=== PATIENT | female | born 1955 | race Caucasian/White ===

== ENCOUNTER 2024-03-01 06:13 | Inpatient (IN) | payer MEDICARE, OTHER ==
--- NOTE | 2024-03-01 06:18 | ED ---
SOB HPI - General Stated Complaint: WILFREDO, possible Stemi Time Seen by Provider: 03/01/24 06:17 Source: RN notes reviewed, old records reviewed Mode of arrival: EMS Limitations: no limitations, altered mental status, physical limitation - History of Present Illness Initial Comments: This is a 68-year-old aged female with significant respiratory distress unresponsive placed on BiPAP on arrival patient unable to provide history secondary to her severe distress MD Complaint: shortness of breath, cough, "asthma attack", anxiety -: unknown Severity: severe Severity scale (1-10): 10 Consistency: constant Improves With: nothing Worsens With: nothing Known History Of: COPD, asthma, congestive heart failure, diabetes Context: recent URI, anxiety, recent illness Associated Symptoms: cough Treatments Prior to Arrival: none - Related Data Home Medications Medication Instructions Recorded Confirmed Apixaban [Eliquis] 5 mg PO BID 12/16/23 03/01/24 Docusate [Colace] 100 mg PO DAILY 12/16/23 03/01/24 Dulaglutide [Trulicity] 0.75 mg SQ WE 12/16/23 03/01/24 Gabapentin [Neurontin] 100 mg PO DAILY 12/16/23 03/01/24 Cyanocobalamin (Vitamin B-12) 1,000 mcg PO DAILY 03/01/24 03/01/24 [Vitamin B-12] Fluticasone/Umeclidin/Vilanter 1 puff INHALATION RT-DAILY 03/01/24 03/01/24 [Trelegy Ellipta 100-62.5-25] Previous Rx's Medication Instructions Recorded Albuterol Inhaler [Ventolin Hfa 1 puff INHALATION RT-Q4H PRN 30 12/19/23 Inhaler] Days #1 each Aspirin 81 mg PO DAILY #30 tab 03/06/24 Atorvastatin [Lipitor] 80 mg PO HS #30 tab 03/06/24 Clopidogrel [Plavix] 75 mg PO DAILY #30 tab 03/06/24 Dapagliflozin Propanediol [Farxiga] 10 mg PO DAILY #30 tab 03/06/24 Furosemide [Lasix] 20 mg PO DAILY #30 tab 03/06/24 Metoprolol Succinate (ER) [Toprol 100 mg PO DAILY #30 tab 03/06/24 XL] Nicotine 21Mg/24Hr Patch [Habitrol] 1 patch TRANSDERM DAILY patch 03/06/24 Sacubitril/Valsartan [Entresto 24 1 each PO BID #60 tab 03/06/24 mg-26 mg Tablet] predniSONE [Deltasone] 40 mg PO DAILY #10.5 tab 03/06/24 Allergies Allergy/AdvReac Type Severity Reaction Status Date / Time clindamycin Allergy Unknown Verified 03/01/24 09:33 Penicillins Allergy Unknown Verified 03/01/24 09:33 sulfamethoxazole Allergy Unknown Verified 03/01/24 09:33 [From Bactrim] trimethoprim [From Bactrim] Allergy Unknown Verified 03/01/24 09:33 Review of Systems ROS Statement: Those systems with pertinent positive or pertinent negative responses have been documented in the HPI. ROS Other: All systems not noted in ROS Statement are negative. Past Medical History - Past Family History Mother Family Medical History: Congestive Heart Failure (CHF), Diabetes Mellitus, Deep Vein Thrombosis (DVT) General Exam Limitations: altered mental status, physical limitation General appearance: anxious, in distress Head exam: Present: atraumatic, normocephalic, normal inspection Eye exam: Present: normal appearance, PERRL, EOMI. Absent: scleral icterus, conjunctival injection, periorbital swelling ENT exam: Present: normal exam, mucous membranes moist Neck exam: Present: normal inspection. Absent: tenderness, meningismus, lymphadenopathy Respiratory exam: Present: wheezes, accessory muscle use, decreased breath sounds, prolonged expiratory. Absent: rales, rhonchi, stridor Cardiovascular Exam: Present: regular rate, normal rhythm, normal heart sounds. Absent: systolic murmur, diastolic murmur, rubs, gallop, clicks GI/Abdominal exam: Present: soft, normal bowel sounds. Absent: distended, tenderness, guarding, rebound, rigid Extremities exam: Present: normal inspection, full ROM, normal capillary refill. Absent: tenderness, pedal edema, joint swelling, calf tenderness Back exam: Present: normal inspection Neurological exam: Present: alert, oriented X3, CN II-XII intact Psychiatric exam: Present: normal affect, normal mood Skin exam: Present: warm, dry, intact, normal color. Absent: rash Course Vital Signs 03/01/24 03/01/24 03/01/24 06:14 06:23 06:30 Temperature 96.8 F L Pulse Rate 146 H 147 H Pulse Rate [ Pulse Oximetery ] Respiratory 24 Rate Blood Pressure 154/96 Blood Pressure [Right Arm Sitting] O2 Sat by Pulse 96 Oximetry Fraction of 40 Inspired Oxygen (FIO2) 03/01/24 03/01/24 03/01/24 06:46 07:37 07:51 Temperature 98.4 F Pulse Rate 141 H 131 H Pulse Rate [ Pulse Oximetery ] Respiratory 28 H 28 H Rate Blood Pressure 132/85 108/56 Blood Pressure [Right Arm Sitting] O2 Sat by Pulse 98 97 Oximetry Fraction of 40 Inspired Oxygen (FIO2) 03/01/24 03/01/24 03/01/24 09:22 09:23 10:34 Temperature Pulse Rate 122 H 120 H Pulse Rate [ Pulse Oximetery ] Respiratory 18 20 Rate Blood Pressure 107/79 117/76 Blood Pressure [Right Arm Sitting] O2 Sat by Pulse 99 100 Oximetry Fraction of Inspired Oxygen (FIO2) 03/01/24 03/01/24 03/01/24 11:09 12:10 14:02 Temperature Pulse Rate 114 H 112 H 103 H Pulse Rate [ Pulse Oximetery ] Respiratory 16 16 14 Rate Blood Pressure 90/56 111/73 Blood Pressure [Right Arm Sitting] O2 Sat by Pulse 100 96 Oximetry Fraction of 40 Inspired Oxygen (FIO2) 03/01/24 03/01/24 03/01/24 15:18 15:26 17:50 Temperature Pulse Rate 112 H 112 H 112 H Pulse Rate [ Pulse Oximetery ] Respiratory 20 20 18 Rate Blood Pressure 118/72 Blood Pressure [Right Arm Sitting] O2 Sat by Pulse 98 Oximetry Fraction of Inspired Oxygen (FIO2) 03/01/24 03/01/24 03/01/24 19:57 21:02 21:15 Temperature Pulse Rate 109 H 112 H Pulse Rate [ 114 H Pulse Oximetery ] Respiratory 24 Rate Blood Pressure Blood Pressure 99/60 [Right Arm Sitting] O2 Sat by Pulse 93 L Oximetry Fraction of Inspired Oxygen (FIO2) 03/01/24 22:00 Temperature Pulse Rate 109 H Pulse Rate [ Pulse Oximetery ] Respiratory 18 Rate Blood Pressure 94/52 Blood Pressure [Right Arm Sitting] O2 Sat by Pulse 97 Oximetry Fraction of Inspired Oxygen (FIO2) - Reevaluation(s) Reevaluation #1: 03/01/24 06:41 Medical records reviewed Patient placed on BiPAP on arrival secondary to severe distress Reevaluation #2: 03/01/24 06:41 Patient placed on BiPAP on arrival secondary to extreme respiratory distress Reevaluation #3: Patient symptoms are mildly improving Reevaluation #4: Was pt. sent in by a medical professional or institution (ANGELINE Yu, CARD FIXER, urgent care, hospital, or senior living...) When possible be specific @ -no Did you speak to anyone other than the patient for history (EMS, parent, family, police, friend...)? What history was obtained from this source @ -no Did you review nursing and triage notes (agree or disagree)? Why? @ -agree Are old charts reviewed (outside hosp., previous admission, EMS record, old EKG, old radiological studies, urgent care reports/EKG's, senior living records)? Report findings @ -yes Differential Diagnosis (chest pain, altered mental status, abdominal pain women, abdominal pain men, vaginal bleeding, weakness, fever, dyspnea, syncope, headache, dizziness, GI bleed, back pain, seizure, CVA, palpatations, mental health, musculoskeletal)? @ -prior EKG interpreted by me (3pts min.). @ -yes X-rays interpreted by me (1pt min.). @ -yes negative for acute disease CT interpreted by me (1pt min.). @ -no U/S interpreted by me (1pt. min.). @ -no What testing was considered but not performed or refused? (CT, X-rays, U/S, labs)? Why? @ -none What meds were considered but not given or refused? Why? @ -none Did you discuss the management of the patient with other professionals (professionals i.e. ANGELINE Yu, CARD FIXER, lab, RT, psych nurse, licensed clinical social worker, pharmacy services representative, teacher, examining officer, telephonic nurse case manager)? Give summary @ -no Was smoking cessation discussed for >3mins.? @ -no Was critical care preformed (if so, how long)? @ -yes31 Were there social determinants of health that impacted care today? How? (Homelessness, low income, unemployed, alcoholism, drug addiction, transportati on, low edu. Level, literacy, decrease access to med. care, correction, rehab)? @ -none Was there de-escalation of care discussed even if they declined (Discuss DNR or withdrawal of care, Hospice)? DNR status @ -no What co-morbidities impacted this encounter? (DM, HTN, Smoking, COPD, CAD, Cancer, CVA, ARF, Chemo, Hep., AIDS, mental health diagnosis, sleep apnea, morbid obesity)? @ -none Was patient admitted / discharged? Hospital course, mention meds given and route, prescriptions, significant lab abnormalities, going to OR and other pertinent info. @ - 68 female coming in for severe shortness of breath since this is likely COPD exacerbation complicated by CHF and pneumonitis with significant wheezing paradoxical breathing patient placed on BiPAP and will admit for further supportive care Admitted Undiagnosed new problem with uncertain prognosis? @ -no Drug Therapy requiring intensive monitoring for toxicity (Heparin, Nitro, Insulin, Cardizem)? @ -no Were any procedures done? @ -no Diagnosis/symptom? @ -Hypoxic respiratory failure Acute, or Chronic, or Acute on Chronic? @ -Acute Uncomplicated (without systemic symptoms) or Complicated (systemic symptoms)? @ -Complicated Side effects of treatment? @ -no Exacerbation, Progression, or Severe Exacerbation? @ -exacerbation Poses a threat to life or bodily function? How? (Chest pain, USA, NM, pneumonia, PE, COPD, DKA, ARF, appy, cholecystitis, CVA, Diverticulitis, Homicidal, Suicidal, threat to staff... and all critical care pts) @ -yes respiratory failure Reevaluation #5: Differential Dyspnea: Coronary syndrome, arrhythmia, tamponade, asthma, COPD, pulmonary embolism, pneumonia, pneumothorax, pulmonary effusion, anaphylaxis, diabetic ketoacidosis, flailed chest, pulmonary contusion, diaphragmatic rupture, anemia, neuromuscular, this is not meant to be an all-inclusive list. - Consultations Consultation #1: Spoke with admitting physicians who agreed to admit this patient Medical Decision Making - Medical Decision Making 68 female coming in for severe shortness of breath since this is likely COPD exacerbation complicated by CHF and pneumonitis with significant wheezing paradoxical breathing patient placed on BiPAP and will admit for further supportive care - Lab Data Result diagrams: 03/06/24 09:16 03/06/24 09:16 Lab Results 03/01/24 03/01/24 03/01/24 Range/Units 06:24 06:24 06:24 WBC 13.9 H (3.8-10.6) k/uL RBC 4.59 (3.80-5.40) m/uL Hgb 13.7 (11.4-16.0) gm/dL Hct 44.1 (34.0-46.0) % MCV 96.0 (80.0-100.0) fL MCH 29.8 (25.0-35.0) pg MCHC 31.1 (31.0-37.0) g/dL RDW 15.4 (11.5-15.5) % Plt Count 448 (150-450) k/uL MPV 8.7 Neutrophils % 56 % Lymphocytes % 29 % Monocytes % 5 % Eosinophils % 9 % Basophils % 0 % Neutrophils # 7.8 H (1.3-7.7) k/uL Lymphocytes # 4.0 (1.0-4.8) k/uL Monocytes # 0.6 (0-1.0) k/uL Eosinophils # 1.2 H (0-0.7) k/uL Basophils # 0.1 (0-0.2) k/uL Hypochromasia Marked PT 10.1 (10.0-12.5) sec INR 0.9 (<1.2) APTT 22.1 (22.0-30.0) sec D-Dimer (<0.60) mg/L FEU Sodium 137 (137-145) mmol/L Potassium 5.2 H (3.5-5.1) mmol/L Chloride 103 (98-107) mmol/L Carbon Dioxide 19 L (22-30) mmol/L Anion Gap 15 mmol/L BUN 22 H (7-17) mg/dL Creatinine 1.10 H (0.52-1.04) mg/dL Est GFR (CKD-EPI)AfAm 60 (>60 ml/min/1.73 sqM) Est GFR (CKD-EPI)NonAf 52 (>60 ml/min/1.73 sqM) Glucose 334 H (74-99) mg/dL Plasma Lactic Acid Mark (0.7-2.0) mmol/L Calcium 9.4 (8.4-10.2) mg/dL Magnesium 2.3 (1.6-2.3) mg/dL Total Bilirubin 0.5 (0.2-1.3) mg/dL AST 42 H (14-36) U/L ALT 27 (4-34) U/L Alkaline Phosphatase 121 (38-126) U/L Troponin I (0.000-0.034) ng/mL NT-Pro-B Natriuret Pep 96 pg/mL Total Protein 6.8 (6.3-8.2) g/dL Albumin 4.3 (3.5-5.0) g/dL 03/01/24 03/01/24 03/01/24 Range/Units 06:24 06:24 06:24 WBC (3.8-10.6) k/uL RBC (3.80-5.40) m/uL Hgb (11.4-16.0) gm/dL Hct (34.0-46.0) % MCV (80.0-100.0) fL MCH (25.0-35.0) pg MCHC (31.0-37.0) g/dL RDW (11.5-15.5) % Plt Count (150-450) k/uL MPV Neutrophils % % Lymphocytes % % Monocytes % % Eosinophils % % Basophils % % Neutrophils # (1.3-7.7) k/uL Lymphocytes # (1.0-4.8) k/uL Monocytes # (0-1.0) k/uL Eosinophils # (0-0.7) k/uL Basophils # (0-0.2) k/uL Hypochromasia PT (10.0-12.5) sec INR (<1.2) APTT (22.0-30.0) sec D-Dimer 0.80 H (<0.60) mg/L FEU Sodium (137-145) mmol/L Potassium (3.5-5.1) mmol/L Chloride (98-107) mmol/L Carbon Dioxide (22-30) mmol/L Anion Gap mmol/L BUN (7-17) mg/dL Creatinine (0.52-1.04) mg/dL Est GFR (CKD-EPI)AfAm (>60 ml/min/1.73 sqM) Est GFR (CKD-EPI)NonAf (>60 ml/min/1.73 sqM) Glucose (74-99) mg/dL Plasma Lactic Acid Mark 5.5 H* (0.7-2.0) mmol/L Calcium (8.4-10.2) mg/dL Magnesium (1.6-2.3) mg/dL Total Bilirubin (0.2-1.3) mg/dL AST (14-36) U/L ALT (4-34) U/L Alkaline Phosphatase (38-126) U/L Troponin I <0.012 (0.000-0.034) ng/mL NT-Pro-B Natriuret Pep pg/mL Total Protein (6.3-8.2) g/dL Albumin (3.5-5.0) g/dL - EKG Data -: EKG Interpreted by Me (EKG is sinus tachycardia 146 VA 158 QRS 68 QTc 359) - Radiology Data Radiology results: report reviewed (Chest x-ray is positive for CHF with pneumonitis), image reviewed Critical Care Time Critical Care Time: Yes Total Critical Care Time: 31 Disposition Clinical Impression: Acute exacerbation of chronic obstructive pulmonary disease, Asthma with acute exacerbation, Asthma with status asthmaticus, Acute respiratory failure, Hypoxia, CHF (congestive heart failure) Disposition: ADMITTED IP TO THIS HOSP Condition: Serious Is patient prescribed a controlled substance at d/c from ED?: No Time of Disposition: 08:50
[2024-03-01] MEDS: SODIUM CHLORIDE 0.9% 1,000 ML IV STA (06:23)
[2024-03-01] MEDS: methylPREDNISolone SOD SUCCI 125 MG/2 ML VIAL IV STA (06:26)
[2024-03-01] MEDS: MORPHINE SULFATE 2 MG/ML SYRINGE IVP STA (06:28)
[2024-03-01] MEDS: MAGNESIUM SULFATE-D5W PMX 1 GM in DEXTROSE/WATER 1 100ML.BAG IVPB SCH (06:41)
[2024-03-01] MEDS: ALBUTEROL NEBULIZED 2.5 MG/3 ML INHALATION STA (06:44)
[2024-03-01] MEDS: IPRATROPIUM 0.5 MG/2.5 ML NEBU INHALATION STA (06:45)
[2024-03-01] MEDS ORDERED: NALOXONE 0.4 MG/ML 1 ML VIAL IV PRN (06:51)
[2024-03-01] MEDS ORDERED: NALOXONE 0.4 MG/ML 1 ML VIAL IVP PRN (06:51)
[2024-03-01] MEDS ORDERED: ONDANSETRON 4 MG/2 ML VIAL IVP PRN (06:51)
[2024-03-01] MEDS: DILTIAZEM DRIP BOLUS FROM BAG 1 MG SOLN IV ONE (07:05)
[2024-03-01] MEDS: DILTIAZEM 125 MG in SODIUM CHLORIDE 0.9% 100 ML IV SCH (07:06)
[2024-03-01 07:07] LABS: Basophils # (A) 0.1 k/uL (0-0.2); Basophils % (A) 0 %; Eosinophils # (A) 1.2 k/uL (0-0.7); Eosinophils % (A) 9 %; HCT 44.1 % (34.0-46.0); HGB 13.7 gm/dL (11.4-16.0); Hypochromasia Marked; Lymphocytes % (A) 29 %; MCH 29.8 pg (25.0-35.0); MCHC 31.1 g/dL (31.0-37.0); Mean Platelet Volume 8.7; Monocytes # (A) 0.6 k/uL (0-1.0); Monocytes % (A) 5 %; Neutrophils # (A) 7.8 k/uL (1.3-7.7); Neutrophils % (A) 56 %; Platelet Count 448 k/uL (150-450); RBC 4.59 m/uL (3.80-5.40); RDW 15.4 % (11.5-15.5); WBC 13.9 k/uL (3.8-10.6)
[2024-03-01 07:17] LABS: INR 0.9 (<1.2); Partial Thromboplastin Time 22.1 sec (22.0-30.0); Prothrombin Time 10.1 sec (10.0-12.5)
[2024-03-01 07:20] LABS: ALT 27 U/L (4-34); AST 42 U/L (14-36); African American GFR (CKD) 60 (>60 ml/min/1.73 sqM); Albumin 4.3 g/dL (3.5-5.0); Alkaline Phosphatase 121 U/L (38-126); Anion Gap 15 mmol/L; Blood Urea Nitrogen 22 mg/dL (7-17); Calcium 9.4 mg/dL (8.4-10.2); Carbon Dioxide 19 mmol/L (22-30); Chloride 103 mmol/L (98-107); Glucose 334 mg/dL (74-99); Magnesium 2.3 mg/dL (1.6-2.3); Non-African American GFR(CKD) 52 (>60 ml/min/1.73 sqM); Potassium 5.2 mmol/L (3.5-5.1); Sodium 137 mmol/L (137-145); Total Bilirubin 0.5 mg/dL (0.2-1.3); Total Protein 6.8 g/dL (6.3-8.2)
[2024-03-01 07:27] LABS: NT-Pro-B-Type Natriuretic Pept 96 pg/mL
[2024-03-01] MEDS: IPRATROPIUM-ALBUTEROL 3 ML NEB INHALATION STA (07:44)
--- NOTE | 2024-03-01 07:55 | XR ---
EXAMINATION TYPE: XR chest 1V portable DATE OF EXAM: 03/01/2024 Comparison: 12/16/2023 Clinical History: 68-year-old female sob Findings: Heart normal size. Increased interstitial opacities bilaterally especially in the upper and midlungs. No pleural effusion. Impression: Diffuse increased interstitial opacity especially in the upper and mid lungs. Some differential consi derations include early noncardiogenic pulmonary edema, atypical pneumonias, and interstitial pneumon itis. Clinically correlate.
[2024-03-01] MEDS: NICOTINE 21MG/24HR PATCH TRANSDERM SCH (09:58)
[2024-03-01] MEDS ORDERED: lisinopriL 10 MG TAB PO PRN (10:46)
--- NOTE | 2024-03-01 10:49 | P.CRDCN ---
History of Present Illness History of present illness: HISTORY OF PRESENT ILLNESS: This is a 68-year-old female with a past medical history significant for COPD, diabetes, hypertension, hyperlipidemia, and atrial fibrillation. Patient follows with a ward service supervisor in [facility] Dr Koo. We have been asked to see the patient in consultation for chest pain. Patient examined at the bedside in the emergency room. According to the patient's nurse, the patient came to the hospital to chief complaint of shortness of breath. Patient was found to be obtunded upon arrival. Patient is currently on BiPAP and her mental status has improved. Patient currently denies any chest pain or pressure. She does report shortness of breath. EKG and bedside telemetry reveals sinus tachycardia. She was initially started on IV Cardizem which has since been discontinued. DIAGNOSTICS: - EKG reveals sinus tachycardia - Chest xray diffuse increased interstitial opacities especially in the upper and mid lungs. - Laboratory data: WBC 13.9. Hemoglobin 13.7. Platelet count 448. Sodium 137. Potassium 5.2. BUN 22. Creatinine 1.10. Troponin negative x 1. - Current home cardiac medications include lisinopril 10 mg daily as needed, Eliquis 5 mg twice a day, Cardizem CD 120 mg daily, Lipitor 40 mg at night REVIEW OF SYSTEMS: At the time of my exam: CONSTITUTIONAL: Denies fever or chills. HEENT: Denies blurred vision, vision changes, or eye pain. Denies hemoptysis CARDIOVASCULAR: Denies chest pain. Denies orthopnea. Denies PND. Denies palpitations RESPIRATORY: + shortness of breath. GASTROINTESTINAL: Denies abdominal pain. Denies nausea or vomiting. HEMATOLOGIC: Denies bleeding disorders. GENITOURINARY: Denies any blood in urine. SKIN: Denies pruitis. Denies rash. PHYSICAL EXAM: VITAL SIGNS: Reviewed. GENERAL: Well-developed in no acute distress. HEENT: Head is normocephalic. Pupils are equal, round. Sclerae anicteric. Mucous membranes of the mouth are moist. Neck supple. No JVD or thyromegaly LUNGS: Respirations even and unlabored. Lungs with decreased air exhange. On Bipap. HEART: Tachycardic. Regular rate and rhythm. S1 and S2 heard. ABDOMEN: Soft. Nondistended. Nontender. EXTREMITIES: Normal range of motion. No clubbing or cyanosis. Peripheral pulses intact. No lower extremity edema NEUROLOGIC: Awake and alert. Oriented x 3. ASSESSMENT: Altered mental status, improving Acute hypoxic respiratory failure, on BiPAP Sinus tachycardia Paroxysmal atrial fibrillation COPD exacerbation Hypertension and hyperlipidemia PLAN: Obtain 2D echo to assess cardiac structure and function Discontinue IV Cardizem Resume home cardiac medications Continue telemetry monitoring Further recommendations pending patient course Nurse practitioner note has been reviewed by physician. Signing provider agrees with the documented findings, assessment, and plan of care documented by LATHER APPRENTICE as a scribe. 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, two blader cancer tumors removed Past Anesthesia/Blood Transfusion Reactions: No Reported Reaction Past Psychological History: Unable to Obtain Smoking Status: Unknown if ever smoked Past Alcohol Use History: Unable to Obtain Past Drug Use History: Unable to Obtain Medications and Allergies Home Medications Medication Instructions Recorded Confirmed Type Apixaban [Eliquis] 5 mg PO BID 12/16/23 03/01/24 History Atorvastatin [Lipitor] 40 mg PO HS 12/16/23 03/01/24 History Docusate [Colace] 100 mg PO DAILY 12/16/23 03/01/24 History Dulaglutide [Trulicity] 0.75 mg SQ WE 12/16/23 03/01/24 History Gabapentin [Neurontin] 100 mg PO DAILY 12/16/23 03/01/24 History dilTIAZem HCL [Cardizem CD] 120 mg PO DAILY 12/16/23 03/01/24 History lisinopriL [Zestril] 10 mg PO DAILY PRN 12/16/23 03/01/24 History Albuterol Inhaler [Ventolin Hfa 1 puff INHALATION RT-Q4H PRN 30 12/19/23 03/01/24 Rx Inhaler] Days #1 each Cyanocobalamin (Vitamin B-12) 1,000 mcg PO DAILY 03/01/24 03/01/24 History [Vitamin B-12] Fluticasone/Umeclidin/Vilanter 1 puff INHALATION RT-DAILY 03/01/24 03/01/24 History [Trelegy Ellipta 100-62.5-25] Allergies Allergy/AdvReac Type Severity Reaction Status Date / Time clindamycin Allergy Unknown Verified 03/01/24 09:33 Penicillins Allergy Unknown Verified 03/01/24 09:33 sulfamethoxazole Allergy Unknown Verified 03/01/24 09:33 [From Bactrim] trimethoprim [From Bactrim] Allergy Unknown Verified 03/01/24 09:33 Physical Exam Vitals: Vital Signs Temp Pulse Resp BP Pulse Ox FiO2 03/01/24 10:34 120 H 20 117/76 100 03/01/24 09:23 107/79 03/01/24 09:22 122 H 18 99 03/01/24 07:51 40 03/01/24 07:37 98.4 F 131 H 28 H 108/56 97 03/01/24 06:46 141 H 28 H 132/85 98 03/01/24 06:30 147 H 03/01/24 06:23 40 03/01/24 06:14 96.8 F L 146 H 24 154/96 96 Intake and Output 02/29/24 03/01/24 03/01/24 22:59 06:59 14:59 Other: Weight 71.622 kg Results 03/01/24 06:24 03/01/24 06:24 Cardiac Enzymes 03/01/24 03/01/24 Range/Units 06:24 06:24 AST 42 H (14-36) U/L Troponin I <0.012 (0.000-0.034) ng/mL Coagulation 03/01/24 Range/Units 06:24 PT 10.1 (10.0-12.5) sec APTT 22.1 (22.0-30.0) sec CBC 03/01/24 Range/Units 06:24 WBC 13.9 H (3.8-10.6) k/uL RBC 4.59 (3.80-5.40) m/uL Hgb 13.7 (11.4-16.0) gm/dL Hct 44.1 (34.0-46.0) % Plt Count 448 (150-450) k/uL Comprehensive Metabolic Panel 03/01/24 Range/Units 06:24 Sodium 137 (137-145) mmol/L Potassium 5.2 H (3.5-5.1) mmol/L Chloride 103 (98-107) mmol/L Carbon Dioxide 19 L (22-30) mmol/L BUN 22 H (7-17) mg/dL Creatinine 1.10 H (0.52-1.04) mg/dL Glucose 334 H (74-99) mg/dL Calcium 9.4 (8.4-10.2) mg/dL AST 42 H (14-36) U/L ALT 27 (4-34) U/L Alkaline Phosphatase 121 (38-126) U/L Total Protein 6.8 (6.3-8.2) g/dL Albumin 4.3 (3.5-5.0) g/dL Current Medications Generic Name Dose Route Start Last Admin Trade Name Freq PRN Reason Stop Dose Admin Albuterol/Ipratropium 3 ml 03/01/24 12:00 Ipratropium-Albuterol 3 Ml Neb INHALATION RT-QID IMER Methylprednisolone Sodium Succinate 60 mg 03/01/24 12:00 Methylprednisolone Sod Succi 125 Mg/2 Ml Vial IV Q6HR IMER Naloxone HCl 0.2 mg 03/01/24 06:51 Naloxone 0.4 Mg/Ml 1 Ml Vial IV Q2M PRN Opioid Reversal Nicotine 1 patch 03/01/24 09:00 03/01/24 09:58 Nicotine 21mg/24hr Patch TRANSDERM 1 patch DAILY IMER Administration Ondansetron HCl 4 mg 03/01/24 06:51 Ondansetron 4 Mg/2 Ml Vial IVP Q8HR PRN Nausea And Vomiting Intake and Output 02/29/24 03/01/24 03/01/24 22:59 06:59 14:59 Other: Weight 71.622 kg 03/01/24 06:24 03/01/24 06:24
[2024-03-01] MEDS: APIXABAN 5 MG TAB PO SCH (11:06)
[2024-03-01] MEDS: IPRATROPIUM-ALBUTEROL 3 ML NEB INHALATION SCH (11:09)
--- NOTE | 2024-03-01 11:14 | CA ---
Transthoracic Echo Report Name: Lacie Rubio Age: 68 Gender: F : 1955 Exam Date: 03/01/2024 10:06 Exam Location: [facility] Ht (in): 62 Wt (lb): 157 Ordering Physician: Tasha Thomson Attending/Referring Phys: [id number], Alix Ramp Service Man Kristen Wilkerson RDCS Procedure CPT: Indications: SOB, LV function Cardiac Hx: COPD Technical Quality: Fair Contrast 1: Definity Total Dose (mL): 2 Contrast 2: Total Dose (mL): MEASUREMENTS (Male / Female) Normal Values 2D ECHO LV Diastolic Diameter PLAX 4.6 cm 4.2 - 5.9 / 3.9 - 5.3 cm LV Systolic Diameter PLAX 4.5 cm IVS Diastolic Thickness 0.9 cm 0.6 - 1.0 / 0.6 - 0.9 cm LVPW Diastolic Thickness 1.1 cm 0.6 - 1.0 / 0.6 - 0.9 cm LV Relative Wall Thickness 0.4 RV Internal Dim ED PLAX 0.9 cm LA Systolic Diameter LX 3.0 cm 3.0 - 4.0 / 2.7 - 3.8 cm LV Diastolic Volume MOD BP 122.3 cm??? 67 - 155 / 56 - 104 cm??? LV Systolic Volume MOD BP 101.2 cm??? 22 - 58 / 19 - 49 cm??? LV Ejection Fraction MOD BP 17.2 % >= 55 % LV Cardiac Index MOD BP 1354.6 cm???/min???m??? LV Diastolic Volume MOD 4C 116.9 cm??? LV Systolic Volume MOD 4C 99.4 cm??? LV Ejection Fraction MOD 4C 15.0 % LV Cardiac Index MOD 4C 1125.6 cm???/min???m??? LV Diastolic Length 4C 8.3 cm LV Systolic Length 4C 8.0 cm LV Diastolic Volume MOD 2C 121.4 cm??? LV Systolic Volume MOD 2C 103.3 cm??? LV Ejection Fraction MOD 2C 14.9 % LV Cardiac Index MOD 2C 1163.1 cm???/min???m??? LV Diastolic Length 2C 7.8 cm LV Systolic Length 2C 8.0 cm M-MODE Aortic Root Diameter MM 2.8 cm LA Systolic Diameter MM 3.0 cm LA Ao Ratio MM 1.0 AV Cusp Separation MM 1.2 cm DOPPLER AV Peak Velocity 98.8 cm/s AV Peak Gradient 3.9 mmHg MV E' Velocity 9.3 cm/s TR Peak Velocity 226.6 cm/s TR Peak Gradient 20.5 mmHg Right Ventricular Systolic Press 40.5 mmHg FINDINGS Left Ventricle Left ventricular ejection fraction is estimated at 20%. Mildly increased posterior wall thickness. Moderately increased left ventricular diastolic volume. Severely increased left ventricular systolic volume. Severely decreased left ventricular ejection fraction. Right Ventricle Normal right ventricular size and function. Mild pulmonary hypertension. Right Atrium Normal right atrial size. Left Atrium Normal left atrial size. Mitral Valve Structurally normal mitral valve. Mild mitral regurgitation. No mitral stenosis. Aortic Valve Trileaflet aortic valve. No aortic stenosis. No aortic regurgitation. Tricuspid Valve Structurally normal tricuspid valve. Trace tricuspid regurgitation. No tricuspid stenosis. Pulmonic Valve Structurally normal pulmonic valve. Trace pulmonic regurgitation. No pulmonic stenosis. Pericardium No significant pericardial effusion, possible fat pad Aorta Normal size aortic root and proximal ascending aorta. CONCLUSIONS Left ventricle is enlarged there is severe hypokinesia of the mid to distal septum adjoining anteroapical wall and inferoapical wall. Base of the ventricle contracts well. Echocardiographic picture is that of possible Takotsubo syndrome. No significant abnormality on the Doppler exam no pericardial effusion. Possible fat pad Previewed by: Dr. Rody Badillo MD (Electronically Signed) Final Date: 01 March 2024 11:13
[2024-03-01] MEDS ORDERED: ALBUTEROL NEBULIZED 2.5 MG/3 ML INHALATION PRN (11:16)
--- NOTE | 2024-03-01 11:18 | P.HPIM ---
History of Present Illness 68-year-old female with known history of COPD continues to smoke came in with complaints of severe shortness of breath and was obtunded patient was started on BiPAP with significant improvement in her respiratory status and mental status patient is able to answer questions appropriately to me. Patient denies fever chills patient does have mild leukocytosis mildly elevated serum creatinine 1.1 and potassium of 5.2 patient denies any chest pain. Troponin is negative but second 1 was slightly higher at 0.41. Patient was having sinus tachycardia, cardiology was consulted and patient was started on IV Cardizem which was subsequently discontinued by cardiology. Chest x-ray showed diffuse interstitial opacities which is mostly consistent with interstitial pneumonitis or interstitial lung disease.. Patient had a history of bladder cancer in the past unknown whether she received radiation. Patient had elevated D-dimer which is only slight elevation. Patient's BNP is 96. Serum potassium is 5.2. REVIEW OF SYSTEMS: All other systems are negative except those mentioned in the HPI PHYSICAL EXAMINATION: GENERAL: Patient still in some respiratory distress is on BiPAP alert drowsy oriented x 3 HEENT: Pupils are round and equally reacting to light. EOMI. No scleral icterus. No conjunctival pallor. Normocephalic, atraumatic. No pharyngeal erythema. No thyromegaly. CARDIOVASCULAR: S1 and S2 present. No murmurs, rubs, or gallops. PULMONARY: Chest is clear to auscultation, no wheezing or crackles. ABDOMEN: Soft, nontender, nondistended, normoactive bowel sounds. No palpable organomegaly. MUSCULOSKELETAL: No joint swelling or deformity. EXTREMITIES: No cyanosis, clubbing, or pedal edema. NEUROLOGICAL: Gross neurological examination did not reveal any focal deficits. SKIN: No rashes. Assessment and plan -Acute hypercapnic respiratory failure secondary to COPD exacerbation continue systemic steroids inhalational treatments no evidence of pneumonia -Acute hypoxic respiratory failure secondary to possible interstitial lung disease no evidence of CHF clinically patient may actually need fluids well the patient received empiric Lasix to see if her respiratory status improves -Sinus tachycardia secondary to hypoxemia -Elevated troponin secondary to shortness of breath cardiology evaluated the patient further management as per cardiology and patient is being started on IV heparin -Paroxysmal atrial fibrillation -Hypertension -Hyperlipidemia Acute renal failure may require IV fluids -Type 2 diabetes mellitus blood sugars are uncontrolled secondary to systemic steroids will use high-dose sliding scale DVT prophylaxis: On heparin IV 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, two blader cancer tumors removed Past Anesthesia/Blood Transfusion Reactions: No Reported Reaction Past Psychological History: Unable to Obtain Smoking Status: Unknown if ever smoked Past Alcohol Use History: Unable to Obtain Past Drug Use History: Unable to Obtain Medications and Allergies Home Medications Medication Instructions Recorded Confirmed Type Apixaban [Eliquis] 5 mg PO BID 12/16/23 03/01/24 History Atorvastatin [Lipitor] 40 mg PO HS 12/16/23 03/01/24 History Docusate [Colace] 100 mg PO DAILY 12/16/23 03/01/24 History Dulaglutide [Trulicity] 0.75 mg SQ WE 12/16/23 03/01/24 History Gabapentin [Neurontin] 100 mg PO DAILY 12/16/23 03/01/24 History dilTIAZem HCL [Cardizem CD] 120 mg PO DAILY 12/16/23 03/01/24 History lisinopriL [Zestril] 10 mg PO DAILY PRN 12/16/23 03/01/24 History Albuterol Inhaler [Ventolin Hfa 1 puff INHALATION RT-Q4H PRN 30 12/19/23 03/01/24 Rx Inhaler] Days #1 each Cyanocobalamin (Vitamin B-12) 1,000 mcg PO DAILY 03/01/24 03/01/24 History [Vitamin B-12] Fluticasone/Umeclidin/Vilanter 1 puff INHALATION RT-DAILY 03/01/24 03/01/24 History [Trelegy Ellipta 100-62.5-25] Allergies Allergy/AdvReac Type Severity Reaction Status Date / Time clindamycin Allergy Unknown Verified 03/01/24 09:33 Penicillins Allergy Unknown Verified 03/01/24 09:33 sulfamethoxazole Allergy Unknown Verified 03/01/24 09:33 [From Bactrim] trimethoprim [From Bactrim] Allergy Unknown Verified 03/01/24 09:33 Physical Exam Vitals: Vital Signs Temp Pulse Resp BP Pulse Ox FiO2 03/01/24 11:09 114 H 16 40 03/01/24 10:34 120 H 20 117/76 100 03/01/24 09:23 107/79 03/01/24 09:22 122 H 18 99 03/01/24 07:51 40 03/01/24 07:37 98.4 F 131 H 28 H 108/56 97 03/01/24 06:46 141 H 28 H 132/85 98 03/01/24 06:30 147 H 03/01/24 06:23 40 03/01/24 06:14 96.8 F L 146 H 24 154/96 96 Intake and Output 02/29/24 03/01/24 03/01/24 22:59 06:59 14:59 Other: Weight 71.622 kg Results CBC & Chem 7: 03/01/24 06:24 03/01/24 06:24 Labs: Abnormal Lab Results - Last 24 Hours (Table) 03/01/24 03/01/24 03/01/24 Range/Units 06:24 06:24 06:24 WBC 13.9 H (3.8-10.6) k/uL Neutrophils # 7.8 H (1.3-7.7) k/uL Eosinophils # 1.2 H (0-0.7) k/uL D-Dimer (<0.60) mg/L FEU Potassium 5.2 H (3.5-5.1) mmol/L Carbon Dioxide 19 L (22-30) mmol/L BUN 22 H (7-17) mg/dL Creatinine 1.10 H (0.52-1.04) mg/dL Glucose 334 H (74-99) mg/dL Plasma Lactic Acid Mark 5.5 H* (0.7-2.0) mmol/L AST 42 H (14-36) U/L Troponin I (0.000-0.034) ng/mL 03/01/24 03/01/24 03/01/24 Range/Units 06:24 09:52 09:52 WBC (3.8-10.6) k/uL Neutrophils # (1.3-7.7) k/uL Eosinophils # (0-0.7) k/uL D-Dimer 0.80 H (<0.60) mg/L FEU Potassium (3.5-5.1) mmol/L Carbon Dioxide (22-30) mmol/L BUN (7-17) mg/dL Creatinine (0.52-1.04) mg/dL Glucose (74-99) mg/dL Plasma Lactic Acid Mark 2.5 H* (0.7-2.0) mmol/L AST (14-36) U/L Troponin I 0.412 H* (0.000-0.034) ng/mL
[2024-03-01] MEDS ORDERED: GABAPENTIN 100 MG CAP PO SCH (11:30)
[2024-03-01] MEDS ORDERED: methylPREDNISolone SOD SUCCI 125 MG/2 ML VIAL IV SCH (12:00)
[2024-03-01] MEDS: HEPARIN SOD,PORK IN 0.45% NACL 25,000 UNIT in 0.45% NACL 1 250ML.BAG IV SCH (12:12)
[2024-03-01] MEDS: HEPARIN SODIUM 1,000 UN/ML (10ML VL) IV ONE (12:16)
[2024-03-01] MEDS: DILTIAZEM CD 120 MG CAP.ER.24H PO SCH (12:18)
[2024-03-01] MEDS: FUROSEMIDE 10 MG/ML 2 ML VIAL IV ONE (12:22)
[2024-03-01 12:27] LABS: Glucose,Whole Blood 187 mg/dL (70-110)
[2024-03-01 12:33] LABS: INR 0.9 (<1.2); Partial Thromboplastin Time 23.7 sec (22.0-30.0); Prothrombin Time 9.8 sec (10.0-12.5)
[2024-03-01] MEDS: INSULIN ASPART (NovoLOG) 100 UNIT/ML VIAL SQ SCH (12:45)
[2024-03-01 13:08] LABS: Basophils % (A) 0 %; Eosinophils % (A) 0 %; HCT 46.4 % (34.0-46.0); HGB 14.6 gm/dL (11.4-16.0); Lymphocytes # (A) 0.4 k/uL (1.0-4.8); Lymphocytes % (A) 3 %; MCH 30.3 pg (25.0-35.0); MCHC 31.6 g/dL (31.0-37.0); MCV 96.1 fL (80.0-100.0); Mean Platelet Volume 9.5; Monocytes # (A) 0.2 k/uL (0-1.0); Monocytes % (A) 1 %; Neutrophils # (A) 15.1 k/uL (1.3-7.7); Neutrophils % (A) 96 %; Platelet Count 306 k/uL (150-450); RBC 4.83 m/uL (3.80-5.40); RDW 15.5 % (11.5-15.5); WBC 15.8 k/uL (3.8-10.6)
--- NOTE | 2024-03-01 14:57 | P.CNPUL ---
History of Present Illness Consult date: 03/01/24 Reason for consult: dyspnea History of present illness: 03/01/2024, the patient is being seen in consultation in the emergency room for acute shortness of breath. The patient was hospitalized few months back for an acute stroke exacerbation and following the treatment, the patient was seen in our office in the baseline FEV1 was in the order of 41% predicted and the patient had a diffusion capacity of 41% of predicted and the patient was started on Trelegy Ellipta 1 puff a day. The patient continues to smoke cigarettes. Today she is coming in with acute dyspnea chest tightness and wheezing and shortness of breath. In the emergency, the patient had diminished level of consciousness. The patient was placed on a BiPAP at a pressure of 12 over 5 cm of water and titration of FiO2 of 40%. Mother states that she improved and the patient is currently much more comfortable generating more than 400 cc of air and tidal volume on the BiPAP machine. Breathing is more comfortable. She is actively bronchospastic and wheezy. She is on bronchodilators. She is on steroids and the patient is currently on IV Solu-Medrol. 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 She has diabetes mellitus. She has hypertension hyperlipidemia as comorbid conditions. Her current EKG showing sinus tachycardia. The white cell count of 15.8 with hemoglobin 14.6 and a platelet count of 306. Her lactic acid level is at 2.3, troponins were elevated at 0.4 and 0.5 respectively x 2. Cardiology consultation has been obtained. Echocardiogram is ordered and we are still awaiting further recommendations from cardiology for troponin leak. Chest x-ray showed increased pulmonary vascular congestion/edema. . Based on that, I gave the patient a dose of Lasix 20 mg IV in the emergency department. Review of Systems Constitutional: Reports as per HPI Eyes: denies as per HPI, denies blurred vision, denies bulging eye, denies decreased vision, denies diplopia, denies discharge, denies dry eye, denies irritation, denies itching, denies pain, denies photophobia, denies loss of peripheral vision, denies loss of vision, denies tunnel vision/blind spots Ears: deny: decreased hearing, ear discharge, earache, tinnitus Ears, nose, mouth and throat: Reports as per HPI Breasts: absent: as per HPI, change in shape, gynecomastia, masses, nipple discharge, pain, skin changes, swelling Cardiovascular: Reports decreased exercise tolerance, Reports dyspnea on exertion Respiratory: Reports cough, Reports dyspnea, Reports home oxygen, Reports wheezing Gastrointestinal: Reports as per HPI Genitourinary: Reports as per HPI Menstruation: Reports as per HPI Musculoskeletal: Reports as per HPI Musculoskeletal: absent: ankle pain, ankle stiffness, ankle swelling, as per HPI, elbow pain, elbow stiffness, elbow swelling, foot pain, foot stiffness, foot swelling, hand pain, hand stiffness, hand swelling, hip pain, hip stiffnes s, hip swelling, knee pain, knee stiffness, knee swelling, shoulder pain, shoulder stiffness, shoulder swelling, wrist pain, wrist stiffness, wrist swelling Integumentary: Reports as per HPI Neurological: Reports as per HPI Psychiatric: Reports as per HPI Endocrine: Reports as per HPI Hematologic/Lymphatic: Reports as per HPI Allergic/Immunologic: Reports as per HPI Past Medical History Past Medical History: Atrial Fibrillation, COPD, Diabetes Mellitus, Hyperlipidemia, Hypertension Additional Past Medical History / Comment(s): Diabetes Type 2 History of Any Multi-Drug Resistant Organisms: Unobtainable Past Surgical History: Unable to Obtain Additional Past Surgical History / Comment(s): D&C, two blader cancer tumors removed Past Anesthesia/Blood Transfusion Reactions: No Reported Reaction Past Psychological History: Unable to Obtain Smoking Status: Unknown if ever smoked Past Alcohol Use History: Unable to Obtain Past Drug Use History: Unable to Obtain Medications and Allergies Home Medications Medication Instructions Recorded Confirmed Type Apixaban [Eliquis] 5 mg PO BID 12/16/23 03/01/24 History Atorvastatin [Lipitor] 40 mg PO HS 12/16/23 03/01/24 History Docusate [Colace] 100 mg PO DAILY 12/16/23 03/01/24 History Dulaglutide [Trulicity] 0.75 mg SQ WE 12/16/23 03/01/24 History Gabapentin [Neurontin] 100 mg PO DAILY 12/16/23 03/01/24 History dilTIAZem HCL [Cardizem CD] 120 mg PO DAILY 12/16/23 03/01/24 History lisinopriL [Zestril] 10 mg PO DAILY PRN 12/16/23 03/01/24 History Albuterol Inhaler [Ventolin Hfa 1 puff INHALATION RT-Q4H PRN 30 12/19/23 03/01/24 Rx Inhaler] Days #1 each Cyanocobalamin (Vitamin B-12) 1,000 mcg PO DAILY 03/01/24 03/01/24 History [Vitamin B-12] Fluticasone/Umeclidin/Vilanter 1 puff INHALATION RT-DAILY 03/01/24 03/01/24 History [Trelegy Ellipta 100-62.5-25] Allergies Allergy/AdvReac Type Severity Reaction Status Date / Time clindamycin Allergy Unknown Verified 03/01/24 09:33 Penicillins Allergy Unknown Verified 03/01/24 09:33 sulfamethoxazole Allergy Unknown Verified 03/01/24 09:33 [From Bactrim] trimethoprim [From Bactrim] Allergy Unknown Verified 03/01/24 09:33 Physical Exam Vitals: Vital Signs Temp Pulse Resp BP Pulse Ox FiO2 03/01/24 14:02 103 H 14 111/73 96 03/01/24 12:10 112 H 16 90/56 100 03/01/24 11:09 114 H 16 40 03/01/24 10:34 120 H 20 117/76 100 03/01/24 09:23 107/79 03/01/24 09:22 122 H 18 99 03/01/24 07:51 40 03/01/24 07:37 98.4 F 131 H 28 H 108/56 97 03/01/24 06:46 141 H 28 H 132/85 98 03/01/24 06:30 147 H 03/01/24 06:23 40 03/01/24 06:14 96.8 F L 146 H 24 154/96 96 Intake and Output 02/29/24 03/01/24 03/01/24 22:59 06:59 14:59 Other: Weight 71.622 kg Calm and comfortable, mild degree of respite distress and a BiPAP at a pressure of 12 over 5 cm of water and FiO2 of 40%. Head exam was generally normal. There was no scleral icterus or corneal arcus. Mucous membranes were moist. Neck was supple and with jjugular venous distension, thyromegaly, or carotid bruits. Carotids were easily palpable bilaterally. There was no adenopathy. Lung sounds are diminished bilaterally along with prolongation of the exhalation phase of breathing and diffuse expiratory wheezes. Cardiac exam revealed the PMI to be normally situated and sized. The rhythm was regular and no extrasystoles were noted during several minutes of auscultation. The first and second heart sounds were normal and physiologic splitting of the second heart sound was noted. There were no murmurs, rubs, clicks, or gallops. Abdominal exam revealed normal bowel sounds. The abdomen was soft, non-tender, and without masses, organomegaly, or appreciable enlargement of the abdominal aorta. Examination of the extremities revealed easily palpable radial, femoral and pedal pulses. There was no cyanosis, clubbing or edema. Examination of the skin revealed no evidence of significant rashes, suspicious a ppearing nevi or other concerning lesions. Neurologically, the patient is awake and alert and the patient does not have any focal neurological deficit. Cranial nerves are essentially intact. Results - Laboratory Findings CBC and BMP: 03/01/24 11:40 03/01/24 06:24 PT/INR, D-dimer PT 9.8 sec (10.0-12.5) L 03/01/24 11:40 INR 0.9 (<1.2) 03/01/24 11:40 D-Dimer 0.80 mg/L FEU (<0.60) H 03/01/24 06:24 Abnormal lab findings: Abnormal Labs 03/01/24 03/01/24 03/01/24 06:24 06:24 06:24 WBC 13.9 H Hct Neutrophils # 7.8 H Lymphocytes # Eosinophils # 1.2 H PT D-Dimer Potassium 5.2 H Carbon Dioxide 19 L BUN 22 H Creatinine 1.10 H Glucose 334 H POC Glucose (mg/dL) Plasma Lactic Acid Mark 5.5 H* AST 42 H Troponin I 03/01/24 03/01/24 03/01/24 06:24 09:52 09:52 WBC Hct Neutrophils # Lymphocytes # Eosinophils # PT D-Dimer 0.80 H Potassium Carbon Dioxide BUN Creatinine Glucose POC Glucose (mg/dL) Plasma Lactic Acid Mark 2.5 H* AST Troponin I 0.412 H* 03/01/24 03/01/24 03/01/24 11:40 11:40 11:40 WBC 15.8 H Hct 46.4 H Neutrophils # 15.1 H Lymphocytes # 0.4 L Eosinophils # PT 9.8 L D-Dimer Potassium Carbon Dioxide BUN Creatinine Glucose POC Glucose (mg/dL) Plasma Lactic Acid Mark AST Troponin I 0.571 H* 03/01/24 03/01/24 12:25 12:55 WBC Hct Neutrophils # Lymphocytes # Eosinophils # PT D-Dimer Potassium Carbon Dioxide BUN Creatinine Glucose POC Glucose (mg/dL) 187 H Plasma Lactic Acid Mark 2.3 H* AST Troponin I - Diagnostic Findings Chest x-ray: image reviewed Assessment and Plan Plan: Acute exacerbation of COPD with excessive bronchospasm and wheezing. Rule out underlying component of CHF in addition contributing to the patient respiratory failure as the patient's chest x-ray is consistent with pulm edema. Patient is currently on a BiPAP pressure of 12/5 with an FiO2 of 40% Severe COPD with an FEV1 of 41% predicted and diffusion capacity of 41% of predicted, maintained Trelegy Ellipta on outpatient basis Suspect congestion heart failure based on the above Abnormal troponin rule out NSTEMI versus type II myocardial ischemia Smoker Sinus tachycardia Paroxysmal atrial fibrillation Diabetes mellitus type 2 Hypertension Hyperlipidemia Plan Keep the BiPAP for now at the same setting DuoNeb nebulized treatments [id number] 4 times a day IV Solu-Medrol 60 mg every 6 hours Allowed the patient to use Trelegy Ellipta from home Lasix 20 mg IV every 12 hours Echocardiogram Continue IV heparin Cardiology consultation Will continue to follow.
[2024-03-01] MEDS: ACETAMINOPHEN TAB 325 MG TAB PO PRN (17:46)
[2024-03-01] MEDS: methylPREDNISolone SOD SUCCI 40 MG/ML 1 ML VIAL IV SCH (17:47)
[2024-03-01 17:53] LABS: Glucose,Whole Blood 258 mg/dL (70-110)
[2024-03-01] MEDS: ATORVASTATIN 40 MG TAB PO SCH (19:55)
[2024-03-01] MEDS: FUROSEMIDE 10 MG/ML 2 ML VIAL IV SCH (19:55)
[2024-03-01] MEDS ORDERED: methylPREDNISolone SOD SUCCI 40 MG/ML 1 ML VIAL IV SCH (21:00)
[2024-03-01] MEDS: HEPARIN SODIUM 1,000 UN/ML (10ML VL) IV PRN (21:46)
[2024-03-01] MEDS: SODIUM CHLORIDE 0.9% 500 ML 250 ML IV ONE (22:01)
[2024-03-02 04:38] LABS: Basophils % (A) 0 %; Eosinophils # (A) 0.1 k/uL (0-0.7); Eosinophils % (A) 1 %; HCT 36.6 % (34.0-46.0); HGB 11.9 gm/dL (11.4-16.0); Lymphocytes # (A) 0.6 k/uL (1.0-4.8); Lymphocytes % (A) 4 %; MCH 30.6 pg (25.0-35.0); MCHC 32.5 g/dL (31.0-37.0); MCV 94.2 fL (80.0-100.0); Mean Platelet Volume 9.2; Monocytes # (A) 0.4 k/uL (0-1.0); Monocytes % (A) 2 %; Neutrophils # (A) 15.2 k/uL (1.3-7.7); Neutrophils % (A) 93 %; Platelet Count 257 k/uL (150-450); RBC 3.89 m/uL (3.80-5.40); RDW 15.6 % (11.5-15.5); WBC 16.4 k/uL (3.8-10.6)
[2024-03-02 04:52] LABS: INR 0.9 (<1.2); Partial Thromboplastin Time 59.9 sec (22.0-30.0); Prothrombin Time 10.2 sec (10.0-12.5)
[2024-03-02 06:08] LABS: Glucose,Whole Blood 262 mg/dL (70-110)
[2024-03-02] MEDS: AZITHROMYCIN 500 MG TAB PO SCH (07:45)
[2024-03-02] MEDS: SYMBICORT 80-4.5 MCG INHALER INHALATION SCH (07:48)
[2024-03-02] MEDS: ASPIRIN 81 MG PO SCH (11:01)
[2024-03-02 11:47] LABS: Glucose,Whole Blood 362 mg/dL (70-110)
--- NOTE | 2024-03-02 13:20 | P.PN ---
Subjective Progress Note Date: 03/02/24 03/01/2024, the patient is being seen in consultation in the emergency room for acute shortness of breath. The patient was hospitalized few months back for an acute stroke exacerbation and following the treatment, the patient was seen in our office in the baseline FEV1 was in the order of 41% predicted and the patient had a diffusion capacity of 41% of predicted and the patient was started on Trelegy Ellipta 1 puff a day. The patient continues to smoke cigarettes. Today she is coming in with acute dyspnea chest tightness and wheezing and shortness of breath. In the emergency, the patient had diminished level of consciousness. The patient was placed on a BiPAP at a pressure of 12 over 5 cm of water and titration of FiO2 of 40%. Mother states that she improved and the patient is currently much more comfortable generating more than 400 cc of air and tidal volume on the BiPAP machine. Breathing is more comfortable. She is actively bronchospastic and wheezy. She is on bronchodilators. She is on steroids and the patient is currently on IV Solu-Medrol. 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 She has diabetes mellitus. She has hypertension hyperlipidemia as comorbid conditions. Her current EKG showing sinus tachycardia. The white cell count of 15.8 with hemoglobin 14.6 and a platelet count of 306. Her lactic acid level is at 2.3, troponins were elevated at 0.4 and 0.5 respectively x 2. Cardiology consultation has been obtained. Echocardiogram is ordered and we are still awaiting further recommendations from cardiology for troponin leak. Chest x-ray showed increased pulmonary vascular congestion/edema. . Based on that, I gave the patient a dose of Lasix 20 mg IV in the emergency department. On today's evaluation on 03/02/2024, the patient is feeling better and she is obviously short of breath compared to yesterday. She is off the BiPAP and the patient is currently on oxygen at 2.5 L with a pulse ox of 92%. Noted the patient was treated with BiPAP, bronchodilators and steroids. Echocardiogram also showed impaired LV function with an ejection fraction of 20%. Chest x-ray showed increased MARKINGS. BASED ON THAT, THE PATIENT WAS STARTED ON LASIX AND THE PATIENT IS PRODUCING EXCELLENT URINE OUTPUT. SHE IS LESS SHORT OF BREATH ON TODAY'S EVALUATION. SHE WAS ALSO STARTED ON IV HEPARIN BY CARDIOLOGY. SHE IS ON ORAL ZITHROMAX AN EMPIRIC ANTIBIOTIC COVERAGE. AWAKE AND ALERT. BLOOD WORK FROM TODAY SHOWS A WHITE CELL COUNT OF 16, HEMOGLOBIN 10.9 AND A PLATELET COUNT OF 257. LACTIC ACID LEVEL IS DOWN TO 3.1. BLOOD SUGARS ARE ELEVATED SECONDARY TO STRESS STEROIDS USE AND THE PATIENT IS ON SLIDING SCALE INSULIN COVERAGE. SHE IS ON TRULICITY AND SLIDING SCALE INSULIN COVERAGE. Objective - Vital Signs Vital signs: Vital Signs Temp 98.1 F 03/02/24 11:00 Pulse 99 03/02/24 11:00 Resp 18 03/02/24 11:00 BP 105/61 03/02/24 11:00 Pulse Ox 92 L 03/02/24 11:00 FiO2 40 03/01/24 11:09 Intake & Output 03/01/24 03/02/24 03/02/24 18:59 06:59 18:59 Intake Total 82.512 480 Output Total 950 Balance 82.512 -470 Weight 78.5 kg Intake: Intake, IV Titration 82.512 Amount Heparin Sod,Pork in 0.45% 82.512 NaCl 25,000 unit In 0.45 % NaCl 1 250ml.bag @ 12 UNITS/KG/HR 8.595 mls/hr IV .Q24H [facility] Rx#: [id number] Oral 480 Output: Urine 950 - Exam Calm and comfortable, no significant respiratory distress and the patient is on 3 Liters of oxygen by nasal cannula Head exam was generally normal. There was no scleral icterus or corneal arcus. Mucous membranes were moist. Neck was supple and with jjugular venous distension, thyromegaly, or carotid bruits. Carotids were easily palpable bilaterally. There was no adenopathy. Lung sounds are diminished bilaterally along with prolongation of the exhalation phase of breathing and diffuse expiratory wheezes. Cardiac exam revealed the PMI to be normally situated and sized. The rhythm was regular and no extrasystoles were noted during several minutes of auscultation. The first and second heart sounds were normal and physiologic splitting of the second heart sound was noted. There were no murmurs, rubs, clicks, or gallops. Abdominal exam revealed normal bowel sounds. The abdomen was soft, non-tender, and without masses, organomegaly, or appreciable enlargement of the abdominal aorta. Examination of the extremities revealed easily palpable radial, femoral and pedal pulses. There was no cyanosis, clubbing or edema. Examination of the skin revealed no evidence of significant rashes, suspicious appearing nevi or other concerning lesions. Neurologically, the patient is awake and alert and the patient does not have any focal neurological deficit. Cranial nerves are essentially intact. - Labs CBC & Chem 7: 03/02/24 04:15 03/01/24 06:24 Labs: Abnormal Lab Results - Last 24 Hours (Table) 03/01/24 03/01/24 03/01/24 Range/Units 11:40 11:40 11:40 WBC 15.8 H (3.8-10.6) k/uL Hct 46.4 H (34.0-46.0) % RDW (11.5-15.5) % Neutrophils # 15.1 H (1.3-7.7) k/uL Lymphocytes # 0.4 L (1.0-4.8) k/uL PT 9.8 L (10.0-12.5) sec APTT (22.0-30.0) sec POC Glucose (mg/dL) (70-110) mg/dL Plasma Lactic Acid Mark (0.7-2.0) mmol/L Troponin I 0.571 H* (0.000-0.034) ng/mL 03/01/24 03/01/24 03/01/24 Range/Units 12:25 12:55 16:28 WBC (3.8-10.6) k/uL Hct (34.0-46.0) % RDW (11.5-15.5) % Neutrophils # (1.3-7.7) k/uL Lymphocytes # (1.0-4.8) k/uL PT (10.0-12.5) sec APTT 38.2 H (22.0-30.0) sec POC Glucose (mg/dL) 187 H (70-110) mg/dL Plasma Lactic Acid Mark 2.3 H* (0.7-2.0) mmol/L Troponin I (0.000-0.034) ng/mL 03/01/24 03/01/24 03/01/24 Range/Units 16:28 17:46 19:47 WBC (3.8-10.6) k/uL Hct (34.0-46.0) % RDW (11.5-15.5) % Neutrophils # (1.3-7.7) k/uL Lymphocytes # (1.0-4.8) k/uL PT (10.0-12.5) sec APTT (22.0-30.0) sec POC Glucose (mg/dL) 258 H (70-110) mg/dL Plasma Lactic Acid Mark 4.5 H* 4.7 H* (0.7-2.0) mmol/L Troponin I (0.000-0.034) ng/mL 03/01/24 03/01/24 03/02/24 Range/Units 20:33 23:40 04:15 WBC 16.4 H (3.8-10.6) k/uL Hct (34.0-46.0) % RDW 15.6 H (11.5-15.5) % Neutrophils # 15.2 H (1.3-7.7) k/uL Lymphocytes # 0.6 L (1.0-4.8) k/uL PT (10.0-12.5) sec APTT 36.8 H (22.0-30.0) sec POC Glucose (mg/dL) (70-110) mg/dL Plasma Lactic Acid Mark 3.8 H* (0.7-2.0) mmol/L Troponin I (0.000-0.034) ng/mL 03/02/24 03/02/24 03/02/24 Range/Units 04:15 04:15 06:06 WBC (3.8-10.6) k/uL Hct (34.0-46.0) % RDW (11.5-15.5) % Neutrophils # (1.3-7.7) k/uL Lymphocytes # (1.0-4.8) k/uL PT (10.0-12.5) sec APTT 59.9 H (22.0-30.0) sec POC Glucose (mg/dL) 262 H (70-110) mg/dL Plasma Lactic Acid Mark 2.8 H* (0.7-2.0) mmol/L Troponin I (0.000-0.034) ng/mL 03/02/24 Range/Units 07:21 WBC (3.8-10.6) k/uL Hct (34.0-46.0) % RDW (11.5-15.5) % Neutrophils # (1.3-7.7) k/uL Lymphocytes # (1.0-4.8) k/uL PT (10.0-12.5) sec APTT (22.0-30.0) sec POC Glucose (mg/dL) (70-110) mg/dL Plasma Lactic Acid Mark 4.4 H* (0.7-2.0) mmol/L Troponin I (0.000-0.034) ng/mL Assessment and Plan Plan: Acute exacerbation of COPD with excessive bronchospasm and wheezing. Rule out underlying component of CHF in addition contributing to the patient respiratory failure as the patient's chest x-ray is consistent with pulm edema. Patient is currently off the BiPAP on 3 L O2 nasal cannula Severe COPD with an FEV1 of 41% predicted and diffusion capacity of 41% of predicted, maintained Trelegy Ellipta on outpatient basis Systolic heart failure with an ejection fraction of 20% Abnormal troponin rule out NSTEMI versus type II myocardial ischemia Smoker Sinus tachycardia Paroxysmal atrial fibrillation Diabetes mellitus type 2 Hypertension Hyperlipidemia Plan Keep the patient on 3 L O2 nasal cannula DuoNeb nebulized treatments [id number] 4 times a day IV Solu-Medrol 60 mg every 6 hours Allowed the patient to use Trelegy Ellipta from home Lasix 20 mg IV every 12 hours Echocardiogram was noted Continue IV heparin Cardiology consultation Will continue to follow.
[2024-03-02] MEDS ORDERED: HEPARIN SODIUM 1,000 UN/ML (10ML VL) IV PRN (14:55)
[2024-03-02] MEDS ORDERED: METOPROLOL SUCCINATE (ER) 50 MG TAB.ER.24H PO SCH (15:00)
[2024-03-02 16:12] LABS: Basophils % (A) 0 %; Eosinophils # (A) 0.2 k/uL (0-0.7); Eosinophils % (A) 1 %; HCT 37.3 % (34.0-46.0); Hypochromasia Slight; Lymphocytes # (A) 0.6 k/uL (1.0-4.8); Lymphocytes % (A) 2 %; MCH 30.3 pg (25.0-35.0); MCHC 32.2 g/dL (31.0-37.0); MCV 93.8 fL (80.0-100.0); Mean Platelet Volume 8.4; Monocytes # (A) 0.8 k/uL (0-1.0); Monocytes % (A) 3 %; Neutrophils # (A) 23.2 k/uL (1.3-7.7); Neutrophils % (A) 93 %; Platelet Count 291 k/uL (150-450); RBC 3.97 m/uL (3.80-5.40); RDW 15.6 % (11.5-15.5); WBC 24.9 k/uL (3.8-10.6)
[2024-03-02] MEDS: HEPARIN SOD,PORK IN 0.45% NACL 25,000 UNIT in 0.45% NACL 1 250ML.BAG IV SCH (16:22)
[2024-03-02 16:23] LABS: Partial Thromboplastin Time 49.6 sec (22.0-30.0); Prothrombin Time 10.5 sec (10.0-12.5)
[2024-03-02 16:27] LABS: Glucose,Whole Blood 267 mg/dL (70-110)
--- NOTE | 2024-03-02 17:03 | P.PN ---
Subjective Progress Note Date: 03/02/24 interval History: 68-year-old female with known history of COPD continues to smoke came in with complaints of severe shortness of breath and was obtunded patient was started on BiPAP with significant improvement in her respiratory status and mental status patient is able to answer questions appropriately to me. Patient denies fever chills patient does have mild leukocytosis mildly elevated serum creatinine 1.1 and potassium of 5.2 patient denies any chest pain. Troponin is negative but second 1 was slightly higher at 0.41. Patient was having sinus tachycardia, cardiology was consulted and patient was started on IV Cardizem which was subsequently discontinued by cardiology. Chest x-ray showed diffuse interstitial opacities which is mostly consistent with interstitial pneumonitis or interstitial lung disease.. Patient had a history of bladder cancer in the past unknown whether she received radiation. Patient had elevated D-dimer which is only slight elevation. Patient's BNP is 96. Serum potassium is 5.2. 03/02/2024--patient was seen and examined today. Feeling better. Continues to be short of breath, off BiPAP, currently on 2.5 L oxygen with pulse ox 92%. Patient currently on bronchodilators and steroids. Echocardiogram showed impaired LV function with ejection fraction 20%. Chest x-ray showed increased markings. Currently on IV Lasix. Responding well. Currently on IV heparin, cardiology following. WBC 16, hemoglobin 10.9, platelet 257. Lactic acid down to 3.1, likely secondary to respiratory distress, doubt sepsis. Elevated blood sugars due to steroids. Assessment and plan: -Acute hypercapnic respiratory failure secondary to COPD exacerbation continue systemic steroids inhalational treatments no evidence of pneumonia -Acute hypoxic respiratory failure secondary to possible interstitial lung disease -Acute on chronic systolic CHF--IV diuresis. Echocardiogram showed EF 20% -Sinus tachycardia secondary to hypoxemia -Elevated troponin secondary to shortness of breath cardiology evaluated the patient further management as per cardiology and patient is being started on IV heparin -Paroxysmal atrial fibrillation -Hypertension -Hyperlipidemia Acute renal failure may require IV fluids -Type 2 diabetes mellitus blood sugars are uncontrolled secondary to systemic steroids will use high-dose sliding scale -Metabolic encephalopathy: Improving -Sinus tachycardiaoff Cardizem drip now Plan: Continue aspirin, statin, metoprolol, Entresto, Aldactone, Farxiga, IV Lasix--cardiology following elevated troponin demand ischemia IV heparin, holding Eliquis Continue inhalers/steroids--pulmonary following Accu-Cheks, sliding scale insulin DVT prophylaxis: Heparin PHYSICAL EXAMINATION: GENERAL: The patient is A&O x3, NAD HEENT: EOMI, Sclerae anicteric, Moist Mucous membranes Neck: Supple, Non tender, No JVD PULMONARY: Equal breath souds B/L, +wheezing, No crackles. CARDIOVASCULAR: S1, S2 present. No murmurs, rubs, or gallops. ABDOMEN: Soft, nontender, nondistended, normoactive bowel sounds. No guarding or rebound tenderness. MUSCULOSKELETAL: No edema, No cyanosis. No clubbing. Normal ROM. Intact peripher al pulses. EXTREMITIES: No cyanosis, clubbing, or pedal edema. NEUROLOGICAL: CN 2-12 grossly intact. No FND Skin: No Rash REVIEW OF SYSTEMS: CONSTITUTIONAL: No fever or chills. CARDIOVASCULAR: No chest pain, palpitations or syncope. PULMONARY: No shortness of breath, no cough, sore throat. GASTROINTESTINAL: No nausea, vomiting, diarrhea, abdominal pain. : No Dysuria, urgency, frequency. Extremities: No edema. NEUROLOGICAL: No headaches, no weakness, or numbness Dictation was produced using [employer] dictation software. please excuse any grammatical, word or spelling errors. Objective - Vital Signs Vital signs: Vital Signs Temp 97.6 F 03/02/24 16:20 Pulse 110 H 03/02/24 16:20 Resp 18 03/02/24 16:20 BP 103/59 03/02/24 16:20 Pulse Ox 92 L 03/02/24 16:20 FiO2 40 03/01/24 11:09 Intake & Output 03/01/24 03/02/24 03/02/24 18:59 06:59 18:59 Intake Total 82.512 871.408 Output Total 1350 Balance 82.512 -478.592 Weight 78.5 kg Intake: Intake, IV Titration 82.512 151.408 Amount Heparin Sod,Pork in 0.45% 82.512 151.408 NaCl 25,000 unit In 0.45 % NaCl 1 250ml.bag @ 12 UNITS/KG/HR 8.595 mls/hr IV .Q24H [facility] Rx#: [id number] Oral 720 Output: Urine 1350 - Labs CBC & Chem 7: 03/02/24 15:54 03/01/24 06:24 Labs: Abnormal Lab Results - Last 24 Hours (Table) 03/01/24 03/01/24 03/01/24 Range/Units 16:28 16:28 17:46 WBC (3.8-10.6) k/uL RDW (11.5-15.5) % Neutrophils # (1.3-7.7) k/uL Lymphocytes # (1.0-4.8) k/uL APTT 38.2 H (22.0-30.0) sec POC Glucose (mg/dL) 258 H (70-110) mg/dL Plasma Lactic Acid Mark 4.5 H* (0.7-2.0) mmol/L 03/01/24 03/01/24 03/01/24 Range/Units 19:47 20:33 23:40 WBC (3.8-10.6) k/uL RDW (11.5-15.5) % Neutrophils # (1.3-7.7) k/uL Lymphocytes # (1.0-4.8) k/uL APTT 36.8 H (22.0-30.0) sec POC Glucose (mg/dL) (70-110) mg/dL Plasma Lactic Acid Mark 4.7 H* 3.8 H* (0.7-2.0) mmol/L 03/02/24 03/02/24 03/02/24 Range/Units 04:15 04:15 04:15 WBC 16.4 H (3.8-10.6) k/uL RDW 15.6 H (11.5-15.5) % Neutrophils # 15.2 H (1.3-7.7) k/uL Lymphocytes # 0.6 L (1.0-4.8) k/uL APTT 59.9 H (22.0-30.0) sec POC Glucose (mg/dL) (70-110) mg/dL Plasma Lactic Acid Mark 2.8 H* (0.7-2.0) mmol/L 03/02/24 03/02/24 03/02/24 Range/Units 06:06 07:21 11:46 WBC (3.8-10.6) k/uL RDW (11.5-15.5) % Neutrophils # (1.3-7.7) k/uL Lymphocytes # (1.0-4.8) k/uL APTT (22.0-30.0) sec POC Glucose (mg/dL) 262 H 362 H (70-110) mg/dL Plasma Lactic Acid Mark 4.4 H* (0.7-2.0) mmol/L 03/02/24 03/02/24 03/02/24 Range/Units 11:50 14:42 15:54 WBC 24.9 H (3.8-10.6) k/uL RDW 15.6 H (11.5-15.5) % Neutrophils # 23.2 H (1.3-7.7) k/uL Lymphocytes # 0.6 L (1.0-4.8) k/uL APTT (22.0-30.0) sec POC Glucose (mg/dL) (70-110) mg/dL Plasma Lactic Acid Mark 3.1 H* 3.7 H* (0.7-2.0) mmol/L 03/02/24 03/02/24 Range/Units 15:54 16:25 WBC (3.8-10.6) k/uL RDW (11.5-15.5) % Neutrophils # (1.3-7.7) k/uL Lymphocytes # (1.0-4.8) k/uL APTT 49.6 H (22.0-30.0) sec POC Glucose (mg/dL) 267 H (70-110) mg/dL Plasma Lactic Acid Mark (0.7-2.0) mmol/L
--- NOTE | 2024-03-02 20:07 | P.PN ---
Subjective Progress Note Date: 03/02/24 Progress note March 02, 2024 Patient denies any chest pain chest pressure. Still reporting shortness of breath but reports improved since the time of admission. This is a 68-year-old female with a past medical history significant for COPD, diabetes, hypertension, hyperlipidemia, and atrial fibrillation. Patient follows with a engineering patternmaker in [facility] Dr Koo. We have been asked to see the patient in consultation for chest pain. Patient examined at the bedside in the emergency room. According to the patient's nurse, the patient came to the hospital to chief complaint of shortness of breath. Patient was found to be obtunded upon arrival. Patient is currently on BiPAP and her mental status has improved. Patient currently denies any chest pain or pressure. She does report shortness of breath. EKG and bedside telemetry reveals sinus tachycardia. She was initially started on IV Cardizem which has since been discontinued. DIAGNOSTICS: - EKG reveals sinus tachycardia - Chest xray diffuse increased interstitial opacities especially in the upper and mid lungs. - Laboratory data: WBC 13.9. Hemoglobin 13.7. Platelet count 448. Sodium 137. Potassium 5.2. BUN 22. Creatinine 1.10. Troponin negative x 1. - Current home cardiac medications include lisinopril 10 mg daily as needed, Eliquis 5 mg twice a day, Cardizem CD 120 mg daily, Lipitor 40 mg at night PHYSICAL EXAM: HEENT: Mild elevated JVP LUNGS: Decreased breath sounds, mild wheezing audible in bilateral lung [place]. HEART: Tachycardic. Regular rate and rhythm. S1 and S2 heard. ABDOMEN: Soft. Nondistended. Nontender. EXTREMITIES: 1+ swelling in bilateral lower extremity NEUROLOGIC: Awake and alert. Detailed neuroexam was not performed. ASSESSMENT: Altered mental status, improving Acute hypoxic respiratory failure, on BiPAP Acute CHF exacerbation, HFrEF, Cardiomyopathy, likely stress-induced with apical hypokinesia. Need to rule out ischemic cardiomyopathy Paroxysmal atrial fibrillation COPD exacerbation Hypertension and hyperlipidemia PLAN: Continue IV heparin drip Aspirin 81 mg, atorvastatin 40 mg, Agree with Lasix 20 mg IV twice daily, Do not resume Cardizem at the time of discharge due to cardiomyopathy Start metoprolol 50 mg daily, Farxiga 10 mg, Start Aldactone 12.5 mg daily, Entresto 24 to 26 mg twice daily Monitor renal function and urine output. Consider transitioning to p.o. diuretic tomorrow Objective - Vital Signs Vital signs: Vital Signs Temp 97.6 F 03/02/24 16:20 Pulse 110 H 03/02/24 16:20 Resp 18 03/02/24 16:20 BP 103/59 03/02/24 16:20 Pulse Ox 92 L 03/02/24 16:20 FiO2 40 03/01/24 11:09 Intake & Output 03/02/24 03/02/24 03/03/24 06:59 18:59 06:59 Intake Total 82.512 1093.408 Output Total 1600 Balance 82.512 -506.592 Weight 78.5 kg Intake: Intake, IV Titration 82.512 151.408 Amount Heparin Sod,Pork in 0.45% 82.512 151.408 NaCl 25,000 unit In 0.45 % NaCl 1 250ml.bag @ 12 UNITS/KG/HR 8.595 mls/hr IV .Q24H [facility] Rx#: [id number] Oral 942 Output: Urine 1600 - Labs CBC & Chem 7: 03/02/24 15:54 03/01/24 06:24 Labs: Abnormal Lab Results - Last 24 Hours (Table) 03/01/24 03/01/24 03/01/24 Range/Units 19:47 20:33 23:40 WBC (3.8-10.6) k/uL RDW (11.5-15.5) % Neutrophils # (1.3-7.7) k/uL Lymphocytes # (1.0-4.8) k/uL APTT 36.8 H (22.0-30.0) sec POC Glucose (mg/dL) (70-110) mg/dL Plasma Lactic Acid Mark 4.7 H* 3.8 H* (0.7-2.0) mmol/L 03/02/24 03/02/24 03/02/24 Range/Units 04:15 04:15 04:15 WBC 16.4 H (3.8-10.6) k/uL RDW 15.6 H (11.5-15.5) % Neutrophils # 15.2 H (1.3-7.7) k/uL Lymphocytes # 0.6 L (1.0-4.8) k/uL APTT 59.9 H (22.0-30.0) sec POC Glucose (mg/dL) (70-110) mg/dL Plasma Lactic Acid Mark 2.8 H* (0.7-2.0) mmol/L 03/02/24 03/02/24 03/02/24 Range/Units 06:06 07:21 11:46 WBC (3.8-10.6) k/uL RDW (11.5-15.5) % Neutrophils # (1.3-7.7) k/uL Lymphocytes # (1.0-4.8) k/uL APTT (22.0-30.0) sec POC Glucose (mg/dL) 262 H 362 H (70-110) mg/dL Plasma Lactic Acid Mark 4.4 H* (0.7-2.0) mmol/L 03/02/24 03/02/24 03/02/24 Range/Units 11:50 14:42 15:54 WBC 24.9 H (3.8-10.6) k/uL RDW 15.6 H (11.5-15.5) % Neutrophils # 23.2 H (1.3-7.7) k/uL Lymphocytes # 0.6 L (1.0-4.8) k/uL APTT (22.0-30.0) sec POC Glucose (mg/dL) (70-110) mg/dL Plasma Lactic Acid Mark 3.1 H* 3.7 H* (0.7-2.0) mmol/L 03/02/24 03/02/24 Range/Units 15:54 16:25 WBC (3.8-10.6) k/uL RDW (11.5-15.5) % Neutrophils # (1.3-7.7) k/uL Lymphocytes # (1.0-4.8) k/uL APTT 49.6 H (22.0-30.0) sec POC Glucose (mg/dL) 267 H (70-110) mg/dL Plasma Lactic Acid Mark (0.7-2.0) mmol/L
[2024-03-02 20:17] LABS: Glucose,Whole Blood 315 mg/dL (70-110)
[2024-03-02] MEDS: SACUBITRIL/VALSARTAN 24 MG-26 MG TABLET PO SCH (21:12)
[2024-03-03 05:52] LABS: Glucose,Whole Blood 292 mg/dL (70-110)
[2024-03-03 07:01] LABS: HCT 42.1 % (34.0-46.0); HGB 13.3 gm/dL (11.4-16.0); Hypochromasia Moderate; MCHC 31.7 g/dL (31.0-37.0); MCV 94.7 fL (80.0-100.0); Mean Platelet Volume 9.7; Platelet Count 340 k/uL (150-450); RBC 4.45 m/uL (3.80-5.40); RDW 15.5 % (11.5-15.5); WBC 28.3 k/uL (3.8-10.6)
[2024-03-03 07:15] LABS: African American GFR (CKD) 66 (>60 ml/min/1.73 sqM); Anion Gap 9 mmol/L; Blood Urea Nitrogen 32 mg/dL (7-17); Calcium 9.2 mg/dL (8.4-10.2); Carbon Dioxide 21 mmol/L (22-30); Chloride 105 mmol/L (98-107); Glucose 289 mg/dL (74-99); Magnesium 2.1 mg/dL (1.6-2.3); Non-African American GFR(CKD) 57 (>60 ml/min/1.73 sqM); Potassium 4.5 mmol/L (3.5-5.1); Sodium 135 mmol/L (137-145)
[2024-03-03 07:23] LABS: INR 0.9 (<1.2); Partial Thromboplastin Time 46.6 sec (22.0-30.0); Prothrombin Time 10.4 sec (10.0-12.5)
[2024-03-03 08:12] LABS: Lymphocytes # (M) 0.28 k/uL (1.0-4.8); Monocytes # (M) 0.85 k/uL (0-1.0); Neutrophils # (M) 27.17 k/uL (1.3-7.7); Neutrophils % (M) 96 %; Nucleated Red Blood Cells 0 /100 WBC (0-0); Total Cells Counted 100
[2024-03-03] MEDS: DAPAGLIFLOZIN PROPANEDIOL 10 MG TABLET PO SCH (08:44)
[2024-03-03] MEDS: SENNOSIDES 8.6 MG TAB PO PRN (10:23)
[2024-03-03] MEDS: guaiFENesin SYRUP 100MG/5ML 200 MG/10 ML CUP PO PRN (10:23)
[2024-03-03] MEDS: FUROSEMIDE 40 MG TAB PO SCH ×2 (10:25→15:47)
[2024-03-03 11:47] LABS: Glucose,Whole Blood 274 mg/dL (70-110)
[2024-03-03] MEDS: SPIRONOLACTONE 25 MG TAB PO SCH (12:00)
--- NOTE | 2024-03-03 12:07 | P.PN ---
Subjective Progress Note Date: 03/03/24 03/01/2024, the patient is being seen in consultation in the emergency room for acute shortness of breath. The patient was hospitalized few months back for an acute stroke exacerbation and following the treatment, the patient was seen in our office in the baseline FEV1 was in the order of 41% predicted and the patient had a diffusion capacity of 41% of predicted and the patient was started on Trelegy Ellipta 1 puff a day. The patient continues to smoke cigarettes. Today she is coming in with acute dyspnea chest tightness and wheezing and shortness of breath. In the emergency, the patient had diminished level of consciousness. The patient was placed on a BiPAP at a pressure of 12 over 5 cm of water and titration of FiO2 of 40%. Mother states that she improved and the patient is currently much more comfortable generating more than 400 cc of air and tidal volume on the BiPAP machine. Breathing is more comfortable. She is actively bronchospastic and wheezy. She is on bronchodilators. She is on steroids and the patient is currently on IV Solu-Medrol. 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 She has diabetes mellitus. She has hypertension hyperlipidemia as comorbid conditions. Her current EKG showing sinus tachycardia. The white cell count of 15.8 with hemoglobin 14.6 and a platelet count of 306. Her lactic acid level is at 2.3, troponins were elevated at 0.4 and 0.5 respectively x 2. Cardiology consultation has been obtained. Echocardiogram is ordered and we are still awaiting further recommendations from cardiology for troponin leak. Chest x-ray showed increased pulmonary vascular congestion/edema. . Based on that, I gave the patient a dose of Lasix 20 mg IV in the emergency department. On today's evaluation on 03/02/2024, the patient is feeling better and she is obviously short of breath compared to yesterday. She is off the BiPAP and the patient is currently on oxygen at 2.5 L with a pulse ox of 92%. Noted the patient was treated with BiPAP, bronchodilators and steroids. Echocardiogram also showed impaired LV function with an ejection fraction of 20%. Chest x-ray showed increased MARKINGS. BASED ON THAT, THE PATIENT WAS STARTED ON LASIX AND THE PATIENT IS PRODUCING EXCELLENT URINE OUTPUT. SHE IS LESS SHORT OF BREATH ON TODAY'S EVALUATION. SHE WAS ALSO STARTED ON IV HEPARIN BY CARDIOLOGY. SHE IS ON ORAL ZITHROMAX AN EMPIRIC ANTIBIOTIC COVERAGE. AWAKE AND ALERT. BLOOD WORK FROM TODAY SHOWS A WHITE CELL COUNT OF 16, HEMOGLOBIN 10.9 AND A PLATELET COUNT OF 257. LACTIC ACID LEVEL IS DOWN TO 3.1. BLOOD SUGARS ARE ELEVATED SECONDARY TO STRESS STEROIDS USE AND THE PATIENT IS ON SLIDING SCALE INSULIN COVERAGE. SHE IS ON TRULICITY AND SLIDING SCALE INSULIN COVERAGE. 03/03/2024, the patient is feeling less short of breath. No new complaints. Note that she was hospitalized for an acute COPD exacerbation and she was also found to have CHF. The patient is currently on a combination of medication including Entresto, Aldactone, metoprolol XL 50 mg p.o. daily and Farxiga. The patient was diuresed with IV Lasix. The fluid balance has been essentially negative and the patient respiratory status is improved. The patient is going to undergo a cardiac catheterization in a.m. Objective - Vital Signs Vital signs: Vital Signs Temp 97.5 F L 03/03/24 07:22 Pulse 88 03/03/24 09:36 Resp 18 03/03/24 07:23 BP 117/74 03/03/24 07:22 Pulse Ox 94 L 03/03/24 09:36 FiO2 40 03/01/24 11:09 Intake & Output 03/02/24 03/03/24 03/03/24 18:59 06:59 18:59 Intake Total 1093.408 240 Output Total 1600 Balance -506.592 240 Weight 80.5 kg Intake: Intake, IV Titration 151.408 Amount Heparin Sod,Pork in 0.45% 151.408 NaCl 25,000 unit In 0.45 % NaCl 1 250ml.bag @ 12 UNITS/KG/HR 8.595 mls/hr IV .Q24H [facility] Rx#: [id number] Oral 942 240 Output: Urine 1600 - Exam Calm and comfortable, no significant respiratory distress and the patient is on 3 Liters of oxygen by nasal cannula Head exam was generally normal. There was no scleral icterus or corneal arcus. Mucous membranes were moist. Neck was supple and with jjugular venous distension, thyromegaly, or carotid bruits. Carotids were easily palpable bilaterally. There was no adenopathy. Lung sounds are diminished bilaterally along with prolongation of the exhalation phase of breathing and diffuse expiratory wheezes. Cardiac exam revealed the PMI to be normally situated and sized. The rhythm was regular and no extrasystoles were noted during several minutes of auscultation. The first and second heart sounds were normal and physiologic splitting of the second heart sound was noted. There were no murmurs, rubs, clicks, or gallops. Abdominal exam revealed normal bowel sounds. The abdomen was soft, non-tender, and without masses, organomegaly, or appreciable enlargement of the abdominal aorta. Examination of the extremities revealed easily palpable radial, femoral and pedal pulses. There was no cyanosis, clubbing or edema. Examination of the skin revealed no evidence of significant rashes, suspicious appearing nevi or other concerning lesions. Neurologically, the patient is awake and alert and the patient does not have any focal neurological deficit. Cranial nerves are essentially intact. - Labs CBC & Chem 7: 03/03/24 06:19 03/03/24 06:19 Labs: Abnormal Lab Results - Last 24 Hours (Table) 03/02/24 03/02/24 03/02/24 Range/Units 11:46 11:50 14:42 WBC (3.8-10.6) k/uL RDW (11.5-15.5) % Neutrophils # (1.3-7.7) k/uL Neutrophils # (Manual) (1.3-7.7) k/uL Lymphocytes # (1.0-4.8) k/uL Lymphocytes # (Manual) (1.0-4.8) k/uL APTT (22.0-30.0) sec Sodium (137-145) mmol/L Carbon Dioxide (22-30) mmol/L BUN (7-17) mg/dL Glucose (74-99) mg/dL POC Glucose (mg/dL) 362 H (70-110) mg/dL Plasma Lactic Acid Mark 3.1 H* 3.7 H* (0.7-2.0) mmol/L 03/02/24 03/02/24 03/02/24 Range/Units 15:54 15:54 16:25 WBC 24.9 H (3.8-10.6) k/uL RDW 15.6 H (11.5-15.5) % Neutrophils # 23.2 H (1.3-7.7) k/uL Neutrophils # (Manual) (1.3-7.7) k/uL Lymphocytes # 0.6 L (1.0-4.8) k/uL Lymphocytes # (Manual) (1.0-4.8) k/uL APTT 49.6 H (22.0-30.0) sec Sodium (137-145) mmol/L Carbon Dioxide (22-30) mmol/L BUN (7-17) mg/dL Glucose (74-99) mg/dL POC Glucose (mg/dL) 267 H (70-110) mg/dL Plasma Lactic Acid Mark (0.7-2.0) mmol/L 03/02/24 03/02/24 03/03/24 Range/Units 20:16 20:41 05:51 WBC (3.8-10.6) k/uL RDW (11.5-15.5) % Neutrophils # (1.3-7.7) k/uL Neutrophils # (Manual) (1.3-7.7) k/uL Lymphocytes # (1.0-4.8) k/uL Lymphocytes # (Manual) (1.0-4.8) k/uL APTT 48.7 H (22.0-30.0) sec Sodium (137-145) mmol/L Carbon Dioxide (22-30) mmol/L BUN (7-17) mg/dL Glucose (74-99) mg/dL POC Glucose (mg/dL) 315 H 292 H (70-110) mg/dL Plasma Lactic Acid Mark (0.7-2.0) mmol/L 03/03/24 03/03/24 03/03/24 Range/Units 06:19 06:19 06:19 WBC 28.3 H (3.8-10.6) k/uL RDW (11.5-15.5) % Neutrophils # (1.3-7.7) k/uL Neutrophils # (Manual) 27.17 H (1.3-7.7) k/uL Lymphocytes # (1.0-4.8) k/uL Lymphocytes # (Manual) 0.28 L (1.0-4.8) k/uL APTT 46.6 H (22.0-30.0) sec Sodium 135 L (137-145) mmol/L Carbon Dioxide 21 L (22-30) mmol/L BUN 32 H (7-17) mg/dL Glucose 289 H (74-99) mg/dL POC Glucose (mg/dL) (70-110) mg/dL Plasma Lactic Acid Mark (0.7-2.0) mmol/L Assessment and Plan Plan: Acute exacerbation of COPD with excessive bronchospasm and wheezing. Rule out underlying component of CHF in addition contributing to the patient respiratory failure as the patient's chest x-ray is consistent with pulm edema. Patient is currently off the BiPAP, clinically improved and the patient is currently on 2 L of oxygen by nasal cannula. Severe COPD with an FEV1 of 41% predicted and diffusion capacity of 41% of predicted, maintained Trelegy Ellipta on outpatient basis Systolic heart failure with an ejection fraction of 20% Abnormal troponin rule out NSTEMI versus type II myocardial ischemia Smoker Sinus tachycardia Paroxysmal atrial fibrillation Diabetes mellitus type 2 Hypertension Hyperlipidemia Plan Keep the patient on 2 L of O2 nasal cannula DuoNeb nebulized treatments [id number] 4 times a day IV Solu-Medrol 60 mg every 6 hours Allowed the patient to use Trelegy Ellipta from home Lasix will be switched to 40 mg p.o. daily, currently on a combination of Entresto, Aldactone, metoprolol and Farxiga Echocardiogram was noted Cardiac catheterization is to be done tomorrow Continue IV heparin Cardiology consultation Will continue to follow.
[2024-03-03] MEDS ORDERED: METOPROLOL SUCCINATE (ER) 50 MG TAB.ER.24H PO SCH (15:00)
--- NOTE | 2024-03-03 15:11 | P.PN ---
Subjective Progress Note Date: 03/03/24 interval History: 68-year-old female with known history of COPD continues to smoke came in with complaints of severe shortness of breath and was obtunded patient was started on BiPAP with significant improvement in her respiratory status and mental status patient is able to answer questions appropriately to me. Patient denies fever chills patient does have mild leukocytosis mildly elevated serum creatinine 1.1 and potassium of 5.2 patient denies any chest pain. Troponin is negative but second 1 was slightly higher at 0.41. Patient was having sinus tachycardia, cardiology was consulted and patient was started on IV Cardizem which was subsequently discontinued by cardiology. Chest x-ray showed diffuse interstitial opacities which is mostly consistent with interstitial pneumonitis or interstitial lung disease.. Patient had a history of bladder cancer in the past unknown whether she received radiation. Patient had elevated D-dimer which is only slight elevation. Patient's BNP is 96. Serum potassium is 5.2. 03/02/2024--patient was seen and examined today. Feeling better. Continues to be short of breath, off BiPAP, currently on 2.5 L oxygen with pulse ox 92%. Patient currently on bronchodilators and steroids. Echocardiogram showed impaired LV function with ejection fraction 20%. Chest x-ray showed increased markings. Currently on IV Lasix. Responding well. Currently on IV heparin, cardiology following. WBC 16, hemoglobin 10.9, platelet 257. Lactic acid down to 3.1, likely secondary to respiratory distress, doubt sepsis. Elevated blood sugars due to steroids. 03/03/2024--patient was seen and examined today. Shortness of breath is improving. No issues overnight. Currently on IV diuresis for acute on chronic systolic CHF, fluid balance negative, respiratory status improving. Pulmonary following. Cardiology following, awaiting further recommendations regarding ischemic workup. WBCs went up likely secondary to steroids. Hemoglobin and platelet unremarkable. BMP unremarkable, potassium improved to 4.5. Creatinine improved to 1.01. Assessment and plan: -Acute hypercapnic respiratory failure secondary to COPD exacerbation continue systemic steroids inhalational treatments no evidence of pneumonia -Acute hypoxic respiratory failure secondary to possible interstitial lung disease -Acute on chronic systolic CHF--IV diuresis. Echocardiogram showed EF 20% -Sinus tachycardia secondary to hypoxemia -Elevated troponin secondary to shortness of breath cardiology evaluated the patient further management as per cardiology and patient is on IV heparin, awaiting further recommendations regarding ischemic workup. -Paroxysmal atrial fibrillation -Hypertension -Hyperlipidemia Acute renal failure may require IV fluids -Type 2 diabetes mellitus blood sugars are uncontrolled secondary to systemic steroids will use high-dose sliding scale -Metabolic encephalopathy: Improving -Sinus tachycardiaoff Cardizem drip now Plan: Continue aspirin, statin, metoprolol, Entresto, Aldactone, Farxiga, IV Lasix--cardiology following elevated troponin demand ischemia IV heparin, holding Eliquis Continue inhalers/steroids--pulmonary following Accu-Cheks, sliding scale insulin DVT prophylaxis: Heparin PHYSICAL EXAMINATION: GENERAL: The patient is A&O x3, NAD HEENT: EOMI, Sclerae anicteric, Moist Mucous membranes Neck: Supple, Non tender, No JVD PULMONARY: Equal breath souds B/L, +wheezing, No crackles. CARDIOVASCULAR: S1, S2 present. No murmurs, rubs, or gallops. ABDOMEN: Soft, nontender, nondistended, normoactive bowel sounds. No guarding or rebound tenderness. MUSCULOSKELETAL: No edema, No cyanosis. No clubbing. Normal ROM. Intact peripheral pulses. EXTREMITIES: No cyanosis, clubbing, or pedal edema. NEUROLOGICAL: CN 2-12 grossly intact. No FND Skin: No Rash REVIEW OF SYSTEMS: CONSTITUTIONAL: No fever or chills. CARDIOVASCULAR: No chest pain, palpitations or syncope. PULMONARY: No shortness of breath, no cough, sore throat. GASTROINTESTINAL: No nausea, vomiting, diarrhea, abdominal pain. : No Dysuria, urgency, frequency. Extremities: No edema. NEUROLOGICAL: No headaches, no weakness, or numbness Dictation was produced using [employer] dictation software. please excuse any grammatical, word or spelling errors. Objective - Vital Signs Vital signs: Vital Signs Temp 98.0 F 03/03/24 11:55 Pulse 88 03/03/24 13:20 Resp 18 03/03/24 12:48 BP 130/67 03/03/24 11:55 Pulse Ox 95 03/03/24 11:55 FiO2 40 03/01/24 11:09 Intake & Output 03/02/24 03/03/24 03/03/24 18:59 06:59 18:59 Intake Total 1093.408 240 587 Output Total 1600 1200 Balance -506.592 240 -613 Weight 80.5 kg Intake: Intake, IV Titration 151.408 227 Amount Heparin Sod,Pork in 0.45% 151.408 NaCl 25,000 unit In 0.45 % NaCl 1 250ml.bag @ 12 UNITS/KG/HR 8.595 mls/hr IV .Q24H [facility] Rx#: [id number] Heparin Sod,Pork in 0.45% 227 NaCl 25,000 unit In 0.45 % NaCl 1 250ml.bag @ 12 UNITS/KG/HR 9.42 mls/hr IV .Q24H [facility] Rx#: [id number] Oral 942 240 360 Output: Urine 1600 1200 - Labs CBC & Chem 7: 03/03/24 06:19 03/03/24 06:19 Labs: Abnormal Lab Results - Last 24 Hours (Table) 03/02/24 03/02/24 03/02/24 Range/Units 14:42 15:54 15:54 WBC 24.9 H (3.8-10.6) k/uL RDW 15.6 H (11.5-15.5) % Neutrophils # 23.2 H (1.3-7.7) k/uL Neutrophils # (Manual) (1.3-7.7) k/uL Lymphocytes # 0.6 L (1.0-4.8) k/uL Lymphocytes # (Manual) (1.0-4.8) k/uL APTT 49.6 H (22.0-30.0) sec Sodium (137-145) mmol/L Carbon Dioxide (22-30) mmol/L BUN (7-17) mg/dL Glucose (74-99) mg/dL POC Glucose (mg/dL) (70-110) mg/dL Plasma Lactic Acid Mark 3.7 H* (0.7-2.0) mmol/L 03/02/24 03/02/24 03/02/24 Range/Units 16:25 20:16 20:41 WBC (3.8-10.6) k/uL RDW (11.5-15.5) % Neutrophils # (1.3-7.7) k/uL Neutrophils # (Manual) (1.3-7.7) k/uL Lymphocytes # (1.0-4.8) k/uL Lymphocytes # (Manual) (1.0-4.8) k/uL APTT 48.7 H (22.0-30.0) sec Sodium (137-145) mmol/L Carbon Dioxide (22-30) mmol/L BUN (7-17) mg/dL Glucose (74-99) mg/dL POC Glucose (mg/dL) 267 H 315 H (70-110) mg/dL Plasma Lactic Acid Mark (0.7-2.0) mmol/L 03/03/24 03/03/24 03/03/24 Range/Units 05:51 06:19 06:19 WBC (3.8-10.6) k/uL RDW (11.5-15.5) % Neutrophils # (1.3-7.7) k/uL Neutrophils # (Manual) (1.3-7.7) k/uL Lymphocytes # (1.0-4.8) k/uL Lymphocytes # (Manual) (1.0-4.8) k/uL APTT 46.6 H (22.0-30.0) sec Sodium 135 L (137-145) mmol/L Carbon Dioxide 21 L (22-30) mmol/L BUN 32 H (7-17) mg/dL Glucose 289 H (74-99) mg/dL POC Glucose (mg/dL) 292 H (70-110) mg/dL Plasma Lactic Acid Mark (0.7-2.0) mmol/L 03/03/24 03/03/24 Range/Units 06:19 11:45 WBC 28.3 H (3.8-10.6) k/uL RDW (11.5-15.5) % Neutrophils # (1.3-7.7) k/uL Neutrophils # (Manual) 27.17 H (1.3-7.7) k/uL Lymphocytes # (1.0-4.8) k/uL Lymphocytes # (Manual) 0.28 L (1.0-4.8) k/uL APTT (22.0-30.0) sec Sodium (137-145) mmol/L Carbon Dioxide (22-30) mmol/L BUN (7-17) mg/dL Glucose (74-99) mg/dL POC Glucose (mg/dL) 274 H (70-110) mg/dL Plasma Lactic Acid Mark (0.7-2.0) mmol/L
[2024-03-03] MEDS: METOPROLOL SUCCINATE (ER) 50 MG TAB.ER.24H PO STA (15:47)
[2024-03-03 16:45] LABS: Glucose,Whole Blood 315 mg/dL (70-110)
[2024-03-03] MEDS: ACETYLCYSTEINE 800 MG/4 ML VIAL INHALATION STA (17:07)
--- NOTE | 2024-03-03 19:16 | P.PN ---
Subjective Progress Note Date: 03/03/24 Progress note March 02, 2024 Patient denies any chest pain chest pressure. Still reporting shortness of breath but reports improved since the time of admission. March 03, 2024 Patient continues to be in sinus tachyardia, heart rate is around 100 bpm. Patient reports that shortness of breath and chest pressure symptoms have improved since the time of admission. HPI This is a 68-year-old female with a past medical history significant for COPD, diabetes, hypertension, hyperlipidemia, and atrial fibrillation. 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 Dr Koo. We have been asked to see the patient in consultation for chest pain. Patient examined at the bedside in the emergency room. According to the patient's nurse, the patient came to the hospital to chief complaint of shortness of breath. Patient was found to be obtunded upon arrival. Patient is currently on BiPAP and her mental status has improved. Patient currently denies any chest pain or pressure. She does report shortness of breath. EKG and bedside telemetry reveals sinus tachycardia. She was initially started on IV Cardizem which has since been discontinued. DIAGNOSTICS: - EKG reveals sinus tachycardia - Chest xray diffuse increased interstitial opacities especially in the upper and mid lungs. - Laboratory data: WBC 13.9. Hemoglobin 13.7. Platelet count 448. Sodium 137. Potassium 5.2. BUN 22. Creatinine 1.10. Troponin negative x 1. - Current home cardiac medications include lisinopril 10 mg daily as needed, Eliquis 5 mg twice a day, Cardizem CD 120 mg daily, Lipitor 40 mg at night PHYSICAL EXAM: HEENT: Mild elevated JVP LUNGS: Decreased breath sounds, mild wheezing audible in bilateral lung [place]. HEART: Tachycardic. . S1 and S2 heard. ABDOMEN: Soft. Nondistended. Nontender. EXTREMITIES: 1+ swelling in bilateral lower extremity NEUROLOGIC: Awake and alert. Detailed neuroexam was not performed. ASSESSMENT: Altered mental status, improving Acute hypoxic respiratory failure, on BiPAP Acute CHF exacerbation, HFrEF, Cardiomyopathy, likely stress-induced with apical hypokinesia. Need to rule out ischemic cardiomyopathy Paroxysmal atrial fibrillation COPD exacerbation Hypertension and hyperlipidemia Echo EF 20%, apical hypokinesia PLAN: Continue IV heparin drip Aspirin 81 mg, atorvastatin 40 mg, Change lasix to 20mg PO daily Start metoprolol 50 mg daily, Farxiga 10 mg, Start Aldactone 12.5 mg daily, Entresto 24 to 26 mg twice daily Monitor renal function and urine output. Plan for cardiac cath tomorrow AM if renal functionstays stable. Do not resume Cardizem at the time of discharge due to cardiomyopathy Objective - Vital Signs Vital signs: Vital Signs Temp 97.5 F L 03/03/24 15:43 Pulse 127 H 03/03/24 17:42 Resp 18 03/03/24 17:42 BP 90/54 03/03/24 17:42 Pulse Ox 92 L 03/03/24 17:42 FiO2 40 03/01/24 11:09 Intake & Output 03/03/24 03/03/24 03/04/24 06:59 18:59 06:59 Intake Total 240 587 Output Total 1999 Balance 240 -1413 Weight 80.5 kg Intake: Intake, IV Titration 227 Amount Heparin Sod,Pork in 0.45% 227 NaCl 25,000 unit In 0.45 % NaCl 1 250ml.bag @ 12 UNITS/KG/HR 9.42 mls/hr IV .Q24H [facility] Rx#: [id number] Oral 240 360 Output: Urine 2000 - Labs CBC & Chem 7: 03/03/24 06:19 03/03/24 06:19 Labs: Abnormal Lab Results - Last 24 Hours (Table) 03/02/24 03/02/24 03/03/24 Range/Units 20:16 20:41 05:51 WBC (3.8-10.6) k/uL Neutrophils # (Manual) (1.3-7.7) k/uL Lymphocytes # (Manual) (1.0-4.8) k/uL APTT 48.7 H (22.0-30.0) sec Sodium (137-145) mmol/L Carbon Dioxide (22-30) mmol/L BUN (7-17) mg/dL Glucose (74-99) mg/dL POC Glucose (mg/dL) 315 H 292 H (70-110) mg/dL 03/03/24 03/03/24 03/03/24 Range/Units 06:19 06:19 06:19 WBC 28.3 H (3.8-10.6) k/uL Neutrophils # (Manual) 27.17 H (1.3-7.7) k/uL Lymphocytes # (Manual) 0.28 L (1.0-4.8) k/uL APTT 46.6 H (22.0-30.0) sec Sodium 135 L (137-145) mmol/L Carbon Dioxide 21 L (22-30) mmol/L BUN 32 H (7-17) mg/dL Glucose 289 H (74-99) mg/dL POC Glucose (mg/dL) (70-110) mg/dL 03/03/24 03/03/24 Range/Units 11:45 16:43 WBC (3.8-10.6) k/uL Neutrophils # (Manual) (1.3-7.7) k/uL Lymphocytes # (Manual) (1.0-4.8) k/uL APTT (22.0-30.0) sec Sodium (137-145) mmol/L Carbon Dioxide (22-30) mmol/L BUN (7-17) mg/dL Glucose (74-99) mg/dL POC Glucose (mg/dL) 274 H 315 H (70-110) mg/dL
[2024-03-03 20:22] LABS: Glucose,Whole Blood 194 mg/dL (70-110)
[2024-03-03] MEDS: methylPREDNISolone SOD SUCCI 40 MG/ML 1 ML VIAL IV SCH (20:47)
[2024-03-04] MEDS: SODIUM CHLORIDE 0.9% 1,000 ML IV SCH (05:00)
[2024-03-04 06:05] LABS: Glucose,Whole Blood 295 mg/dL (70-110)
[2024-03-04 07:43] LABS: Basophils % (A) 0 %; Eosinophils # (A) 0.1 k/uL (0-0.7); Eosinophils % (A) 1 %; HCT 40.7 % (34.0-46.0); HGB 13.2 gm/dL (11.4-16.0); Hypochromasia Slight; Lymphocytes # (A) 0.5 k/uL (1.0-4.8); Lymphocytes % (A) 2 %; MCH 30.2 pg (25.0-35.0); MCHC 32.3 g/dL (31.0-37.0); MCV 93.5 fL (80.0-100.0); Mean Platelet Volume 9.5; Monocytes # (A) 0.5 k/uL (0-1.0); Monocytes % (A) 3 %; Neutrophils # (A) 20.2 k/uL (1.3-7.7); Neutrophils % (A) 94 %; Platelet Count 305 k/uL (150-450); RBC 4.36 m/uL (3.80-5.40); RDW 15.8 % (11.5-15.5); WBC 21.5 k/uL (3.8-10.6)
[2024-03-04 08:19] LABS: African American GFR (CKD) 66 (>60 ml/min/1.73 sqM); Anion Gap 6 mmol/L; Blood Urea Nitrogen 38 mg/dL (7-17); Calcium 8.9 mg/dL (8.4-10.2); Carbon Dioxide 25 mmol/L (22-30); Chloride 104 mmol/L (98-107); Glucose 282 mg/dL (74-99); Non-African American GFR(CKD) 57 (>60 ml/min/1.73 sqM); Potassium 4.3 mmol/L (3.5-5.1); Sodium 135 mmol/L (137-145)
--- NOTE | 2024-03-04 10:32 | P.PN ---
Subjective Progress Note Date: 03/04/24 HPI This is a 68-year-old female with a past medical history significant for COPD, diabetes, hypertension, hyperlipidemia, and atrial fibrillation. 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 We have been asked to see the patient in consultation for chest pain. Patient examined at the bedside in the emergency room. According to the patient's nurse, the patient came to the hospital to chief complaint of shortness of breath. Patient was found to be obtunded upon arrival. Patient is currently on BiPAP and her mental status has improved. Patient currently denies any chest pain or pressure. She does report shortness of breath. EKG and bedside telemetry reveals sinus tachycardia. She was initially started on IV Cardizem which has since been discontinued. DIAGNOSTICS: - EKG reveals sinus tachycardia - Chest xray diffuse increased interstitial opacities especially in the upper and mid lungs. - Laboratory data: WBC 13.9. Hemoglobin 13.7. Platelet count 448. Sodium 137. Potassium 5.2. BUN 22. Creatinine 1.10. Troponin negative x 1. - Current home cardiac medications include lisinopril 10 mg daily as needed, Eliquis 5 mg twice a day, Cardizem CD 120 mg daily, Lipitor 40 mg at night March 02, 2024 Patient denies any chest pain chest pressure. Still reporting shortness of breath but reports improved since the time of admission. March 03, 2024 Patient continues to be in sinus tachyardia, heart rate is around 100 bpm. Patient reports that shortness of breath and chest pressure symptoms have improved since the time of admission. 03/04 Patient is scheduled for cardiac catheterization today at noon with Dr. Johnston. Systolic blood pressures during the night were in the 80s. Blood pressure now 97/61, heart rate in the 80s and 90s. Pulse ox 95% on 2 L nasal cannula. Repeat blood work reveals WBC 21.5, hemoglobin 13.2. Sodium 135, potassium 4.3, BUN 38 creatinine 1.02. PHYSICAL EXAM: LUNGS: Decreased breath sounds, otherwise clear to auscultation. HEART: Regular S1 and S2 heard. ABDOMEN: Soft. Nondistended. Nontender. EXTREMITIES: 1+ swelling in bilateral lower extremity NEUROLOGIC: Awake and alert. Detailed neuroexam was not performed. ASSESSMENT: Altered mental status, improving Acute hypoxic respiratory failure, initially on BiPAP Acute CHF exacerbation, HFrEF, Cardiomyopathy, likely stress-induced with apical hypokinesia. Need to rule out ischemic cardiomyopathy Paroxysmal atrial fibrillation COPD exacerbation Hypertension and hyperlipidemia Echo EF 20%, apical hypokinesia PLAN: Continue IV heparin drip Continue aspirin 81 mg, atorvastatin 40 mg, Farxiga 10 mg daily, Toprol XL 100 mg daily, Entresto 24-26 mg twice daily Decrease Lasix to 20 mg daily and discontinue Aldactone due to hypotension Monitor renal function and urine output. Plan for cardiac cath today Do not resume Cardizem at the time of discharge due to cardiomyopathy Nurse practitioner note has been reviewed, I agree with documented findings and plan of care. Patient was seen and examined. Objective - Vital Signs Vital signs: Vital Signs Temp 98.0 F 03/04/24 04:00 Pulse 88 03/04/24 08:11 Resp 16 03/04/24 07:36 BP 97/61 03/04/24 07:36 Pulse Ox 95 03/04/24 07:55 FiO2 40 03/01/24 11:09 Intake & Output 03/03/24 03/04/24 03/04/24 18:59 06:59 18:59 Intake Total 587 240 Output Total 2000 1800 Balance -1413 -1560 Weight 71.8 kg Intake: Intake, IV Titration 227 Amount Heparin Sod,Pork in 0.45% 227 NaCl 25,000 unit In 0.45 % NaCl 1 250ml.bag @ 12 UNITS/KG/HR 9.42 mls/hr IV .Q24H [facility] Rx#: [id number] Oral 360 240 Output: Urine 2000 1800 - Labs CBC & Chem 7: 03/04/24 07:00 03/04/24 07:00 Labs: Abnormal Lab Results - Last 24 Hours (Table) 03/03/24 03/03/24 03/03/24 Range/Units 11:45 16:43 20:20 WBC (3.8-10.6) k/uL RDW (11.5-15.5) % Neutrophils # (1.3-7.7) k/uL Lymphocytes # (1.0-4.8) k/uL APTT (22.0-30.0) sec Sodium (137-145) mmol/L BUN (7-17) mg/dL Glucose (74-99) mg/dL POC Glucose (mg/dL) 274 H 315 H 194 H (70-110) mg/dL 03/04/24 03/04/24 03/04/24 Range/Units 06:04 07:00 07:00 WBC 21.5 H (3.8-10.6) k/uL RDW 15.8 H (11.5-15.5) % Neutrophils # 20.2 H (1.3-7.7) k/uL Lymphocytes # 0.5 L (1.0-4.8) k/uL APTT (22.0-30.0) sec Sodium 135 L (137-145) mmol/L BUN 38 H (7-17) mg/dL Glucose 282 H (74-99) mg/dL POC Glucose (mg/dL) 295 H (70-110) mg/dL 03/04/24 Range/Units 07:00 WBC (3.8-10.6) k/uL RDW (11.5-15.5) % Neutrophils # (1.3-7.7) k/uL Lymphocytes # (1.0-4.8) k/uL APTT 48.2 H (22.0-30.0) sec Sodium (137-145) mmol/L BUN (7-17) mg/dL Glucose (74-99) mg/dL POC Glucose (mg/dL) (70-110) mg/dL
[2024-03-04 11:40] LABS: Glucose,Whole Blood 225 mg/dL (70-110)
[2024-03-04] MEDS: ASPIRIN 81 MG PO STA (11:55)
[2024-03-04] MEDS ORDERED: VERAPAMIL 2.5 MG/ML 2 ML AMP ONE (12:12)
[2024-03-04] MEDS ORDERED: LIDOCAINE 1% INJ 10MG/ML (20 ML MDV) ONE (12:12)
[2024-03-04] MEDS ORDERED: fentaNYL (PF) 50 MCG/ML 2 ML AMP ONE (12:57)
[2024-03-04] MEDS ORDERED: HEPARIN SODIUM 1,000 UN/ML (10ML VL) ONE (12:57)
[2024-03-04] MEDS: MIDAZOLAM 2 MG/2 ML VIAL IVP ONE (13:41)
[2024-03-04] MEDS: fentaNYL (PF) 50 MCG/ML 2 ML AMP IVP ONE (13:42)
[2024-03-04] MEDS: LIDOCAINE 1% INJ 10MG/ML (20 ML MDV) SQ ONE (13:43)
[2024-03-04] MEDS: VERAPAMIL SYRINGE (5 MG/10 ML) INTRAARTER ONE (13:46)
[2024-03-04] MEDS: HEPARIN SODIUM 1,000 UN/ML (10ML VL) IVP ONE (13:50)
[2024-03-04] MEDS: SODIUM CHLORIDE 0.9% 1,000 ML IV ONE (13:58)
[2024-03-04] MEDS: IOPAMIDOL-370 200ML BTL INJ ONE (13:58)
[2024-03-04] MEDS: HEPARIN SODIUM,PORCINE 10,000 UNIT in SODIUM CHLORIDE 0.9% 1,000 ML IRRIGATION ONE (13:59)
[2024-03-04] MEDS ORDERED: RX INFO: IV CONTRAST WAS GIVEN 1 EACH MISC MISCELLANE PRN (14:31)
--- NOTE | 2024-03-04 14:31 | P.CARDCATH ---
Date of Procedure: 03/04/24 Description of Procedure: DIAGNOSTIC CORONARY ANGIOGRAPHY and LEFT HEART CATH REPORT PROCEDURES PERFORMED: Left heart catheterization Selective coronary angiography Moderate conscious sedation 15 mins Right radial access INDICATION: NSTEMI, cardiomyopathy CONSENT: I have explained the procedural steps of above-mentioned procedures in layman's terms to the patient. I discussed the risks (including but not limited to stroke, emergent vascular or cardiac surgery or ), benefits and alternative therapies for the above-mentioned procedure. I discussed the risks of sedation/analgesia and blood product administration (if indicated). The patient has indicated understanding and acceptance of these risks. Conscious Sedation: Patient's ECG, heart rate, blood pressure, pulse oximetry were monitored throughout the duration of procedure under my direct supervision. 1 mg Versed and 50 mcg Fentanyl were used for induction of moderate conscious sedation. Total duration of moderate concious sedation 15 minutes. PROCEDURE: After explaining the risks, benefits and alternatives of the above mentioned procedures in detail to the patient, informed consent was obtained. Patient was taken to the catheterization lab, prepped and draped in usual sterile fashion using universal precuations. Ultrasound was used to identify the radial artery. 1% lidocaine was infiltrated over the right radial artery. A 6-Azeri sheath was placed and secured in the right radial artery using modified Seldinger technique. The sheath was flushed and 5 mg verapamil was administered intra-arterially. J tipped wire was advanced under fluoroscopic guidance. Once the wire tip reached aortic root 4000 units of IV heparin was given. Over the wire JR4 diagnostic catheter was advanced. The wire in place the catheter was manipulated to cross the aortic valve and entered into LV under fluoroscopy guidance. The wire was removed and the catheter was flushed. LV pressures were obtained and pullback was performed under fluoroscopy. Catheter was manipulated to selectively engage the right coronary ostium. Right coronary angiography was performed in different angiographic projections. The JR4 diagnostic catheter was exchanged for a JL 3.5 diagnostic catheter over the J-wire. The wire was removed, catheter was flushed and manipulated under fluoroscopy to selectively engaged the left coronary ostium. Left coronary angioplasty was performed in different angiographic projections. Catheter was removed over the wire. Radial sheath was flushed. The right radial sheath was removed and a TR band was placed with excellent patent hemostasis was achieved. The patient tolerated the procedure well. Patient was transported back to the post catheterization holding area in stable condition. Angiographic images were reviewed in detail. HEMODYNAMICS: Aortic Pressure: 110/70 mmHg. LV pressure: 112/4 mmHg. LVEDP 6 mmHg. There was no significant gradient across the aortic valve. SELECTIVE CORONARY ARTERIOGRAPHY: LEFT MAIN: The left main is short vessel. It bifurcates into the LAD and circumflex. Left main appears angiographically normal. LEFT ANTERIOR DESCENDING CORONARY ARTERY: LAD is a large caliber vessel which reaches up to the apex. Proximal LAD has mild ectasia. It gives rise to a small septal branch and a small diagonal branch which are patent. Mid LAD has diffuse calcific tubular 50% luminal narrowing. It gives rise to a small diagonal 2 branch which is angiographically patent. Distal LAD has mild luminal irregularities. It is right show third small diagonal branch which is angiographically patent. LEFT CIRCUMFLEX CORONARY ARTERY: It is nondominant vessel. Proximal LCx is la rge caliber and is angiographically patent. It gives rise to a medium size AV groove branch and large OM1 branch. OM1 has mild luminal irregularities, otherwise patent, tortuous. AV groove branch is angiographically patent and gives rise to a small distal OM which is patent. RIGHT CORONARY ARTERY: Dominant vessel. The right coronary artery is a large caliber vessel. Proximal RCA has mild luminal irregularities. Mid RCA has diffuse calcific 50% luminal irregularities. Distal RCA has mild luminal irregularities. It gives rise to a small PDA and PL branch. IMPRESSION: 50% tubular calcific mid LAD stenosis 50% diffuse calcific mid RCA stenosis Mild diffuse disease otherwise Nonischemic cardiomyopathy Sinus tachycardia Normal LVEDP PLAN: Aggressive risk factor modification per most recent ACC/AHA guidelines. Recommend aspirin and high intensity statin. Recommend appropriate GDMT for cardiomyopathy. Consider evaluation for sinus tachycardia and see if it is inappropriate or related to cardiomyopathy. Normal saline 75 cc for 6 hours hours Performing Physician Jaime Johnston MD, FACC, RPVI Thank you for allowing [facility] to participate in this patient's care. Feel free to reach out in case of any followup questions.
[2024-03-04] MEDS: FUROSEMIDE 20 MG TAB PO SCH (14:33)
[2024-03-04] MEDS: METOPROLOL SUCCINATE (ER) 100 MG TAB.ER.24H PO SCH (14:33)
--- NOTE | 2024-03-04 14:53 | P.PN ---
Subjective Progress Note Date: 03/04/24 03/01/2024, the patient is being seen in consultation in the emergency room for acute shortness of breath. The patient was hospitalized few months back for an acute stroke exacerbation and following the treatment, the patient was seen in our office in the baseline FEV1 was in the order of 41% predicted and the patient had a diffusion capacity of 41% of predicted and the patient was started on Trelegy Ellipta 1 puff a day. The patient continues to smoke cigarettes. Today she is coming in with acute dyspnea chest tightness and wheezing and shortness of breath. In the emergency, the patient had diminished level of consciousness. The patient was placed on a BiPAP at a pressure of 12 over 5 cm of water and titration of FiO2 of 40%. Mother states that she improved and the patient is currently much more comfortable generating more than 400 cc of air and tidal volume on the BiPAP machine. Breathing is more comfortable. She is actively bronchospastic and wheezy. She is on bronchodilators. She is on steroids and the patient is currently on IV Solu-Medrol. 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 She has diabetes mellitus. She has hypertension hyperlipidemia as comorbid conditions. Her current EKG showing sinus tachycardia. The white cell count of 15.8 with hemoglobin 14.6 and a platelet count of 306. Her lactic acid level is at 2.3, troponins were elevated at 0.4 and 0.5 respectively x 2. Cardiology consultation has been obtained. Echocardiogram is ordered and we are still awaiting further recommendations from cardiology for troponin leak. Chest x-ray showed increased pulmonary vascular congestion/edema. . Based on that, I gave the patient a dose of Lasix 20 mg IV in the emergency department. On today's evaluation on 03/02/2024, the patient is feeling better and she is obviously short of breath compared to yesterday. She is off the BiPAP and the patient is currently on oxygen at 2.5 L with a pulse ox of 92%. Noted the patient was treated with BiPAP, bronchodilators and steroids. Echocardiogram also showed impaired LV function with an ejection fraction of 20%. Chest x-ray showed increased MARKINGS. BASED ON THAT, THE PATIENT WAS STARTED ON LASIX AND THE PATIENT IS PRODUCING EXCELLENT URINE OUTPUT. SHE IS LESS SHORT OF BREATH ON TODAY'S EVALUATION. SHE WAS ALSO STARTED ON IV HEPARIN BY CARDIOLOGY. SHE IS ON ORAL ZITHROMAX AN EMPIRIC ANTIBIOTIC COVERAGE. AWAKE AND ALERT. BLOOD WORK FROM TODAY SHOWS A WHITE CELL COUNT OF 16, HEMOGLOBIN 10.9 AND A PLATELET COUNT OF 257. LACTIC ACID LEVEL IS DOWN TO 3.1. BLOOD SUGARS ARE ELEVATED SECONDARY TO STRESS STEROIDS USE AND THE PATIENT IS ON SLIDING SCALE INSULIN COVERAGE. SHE IS ON TRULICITY AND SLIDING SCALE INSULIN COVERAGE. 03/03/2024, the patient is feeling less short of breath. No new complaints. Note that she was hospitalized for an acute COPD exacerbation and she was also found to have CHF. The patient is currently on a combination of medication including Entresto, Aldactone, metoprolol XL 50 mg p.o. daily and Farxiga. The patient was diuresed with IV Lasix. The fluid balance has been essentially negative and the patient respiratory status is improved. The patient is going to undergo a cardiac catheterization in a.m. The patient is seen today March 04, 2024 in follow-up on the selective care unit. She is currently sitting up in bed. Awake and alert in no acute distress. She is maintaining good O2 saturations in the 90s on 2 L/min per nasal cannula. She denies any worsening shortness of breath, cough or congestion. Denies any chest pain currently. She remains on a heparin drip. Echocardiogram revealed ejection fraction of 20%. Plan is for cardiac catheterization today. White count 21.5. Hemoglobin 13.2. Platelets 305. Sodium 135. Potassium 4.3. Bicarb 25. BUN 38. Creatinine 1.02. Glucose 282. She is continued on Symbicort, albuterol, disown taper, oral diuretics. NicoDerm patch in place. Objective - Vital Signs Vital signs: Vital Signs Temp 98.0 F 03/04/24 04:00 Pulse 92 03/04/24 11:52 Resp 16 03/04/24 07:36 BP 97/61 03/04/24 07:36 Pulse Ox 95 03/04/24 07:55 FiO2 40 03/01/24 11:09 Intake & Output 03/03/24 03/04/24 03/04/24 18:59 06:59 18:59 Intake Total 587 240 594.939 Output Total 1999 1800 Balance -1413 -1560 594.939 Weight 71.8 kg Intake: IV 375 Intake, IV Titration 227 219.939 Amount Heparin Sod,Pork in 0.45% 227 219.939 NaCl 25,000 unit In 0.45 % NaCl 1 250ml.bag @ 12 UNITS/KG/HR 9.42 mls/hr IV .Q24H [facility] Rx#: [id number] Oral 360 240 Output: Urine 2000 1800 - Exam GENERAL EXAM: Alert, pleasant 68-year-old female, on 2 L nasal cannula, comfortable in no apparent distress. HEAD: Normocephalic. EYES: Normal reaction of pupils, equal size. NOSE: Clear with pink turbinates. THROAT: No erythema or exudates. NECK: No masses, no JVD. CHEST: No chest wall deformity. LUNGS: Equal air entry with crackles in the bilateral bases. CVS: S1 and S2 normal with no audible murmur, regular rhythm. ABDOMEN: No hepatosplenomegaly, normal bowel sounds, no guarding or rigidity. SPINE: No scoliosis or deformity SKIN: No rashes CENTRAL NERVOUS SYSTEM: No focal deficits, tone is normal in all 4 extremities. EXTREMITIES: There is no peripheral edema. No clubbing, no cyanosis. Perip heral pulses are intact. - Labs CBC & Chem 7: 03/04/24 07:00 03/04/24 07:00 Labs: Abnormal Lab Results - Last 24 Hours (Table) 03/03/24 03/03/24 03/04/24 Range/Units 16:43 20:20 06:04 WBC (3.8-10.6) k/uL RDW (11.5-15.5) % Neutrophils # (1.3-7.7) k/uL Lymphocytes # (1.0-4.8) k/uL APTT (22.0-30.0) sec Sodium (137-145) mmol/L BUN (7-17) mg/dL Glucose (74-99) mg/dL POC Glucose (mg/dL) 315 H 194 H 295 H (70-110) mg/dL 03/04/24 03/04/24 03/04/24 Range/Units 07:00 07:00 07:00 WBC 21.5 H (3.8-10.6) k/uL RDW 15.8 H (11.5-15.5) % Neutrophils # 20.2 H (1.3-7.7) k/uL Lymphocytes # 0.5 L (1.0-4.8) k/uL APTT 48.2 H (22.0-30.0) sec Sodium 135 L (137-145) mmol/L BUN 38 H (7-17) mg/dL Glucose 282 H (74-99) mg/dL POC Glucose (mg/dL) (70-110) mg/dL 03/04/24 Range/Units 11:38 WBC (3.8-10.6) k/uL RDW (11.5-15.5) % Neutrophils # (1.3-7.7) k/uL Lymphocytes # (1.0-4.8) k/uL APTT (22.0-30.0) sec Sodium (137-145) mmol/L BUN (7-17) mg/dL Glucose (74-99) mg/dL POC Glucose (mg/dL) 225 H (70-110) mg/dL Assessment and Plan Assessment: Acute hypoxemic respiratory failure secondary to an acute exacerbation of systolic congestive heart failure and acute exacerbation chronic obstructive pulmonary disease Acute exacerbation of COPD with excessive bronchospasm and wheezing. Rule out underlying component of CHF in addition contributing to the patient respiratory failure as the patient's chest x-ray is consistent with pulm edema. Patient is currently off the BiPAP, clinically improved and the patient is currently on 2 L of oxygen by nasal cannula. Severe COPD with an FEV1 of 41% predicted and diffusion capacity of 41% of predicted, maintained Trelegy Ellipta on outpatient basis Systolic heart failure with an ejection fraction of 20% Abnormal troponin rule out NSTEMI versus type II myocardial ischemia. Cardiac catheterization ruled out obstructive coronary artery disease Nonischemic cardiomyopathy Smoker Sinus tachycardia Paroxysmal atrial fibrillation Diabetes mellitus type 2 Hypertension Hyperlipidemia Plan: The patient was seen and evaluated Labs and medications reviewed Cardiac catheterization results reviewed Titrate the FiO2 as tolerated Continue the current treatment plan We will continue to follow I have personally seen and examined the patient, performed the documentation and the assessment and plan as written. Number of minutes spent on the visit: 10.
[2024-03-04 16:40] LABS: Glucose,Whole Blood 300 mg/dL (70-110)
[2024-03-04 20:00] LABS: Glucose,Whole Blood 185 mg/dL (70-110)
--- NOTE | 2024-03-04 22:12 | P.PN ---
Subjective Progress Note Date: 03/04/24 68-year-old female with known history of COPD continues to smoke came in with complaints of severe shortness of breath and was obtunded patient was started on BiPAP with significant improvement in her respiratory status and mental status patient is able to answer questions appropriately to me. Patient denies fever chills patient does have mild leukocytosis mildly elevated serum creatinine 1.1 and potassium of 5.2 patient denies any chest pain. Troponin is negative but second 1 was slightly higher at 0.41. Patient was having sinus tachycardia, cardiology was consulted and patient was started on IV Cardizem which was subsequently discontinued by cardiology. Chest x-ray showed diffuse interstitial opacities which is mostly consistent with interstitial pneumonitis or interstitial lung disease.. Patient had a history of bladder cancer in the past unknown whether she received radiation. Patient had elevated D-dimer which is only slight elevation. Patient's BNP is 96. Serum potassium is 5.2. 03/02/2024--patient was seen and examined today. Feeling better. Continues to be short of breath, off BiPAP, currently on 2.5 L oxygen with pulse ox 92%. Patient currently on bronchodilators and steroids. Echocardiogram showed impaired LV function with ejection fraction 20%. Chest x-ray showed increased markings. Currently on IV Lasix. Responding well. Currently on IV heparin, cardiology following. WBC 16, hemoglobin 10.9, platelet 257. Lactic acid down to 3.1, likely secondary to respiratory distress, doubt sepsis. Elevated blood sugars due to steroids. 03/03/2024--patient was seen and examined today. Shortness of breath is improving. No issues overnight. Currently on IV diuresis for acute on chronic systolic CHF, fluid balance negative, respiratory status improving. Pulmonary following. Cardiology following, awaiting further recommendations regarding ischemic workup. WBCs went up likely secondary to steroids. Hemoglobin and platelet unremarkable. BMP unremarkable, potassium improved to 4.5. Creatinine improved to 1.01. 03/04/2024 Patient is evaluated today in follow up on the cardiac unit. Not as short of breath. On 3L of oxygen saturations of 94%. White blood cell count 21.5, sodium 135, BUN 38, creatinine 1.02. Blood glucose 150-300s. REVIEW OF SYSTEMS: CONSTITUTIONAL: No fever or chills. CARDIOVASCULAR: No chest pain, palpitations or syncope. PULMONARY: No shortness of breath, no cough, sore throat. GASTROINTESTINAL: No nausea, vomiting, diarrhea, abdominal pain. : No Dysuria, urgency, frequency. Extremities: No edema. NEUROLOGICAL: No headaches, no weakness, or numbness PHYSICAL EXAMINATION: GENERAL: The patient is A&O x3, NAD HEENT: EOMI, Sclerae anicteric, Moist Mucous membranes Neck: Supple, Non tender, No JVD PULMONARY: Equal breath souds B/L, +wheezing, No crackles. CARDIOVASCULAR: S1, S2 present. No murmurs, rubs, or gallops. ABDOMEN: Soft, nontender, nondistended, normoactive bowel sounds. No guarding or rebound tenderness. MUSCULOSKELETAL: No edema, No cyanosis. No clubbing. Normal ROM. Intact peripheral pulses. EXTREMITIES: No cyanosis, clubbing, or pedal edema. NEUROLOGICAL: CN 2-12 grossly intact. No FND Skin: No Rash Assessment and plan: -Acute hypercapnic respiratory failure secondary to COPD exacerbation continue systemic steroids inhalational treatments no evidence of pneumonia -Acute hypoxic respiratory failure secondary to possible interstitial lung disease -Acute on chronic systolic CHF--IV diuresis. Echocardiogram showed EF 20% -Sinus tachycardia secondary to hypoxemia -Elevated troponin cardiology evaluated the patient further management as per cardiology and patient is on IV heparin -Paroxysmal atrial fibrillation -Hypertension -Hyperlipidemia -Acute renal failure may require IV fluids -Type 2 diabetes mellitus blood sugars are uncontrolled secondary to systemic steroids will use high-dose sliding scale -Metabolic encephalopathy: Improving -Sinus tachycardiaoff Cardizem drip now DVT prophylaxis:Heparin Plan: Continue aspirin, statin, metoprolol, Entresto, Aldactone, Farxiga, IV Lasix--cardiology following elevated troponin demand ischemia IV heparin, holding Eliquis Continue inhalers/steroids--pulmonary following Accu-Cheks, sliding scale insulin Patient will be going for cardiac catheterization today The impression and plan of care has been dictated by Jazmin Woods, Nurse Practitioner as directed. Dr. Cristy MD I have performed a history and physical examination and medical decision making of this patient, discussed the same with the dictator, and agree with the dictators assessment and plan as written, documented as a scribe. Based on total visit time, I have performed more than 50% of this visit. Objective - Vital Signs Vital signs: Vital Signs Temp 98.0 F 03/04/24 04:00 Pulse 88 03/04/24 08:11 Resp 16 03/04/24 07:36 BP 97/61 03/04/24 07:36 Pulse Ox 95 03/04/24 07:55 FiO2 40 03/01/24 11:09 Intake & Output 03/03/24 03/04/24 03/04/24 18:59 06:59 18:59 Intake Total 587 240 Output Total 1999 1800 Balance -1413 -1560 Weight 71.8 kg Intake: Intake, IV Titration 227 Amount Heparin Sod,Pork in 0.45% 227 NaCl 25,000 unit In 0.45 % NaCl 1 250ml.bag @ 12 UNITS/KG/HR 9.42 mls/hr IV .Q24H [facility] Rx#: [id number] Oral 360 240 Output: Urine 1999 1800 - Labs CBC & Chem 7: 03/04/24 07:00 03/04/24 07:00 Labs: Abnormal Lab Results - Last 24 Hours (Table) 03/03/24 03/03/24 03/03/24 Range/Units 11:45 16:43 20:20 WBC (3.8-10.6) k/uL RDW (11.5-15.5) % Neutrophils # (1.3-7.7) k/uL Lymphocytes # (1.0-4.8) k/uL APTT (22.0-30.0) sec Sodium (137-145) mmol/L BUN (7-17) mg/dL Glucose (74-99) mg/dL POC Glucose (mg/dL) 274 H 315 H 194 H (70-110) mg/dL 03/04/24 03/04/24 03/04/24 Range/Units 06:04 07:00 07:00 WBC 21.5 H (3.8-10.6) k/uL RDW 15.8 H (11.5-15.5) % Neutrophils # 20.2 H (1.3-7.7) k/uL Lymphocytes # 0.5 L (1.0-4.8) k/uL APTT (22.0-30.0) sec Sodium 135 L (137-145) mmol/L BUN 38 H (7-17) mg/dL Glucose 282 H (74-99) mg/dL POC Glucose (mg/dL) 295 H (70-110) mg/dL 03/04/24 Range/Units 07:00 WBC (3.8-10.6) k/uL RDW (11.5-15.5) % Neutrophils # (1.3-7.7) k/uL Lymphocytes # (1.0-4.8) k/uL APTT 48.2 H (22.0-30.0) sec Sodium (137-145) mmol/L BUN (7-17) mg/dL Glucose (74-99) mg/dL POC Glucose (mg/dL) (70-110) mg/dL Assessment and Plan Time with Patient: Less than 30
[2024-03-05 06:04] LABS: Glucose,Whole Blood 176 mg/dL (70-110)
[2024-03-05] MEDS: predniSONE 20 MG TAB PO SCH (09:39)
[2024-03-05 11:44] LABS: Glucose,Whole Blood 152 mg/dL (70-110)
[2024-03-05] MEDS: CLOPIDOGREL 75 MG TAB PO SCH (11:58)
--- NOTE | 2024-03-05 12:41 | P.PN ---
Subjective Progress Note Date: 03/05/24 HPI This is a 68-year-old female with a past medical history significant for COPD, diabetes, hypertension, hyperlipidemia, and atrial fibrillation. Patient follows with a digital designer in [facility] Dr Koo. We have been asked to see the patient in consultation for chest pain. Patient examined at the bedside in the emergency room. According to the patient's nurse, the patient came to the hospital to chief complaint of shortness of breath. Patient was found to be obtunded upon arrival. Patient is currently on BiPAP and her mental status has improved. Patient currently denies any chest pain or pressure. She does report shortness of breath. EKG and bedside telemetry reveals sinus tachycardia. She was initially started on IV Cardizem which has since been discontinued. DIAGNOSTICS: - EKG reveals sinus tachycardia - Chest xray diffuse increased interstitial opacities especially in the upper and mid lungs. - Laboratory data: WBC 13.9. Hemoglobin 13.7. Platelet count 448. Sodium 137. Potassium 5.2. BUN 22. Creatinine 1.10. Troponin negative x 1. - Current home cardiac medications include lisinopril 10 mg daily as needed, Eliquis 5 mg twice a day, Cardizem CD 120 mg daily, Lipitor 40 mg at night March 02, 2024 Patient denies any chest pain chest pressure. Still reporting shortness of breath but reports improved since the time of admission. March 03, 2024 Patient continues to be in sinus tachyardia, heart rate is around 100 bpm. Patient reports that shortness of breath and chest pressure symptoms have improved since the time of admission. 03/04 Patient is scheduled for cardiac catheterization today at noon with Dr. Johnston. Systolic blood pressures during the night were in the 80s. Blood pressure now 97/61, heart rate in the 80s and 90s. Pulse ox 95% on 2 L nasal cannula. Repeat blood work reveals WBC 21.5, hemoglobin 13.2. Sodium 135, potassium 4.3, BUN 38 creatinine 1.02. 03/05 Yesterday, patient underwent cardiac catheterization with Dr. Johnston which revealed 50% tubular calcified mid LAD stenosis, 50% diffuse calcified mid RCA stenosis, mild diffuse disease otherwise. Blood pressure 105/57, heart rate 84, pulse ox 91% on 3 L nasal cannula. Yesterday, Lasix was decreased and Aldactone discontinued due to hypotension. PHYSICAL EXAM: LUNGS: Decreased breath sounds, otherwise clear to auscultation. HEART: Regular S1 and S2 heard. ABDOMEN: Soft. Nondistended. Nontender. EXTREMITIES: 1+ swelling in bilateral lower extremity NEUROLOGIC: Awake and alert. Detailed neuroexam was not performed. ASSESSMENT: Altered mental status, improving Acute on chronic hypoxic respiratory failure, initially on BiPAP Acute CHF exacerbation, HFrEF, Nonischemic cardiomyopathy, likely stress-induced with apical hypokinesia Paroxysmal atrial fibrillation Coronary artery disease in the range of 50% LAD and RCA COPD exacerbation Hypertension and hyperlipidemia Echo EF 20%, apical hypokinesia Chronic hypoxic respiratory failure on home O2 PLAN: Increase atorvastatin to 80 mg daily And Plavix 75 mg daily Continue aspirin 81 mg, atorvastatin 40 mg, Farxiga 10 mg daily, Toprol XL 100 mg daily, Entresto 24-26 mg twice daily, Lasix 20 mg daily Obtain limited echocardiogram to evaluate EF for improvement from that obtained on admission Monitor renal function and urine output. Do not resume Cardizem at the time of discharge due to cardiomyopathy Nurse practitioner note has been reviewed, I agree with documented findings and plan of care. Patient was seen and examined. Objective - Vital Signs Vital signs: Vital Signs Temp 96.7 F L 03/05/24 11:44 Pulse 84 03/05/24 11:44 Resp 20 03/05/24 11:44 BP 105/57 03/05/24 11:44 Pulse Ox 91 L 03/05/24 11:44 FiO2 40 03/01/24 11:09 Intake & Output 03/04/24 03/05/24 03/05/24 18:59 06:59 18:59 Intake Total 1012.939 10 128 Output Total 1100 Balance -87.061 10 128 Weight 71.7 kg Intake: IV 375 10 10 Invasive Line 2 10 10 Intake, IV Titration 219.939 Amount Heparin Sod,Pork in 0.45% 219.939 NaCl 25,000 unit In 0.45 % NaCl 1 250ml.bag @ 12 UNITS/KG/HR 9.42 mls/hr IV .Q24H [facility] Rx#: [id number] Oral 418 0 118 Output: Urine 1100 Other: Voiding Method Toilet - Labs CBC & Chem 7: 03/04/24 07:00 03/04/24 07:00 Labs: Abnormal Lab Results - Last 24 Hours (Table) 03/04/24 03/04/24 03/05/24 Range/Units 16:39 19:58 05:59 POC Glucose (mg/dL) 300 H 185 H 176 H (70-110) mg/dL 03/05/24 Range/Units 11:42 POC Glucose (mg/dL) 152 H (70-110) mg/dL
--- NOTE | 2024-03-05 14:28 | P.PN ---
Subjective Progress Note Date: 03/05/24 03/01/2024, the patient is being seen in consultation in the emergency room for acute shortness of breath. The patient was hospitalized few months back for an acute stroke exacerbation and following the treatment, the patient was seen in our office in the baseline FEV1 was in the order of 41% predicted and the patient had a diffusion capacity of 41% of predicted and the patient was started on Trelegy Ellipta 1 puff a day. The patient continues to smoke cigarettes. Today she is coming in with acute dyspnea chest tightness and wheezing and shortness of breath. In the emergency, the patient had diminished level of consciousness. The patient was placed on a BiPAP at a pressure of 12 over 5 cm of water and titration of FiO2 of 40%. Mother states that she improved and the patient is currently much more comfortable generating more than 400 cc of air and tidal volume on the BiPAP machine. Breathing is more comfortable. She is actively bronchospastic and wheezy. She is on bronchodilators. She is on steroids and the patient is currently on IV Solu-Medrol. 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 She has diabetes mellitus. She has hypertension hyperlipidemia as comorbid conditions. Her current EKG showing sinus tachycardia. The white cell count of 15.8 with hemoglobin 14.6 and a platelet count of 306. Her lactic acid level is at 2.3, troponins were elevated at 0.4 and 0.5 respectively x 2. Cardiology consultation has been obtained. Echocardiogram is ordered and we are still awaiting further recommendations from cardiology for troponin leak. Chest x-ray showed increased pulmonary vascular congestion/edema. . Based on that, I gave the patient a dose of Lasix 20 mg IV in the emergency department. On today's evaluation on 03/02/2024, the patient is feeling better and she is obviously short of breath compared to yesterday. She is off the BiPAP and the patient is currently on oxygen at 2.5 L with a pulse ox of 92%. Noted the patient was treated with BiPAP, bronchodilators and steroids. Echocardiogram also showed impaired LV function with an ejection fraction of 20%. Chest x-ray showed increased MARKINGS. BASED ON THAT, THE PATIENT WAS STARTED ON LASIX AND THE PATIENT IS PRODUCING EXCELLENT URINE OUTPUT. SHE IS LESS SHORT OF BREATH ON TODAY'S EVALUATION. SHE WAS ALSO STARTED ON IV HEPARIN BY CARDIOLOGY. SHE IS ON ORAL ZITHROMAX AN EMPIRIC ANTIBIOTIC COVERAGE. AWAKE AND ALERT. BLOOD WORK FROM TODAY SHOWS A WHITE CELL COUNT OF 16, HEMOGLOBIN 10.9 AND A PLATELET COUNT OF 257. LACTIC ACID LEVEL IS DOWN TO 3.1. BLOOD SUGARS ARE ELEVATED SECONDARY TO STRESS STEROIDS USE AND THE PATIENT IS ON SLIDING SCALE INSULIN COVERAGE. SHE IS ON TRULICITY AND SLIDING SCALE INSULIN COVERAGE. 03/03/2024, the patient is feeling less short of breath. No new complaints. Note that she was hospitalized for an acute COPD exacerbation and she was also found to have CHF. The patient is currently on a combination of medication including Entresto, Aldactone, metoprolol XL 50 mg p.o. daily and Farxiga. The patient was diuresed with IV Lasix. The fluid balance has been essentially negative and the patient respiratory status is improved. The patient is going to undergo a cardiac catheterization in a.m. The patient is seen today March 04, 2024 in follow-up on the selective care unit. She is currently sitting up in bed. Awake and alert in no acute distress. She is maintaining good O2 saturations in the 90s on 2 L/min per nasal cannula. She denies any worsening shortness of breath, cough or congestion. Denies any chest pain currently. She remains on a heparin drip. Echocardiogram revealed ejection fraction of 20%. Plan is for cardiac catheterization today. White count 21.5. Hemoglobin 13.2. Platelets 305. Sodium 135. Potassium 4.3. Bicarb 25. BUN 38. Creatinine 1.02. Glucose 282. She is continued on Symbicort, albuterol, disown taper, oral diuretics. NicoDerm patch in place. The patient is seen today March 05, 2024 in follow-up on the selective care unit. She is sitting up at the bedside. Awake and alert in no acute distress. Denies any worsening shortness of breath, cough or congestion. Denies any chest pain. She is maintaining good O2 saturations in the 90s on 3 L/min per nasal cannula. She is afebrile. Hemodynamically stable. Glucose 152. She remains on DuoNeb inhalations, Symbicort, prednisone taper. She is on oral diuretics. She is on aspirin and Plavix. NicoDerm patch in place. Objective - Vital Signs Vital signs: Vital Signs Temp 96.7 F L 03/05/24 11:44 Pulse 84 03/05/24 11:44 Resp 20 03/05/24 11:44 BP 105/57 03/05/24 11:44 Pulse Ox 91 L 03/05/24 11:44 FiO2 40 03/01/24 11:09 Intake & Output 03/04/24 03/05/24 03/05/24 18:59 06:59 18:59 Intake Total 1012.939 10 128 Output Total 1100 Balance -87.061 10 128 Weight 71.7 kg Intake: IV 375 10 10 Invasive Line 2 10 10 Intake, IV Titration 219.939 Amount Heparin Sod,Pork in 0.45% 219.939 NaCl 25,000 unit In 0.45 % NaCl 1 250ml.bag @ 12 UNITS/KG/HR 9.42 mls/hr IV .Q24H [facility] Rx#: [id number] Oral 418 0 118 Output: Urine 1100 Other: Voiding Method Toilet - Exam GENERAL EXAM: Alert, pleasant 68-year-old female, sitting up at the bedside, on 3 L nasal cannula, in no apparent distress. HEAD: Normocephalic. EYES: Normal reaction of pupils, equal size. NOSE: Clear with pink turbinates. THROAT: No erythema or exudates. NECK: No masses, no JVD. CHEST: No chest wall deformity. LUNGS: Equal air entry with crackles in the bilateral bases. CVS: S1 and S2 normal with no audible murmur, regular rhythm. ABDOMEN: No hepatosplenomegaly, normal bowel sounds, no guarding or rigidity. SPINE: No scoliosis or deformity SKIN: No rashes CENTRAL NERVOUS SYSTEM: No focal deficits, tone is normal in all 4 extremities. EXTREMITIES: There is no peripheral edema. No clubbing, no cyanosis. Peripheral pulses are intact. - Labs CBC & Chem 7: 03/04/24 07:00 03/04/24 07:00 Labs: Abnormal Lab Results - Last 24 Hours (Table) 03/04/24 03/04/24 03/05/24 Range/Units 16:39 19:58 05:59 POC Glucose (mg/dL) 300 H 185 H 176 H (70-110) mg/dL 03/05/24 Range/Units 11:42 POC Glucose (mg/dL) 152 H (70-110) mg/dL Assessment and Plan Assessment: Acute hypoxemic respiratory failure secondary to an acute exacerbation of systolic congestive heart failure and acute exacerbation chronic obstructive pulmonary disease Acute exacerbation of COPD with excessive bronchospasm and wheezing. Rule out underlying component of CHF in addition contributing to the patient respiratory failure as the patient's chest x-ray is consistent with pulm edema. Patient is currently off the BiPAP, clinically improved and the patient is currently on 3 L of oxygen by nasal cannula. Severe COPD with an FEV1 of 41% predicted and diffusion capacity of 41% of predicted, maintained Trelegy Ellipta on outpatient basis Systolic heart failure with an ejection fraction of 20% Abnormal troponin rule out NSTEMI versus type II myocardial ischemia. Cardiac catheterization ruled out obstructive coronary artery disease Nonischemic cardiomyopathy Smoker Sinus tachycardia Paroxysmal atrial fibrillation Diabetes mellitus type 2 Hypertension Hyperlipidemia Plan: The patient was seen and evaluated Medications reviewed Titrate the FiO2 as tolerated Continue the current treatment plan Increase her activity as tolerated We will continue to follow I have personally seen and examined the patient, performed the documentation and the assessment and plan as written. Number of minutes spent on the visit: 10.
--- NOTE | 2024-03-05 16:56 | CA ---
Transthoracic Echo Report Name: Lacie Rubio Age: 68 Gender: F : 1955 Exam Date: 03/05/2024 13:12 Exam Location: [facility] Ht (in): 62 Wt (lb): 158 Ordering Physician: Janet Bejarano Attending/Referring Phys: [id number], Carlee Erp Project Manager Kristen Wilkerson RDCS Procedure CPT: Indications: LVF eval for improvement Cardiac Hx: Technical Quality: Fair Contrast 1: Total Dose (mL): Contrast 2: Total Dose (mL): MEASUREMENTS (Male / Female) Normal Values 2D ECHO LV Diastolic Diameter PLAX 4.4 cm 4.2 - 5.9 / 3.9 - 5.3 cm LV Systolic Diameter PLAX 2.6 cm IVS Diastolic Thickness 0.9 cm 0.6 - 1.0 / 0.6 - 0.9 cm LVPW Diastolic Thickness 1.0 cm 0.6 - 1.0 / 0.6 - 0.9 cm LV Relative Wall Thickness 0.4 RV Internal Dim ED PLAX 1.1 cm LA Systolic Diameter LX 3.5 cm 3.0 - 4.0 / 2.7 - 3.8 cm LV Diastolic Volume MOD BP 52.3 cm??? 67 - 155 / 56 - 104 cm??? LV Systolic Volume MOD BP 21.7 cm??? 22 - 58 / 19 - 49 cm??? LV Ejection Fraction MOD BP 58.6 % >= 55 % LV Cardiac Index MOD BP 1279.8 cm???/min???m??? LV Diastolic Volume MOD 4C 59.7 cm??? LV Systolic Volume MOD 4C 21.2 cm??? LV Ejection Fraction MOD 4C 64.5 % LV Cardiac Index MOD 4C 1609.3 cm???/min???m??? LV Diastolic Length 4C 7.0 cm LV Systolic Length 4C 6.2 cm LV Diastolic Volume MOD 2C 44.8 cm??? LV Systolic Volume MOD 2C 21.8 cm??? LV Ejection Fraction MOD 2C 51.4 % LV Cardiac Index MOD 2C 964.3 cm???/min???m??? LV Diastolic Length 2C 6.8 cm LV Systolic Length 2C 6.3 cm LA Volume 43.4 cm??? 18 - 58 / 22 - 52 cm??? LA Volume Index 24.2 cm???/m??? 16 - 28 cm???/m??? M-MODE Aortic Root Diameter MM 2.7 cm LA Systolic Diameter MM 2.7 cm LA Ao Ratio MM 1.0 AV Cusp Separation MM 1.7 cm FINDINGS Left Ventricle Left ventricular ejection fraction is estimated at 50-55%. Mildly increased posterior wall thickness. Left ventricular cavity size normal. Left ventricular wall thickness normal. Normal left ventricular systolic function with no obvious regional wall motion abnormalities. Right Ventricle Normal right ventricular size and function. Right Atrium Left Atrium Mitral Valve Aortic Valve Tricuspid Valve Pulmonic Valve Pericardium No pericardial or pleural effusion. Aorta Normal size aortic root and proximal ascending aorta. CONCLUSIONS Reserved LV systolic function with an ejection fraction of 55% Previewed by: Dr. Alvaro Pearson MD (Electronically Signed) Final Date: 05 March 2024 16:55
[2024-03-05 17:04] LABS: Glucose,Whole Blood 251 mg/dL (70-110)
--- NOTE | 2024-03-05 20:15 | P.PN ---
Subjective Progress Note Date: 03/05/24 68-year-old female with known history of COPD continues to smoke came in with complaints of severe shortness of breath and was obtunded patient was started on BiPAP with significant improvement in her respiratory status and mental status patient is able to answer questions appropriately to me. Patient denies fever chills patient does have mild leukocytosis mildly elevated serum creatinine 1.1 and potassium of 5.2 patient denies any chest pain. Troponin is negative but second 1 was slightly higher at 0.41. Patient was having sinus tachycardia, cardiology was consulted and patient was started on IV Cardizem which was subsequently discontinued by cardiology. Chest x-ray showed diffuse interstitial opacities which is mostly consistent with interstitial pneumonitis or interstitial lung disease.. Patient had a history of bladder cancer in the past unknown whether she received radiation. Patient had elevated D-dimer which is only slight elevation. Patient's BNP is 96. Serum potassium is 5.2. 03/02/2024--patient was seen and examined today. Feeling better. Continues to be short of breath, off BiPAP, currently on 2.5 L oxygen with pulse ox 92%. Patient currently on bronchodilators and steroids. Echocardiogram showed impaired LV function with ejection fraction 20%. Chest x-ray showed increased markings. Currently on IV Lasix. Responding well. Currently on IV heparin, cardiology following. WBC 16, hemoglobin 10.9, platelet 257. Lactic acid down to 3.1, likely secondary to respiratory distress, doubt sepsis. Elevated blood sugars due to steroids. 03/03/2024--patient was seen and examined today. Shortness of breath is improving. No issues overnight. Currently on IV diuresis for acute on chronic systolic CHF, fluid balance negative, respiratory status improving. Pulmonary following. Cardiology following, awaiting further recommendations regarding ischemic workup. WBCs went up likely secondary to steroids. Hemoglobin and platelet unremarkable. BMP unremarkable, potassium improved to 4.5. Creatinine improved to 1.01. 03/04/2024 Patient is evaluated today in follow up on the cardiac unit. Not as short of breath. On 3L of oxygen saturations of 94%. White blood cell count 21.5, sodium 135, BUN 38, creatinine 1.02. Blood glucose 150-300s. 03/05/2024 Patient evaluated today while she is resting in bed. Continues to report some shortness of breath although much improved. Underwent cardiac catheterization with reports showing 50% tubular calcific mid LAD stenosis, and 50% diffuse calcific mid RCA stenosis, mild diffuse disease otherwise, nonischemic car diomyopathy, sinus tachycardia and normal LVEDP. Patient remains on optimized medical therapy. Had a repeat echocardiogram showing EF 50-55% with no obvious wall motion abnormalities. REVIEW OF SYSTEMS: CONSTITUTIONAL: No fever or chills. CARDIOVASCULAR: No chest pain, palpitations or syncope. PULMONARY: No shortness of breath, no cough, sore throat. GASTROINTESTINAL: No nausea, vomiting, diarrhea, abdominal pain. : No Dysuria, urgency, frequency. Extremities: No edema. NEUROLOGICAL: No headaches, no weakness, or numbness PHYSICAL EXAMINATION: GENERAL: The patient is A&O x3, NAD HEENT: EOMI, Sclerae anicteric, Moist Mucous membranes Neck: Supple, Non tender, No JVD PULMONARY: Equal breath souds B/L, +wheezing, No crackles. CARDIOVASCULAR: S1, S2 present. No murmurs, rubs, or gallops. ABDOMEN: Soft, nontender, nondistended, normoactive bowel sounds. No guarding or rebound tenderness. MUSCULOSKELETAL: No edema, No cyanosis. No clubbing. Normal ROM. Intact peripheral pulses. EXTREMITIES: No cyanosis, clubbing, or pedal edema. NEUROLOGICAL: CN 2-12 grossly intact. No FND Skin: No Rash Assessment and plan: -Acute hypercapnic respiratory failure secondary to COPD exacerbation continue systemic steroids inhalational treatments no evidence of pneumonia -Acute hypoxic respiratory failure secondary to possible interstitial lung disease -Acute on chronic systolic CHF EF 20% and on repeat echocardiogram had improved EF at 50-55%. -Sinus tachycardia secondary to hypoxemia -Elevated troponin/non ischemic cardiomyopathy -Paroxysmal atrial fibrillation -Hypertension -Hyperlipidemia -Acute renal failure may require IV fluids -Type 2 diabetes mellitus blood sugars are uncontrolled secondary to systemic steroids will use high-dose sliding scale -Metabolic encephalopathy: Improving -Sinus tachycardiaoff Cardizem drip now DVT prophylaxis:Heparin Plan: Continue aspirin, statin, metoprolol, Entresto, Aldactone, Farxiga Transitioned to oral lasix Eliquis remains on hold but off the IV heparin. Continue inhalers/steroids--pulmonary following Accu-Cheks, sliding scale insulin Cardizem discontinued due to the cardiomyopathy. Possible D/C home in the next 24 hours Repeat BMP/CBC in the AM The impression and plan of care has been dictated by Jazmin Woods Nurse Practitioner as directed. Dr. Cristy MD I have performed a history and physical examination and medical decision making of this patient, discussed the same with the dictator, and agree with the dictators assessment and plan as written, documented as a scribe. Based on total visit time, I have performed more than 50% of this visit. Objective - Vital Signs Vital signs: Vital Signs Temp 96.7 F L 03/05/24 11:44 Pulse 84 03/05/24 11:44 Resp 20 03/05/24 11:44 BP 105/57 03/05/24 11:44 Pulse Ox 91 L 03/05/24 11:44 FiO2 40 03/01/24 11:09 Intake & Output 03/04/24 03/05/24 03/05/24 18:59 06:59 18:59 Intake Total 1012.939 10 128 Output Total 1100 Balance -87.061 10 128 Weight 71.7 kg Intake: IV 375 10 10 Invasive Line 2 10 10 Intake, IV Titration 219.939 Amount Heparin Sod,Pork in 0.45% 219.939 NaCl 25,000 unit In 0.45 % NaCl 1 250ml.bag @ 12 UNITS/KG/HR 9.42 mls/hr IV .Q24H [facility] Rx#: [id number] Oral 418 0 118 Output: Urine 1100 Other: Voiding Method Toilet - Labs CBC & Chem 7: 03/04/24 07:00 03/04/24 07:00 Labs: Abnormal Lab Results - Last 24 Hours (Table) 03/04/24 03/04/24 03/05/24 Range/Units 16:39 19:58 05:59 POC Glucose (mg/dL) 300 H 185 H 176 H (70-110) mg/dL 03/05/24 Range/Units 11:42 POC Glucose (mg/dL) 152 H (70-110) mg/dL Assessment and Plan Time with Patient: Less than 30
[2024-03-05] MEDS: ATORVASTATIN 80 MG TAB PO SCH (20:18)
[2024-03-05] MEDS: ALPRAZolam 0.25 MG TAB PO PRN (20:19)
[2024-03-05 20:30] LABS: Glucose,Whole Blood 209 mg/dL (70-110)
[2024-03-06 06:09] LABS: Glucose,Whole Blood 172 mg/dL (70-110)
[2024-03-06 07:49] VITALS: BP 95/61; TEMP 97.8
[2024-03-06] MEDS ORDERED: PATIENT'S OWN (Dulaglutide [Trulicity] 0.75 MG/0.5 ML Each) SQ SCH (09:00)
[2024-03-06 10:09] LABS: Basophils # (A) 0.1 k/uL (0-0.2); Basophils % (A) 0 %; Eosinophils # (A) 0.1 k/uL (0-0.7); Eosinophils % (A) 1 %; HCT 44.4 % (34.0-46.0); HGB 14.2 gm/dL (11.4-16.0); Hypochromasia Slight; Lymphocytes # (A) 2.1 k/uL (1.0-4.8); Lymphocytes % (A) 13 %; MCH 30.6 pg (25.0-35.0); MCV 95.7 fL (80.0-100.0); Mean Platelet Volume 8.6; Monocytes # (A) 0.9 k/uL (0-1.0); Monocytes % (A) 5 %; Neutrophils # (A) 13.3 k/uL (1.3-7.7); Neutrophils % (A) 80 %; Platelet Count 321 k/uL (150-450); RBC 4.64 m/uL (3.80-5.40); RDW 15.7 % (11.5-15.5); WBC 16.6 k/uL (3.8-10.6)
[2024-03-06 10:19] VITALS: PULSE 88; RESP 18
[2024-03-06 10:31] LABS: African American GFR (CKD) 82 (>60 ml/min/1.73 sqM); Anion Gap 7 mmol/L; Blood Urea Nitrogen 43 mg/dL (7-17); Calcium 8.6 mg/dL (8.4-10.2); Carbon Dioxide 27 mmol/L (22-30); Chloride 100 mmol/L (98-107); Glucose 202 mg/dL (74-99); Non-African American GFR(CKD) 71 (>60 ml/min/1.73 sqM); Sodium 134 mmol/L (137-145)
[2024-03-06 10:35] LABS: Potassium 4.2 mmol/L (3.5-5.1)
--- NOTE | 2024-03-06 13:07 | P.PN ---
Subjective Progress Note Date: 03/06/24 03/01/2024, the patient is being seen in consultation in the emergency room for acute shortness of breath. The patient was hospitalized few months back for an acute stroke exacerbation and following the treatment, the patient was seen in our office in the baseline FEV1 was in the order of 41% predicted and the patient had a diffusion capacity of 41% of predicted and the patient was started on Trelegy Ellipta 1 puff a day. The patient continues to smoke cigarettes. Today she is coming in with acute dyspnea chest tightness and wheezing and shortness of breath. In the emergency, the patient had diminished level of consciousness. The patient was placed on a BiPAP at a pressure of 12 over 5 cm of water and titration of FiO2 of 40%. Mother states that she improved and the patient is currently much more comfortable generating more than 400 cc of air and tidal volume on the BiPAP machine. Breathing is more comfortable. She is actively bronchospastic and wheezy. She is on bronchodilators. She is on steroids and the patient is currently on IV Solu-Medrol. 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 She has diabetes mellitus. She has hypertension hyperlipidemia as comorbid conditions. Her current EKG showing sinus tachycardia. The white cell count of 15.8 with hemoglobin 14.6 and a platelet count of 306. Her lactic acid level is at 2.3, troponins were elevated at 0.4 and 0.5 respectively x 2. Cardiology consultation has been obtained. Echocardiogram is ordered and we are still awaiting further recommendations from cardiology for troponin leak. Chest x-ray showed increased pulmonary vascular congestion/edema. . Based on that, I gave the patient a dose of Lasix 20 mg IV in the emergency department. On today's evaluation on 03/02/2024, the patient is feeling better and she is obviously short of breath compared to yesterday. She is off the BiPAP and the patient is currently on oxygen at 2.5 L with a pulse ox of 92%. Noted the patient was treated with BiPAP, bronchodilators and steroids. Echocardiogram also showed impaired LV function with an ejection fraction of 20%. Chest x-ray showed increased MARKINGS. BASED ON THAT, THE PATIENT WAS STARTED ON LASIX AND THE PATIENT IS PRODUCING EXCELLENT URINE OUTPUT. SHE IS LESS SHORT OF BREATH ON TODAY'S EVALUATION. SHE WAS ALSO STARTED ON IV HEPARIN BY CARDIOLOGY. SHE IS ON ORAL ZITHROMAX AN EMPIRIC ANTIBIOTIC COVERAGE. AWAKE AND ALERT. BLOOD WORK FROM TODAY SHOWS A WHITE CELL COUNT OF 16, HEMOGLOBIN 10.9 AND A PLATELET COUNT OF 257. LACTIC ACID LEVEL IS DOWN TO 3.1. BLOOD SUGARS ARE ELEVATED SECONDARY TO STRESS STEROIDS USE AND THE PATIENT IS ON SLIDING SCALE INSULIN COVERAGE. SHE IS ON TRULICITY AND SLIDING SCALE INSULIN COVERAGE. 03/03/2024, the patient is feeling less short of breath. No new complaints. Note that she was hospitalized for an acute COPD exacerbation and she was also found to have CHF. The patient is currently on a combination of medication including Entresto, Aldactone, metoprolol XL 50 mg p.o. daily and Farxiga. The patient was diuresed with IV Lasix. The fluid balance has been essentially negative and the patient respiratory status is improved. The patient is going to undergo a cardiac catheterization in a.m. The patient is seen today March 04, 2024 in follow-up on the selective care unit. She is currently sitting up in bed. Awake and alert in no acute distress. She is maintaining good O2 saturations in the 90s on 2 L/min per nasal cannula. She denies any worsening shortness of breath, cough or congestion. Denies any chest pain currently. She remains on a heparin drip. Echocardiogram revealed ejection fraction of 20%. Plan is for cardiac catheterization today. White count 21.5. Hemoglobin 13.2. Platelets 305. Sodium 135. Potassium 4.3. Bicarb 25. BUN 38. Creatinine 1.02. Glucose 282. She is continued on Symbicort, albuterol, disown taper, oral diuretics. NicoDerm patch in place. The patient is seen today March 05, 2024 in follow-up on the selective care unit. She is sitting up at the bedside. Awake and alert in no acute distress. Denies any worsening shortness of breath, cough or congestion. Denies any chest pain. She is maintaining good O2 saturations in the 90s on 3 L/min per nasal cannula. She is afebrile. Hemodynamically stable. Glucose 152. She remains on DuoNeb inhalations, Symbicort, prednisone taper. She is on oral diuretics. She is on aspirin and Plavix. NicoDerm patch in place. The patient is seen today March 06, 2024 in follow-up on the selective care unit. She is awake and alert in no acute distress. Resting comfortably in bed. Denies any worsening shortness of breath, cough or congestion. Denies any chest discomfort. She is maintaining good O2 saturations in the 90s on 3 L/min per nasal cannula. White count 16.6. Hemoglobin 14.2. Platelet count 321. She is continued on DuoNeb inhalations, Symbicort, prednisone taper. She is on oral diuretics. NicoDerm patch in place. Follow-up echocardiogram revealed a left ventricular ejection fraction of 50 to 55%. Objective - Vital Signs Vital signs: Vital Signs Temp 97.8 F 03/06/24 07:49 Pulse 88 03/06/24 10:11 Resp 18 03/06/24 10:11 BP 95/61 03/06/24 07:49 Pulse Ox 96 03/06/24 10:01 FiO2 40 03/01/24 11:09 Intake & Output 03/05/24 03/06/24 03/06/24 18:59 06:59 18:59 Intake Total 256 247 130 Balance 256 247 130 Weight 70.1 kg Intake: IV 20 10 10 Invasive Line 2 20 10 10 Oral 236 237 120 Other: Voiding Method Toilet # Voids 1 - Exam GENERAL EXAM: Alert, pleasant 68-year-old female, on 3 L nasal cannula, in no apparent distress. HEAD: Normocephalic. EYES: Normal reaction of pupils, equal size. NOSE: Clear with pink turbinates. THROAT: No erythema or exudates. NECK: No masses, no JVD. CHEST: No chest wall deformity. LUNGS: Equal air entry with crackles in the bilateral bases. CVS: S1 and S2 normal with no audible murmur, regular rhythm. ABDOMEN: No hepatosplenomegaly, normal bowel sounds, no guarding or rigidity. SPINE: No scoliosis or deformity SKIN: No rashes CENTRAL NERVOUS SYSTEM: No focal deficits, tone is normal in all 4 extremities. EXTREMITIES: There is no peripheral edema. No clubbing, no cyanosis. Peripheral pulses are intact. - Labs CBC & Chem 7: 03/06/24 09:16 03/06/24 09:16 Labs: Abnormal Lab Results - Last 24 Hours (Table) 03/05/24 03/05/24 03/06/24 Range/Units 17:02 20:29 06:07 WBC (3.8-10.6) k/uL RDW (11.5-15.5) % Neutrophils # (1.3-7.7) k/uL Sodium (137-145) mmol/L BUN (7-17) mg/dL Glucose (74-99) mg/dL POC Glucose (mg/dL) 251 H 209 H 172 H (70-110) mg/dL 03/06/24 03/06/24 Range/Units 09:16 09:16 WBC 16.6 H (3.8-10.6) k/uL RDW 15.7 H (11.5-15.5) % Neutrophils # 13.3 H (1.3-7.7) k/uL Sodium 134 L (137-145) mmol/L BUN 43 H (7-17) mg/dL Glucose 202 H (74-99) mg/dL POC Glucose (mg/dL) (70-110) mg/dL Assessment and Plan Assessment: Acute hypoxemic respiratory failure secondary to an acute exacerbation of systolic congestive heart failure and acute exacerbation chronic obstructive pulmonary disease Acute exacerbation of COPD with excessive bronchospasm and wheezing. Rule out underlying component of CHF in addition contributing to the patient respiratory failure as the patient's chest x-ray is consistent with pulmonary edema. Clinically improved and currently on 3 L of oxygen by nasal cannula. Severe COPD with an FEV1 of 41% predicted, maintained Trelegy Ellipta on outpatient basis Acute systolic heart failure with an ejection fraction of 20%, follow-up echocardiogram revealed preserved left ventricular systolic function with ejection fraction 50 to 55%, possibly stress-induced Abnormal troponin rule out NSTEMI versus type II myocardial ischemia. Cardiac catheterization ruled out obstructive coronary artery disease Nonischemic cardiomyopathy Chronic and ongoing tobacco dependence Sinus tachycardia Paroxysmal atrial fibrillation Diabetes mellitus type 2 Hypertension Hyperlipidemia Plan: The patient was seen and evaluated Echocardiogram, labs and medications reviewed Titrate the FiO2 as tolerated Continue the current treatment plan Home once cleared by cardiology This patient was seen independently by the pulmonary nurse practitioner addressing pulmonary issues I have personally seen and examined the patient, performed the documentation and the assessment and plan as written. Number of minutes spent on the visit: 25.
--- NOTE | 2024-03-06 14:22 | P.PN ---
Subjective Progress Note Date: 03/06/24 HPI This is a 68-year-old female with a past medical history significant for COPD, diabetes, hypertension, hyperlipidemia, and atrial fibrillation. Patient follows with a crutch maker in [facility] Dr Koo. We have been asked to see the patient in consultation for chest pain. Patient examined at the bedside in the emergency room. According to the patient's nurse, the patient came to the hospital to chief complaint of shortness of breath. Patient was found to be obtunded upon arrival. Patient is currently on BiPAP and her mental status has improved. Patient currently denies any chest pain or pressure. She does report shortness of breath. EKG and bedside telemetry reveals sinus tachycardia. She was initially started on IV Cardizem which has since been discontinued. DIAGNOSTICS: - EKG reveals sinus tachycardia - Chest xray diffuse increased interstitial opacities especially in the upper and mid lungs. - Laboratory data: WBC 13.9. Hemoglobin 13.7. Platelet count 448. Sodium 137. Potassium 5.2. BUN 22. Creatinine 1.10. Troponin negative x 1. - Current home cardiac medications include lisinopril 10 mg daily as needed, Eliquis 5 mg twice a day, Cardizem CD 120 mg daily, Lipitor 40 mg at night March 02, 2024 Patient denies any chest pain chest pressure. Still reporting shortness of breath but reports improved since the time of admission. March 03, 2024 Patient continues to be in sinus tachyardia, heart rate is around 100 bpm. Patient reports that shortness of breath and chest pressure symptoms have improved since the time of admission. 03/04 Patient is scheduled for cardiac catheterization today at noon with Dr. Johnston. Systolic blood pressures during the night were in the 80s. Blood pressure now 97/61, heart rate in the 80s and 90s. Pulse ox 95% on 2 L nasal cannula. Repeat blood work reveals WBC 21.5, hemoglobin 13.2. Sodium 135, potassium 4.3, BUN 38 creatinine 1.02. 03/05 Yesterday, patient underwent cardiac catheterization with Dr. Johnston which revealed 50% tubular calcified mid LAD stenosis, 50% diffuse calcified mid RCA stenosis, mild diffuse disease otherwise. Blood pressure 105/57, heart rate 84, pulse ox 91% on 3 L nasal cannula. Yesterday, Lasix was decreased and Aldactone discontinued due to hypotension. 03/06 Patient has been resumed back on Eliquis. Patient is expected for discharge today. Repeat echocardiogram reveals EF of 5055%. Patient updated with the results of the echocardiogram. Blood pressure 95/61, heart rate 88, pulse ox 96% on 3 L. Telemetry is sinus rhythm. PHYSICAL EXAM: LUNGS: Decreased breath sounds, otherwise clear to auscultation. HEART: Regular S1 and S2 heard. ABDOMEN: Soft. Nondistended. Nontender. EXTREMITIES: min swelling in bilateral lower extremity NEUROLOGIC: Awake and alert. Detailed neuroexam was not performed. ASSESSMENT: Altered mental status, improving Acute on chronic hypoxic respiratory failure, initially on BiPAP Acute CHF exacerbation, HFrEF, Nonischemic cardiomyopathy, likely stress-induced with apical hypokinesia Paroxysmal atrial fibrillation Coronary artery disease in the range of 50% LAD and RCA COPD exacerbation Hypertension and hyperlipidemia Echo EF 20%, apical hypokinesia Chronic hypoxic respiratory failure on home O2 PLAN: Continue atorvastatin to 80 mg daily, Plavix 75 mg daily Continue aspirin 81 mg, atorvastatin 40 mg, Farxiga 10 mg daily, Toprol XL 100 mg daily, Entresto 24-26 mg twice daily, Lasix 20 mg daily Patient is cleared for discharge from cardiology May follow-up in the office with Dr. Johnston or with her primary crutch maker in [place] in 1 to 2 weeks. Nurse practitioner note has been reviewed, I agree with documented findings and plan of care. Patient was seen and examined. Objective - Vital Signs Vital signs: Vital Signs Temp 97.8 F 03/06/24 07:49 Pulse 88 03/06/24 13:03 Resp 18 03/06/24 13:03 BP 95/61 03/06/24 07:49 Pulse Ox 96 03/06/24 10:01 FiO2 40 03/01/24 11:09 Intake & Output 03/05/24 03/06/24 03/06/24 18:59 06:59 18:59 Intake Total 256 247 130 Balance 256 247 130 Weight 70.1 kg Intake: IV 20 10 10 Invasive Line 2 20 10 10 Oral 236 237 120 Other: Voiding Method Toilet # Voids 1 - Labs CBC & Chem 7: 03/06/24 09:16 03/06/24 09:16 Labs: Abnormal Lab Results - Last 24 Hours (Table) 03/05/24 03/05/24 03/06/24 Range/Units 17:02 20:29 06:07 WBC (3.8-10.6) k/uL RDW (11.5-15.5) % Neutrophils # (1.3-7.7) k/uL Sodium (137-145) mmol/L BUN (7-17) mg/dL Glucose (74-99) mg/dL POC Glucose (mg/dL) 251 H 209 H 172 H (70-110) mg/dL 03/06/24 03/06/24 Range/Units 09:16 09:16 WBC 16.6 H (3.8-10.6) k/uL RDW 15.7 H (11.5-15.5) % Neutrophils # 13.3 H (1.3-7.7) k/uL Sodium 134 L (137-145) mmol/L BUN 43 H (7-17) mg/dL Glucose 202 H (74-99) mg/dL POC Glucose (mg/dL) (70-110) mg/dL
[2024-03-06] MEDS: APIXABAN 5 MG TAB PO SCH (14:33)
--- NOTE | 2024-03-08 15:02 | P.DS ---
Providers Date of admission: 03/01/24 06:51 Attending physician: Stefanie Anen Consults: 03/01/24 06:51 Consult Physician Routine Consulting Provider: Maxi Altman Consult Reason/Comments: cp Do you want consulting provider notified?: Yes 03/01/24 07:04 Consult Physician Routine Consulting Provider: Alcides Vasquez Consult Reason/Comments: respFail Do you want consulting provider notified?: Yes Primary care physician: Stated None Hospital Course: Final Diagnosis -Acute hypercapnic respiratory failure secondary to COPD exacerbation continue systemic steroids inhalational treatments no evidence of pneumonia -Acute hypoxic respiratory failure secondary to possible interstitial lung disease -Acute on chronic systolic CHF EF 20% and on repeat echocardiogram had improved EF at 50-55%. -Sinus tachycardia secondary to hypoxemia -Elevated troponin/non ischemic cardiomyopathy -Paroxysmal atrial fibrillation -Hypertension -Hyperlipidemia -Acute renal failure may require IV fluids -Type 2 diabetes mellitus blood sugars are uncontrolled secondary to systemic steroids will use high-dose sliding scale -Metabolic encephalopathy: Improving -Sinus tachycardiaoff Cardizem drip now DVT prophylaxis:Heparin Discharge Disposition Patient is stable for discharge home. Patient is cleared for discharge from cardiology May follow-up in the office with Dr. Johnston or with her primary principal mechanical engineer in [place] in 1 to 2 weeks. Patient to continue on optimized cardiac medications; including atorvastatin, plavix, farxiga, toprol XL, entresto, lasix. Hospital Course 68-year-old female with known history of COPD continues to smoke came in with complaints of severe shortness of breath and was obtunded patient was started on BiPAP with significant improvement in her respiratory status and mental status patient is able to answer questions appropriately to me. Patient denies fever chills patient does have mild leukocytosis mildly elevated serum creatinine 1.1 and potassium of 5.2 patient denies any chest pain. Troponin is negative but second 1 was slightly higher at 0.41. Patient was having sinus tachycardia, cardiology was consulted and patient was started on IV Cardizem which was sub sequently discontinued by cardiology. Chest x-ray showed diffuse interstitial opacities which is mostly consistent with interstitial pneumonitis or interstitial lung disease.. Patient had a history of bladder cancer in the past unknown whether she received radiation. Patient had elevated D-dimer which is only slight elevation. Patient's BNP is 96. Serum potassium is 5.2. Echocardiogram showed impaired LV function with ejection fraction 20%. Chest x- ray showed increased markings. Currently on IV Lasix. Responding well. Currently on IV heparin, cardiology following. Underwent cardiac catheterization with reports showing 50% tubular calcific mid LAD stenosis, and 50% diffuse calcific mid RCA stenosis, mild diffuse disease otherwise, nonischemic cardiomyopathy, sinus tachycardia and normal LVEDP. Patient remains on optimized medical therapy. Had a repeat echocardiogram showing EF 50-55% with no obvious wall motion abnormalities. Patient was monitored overnight. Not having any chest pain or shortness of breath. No nausea vomiting or diarrhea. Patient is on 2L of nasal cannula at home as needed. She has been up ambulating. Cleared for discharge. Please see medication reconciliation for a list of current medications. Thank you for allowing us to participate in the care of this patient. The impression and plan of care has been dictated by Jazmin Woods, Nurse Practitioner as directed. Dr. Cristy MD I have performed a history and physical examination and medical decision making of this patient, discussed the same with the dictator, and agree with the dictators assessment and plan as written, documented as a scribe. Based on total visit time, I have performed more than 50% of this visit. Patient Condition at Discharge: Fair Plan - Discharge Summary Discharge Rx Participant: No New Discharge Prescriptions: New Aspirin 81 mg PO DAILY #30 tab predniSONE [Deltasone] 40 mg PO DAILY #10.5 tab Dapagliflozin Propanediol [Farxiga] 10 mg PO DAILY #30 tab Nicotine 21Mg/24Hr Patch [Habitrol] 1 patch TRANSDERM DAILY patch Furosemide [Lasix] 20 mg PO DAILY #30 tab Clopidogrel [Plavix] 75 mg PO DAILY #30 tab Sacubitril/Valsartan [Entresto 24 mg-26 mg Tablet] 1 each PO BID #60 tab Atorvastatin [Lipitor] 80 mg PO HS #30 tab Metoprolol Succinate (ER) [Toprol XL] 100 mg PO DAILY #30 tab Continue Gabapentin [Neurontin] 100 mg PO DAILY Dulaglutide [Trulicity] 0.75 mg SQ WE Docusate [Colace] 100 mg PO DAILY Cyanocobalamin (Vitamin B-12) [Vitamin B-12] 1,000 mcg PO DAILY Apixaban [Eliquis] 5 mg PO BID Albuterol Inhaler [Ventolin Hfa Inhaler] 1 puff INHALATION RT-Q4H PRN 30 Days #1 each PRN Reason: Shortness Of Breath Fluticasone/Umeclidin/Vilanter [Trelegy Ellipta 100-62.5-25] 1 puff INHALATION RT-DAILY Discontinued dilTIAZem HCL [Cardizem CD] 120 mg PO DAILY Atorvastatin [Lipitor] 40 mg PO HS lisinopriL [Zestril] 10 mg PO DAILY PRN PRN Reason: Blood Pressure - High Discharge Medication List Apixaban [Eliquis] 5 mg PO BID 12/16/23 [History] Docusate [Colace] 100 mg PO DAILY 12/16/23 [History] Dulaglutide [Trulicity] 0.75 mg SQ WE 12/16/23 [History] Gabapentin [Neurontin] 100 mg PO DAILY 12/16/23 [History] Albuterol Inhaler [Ventolin Hfa Inhaler] 1 puff INHALATION RT-Q4H PRN 30 Days #1 each 12/19/23 [Rx] Cyanocobalamin (Vitamin B-12) [Vitamin B-12] 1,000 mcg PO DAILY 03/01/24 [History] Fluticasone/Umeclidin/Vilanter [Trelegy Ellipta 100-62.5-25] 1 puff INHALATION RT-DAILY 03/01/24 [History] Aspirin 81 mg PO DAILY #30 tab 03/06/24 [Rx] Atorvastatin [Lipitor] 80 mg PO HS #30 tab 03/06/24 [Rx] Clopidogrel [Plavix] 75 mg PO DAILY #30 tab 03/06/24 [Rx] Dapagliflozin Propanediol [Farxiga] 10 mg PO DAILY #30 tab 03/06/24 [Rx] Furosemide [Lasix] 20 mg PO DAILY #30 tab 03/06/24 [Rx] Metoprolol Succinate (ER) [Toprol XL] 100 mg PO DAILY #30 tab 03/06/24 [Rx] Nicotine 21Mg/24Hr Patch [Habitrol] 1 patch TRANSDERM DAILY patch 03/06/24 [Rx] Sacubitril/Valsartan [Entresto 24 mg-26 mg Tablet] 1 each PO BID #60 tab 05/19 [Rx] predniSONE [Deltasone] 40 mg PO DAILY #10.5 tab 03/06/24 [Rx] Follow up Appointment(s)/Referral(s): Erick Malave MD [STAFF PHYSICIAN] - 04/09/24 9:15 am Bin Berger MD [STAFF PHYSICIAN] - 1 Week (Office will call you with appointment) None,Stated [Primary Care Provider] - 1-2 days Ambulatory/Diagnostic Orders: Basic Metabolic Panel [LAB.AMB] Location: None Selected Complete Blood Count w/diff [LAB.AMB] Time Frame: 4 Days, Location: None Selected Activity/Diet/Wound Care/Special Instructions: Follow up with your PCP at [facility]. Discharge Disposition: HOME SELF-CARE
--- NOTE | 2024-03-24 19:39 | CDI ---
Documentation Clarification Form Date: 03/24/2024 07:25:32 PM From: Michaela Bueno Phone: Admit Date: 03/01/2024 06:51:00 AM Patient Name: Lacie Rubio Visit Number: [id number] Discharge Date: 03/06/2024 06:11:00 PM ATTENTION: The Clinical Documentation Specialists (CDI) and [facility] Coding Staff appreciate your assistance in clarifying documentation. Please respond to the clarification below the line at the bottom and electronically sign. The CDI & [facility] Coding staff will review the response and follow-up if needed. Please note: Queries are made part of the Legal Health Record. If you have any questions, please contact the author of this message via ITS. Doctor/Provider: Frances Muniz NSTEMIversustype IImyocardial ischemia is documented per Progress Notes. Additional clarification regarding the type of MD is requested. History/Risk Factors: 68yo F, ACH/HRF on O2, AECOPD, ILD, ACSHF, sinus tachy, NICM, PAF, HTN, HLD, JOO, DMII w hypergly d/t steroids, met enceph Clinical Indicators: Troponin: ED <0.012 2nd 0.412 Consult 03/01 0.571 EKG: sinus [id number] [place] 158 QRS 68 QTc 359 Treatment: LHC- Cardiac catheterizationruled outobstructivecoronary artery disease. Titrate the FiO2 as tolerated. Continue the current treatment plan. Home once cleared by cardiology Cardiology Consult: Patient deniesCP/pressure. Will heparinize for 24 hours and then will resume home dose of Eliquis. Please clarify the type of NSTEMI, if known: [ ] NSTEMI (type 1) [ ] Type II MD due to (please specify etiology) [ x ] Unable to determine [ ] Other Condition, please specify (Template Last Revised: August 2020) MTDD
--- NOTE | 2024-03-26 12:22 | CDI ---
Documentation Clarification Form Date: 03/26/2024 12:19:12 PM From: Michaela Bueno Phone: Admit Date: 03/01/2024 06:51:00 AM Patient Name: Lacie Rubio Visit Number: [id number] Discharge Date: 03/06/2024 06:11:00 PM ATTENTION: The Clinical Documentation Specialists (CDI) and [facility] Coding Staff appreciate your assistance in clarifying documentation. Please respond to the clarification below the line at the bottom and electronically sign. The CDI & [facility] Coding staff will review the response and follow-up if needed. Please note: Queries are made part of the Legal Health Record. If you have any questions, please contact the author of this message via ITS. Doctor/Provider: Jaime HATEWillard IImyocardial ischemiais documented per Progress Notes. Additional clarification regarding the type ofMIis requested. History/Risk Factors: 68yo F, ACH/HRF on O2,AECOPD,ILD, ACSHF,sinus tachy, NICM,PAF,HTN,HLD,JOO,DMIIw hypergly d/t steroids, met enceph Clinical Indicators: Troponin: ED <0.012 2nd 0.412 Consult 03/01 0.571 EKG:sinus [id number] [place] 158 QRS 68 QTc 359 Treatment:L[facility]-Cardiac catheterizationruled outobstructivecoronary artery disease. Titrate the FiO2 as tolerated. Continue the current treatment plan. Home once cleared by cardiology Cardiology Consult: PatientdeniesCP/pressure. Will heparinize for 24 hours and then will resume home dose of Eliquis. Please clarify the type ofNSTEMI, if known: [ X]NSTEMI(type 1) [ ]Type II MIdue to (please specify etiology) [ ] Unable to determine [ ] Other Condition, please specify (Template LastRevised: August 2020) MTDD
== END 2024-03-06 18:11 | disposition home or self-care (01) | DRG 280 ==
LOC: EC 06:13 → 3SCARD 06:51
PROVIDERS: ADMIT Hospitalist; ATTEND Hospitalist
PROC: 5A09357 Assistance with Respiratory Ventilation, Less than 24 Consecutive Hours, Continuous Positive Airway Pressure (ICD-10-PCS; 2024-03-01)
PROC: 4A023N7 Measurement of Cardiac Sampling and Pressure, Left Heart, Percutaneous Approach (ICD-10-PCS; 2024-03-04)
PROC: B2111ZZ Fluoroscopy of Multiple Coronary Arteries using Low Osmolar Contrast (ICD-10-PCS; principal; 2024-03-04 11:45)
DX: I11.0 Hypertensive heart disease with heart failure (principal); G93.41 Metabolic encephalopathy; I21.4 Non-ST elevation (NSTEMI) myocardial infarction; J96.21 Acute and chronic respiratory failure with hypoxia; I50.23 Acute on chronic systolic (congestive) heart failure; J96.22 Acute and chronic respiratory failure with hypercapnia; J44.1 Chronic obstructive pulmonary disease with (acute) exacerbation; N17.9 Acute kidney failure, unspecified; J84.9 Interstitial pulmonary disease, unspecified; J45.902 Unspecified asthma with status asthmaticus; I42.8 Other cardiomyopathies; I95.9 Hypotension, unspecified; Z99.81 Dependence on supplemental oxygen; E11.65 Type 2 diabetes mellitus with hyperglycemia; I48.0 Paroxysmal atrial fibrillation; J98.4 Other disorders of lung; I25.10 Atherosclerotic heart disease of native coronary artery without angina pectoris; F17.210 Nicotine dependence, cigarettes, uncomplicated; R00.0 Tachycardia, unspecified; T38.0X5A Adverse effect of glucocorticoids and synthetic analogues, initial encounter; E78.5 Hyperlipidemia, unspecified; Z79.01 Long term (current) use of anticoagulants; Z79.82 Long term (current) use of aspirin; Z79.02 Long term (current) use of antithrombotics/antiplatelets; Z79.84 Long term (current) use of oral hypoglycemic drugs; Z79.51 Long term (current) use of inhaled steroids; Z79.85 Long-term (current) use of injectable non-insulin antidiabetic drugs; Z86.73 Personal history of transient ischemic attack (TIA), and cerebral infarction without residual deficits; Z85.51 Personal history of malignant neoplasm of bladder; Z79.899 Other long term (current) drug therapy
CPT/HCPCS: 36415; 71045; 80048; 80053; 83605; 83735; 83880; 84145; 84484; 85025; 85379; 85610; 85730; 93005; 93306; 93308; 93458; 94640; 94660; 94760; 96361; 96365; 96366; 96367; 96375; 99291

== ENCOUNTER 2024-04-01 14:10 | Emergency (ER) | payer MEDICARE, OTHER ==
[2024-04-01 14:15] VITALS: TEMP 97.6
--- NOTE | 2024-04-01 15:10 | ED ---
General Adult HPI - General Chief complaint: Back Pain/Injury Stated complaint: sharp pain in upper back L side Time Seen by Provider: 04/01/24 14:50 Source: patient, RN notes reviewed Mode of arrival: ambulatory Limitations: no limitations - History of Present Illness Initial comments: Patient is a 68-year-old female presenting to the emergency department with left upper back discomfort. Patient states symptoms have been occurring for months. Patient states when it occurs it is severe and other times it is mild. Patient states it is not positional. Patient states it is not exertional. No chest pain. No associated dyspnea. No arm problems or weakness. - Related Data Home Medications Medication Instructions Recorded Confirmed Apixaban [Eliquis] 5 mg PO BID 12/16/23 03/01/24 Docusate [Colace] 100 mg PO DAILY 12/16/23 03/01/24 Dulaglutide [Trulicity] 0.75 mg SQ WE 12/16/23 03/01/24 Gabapentin [Neurontin] 100 mg PO DAILY 12/16/23 03/01/24 Cyanocobalamin (Vitamin B-12) 1,000 mcg PO DAILY 03/01/24 03/01/24 [Vitamin B-12] Fluticasone/Umeclidin/Vilanter 1 puff INHALATION RT-DAILY 03/01/24 03/01/24 [[place] Ellipta 100-62.5-25] Previous Rx's Medication Instructions Recorded Albuterol Inhaler [Ventolin Hfa 1 puff INHALATION RT-Q4H PRN 30 12/19/23 Inhaler] Days #1 each Aspirin 81 mg PO DAILY #30 tab 03/06/24 Atorvastatin [Lipitor] 80 mg PO HS #30 tab 03/06/24 Clopidogrel [Plavix] 75 mg PO DAILY #30 tab 03/06/24 Dapagliflozin Propanediol [Farxiga] 10 mg PO DAILY #30 tab 03/06/24 Furosemide [Lasix] 20 mg PO DAILY #30 tab 03/06/24 Metoprolol Succinate (ER) [Toprol 100 mg PO DAILY #30 tab 03/06/24 XL] Nicotine 21Mg/24Hr Patch [Habitrol] 1 patch TRANSDERM DAILY patch 03/06/24 Sacubitril/Valsartan [Entresto 24 1 each PO BID #60 tab 03/06/24 mg-26 mg Tablet] predniSONE [Deltasone] 40 mg PO DAILY #10.5 tab 03/06/24 Cyclobenzaprine [Flexeril] 10 mg PO TID PRN #12 tablet 04/01/24 Ketorolac [Toradol] 10 mg PO Q8HR PRN #9 tab 04/01/24 Allergies Allergy/AdvReac Type Severity Reaction Status Date / Time clindamycin Allergy Unknown Verified 04/01/24 14:15 Penicillins Allergy Unknown Verified 04/01/24 14:15 sulfamethoxazole Allergy Unknown Verified 04/01/24 14:15 [From Bactrim] trimethoprim [From Bactrim] Allergy Unknown Verified 04/01/24 14:15 Review of Systems ROS Statement: Those systems with pertinent positive or pertinent negative responses have been documented in the HPI. ROS Other: All systems not noted in ROS Statement are negative. Constitutional: Denies: fever Eyes: Denies: eye pain ENT: Denies: ear pain Respiratory: Denies: cough, dyspnea Cardiovascular: Denies: chest pain Endocrine: Denies: fatigue Gastrointestinal: Denies: abdominal pain Musculoskeletal: Reports: as per HPI Past Medical History Past Medical History: Atrial Fibrillation, COPD, Diabetes Mellitus, Hyperlipidemia, Hypertension Additional Past Medical History / Comment(s): Diabetes Type 2 History of Any Multi-Drug Resistant Organisms: None Reported, Unobtainable Past Surgical History: No Surgical Hx Reported, Cholecystectomy Additional Past Surgical History / Comment(s): D&C, two blader cancer tumors removed Past Anesthesia/Blood Transfusion Reactions: No Reported Reaction Past Psychological History: Depression, Unable to Obtain Smoking Status: Current every day smoker, Unknown if ever smoked Past Alcohol Use History: None Reported Past Drug Use History: None Reported - Past Family History Mother Family Medical History: Congestive Heart Failure (CHF), Diabetes Mellitus, Deep Vein Thrombosis (DVT) General Exam Limitations: no limitations General appearance: alert, in no apparent distress Head exam: Present: normocephalic Eye exam: Present: normal appearance Neck exam: Present: normal inspection Respiratory exam: Present: normal lung sounds bilaterally Cardiovascular Exam: Present: regular rate, normal rhythm Expanded Peripheral pulses: 2+: Radial (R), Radial (L), Dorsalis Pedis (R), Dorsalis Pedis (L) GI/Abdominal exam: Present: soft. Absent: distended, tenderness Extremities exam: Present: normal inspection. Absent: pedal edema, calf tenderness Back exam: Present: tenderness (Mild tenderness left paraspinal T3-T4 region) Neurological exam: Present: alert. Absent: motor sensory deficit Psychiatric exam: Present: normal affect, normal mood Skin exam: Present: normal color Course Vital Signs 04/01/24 14:12 Temperature 97.6 F Pulse Rate 88 Respiratory 18 Rate Blood Pressure 110/67 O2 Sat by Pulse 94 L Oximetry - Reevaluation(s) Reevaluation #1: 04/01/24 16:38 Repeat EKG interpreted by myself shows sinus rhythm with a rate of 75. Normal intervals. Normal axis. Normal QRS. No acute ST change. EKG Findings - EKG Results: EKG: interpreted by ERMD (T wave inversion lead V4.), sinus rhythm, normal axis, normal QRS Medical Decision Making - Medical Decision Making Attempted to review old EKGs however computer system will not allow it at this time Was pt. sent in by a medical professional or institution (, PA, INSURANCE AGENCY MANAGER, urgent care, hospital, or long term...) When possible be specific @ -No Did you speak to anyone other than the patient for history (EMS, parent, family, police, friend...)? What history was obtained from this source @ -No Did you review nursing and triage notes (agree or disagree)? Why? @ -I reviewed and agree with nursing and triage notes Were old charts reviewed (outside hosp., previous admission, EMS record, old EKG, old radiological studies, urgent care reports/EKG's, long term records)? Report findings @ -No old charts were reviewed Differential Diagnosis (chest pain, altered mental status, abdominal pain women, abdominal pain men, vaginal bleeding, weakness, fever, dyspnea, syncope, headache, dizziness, GI bleed, back pain, seizure, CVA, palpatations, mental health, musculoskeletal)? @ -Differential Back Pain: Strain, zoster, cauda equina syndrome, epidural abscess, vertebral osteomyelitis, discitis, fracture, subluxation, disc herniation, DJD, spinal stenosis, dissection, AAA, pancreatitis, peptic ulcer disease, pyelonephritis, kidney stone, this is not meant to be an all-inclusive list. EKG interpreted by me (3pts min.). @ -As above X-rays interpreted by me (1pt min.). @ -Chest x-ray shows no acute process CT interpreted by me (1pt min.). @ -None done U/S interpreted by me (1pt. min.). @ -None done What testing was considered but not performed or refused? (CT, X-rays, U/S, labs)? Why? @ -Consider CT scan however D-dimer is negative. What meds were considered but not given or refused? Why? @ -None Did you discuss the management of the patient with other professionals (professionals i.e. , PA, INSURANCE AGENCY MANAGER, lab, RT, psych nurse, sr. social media & mobile manager, machine assembler, teacher, contract officer, residential case manager)? Give summary @ -No Was smoking cessation discussed for >3mins.? @ -No Was critical care preformed (if so, how long)? @ -No Were there social determinants of health that impacted care today? How? (Homelessness, low income, unemployed, alcoholism, drug addiction, transportation, low edu. Level, literacy, decrease access to med. care, shelter, rehab)? @ -No Was there de-escalation of care discussed even if they declined (Discuss DNR or withdrawal of care, Hospice)? DNR status @ -No What co-morbidities impacted this encounter? (DM, HTN, Smoking, COPD, CAD, Cancer, CVA, ARF, Chemo, Hep., AIDS, mental health diagnosis, sleep apnea, morbid obesity)? @ -None Was patient admitted / discharged? Hospital course, mention meds given and route, prescriptions, significant lab abnormalities, going to OR and other pertinent info. @ -Patient presents with left thoracic back pain. Cardiac testing and D-dimer unremarkable. Patient has had symptoms for months. Patient had significant improvement with Toradol. Patient request is for discharge. Patient will be provided a limited amount secondary to being on blood thinner Undiagnosed new problem with uncertain prognosis? @ -No Drug Therapy requiring intensive monitoring for toxicity (Heparin, Nitro, Insulin, Cardizem)? @ -No Were any procedures done? @ -No Diagnosis/symptom? @ -Thoracic back pain Acute, or Chronic, or Acute on Chronic? @ -Acute on chronic Uncomplicated (without systemic symptoms) or Complicated (systemic symptoms)? @ -Default Side effects of treatment? @ -No Exacerbation, Progression, or Severe Exacerbation? @ -No Poses a threat to life or bodily function? How? (Chest pain, [place], [place], pneumonia, PE, COPD, DKA, ARF, appy, cholecystitis, CVA, Diverticulitis, Homicidal, Suicidal, threat to staff... and all critical care pts) @ -No - Lab Data Result diagrams: 04/01/24 16:17 04/01/24 16:17 Lab Results 04/01/24 04/01/24 04/01/24 Range/Units 16:17 16:17 16:17 WBC 8.6 (3.8-10.6) k/uL RBC 4.48 (3.80-5.40) m/uL Hgb 13.2 (11.4-16.0) gm/dL Hct 42.8 (34.0-46.0) % MCV 95.4 (80.0-100.0) fL MCH 29.5 (25.0-35.0) pg MCHC 30.9 L (31.0-37.0) g/dL RDW 15.8 H (11.5-15.5) % Plt Count 435 (150-450) k/uL MPV 8.5 Neutrophils % 66 % Lymphocytes % 21 % Monocytes % 5 % Eosinophils % 5 % Basophils % 0 % Neutrophils # 5.7 (1.3-7.7) k/uL Lymphocytes # 1.8 (1.0-4.8) k/uL Monocytes # 0.5 (0-1.0) k/uL Eosinophils # 0.5 (0-0.7) k/uL Basophils # 0.0 (0-0.2) k/uL Hypochromasia Slight PT 10.2 (10.0-12.5) sec INR 0.9 (<1.2) APTT 21.3 L (22.0-30.0) sec D-Dimer 0.44 (<0.60) mg/L FEU Sodium 138 (137-145) mmol/L Potassium 5.1 (3.5-5.1) mmol/L Chloride 111 H (98-107) mmol/L Carbon Dioxide 22 (22-30) mmol/L Anion Gap 5 mmol/L BUN 21 H (7-17) mg/dL Creatinine 1.02 (0.52-1.04) mg/dL Est GFR (CKD-EPI)AfAm 66 (>60 ml/min/1.73 sqM) Est GFR (CKD-EPI)NonAf 57 (>60 ml/min/1.73 sqM) Glucose 85 (74-99) mg/dL Calcium 9.4 (8.4-10.2) mg/dL Magnesium 2.2 (1.6-2.3) mg/dL Total Bilirubin 1.1 (0.2-1.3) mg/dL AST 43 H (14-36) U/L ALT 17 (4-34) U/L Alkaline Phosphatase 122 (38-126) U/L Troponin I (0.000-0.034) ng/mL Total Protein 7.3 (6.3-8.2) g/dL Albumin 4.3 (3.5-5.0) g/dL Lipase 145 (23-300) U/L 04/01/24 Range/Units 16:17 WBC (3.8-10.6) k/uL RBC (3.80-5.40) m/uL Hgb (11.4-16.0) gm/dL Hct (34.0-46.0) % MCV (80.0-100.0) fL MCH (25.0-35.0) pg MCHC (31.0-37.0) g/dL RDW (11.5-15.5) % Plt Count (150-450) k/uL MPV Neutrophils % % Lymphocytes % % Monocytes % % Eosinophils % % Basophils % % Neutrophils # (1.3-7.7) k/uL Lymphocytes # (1.0-4.8) k/uL Monocytes # (0-1.0) k/uL Eosinophils # (0-0.7) k/uL Basophils # (0-0.2) k/uL Hypochromasia PT (10.0-12.5) sec INR (<1.2) APTT (22.0-30.0) sec D-Dimer (<0.60) mg/L FEU Sodium (137-145) mmol/L Potassium (3.5-5.1) mmol/L Chloride (98-107) mmol/L Carbon Dioxide (22-30) mmol/L Anion Gap mmol/L BUN (7-17) mg/dL Creatinine (0.52-1.04) mg/dL Est GFR (CKD-EPI)AfAm (>60 ml/min/1.73 sqM) Est GFR (CKD-EPI)NonAf (>60 ml/min/1.73 sqM) Glucose (74-99) mg/dL Calcium (8.4-10.2) mg/dL Magnesium (1.6-2.3) mg/dL Total Bilirubin (0.2-1.3) mg/dL AST (14-36) U/L ALT (4-34) U/L Alkaline Phosphatase (38-126) U/L Troponin I 0.015 (0.000-0.034) ng/mL Total Protein (6.3-8.2) g/dL Albumin (3.5-5.0) g/dL Lipase (23-300) U/L Disposition Clinical Impression: Thoracic back pain Disposition: HOME SELF-CARE Condition: Stable Instructions (If sedation given, give patient instructions): Thoracic Back Strain (ED), Back Pain (ED) Additional Instructions: Prescription sent to pharmacy. Please do follow-up with your primary care physician in the next day or 2 for recheck. Return for chest pain, difficulty breathing, worsening or changing symptoms or any other concerns. Prescriptions: Cyclobenzaprine [Flexeril] 10 mg PO TID PRN #12 tablet PRN Reason: Pain Ketorolac [Toradol] 10 mg PO Q8HR PRN #9 tab PRN Reason: Pain Is patient prescribed a controlled substance at d/c from ED?: No Referrals: Nonstaff,Physician [Primary Care Provider] - 1-2 days Sterling Mix MD [STAFF PHYSICIAN] - 1-2 days Time of Disposition: 18:20
[2024-04-01] MEDS: KETOROLAC 15 MG/ML 1 ML VIAL IVP STA (16:15)
[2024-04-01 16:50] LABS: Basophils % (A) 0 %; Eosinophils # (A) 0.5 k/uL (0-0.7); Eosinophils % (A) 5 %; HCT 42.8 % (34.0-46.0); HGB 13.2 gm/dL (11.4-16.0); Hypochromasia Slight; Lymphocytes # (A) 1.8 k/uL (1.0-4.8); Lymphocytes % (A) 21 %; MCH 29.5 pg (25.0-35.0); MCHC 30.9 g/dL (31.0-37.0); MCV 95.4 fL (80.0-100.0); Mean Platelet Volume 8.5; Monocytes # (A) 0.5 k/uL (0-1.0); Monocytes % (A) 5 %; Neutrophils # (A) 5.7 k/uL (1.3-7.7); Neutrophils % (A) 66 %; Platelet Count 435 k/uL (150-450); RBC 4.48 m/uL (3.80-5.40); RDW 15.8 % (11.5-15.5); WBC 8.6 k/uL (3.8-10.6)
[2024-04-01 17:19] LABS: INR 0.9 (<1.2); Prothrombin Time 10.2 sec (10.0-12.5)
[2024-04-01 17:27] LABS: Partial Thromboplastin Time 21.3 sec (22.0-30.0)
[2024-04-01 17:36] LABS: ALT 17 U/L (4-34); African American GFR (CKD) 66 (>60 ml/min/1.73 sqM); Anion Gap 5 mmol/L; Blood Urea Nitrogen 21 mg/dL (7-17); Calcium 9.4 mg/dL (8.4-10.2); Carbon Dioxide 22 mmol/L (22-30); Chloride 111 mmol/L (98-107); Glucose 85 mg/dL (74-99); Lipase 145 U/L (23-300); Non-African American GFR(CKD) 57 (>60 ml/min/1.73 sqM); Sodium 138 mmol/L (137-145)
[2024-04-01 17:38] LABS: Potassium 5.1 mmol/L (3.5-5.1)
[2024-04-01 17:39] LABS: AST 43 U/L (14-36); Albumin 4.3 g/dL (3.5-5.0); Alkaline Phosphatase 122 U/L (38-126); Magnesium 2.2 mg/dL (1.6-2.3); Total Bilirubin 1.1 mg/dL (0.2-1.3); Total Protein 7.3 g/dL (6.3-8.2)
--- NOTE | 2024-04-01 17:42 | XR ---
EXAMINATION TYPE: XR chest 2V DATE OF EXAM: 04/01/2024 5:17 PM CLINICAL INDICATION: Female, 68 years old with history of Chest Pain; [facility] COMPARISON: Chest radiographs from and 03/01/2024 TECHNIQUE: XR chest 2V Frontal view of the chest. FINDINGS: Lungs/Pleura: There is no evidence of pleural effusion, focal consolidation, or pneumothorax. Pulmonary vascularity: Unremarkable. Heart/mediastinum: Cardiomediastinal silhouette is unremarkable. Musculoskeletal: No acute osseous pathology. IMPRESSION: No acute cardiopulmonary disease/process. [facility] Delmy Esquivel, , 04/01/2024 5:40 PM
[2024-04-01 18:30] VITALS: BP 94/61; PULSE 75; RESP 16
== END 2024-04-01 18:30 | disposition home or self-care (01) ==
LOC: EC 14:10
CPT/HCPCS: 36415; 71046; 80053; 83690; 83735; 84484; 85025; 85379; 85610; 85730; 93005; 96374; 99284

== ENCOUNTER 2024-05-10 21:09 | Emergency (ER) | payer MEDICARE, OTHER ==
--- NOTE | 2024-05-10 21:25 | ED ---
SOB HPI - General Chief Complaint: Shortness of Breath Stated Complaint: Cough, WILFREDO Time Seen by Provider: 05/10/24 21:24 Source: patient, RN notes reviewed, old records reviewed Mode of arrival: ambulatory Limitations: no limitations - History of Present Illness Initial Comments: This is a 68-year-old female to the ER for evaluation today. Patient presents today for evaluation regards to shortness of breath. Patient presents with family member in regards to shortness of breath presenting with failure member concerned she may have same illness, oxygen has been a little bit low she does wear oxygen when needed at home and did not have oxygen in the waiting room began became anxious secondary to not having oxygen MD Complaint: shortness of breath, cough, anxiety -: hour(s) Severity: moderate Severity scale (1-10): 4 Quality: aching Consistency: constant Improves With: nothing Worsens With: nothing Known History Of: COPD Context: recent URI, recent illness Associated Symptoms: denies other symptoms - Related Data Home Medications Medication Instructions Recorded Confirmed Apixaban [Eliquis] 5 mg PO BID 12/16/23 03/01/24 Docusate [Colace] 100 mg PO DAILY 12/16/23 03/01/24 Dulaglutide [Trulicity] 0.75 mg SQ WE 12/16/23 03/01/24 Gabapentin [Neurontin] 100 mg PO DAILY 12/16/23 03/01/24 Cyanocobalamin (Vitamin B-12) 1,000 mcg PO DAILY 03/01/24 03/01/24 [Vitamin B-12] Fluticasone/Umeclidin/Vilanter 1 puff INHALATION RT-DAILY 03/01/24 03/01/24 [[place] Ellipta 100-62.5-25] Previous Rx's Medication Instructions Recorded Albuterol Inhaler [Ventolin Hfa 1 puff INHALATION RT-Q4H PRN 30 12/19/23 Inhaler] Days #1 each Aspirin 81 mg PO DAILY #30 tab 03/06/24 Atorvastatin [Lipitor] 80 mg PO HS #30 tab 03/06/24 Clopidogrel [Plavix] 75 mg PO DAILY #30 tab 03/06/24 Dapagliflozin Propanediol [Farxiga] 10 mg PO DAILY #30 tab 03/06/24 Furosemide [Lasix] 20 mg PO DAILY #30 tab 03/06/24 Metoprolol Succinate (ER) [Toprol 100 mg PO DAILY #30 tab 03/06/24 XL] Nicotine 21Mg/24Hr Patch [Habitrol] 1 patch TRANSDERM DAILY patch 03/06/24 Sacubitril/Valsartan [Entresto 24 1 each PO BID #60 tab 03/06/24 mg-26 mg Tablet] predniSONE [Deltasone] 40 mg PO DAILY #10.5 tab 03/06/24 Cyclobenzaprine [Flexeril] 10 mg PO TID PRN #12 tablet 04/01/24 Ketorolac [Toradol] 10 mg PO Q8HR PRN #9 tab 04/01/24 Benzonatate [Tessalon Perles] 100 mg PO TID PRN #15 capsule 05/10/24 predniSONE 50 mg PO DAILY #5 tab 05/10/24 Allergies Allergy/AdvReac Type Severity Reaction Status Date / Time clindamycin Allergy Dyspnea Verified 05/10/24 21:20 Penicillins Allergy Itching Verified 05/10/24 21:20 sulfamethoxazole Allergy Unknown Verified 05/10/24 21:20 [From Bactrim] trimethoprim [From Bactrim] Allergy Unknown Verified 05/10/24 21:20 Review of Systems ROS Statement: Those systems with pertinent positive or pertinent negative responses have been documented in the HPI. ROS Other: All systems not noted in ROS Statement are negative. Past Medical History Past Medical History: Atrial Fibrillation, COPD, Diabetes Mellitus, Hyperlipidemia, Hypertension Additional Past Medical History / Comment(s): Diabetes Type 2 History of Any Multi-Drug Resistant Organisms: None Reported, Unobtainable Past Surgical History: No Surgical Hx Reported, Cholecystectomy Additional Past Surgical History / Comment(s): D&C, two blader cancer tumors removed Past Anesthesia/Blood Transfusion Reactions: No Reported Reaction Past Psychological History: Depression, Unable to Obtain Smoking Status: Current every day smoker Past Alcohol Use History: None Reported Past Drug Use History: None Reported - Past Family History Mother Family Medical History: Congestive Heart Failure (CHF), Diabetes Mellitus, Deep Vein Thrombosis (DVT) General Exam Limitations: no limitations General appearance: alert, in no apparent distress, anxious Head exam: Present: atraumatic, normocephalic, normal inspection Eye exam: Present: normal appearance, PERRL, EOMI. Absent: scleral icterus, conjunctival injection, periorbital swelling ENT exam: Present: normal exam, mucous membranes moist Neck exam: Present: normal inspection. Absent: tenderness, meningismus, lymphadenopathy Respiratory exam: Present: respiratory distress, wheezes. Absent: rales, rhonchi, stridor Cardiovascular Exam: Present: normal rhythm, tachycardia, normal heart sounds. Absent: systolic murmur, diastolic murmur, rubs, gallop, clicks GI/Abdominal exam: Present: soft, normal bowel sounds. Absent: distended, tenderness, guarding, rebound, rigid Extremities exam: Present: normal inspection, full ROM, normal capillary refill. Absent: tenderness, pedal edema, joint swelling, calf tenderness Back exam: Present: normal inspection Neurological exam: Present: alert, oriented X3, CN II-XII intact Psychiatric exam: Present: normal affect, normal mood Skin exam: Present: warm, dry, intact, normal color. Absent: rash Course Vital Signs 05/10/24 05/10/24 05/10/24 21:16 22:05 22:22 Temperature 98.4 F Pulse Rate 106 H 92 Respiratory 20 23 Rate Blood Pressure 111/76 O2 Sat by Pulse 90 L Oximetry 05/10/24 05/10/24 05/10/24 22:28 22:47 23:16 Temperature 98.7 F Pulse Rate 101 H 89 97 Respiratory 22 16 Rate Blood Pressure 92/54 100/60 O2 Sat by Pulse 95 95 Oximetry - Reevaluation(s) Reevaluation #1: 05/10/24 22:08 Records reviewed Reevaluation #2: 05/10/24 22:08 Patient symptoms dramatically improved Reevaluation #3: 05/10/24 22:59 Informed of results and questions answered Reevaluation #4: Was pt. sent in by a medical professional or institution (, PA, PHLEBOTOMY TECHNICIAN, urgent care, hospital, or shelter...) When possible be specific @ -no Did you speak to anyone other than the patient for history (EMS, parent, family, police, friend...)? What history was obtained from this source @ -no Did you review nursing and triage notes (agree or disagree)? Why? @ -agree Are old charts reviewed (outside hosp., previous admission, EMS record, old EKG, old radiological studies, urgent care reports/EKG's, shelter records)? Report findings @ -yes Differential Diagnosis (chest pain, altered mental status, abdominal pain women, abdominal pain men, vaginal bleeding, weakness, fever, dyspnea, syncope, headache, dizziness, GI bleed, back pain, seizure, CVA, palpatations, mental he alth, musculoskeletal)? @ -prior EKG interpreted by me (3pts min.). @ -yes X-rays interpreted by me (1pt min.). @ -yes negative for acute disease CT interpreted by me (1pt min.). @ -no U/S interpreted by me (1pt. min.). @ -no What testing was considered but not performed or refused? (CT, X-rays, U/S, labs)? Why? @ -none What meds were considered but not given or refused? Why? @ -none Did you discuss the management of the patient with other professionals (professionals i.e. , PA, PHLEBOTOMY TECHNICIAN, lab, RT, psych nurse, elementary school social worker, fluorescent solution mixer, teacher, bsa/aml compliance officer, leather case finisher)? Give summary @ -no Was smoking cessation discussed for >3mins.? @ -no Was critical care preformed (if so, how long)? @ -no Were there social determinants of health that impacted care today? How? (Homelessness, low income, unemployed, alcoholism, drug addiction, transportation, low edu. Level, literacy, decrease access to med. care, longterm, rehab)? @ -none Was there de-escalation of care discussed even if they declined (Discuss DNR or withdrawal of care, Hospice)? DNR status @ -no What co-morbidities impacted this encounter? (DM, HTN, Smoking, COPD, CAD, Cancer, CVA, ARF, Chemo, Hep., AIDS, mental health diagnosis, sleep apnea, morbid obesity)? @ -none Was patient admitted / discharged? Hospital course, mention meds given and route, prescriptions, significant lab abnormalities, going to OR and other pe rtinent info. @ - 68 female to ER for evaluation of cough congestion chest pain shortness of breath COPD, patient symptoms improved here in the ER and she can be discharged home Discharge Undiagnosed new problem with uncertain prognosis? @ -no Drug Therapy requiring intensive monitoring for toxicity (Heparin, Nitro, Insulin, Cardizem)? @ -no Were any procedures done? @ -no Diagnosis/symptom? @ -COPD exacerbation Acute, or Chronic, or Acute on Chronic? @ -Acute Uncomplicated (without systemic symptoms) or Complicated (systemic symptoms)? @ -Complicated Side effects of treatment? @ -no Exacerbation, Progression, or Severe Exacerbation? @ -exacerbation Poses a threat to life or bodily function? How? (Chest pain, USA, IA, pneumonia, PE, COPD, DKA, ARF, appy, cholecystitis, CVA, Diverticulitis, Homicidal, Suicidal, threat to staff... and all critical care pts) @ -yes yes of breath Reevaluation #5: Differential Dyspnea: Coronary syndrome, arrhythmia, tamponade, asthma, COPD, pulmonary embolism, pneumonia, pneumothorax, pulmonary effusion, anaphylaxis, diabetic ketoacidosis, flailed chest, pulmonary contusion, diaphragmatic rupture, anemia, neuromuscul ar, this is not meant to be an all-inclusive list. Medical Decision Making - Medical Decision Making 68 female to ER for evaluation of cough congestion chest pain shortness of breath COPD, patient symptoms improved here in the ER and she can be discharged home - Lab Data Result diagrams: 05/10/24 21:52 05/10/24 21:52 Lab Results 05/10/24 05/10/24 05/10/24 Range/Units 21:52 21:52 21:52 WBC 14.3 H (3.8-10.6) k/uL RBC 4.81 (3.80-5.40) m/uL Hgb 14.7 (11.4-16.0) gm/dL Hct 45.3 (34.0-46.0) % MCV 94.2 (80.0-100.0) fL MCH 30.6 (25.0-35.0) pg MCHC 32.4 (31.0-37.0) g/dL RDW 14.9 (11.5-15.5) % Plt Count 346 (150-450) k/uL MPV 8.6 Neutrophils % 73 % Lymphocytes % 14 % Monocytes % 4 % Eosinophils % 8 % Basophils % 0 % Neutrophils # 10.3 H (1.3-7.7) k/uL Lymphocytes # 2.0 (1.0-4.8) k/uL Monocytes # 0.6 (0-1.0) k/uL Eosinophils # 1.1 H (0-0.7) k/uL Basophils # 0.0 (0-0.2) k/uL PT 10.6 (10.0-12.5) sec INR 1.0 (<1.2) APTT 28.1 (22.0-30.0) sec Sodium 139 (137-145) mmol/L Potassium 4.7 (3.5-5.1) mmol/L Chloride 103 (98-107) mmol/L Carbon Dioxide 25 (22-30) mmol/L Anion Gap 11 mmol/L BUN 19 H (7-17) mg/dL Creatinine 1.00 (0.52-1.04) mg/dL Est GFR (CKD-EPI)AfAm 67 (>60 ml/min/1.73 sqM) Est GFR (CKD-EPI)NonAf 58 (>60 ml/min/1.73 sqM) Glucose 124 H (74-99) mg/dL Lactic Ac Sepsis Rflx Plasma Lactic Acid Mark (0.7-2.0) mmol/L Calcium 9.4 (8.4-10.2) mg/dL Magnesium 2.0 (1.6-2.3) mg/dL Total Bilirubin 0.8 (0.2-1.3) mg/dL AST 26 (14-36) U/L ALT 13 (4-34) U/L Alkaline Phosphatase 135 H (38-126) U/L Troponin I (0.000-0.034) ng/mL NT-Pro-B Natriuret Pep 244 pg/mL Total Protein 6.9 (6.3-8.2) g/dL Albumin 4.2 (3.5-5.0) g/dL Influenza Type A (PCR) (Not Detectd) Influenza Type B (PCR) (Not Detectd) RSV (PCR) (Not Detectd) SARS-CoV-2 (PCR) (Not Detectd) 05/10/24 05/10/24 05/10/24 Range/Units 21:52 21:52 22:18 WBC (3.8-10.6) k/uL RBC (3.80-5.40) m/uL Hgb (11.4-16.0) gm/dL Hct (34.0-46.0) % MCV (80.0-100.0) fL MCH (25.0-35.0) pg MCHC (31.0-37.0) g/dL RDW (11.5-15.5) % Plt Count (150-450) k/uL MPV Neutrophils % % Lymphocytes % % Monocytes % % Eosinophils % % Basophils % % Neutrophils # (1.3-7.7) k/uL Lymphocytes # (1.0-4.8) k/uL Monocytes # (0-1.0) k/uL Eosinophils # (0-0.7) k/uL Basophils # (0-0.2) k/uL PT (10.0-12.5) sec INR (<1.2) APTT (22.0-30.0) sec Sodium (137-145) mmol/L Potassium (3.5-5.1) mmol/L Chloride (98-107) mmol/L Carbon Dioxide (22-30) mmol/L Anion Gap mmol/L BUN (7-17) mg/dL Creatinine (0.52-1.04) mg/dL Est GFR (CKD-EPI)AfAm (>60 ml/min/1.73 sqM) Est GFR (CKD-EPI)NonAf (>60 ml/min/1.73 sqM) Glucose (74-99) mg/dL Lactic Ac Sepsis Rflx Plasma Lactic Acid Mark 2.2 H* (0.7-2.0) mmol/L Calcium (8.4-10.2) mg/dL Magnesium (1.6-2.3) mg/dL Total Bilirubin (0.2-1.3) mg/dL AST (14-36) U/L ALT (4-34) U/L Alkaline Phosphatase (38-126) U/L Troponin I <0.012 (0.000-0.034) ng/mL NT-Pro-B Natriuret Pep pg/mL Total Protein (6.3-8.2) g/dL Albumin (3.5-5.0) g/dL Influenza Type A (PCR) Not Detected (Not Detectd) Influenza Type B (PCR) Not Detected (Not Detectd) RSV (PCR) Not Detected (Not Detectd) SARS-CoV-2 (PCR) Not Detected (Not Detectd) 05/10/24 Range/Units 23:03 WBC (3.8-10.6) k/uL RBC (3.80-5.40) m/uL Hgb (11.4-16.0) gm/dL Hct (34.0-46.0) % MCV (80.0-100.0) fL MCH (25.0-35.0) pg MCHC (31.0-37.0) g/dL RDW (11.5-15.5) % Plt Count (150-450) k/uL MPV Neutrophils % % Lymphocytes % % Monocytes % % Eosinophils % % Basophils % % Neutrophils # (1.3-7.7) k/uL Lymphocytes # (1.0-4.8) k/uL Monocytes # (0-1.0) k/uL Eosinophils # (0-0.7) k/uL Basophils # (0-0.2) k/uL PT (10.0-12.5) sec INR (<1.2) APTT (22.0-30.0) sec Sodium (137-145) mmol/L Potassium (3.5-5.1) mmol/L Chloride (98-107) mmol/L Carbon Dioxide (22-30) mmol/L Anion Gap mmol/L BUN (7-17) mg/dL Creatinine (0.52-1.04) mg/dL Est GFR (CKD-EPI)AfAm (>60 ml/min/1.73 sqM) Est GFR (CKD-EPI)NonAf (>60 ml/min/1.73 sqM) Glucose (74-99) mg/dL Lactic Ac Sepsis Rflx Y Plasma Lactic Acid Mark (0.7-2.0) mmol/L Calcium (8.4-10.2) mg/dL Magnesium (1.6-2.3) mg/dL Total Bilirubin (0.2-1.3) mg/dL AST (14-36) U/L ALT (4-34) U/L Alkaline Phosphatase (38-126) U/L Troponin I (0.000-0.034) ng/mL NT-Pro-B Natriuret Pep pg/mL Total Protein (6.3-8.2) g/dL Albumin (3.5-5.0) g/dL Influenza Type A (PCR) (Not Detectd) Influenza Type B (PCR) (Not Detectd) RSV (PCR) (Not Detectd) SARS-CoV-2 (PCR) (Not Detectd) - EKG Data -: EKG Interpreted by Me (EKG is sinus 97 AR 165 QRS 81 QTc 407) - Radiology Data Radiology results: report reviewed (Chest x-ray is negative for acute disease), image reviewed Disposition Clinical Impression: Acute exacerbation of chronic obstructive pulmonary disease, Asthma with status asthmaticus, Hypoxia, Asthma with acute exacerbation Disposition: HOME SELF-CARE Condition: Fair Instructions (If sedation given, give patient instructions): Acute Bronchitis (ED), Chronic Bronchitis (ED) Prescriptions: predniSONE 50 mg PO DAILY #5 tab Benzonatate [Tessalon Perles] 100 mg PO TID PRN #15 capsule PRN Reason: Cough Is patient prescribed a controlled substance at d/c from ED?: No Referrals: Nonstaff,Physician [Primary Care Provider] - 1-2 days Time of Disposition: 23:00
[2024-05-10] MEDS: KETOROLAC 15 MG/ML 1 ML VIAL IVP STA (21:49)
[2024-05-10] MEDS: DEXAMETHASONE SOD PHOSPHATE 10 MG/ML 1 ML VIAL IVP STA (21:49)
[2024-05-10] MEDS: SODIUM CHLORIDE 0.9% 1,000 ML IV STA ×2 (21:49→22:30)
[2024-05-10] MEDS: IPRATROPIUM-ALBUTEROL 3 ML NEB INHALATION STA (22:05)
[2024-05-10 22:23] LABS: Basophils % (A) 0 %; Eosinophils # (A) 1.1 k/uL (0-0.7); Eosinophils % (A) 8 %; HCT 45.3 % (34.0-46.0); HGB 14.7 gm/dL (11.4-16.0); Lymphocytes % (A) 14 %; MCH 30.6 pg (25.0-35.0); MCHC 32.4 g/dL (31.0-37.0); MCV 94.2 fL (80.0-100.0); Mean Platelet Volume 8.6; Monocytes # (A) 0.6 k/uL (0-1.0); Monocytes % (A) 4 %; Neutrophils # (A) 10.3 k/uL (1.3-7.7); Neutrophils % (A) 73 %; Platelet Count 346 k/uL (150-450); RBC 4.81 m/uL (3.80-5.40); RDW 14.9 % (11.5-15.5); WBC 14.3 k/uL (3.8-10.6)
[2024-05-10 22:31] LABS: Partial Thromboplastin Time 28.1 sec (22.0-30.0); Prothrombin Time 10.6 sec (10.0-12.5)
[2024-05-10 22:35] LABS: ALT 13 U/L (4-34); African American GFR (CKD) 67 (>60 ml/min/1.73 sqM); Albumin 4.2 g/dL (3.5-5.0); Anion Gap 11 mmol/L; Blood Urea Nitrogen 19 mg/dL (7-17); Calcium 9.4 mg/dL (8.4-10.2); Carbon Dioxide 25 mmol/L (22-30); Chloride 103 mmol/L (98-107); Glucose 124 mg/dL (74-99); Non-African American GFR(CKD) 58 (>60 ml/min/1.73 sqM); Sodium 139 mmol/L (137-145); Total Bilirubin 0.8 mg/dL (0.2-1.3); Total Protein 6.9 g/dL (6.3-8.2)
[2024-05-10 22:39] LABS: NT-Pro-B-Type Natriuretic Pept 244 pg/mL
[2024-05-10 22:43] LABS: AST 26 U/L (14-36); Potassium 4.7 mmol/L (3.5-5.1)
[2024-05-10 22:44] LABS: Alkaline Phosphatase 135 U/L (38-126)
--- NOTE | 2024-05-10 23:06 | XR ---
EXAMINATION TYPE: XR chest 1V portable DATE OF EXAM: 05/10/2024 10:17 PM COMPARISON: 04/01/2024 CLINICAL INDICATION: Female, 68 years old with history of sob, TECHNIQUE: XR chest 1V portable view(s) obtained. FINDINGS: The heart size is normal. The pulmonary vasculature is normal. There is some streak opacity at the left base. Correlate for atelectasis. IMPRESSION: 1. Mild streak atelectasis left base. Correlate for atelectasis. Pneumonia could be considered [facility], , 05/10/2024 11:04 PM
[2024-05-10 23:17] VITALS: TEMP 98.7
[2024-05-10 23:18] VITALS: BP 100/60; PULSE 97; RESP 16
== END 2024-05-10 23:26 | disposition home or self-care (01) ==
LOC: EC 21:09
DX: J44.89 Other specified chronic obstructive pulmonary disease (principal); F17.200 Nicotine dependence, unspecified, uncomplicated; Z88.0 Allergy status to penicillin; Z88.1 Allergy status to other antibiotic agents; Z88.2 Allergy status to sulfonamides
CPT/HCPCS: 36415; 94640; 93005; 83880; 80053; 83605; 83735; 84484; 85025; 85610; 85730; 87636; 71045; 99285; 96374; 96375; 96361; J1100; J1885

== ENCOUNTER 2024-05-31 00:08 | Inpatient (IN) | payer MEDICARE, OTHER ==
[2024-05-31 00:14] LABS: Glucose,Whole Blood 270 mg/dL (70-110)
[2024-05-31] MEDS: LORazepam 2 MG/ML INJ IV STA (00:17)
[2024-05-31 00:32] LABS: Basophils # (A) 0.1 k/uL (0-0.2); Basophils % (A) 1 %; Eosinophils % (A) 8 %; HGB 14.9 gm/dL (11.4-16.0); Hypochromasia Marked; Lymphocytes # (A) 4.5 k/uL (1.0-4.8); Lymphocytes % (A) 34 %; MCH 30.1 pg (25.0-35.0); MCHC 30.5 g/dL (31.0-37.0); MCV 98.8 fL (80.0-100.0); Mean Platelet Volume 8.9; Monocytes # (A) 0.6 k/uL (0-1.0); Monocytes % (A) 4 %; Neutrophils # (A) 6.7 k/uL (1.3-7.7); Neutrophils % (A) 51 %; Platelet Count 343 k/uL (150-450); RBC 4.97 m/uL (3.80-5.40); RDW 14.5 % (11.5-15.5); WBC 13.2 k/uL (3.8-10.6)
[2024-05-31 00:44] LABS: INR 0.9 (<1.2); Partial Thromboplastin Time 24.7 sec (22.0-30.0); Prothrombin Time 10.2 sec (10.0-12.5)
[2024-05-31 00:49] LABS: ALT 21 U/L (4-34); AST 34 U/L (14-36); African American GFR (CKD) 74 (>60 ml/min/1.73 sqM); Albumin 4.1 g/dL (3.5-5.0); Alkaline Phosphatase 150 U/L (38-126); Anion Gap 8 mmol/L; Blood Urea Nitrogen 12 mg/dL (7-17); Calcium 9.3 mg/dL (8.4-10.2); Carbon Dioxide 24 mmol/L (22-30); Chloride 107 mmol/L (98-107); Glucose 282 mg/dL (74-99); Non-African American GFR(CKD) 64 (>60 ml/min/1.73 sqM); Potassium 4.3 mmol/L (3.5-5.1); Sodium 139 mmol/L (137-145); Total Bilirubin 0.5 mg/dL (0.2-1.3); Total Protein 6.7 g/dL (6.3-8.2)
[2024-05-31 00:57] LABS: NT-Pro-B-Type Natriuretic Pept 171 pg/mL
[2024-05-31 01:02] LABS: VBG PH 7.08 (7.31-7.41)
--- NOTE | 2024-05-31 02:20 | XR ---
EXAM: XR Chest, 1 View CLINICAL HISTORY: ITS.REASON XR Reason: dyspnea TECHNIQUE: Frontal view of the chest. COMPARISON: No relevant prior studies available. FINDINGS: Lungs: Unremarkable. No consolidation. Pleural space: Unremarkable. No pneumothorax. Heart: Unremarkable. No cardiomegaly. Mediastinum: Unremarkable. Normal mediastinal contour. Bones/joints: Unremarkable. No acute fracture. IMPRESSION: No consolidation.
--- NOTE | 2024-05-31 03:04 | ED ---
SOB HPI - General Chief Complaint: Shortness of Breath Stated Complaint: WILFREDO Time Seen by Provider: 05/31/24 00:11 Source: patient, EMS Limitations: altered mental status - History of Present Illness Initial Comments: This patient is 68-year-old woman arriving by ambulance to have evaluation of shortness of breath. The evaluation appears limited as patient is moderately dyspneic and also appears somewhat delirious. The patient states that her symptoms have been going on for 2 days now. She has occasional cough, no hemoptysis. She denies chest pain. She is not aware of any fever. MD Complaint: shortness of breath Onset/Timin -: days(s) Severity scale (1-10): 0 Consistency: constant Improves With: nothing Worsens With: nothing Known History Of: COPD, congestive heart failure Associated Symptoms: denies other symptoms Treatments Prior to Arrival: oxygen, bronchodilator, NIPPV - Related Data Home Oxygen Therapy: No Home Medications Medication Instructions Recorded Confirmed Apixaban [Eliquis] 5 mg PO BID 12/16/23 03/01/24 Docusate [Colace] 100 mg PO DAILY 12/16/23 03/01/24 Dulaglutide [Trulicity] 0.75 mg SQ WE 12/16/23 03/01/24 Gabapentin [Neurontin] 100 mg PO DAILY 12/16/23 03/01/24 Cyanocobalamin (Vitamin B-12) 1,000 mcg PO DAILY 03/01/24 03/01/24 [Vitamin B-12] Fluticasone/Umeclidin/Vilanter 1 puff INHALATION RT-DAILY 03/01/24 03/01/24 [[place] Ellipta 100-62.5-25] Previous Rx's Medication Instructions Recorded Albuterol Inhaler [Ventolin Hfa 1 puff INHALATION RT-Q4H PRN 30 12/19/23 Inhaler] Days #1 each Aspirin 81 mg PO DAILY #30 tab 03/06/24 Atorvastatin [Lipitor] 80 mg PO HS #30 tab 03/06/24 Clopidogrel [Plavix] 75 mg PO DAILY #30 tab 03/06/24 Dapagliflozin Propanediol [Farxiga] 10 mg PO DAILY #30 tab 03/06/24 Furosemide [Lasix] 20 mg PO DAILY #30 tab 03/06/24 Metoprolol Succinate (ER) [Toprol 100 mg PO DAILY #30 tab 03/06/24 XL] Nicotine 21Mg/24Hr Patch [Habitrol] 1 patch TRANSDERM DAILY patch 03/06/24 Sacubitril/Valsartan [Entresto 24 1 each PO BID #60 tab 03/06/24 mg-26 mg Tablet] predniSONE [Deltasone] 40 mg PO DAILY #10.5 tab 03/06/24 Cyclobenzaprine [Flexeril] 10 mg PO TID PRN #12 tablet 04/01/24 Ketorolac [Toradol] 10 mg PO Q8HR PRN #9 tab 04/01/24 Benzonatate [Tessalon Perles] 100 mg PO TID PRN #15 capsule 05/10/24 predniSONE 50 mg PO DAILY #5 tab 05/10/24 Allergies Allergy/AdvReac Type Severity Reaction Status Date / Time clindamycin Allergy Dyspnea Verified 05/10/24 21:20 Penicillins Allergy Itching Verified 05/10/24 21:20 sulfamethoxazole Allergy Unknown Verified 05/10/24 21:20 [From Bactrim] trimethoprim [From Bactrim] Allergy Unknown Verified 05/10/24 21:20 Review of Systems ROS Statement: Those systems with pertinent positive or pertinent negative responses have been documented in the HPI. ROS Other: All systems not noted in ROS Statement are negative. Limitations: ROS unobtainable due to patients medical condition Constitutional: Denies: fever Respiratory: Reports: cough, dyspnea Cardiovascular: Denies: chest pain, edema Gastrointestinal: Denies: abdominal pain, vomiting Musculoskeletal: Denies: back pain Neurological: Denies: headache Past Medical History Past Medical History: Atrial Fibrillation, COPD, Diabetes Mellitus, Hyperlipidemia, Hypertension Additional Past Medical History / Comment(s): Diabetes Type 2 History of Any Multi-Drug Resistant Organisms: None Reported, Unobtainable Past Surgical History: No Surgical Hx Reported, Cholecystectomy Additional Past Surgical History / Comment(s): D&C, two blader cancer tumors removed Past Anesthesia/Blood Transfusion Reactions: No Reported Reaction Past Psychological History: Depression, Unable to Obtain Smoking Status: Current every day smoker Past Alcohol Use History: None Reported Past Drug Use History: None Reported - Past Family History Mother Family Medical History: Congestive Heart Failure (CHF), Diabetes Mellitus, Deep Vein Thrombosis (DVT) General Exam General appearance: alert, in distress Head exam: Present: atraumatic, normocephalic Eye exam: Present: normal appearance. Absent: scleral icterus, conjunctival injection ENT exam: Present: mucous membranes dry Neck exam: Present: normal inspection Respiratory exam: Present: respiratory distress, wheezes, decreased breath sounds. Absent: rales, rhonchi, stridor, chest wall tenderness, accessory musc le use Cardiovascular Exam: Present: normal rhythm, tachycardia, systolic murmur. Absent: diastolic murmur, rubs, gallop GI/Abdominal exam: Present: soft. Absent: distended, tenderness, guarding, rebound, rigid, mass Extremities exam: Present: normal inspection, normal capillary refill. Absent: pedal edema, calf tenderness Back exam: Present: normal inspection. Absent: CVA tenderness (R), CVA tenderness (L) Neurological exam: Present: altered Skin exam: Present: warm, dry, intact, normal color. Absent: rash Course Vital Signs 05/31/24 05/31/24 05/31/24 00:10 00:15 00:23 Pulse Rate 122 H Respiratory 24 Rate Blood Pressure 151/112 O2 Sat by Pulse 86 L Oximetry Fraction of 50 50 Inspired Oxygen (FIO2) 05/31/24 05/31/24 05/31/24 00:33 01:21 02:34 Pulse Rate 122 H 116 H Respiratory 24 24 24 Rate Blood Pressure 96/61 102/70 O2 Sat by Pulse 94 L 95 Oximetry Fraction of Inspired Oxygen (FIO2) 05/31/24 05/31/24 04:08 04:35 Pulse Rate 102 H 102 H Respiratory Rate Blood Pressure O2 Sat by Pulse Oximetry Fraction of 40 Inspired Oxygen (FIO2) - Reevaluation(s) Reevaluation #1: 05/31/24 03:04 Initial fluid bolus is limited as patient does have history of congestive heart failure Medical Decision Making - Medical Decision Making Patient is a 68-year-old woman being brought to have evaluation of dyspnea. The patient with decreased breath sounds and wheezing as well as few scattered rhonchi. Patient was moderately hypertensive on arrival. She is brought directly to the resuscitation room where she is seen evaluated orders are entered. At this point patient appears more likely to have COPD exacerbation but given history of CHF, initial fluid bolus is limited. Patient given additional fluids. She did receive empiric antibiotic against possible pneumonia. The patient had chest x-ray which I interpreted as negative for acute infiltrate, pneumothorax, congestive heart failure. - Lab Data Result diagrams: 05/31/24 00:14 05/31/24 00:14 Lab Results 05/31/24 05/31/24 05/31/24 Range/Units 00:13 00:13 00:14 WBC 13.2 H (3.8-10.6) k/uL RBC 4.97 (3.80-5.40) m/uL Hgb 14.9 (11.4-16.0) gm/dL Hct 49.0 H (34.0-46.0) % MCV 98.8 (80.0-100.0) fL MCH 30.1 (25.0-35.0) pg MCHC 30.5 L (31.0-37.0) g/dL RDW 14.5 (11.5-15.5) % Plt Count 343 (150-450) k/uL MPV 8.9 Neutrophils % 51 % Lymphocytes % 34 % Monocytes % 4 % Eosinophils % 8 % Basophils % 1 % Neutrophils # 6.7 (1.3-7.7) k/uL Lymphocytes # 4.5 (1.0-4.8) k/uL Monocytes # 0.6 (0-1.0) k/uL Eosinophils # 1.0 H (0-0.7) k/uL Basophils # 0.1 (0-0.2) k/uL Hypochromasia Marked PT (10.0-12.5) sec INR (<1.2) APTT (22.0-30.0) sec D-Dimer (<0.60) mg/L FEU VBG pH 7.08 L* (7.31-7.41) VBG pCO2 79 H* (37-51) mmHg VBG HCO3 23 L (24-28) mmol/L Sodium (137-145) mmol/L Potassium (3.5-5.1) mmol/L Chloride (98-107) mmol/L Carbon Dioxide (22-30) mmol/L Anion Gap mmol/L BUN (7-17) mg/dL Creatinine (0.52-1.04) mg/dL Est GFR (CKD-EPI)AfAm (>60 ml/min/1.73 sqM) Est GFR (CKD-EPI)NonAf (>60 ml/min/1.73 sqM) Glucose (74-99) mg/dL POC Glucose (mg/dL) 270 H (70-110) mg/dL POC Glu [employer] ID John Lockhart Lactic Ac Sepsis Rflx Plasma Lactic Acid Mark (0.7-2.0) mmol/L Calcium (8.4-10.2) mg/dL Total Bilirubin (0.2-1.3) mg/dL AST (14-36) U/L ALT (4-34) U/L Alkaline Phosphatase (38-126) U/L Troponin I (0.000-0.034) ng/mL NT-Pro-B Natriuret Pep pg/mL Total Protein (6.3-8.2) g/dL Albumin (3.5-5.0) g/dL Influenza Type A (PCR) (Not Detectd) Influenza Type B (PCR) (Not Detectd) RSV (PCR) (Not Detectd) SARS-CoV-2 (PCR) (Not Detectd) 05/31/24 05/31/24 05/31/24 Range/Units 00:14 00:14 00:14 WBC (3.8-10.6) k/uL RBC (3.80-5.40) m/uL Hgb (11.4-16.0) gm/dL Hct (34.0-46.0) % MCV (80.0-100.0) fL MCH (25.0-35.0) pg MCHC (31.0-37.0) g/dL RDW (11.5-15.5) % Plt Count (150-450) k/uL MPV Neutrophils % % Lymphocytes % % Monocytes % % Eosinophils % % Basophils % % Neutrophils # (1.3-7.7) k/uL Lymphocytes # (1.0-4.8) k/uL Monocytes # (0-1.0) k/uL Eosinophils # (0-0.7) k/uL Basophils # (0-0.2) k/uL Hypochromasia PT 10.2 (10.0-12.5) sec INR 0.9 (<1.2) APTT 24.7 (22.0-30.0) sec D-Dimer 0.68 H (<0.60) mg/L FEU VBG pH (7.31-7.41) VBG pCO2 (37-51) mmHg VBG HCO3 (24-28) mmol/L Sodium 139 (137-145) mmol/L Potassium 4.3 (3.5-5.1) mmol/L Chloride 107 (98-107) mmol/L Carbon Dioxide 24 (22-30) mmol/L Anion Gap 8 mmol/L BUN 12 (7-17) mg/dL Creatinine 0.92 (0.52-1.04) mg/dL Est GFR (CKD-EPI)AfAm 74 (>60 ml/min/1.73 sqM) Est GFR (CKD-EPI)NonAf 64 (>60 ml/min/1.73 sqM) Glucose 282 H (74-99) mg/dL POC Glucose (mg/dL) (70-110) mg/dL POC Glu [employer] ID Lactic Ac Sepsis Rflx Plasma Lactic Acid Mark 4.6 H* (0.7-2.0) mmol/L Calcium 9.3 (8.4-10.2) mg/dL Total Bilirubin 0.5 (0.2-1.3) mg/dL AST 34 (14-36) U/L ALT 21 (4-34) U/L Alkaline Phosphatase 150 H (38-126) U/L Troponin I (0.000-0.034) ng/mL NT-Pro-B Natriuret Pep 171 pg/mL Total Protein 6.7 (6.3-8.2) g/dL Albumin 4.1 (3.5-5.0) g/dL Influenza Type A (PCR) (Not Detectd) Influenza Type B (PCR) (Not Detectd) RSV (PCR) (Not Detectd) SARS-CoV-2 (PCR) (Not Detectd) 05/31/24 05/31/24 05/31/24 Range/Units 00:14 00:18 01:36 WBC (3.8-10.6) k/uL RBC (3.80-5.40) m/uL Hgb (11.4-16.0) gm/dL Hct (34.0-46.0) % MCV (80.0-100.0) fL MCH (25.0-35.0) pg MCHC (31.0-37.0) g/dL RDW (11.5-15.5) % Plt Count (150-450) k/uL MPV Neutrophils % % Lymphocytes % % Monocytes % % Eosinophils % % Basophils % % Neutrophils # (1.3-7.7) k/uL Lymphocytes # (1.0-4.8) k/uL Monocytes # (0-1.0) k/uL Eosinophils # (0-0.7) k/uL Basophils # (0-0.2) k/uL Hypochromasia PT (10.0-12.5) sec INR (<1.2) APTT (22.0-30.0) sec D-Dimer (<0.60) mg/L FEU VBG pH (7.31-7.41) VBG pCO2 (37-51) mmHg VBG HCO3 (24-28) mmol/L Sodium (137-145) mmol/L Potassium (3.5-5.1) mmol/L Chloride (98-107) mmol/L Carbon Dioxide (22-30) mmol/L Anion Gap mmol/L BUN (7-17) mg/dL Creatinine (0.52-1.04) mg/dL Est GFR (CKD-EPI)AfAm (>60 ml/min/1.73 sqM) Est GFR (CKD-EPI)NonAf (>60 ml/min/1.73 sqM) Glucose (74-99) mg/dL POC Glucose (mg/dL) (70-110) mg/dL POC Glu [employer] ID Lactic Ac Sepsis Rflx Y Plasma Lactic Acid Mark (0.7-2.0) mmol/L Calcium (8.4-10.2) mg/dL Total Bilirubin (0.2-1.3) mg/dL AST (14-36) U/L ALT (4-34) U/L Alkaline Phosphatase (38-126) U/L Troponin I <0.012 (0.000-0.034) ng/mL NT-Pro-B Natriuret Pep pg/mL Total Protein (6.3-8.2) g/dL Albumin (3.5-5.0) g/dL Influenza Type A (PCR) Not Detected (Not Detectd) Influenza Type B (PCR) Not Detected (Not Detectd) RSV (PCR) Not Detected (Not Detectd) SARS-CoV-2 (PCR) Not Detected (Not Detectd) 05/31/24 Range/Units 03:54 WBC (3.8-10.6) k/uL RBC (3.80-5.40) m/uL Hgb (11.4-16.0) gm/dL Hct (34.0-46.0) % MCV (80.0-100.0) fL MCH (25.0-35.0) pg MCHC (31.0-37.0) g/dL RDW (11.5-15.5) % Plt Count (150-450) k/uL MPV Neutrophils % % Lymphocytes % % Monocytes % % Eosinophils % % Basophils % % Neutrophils # (1.3-7.7) k/uL Lymphocytes # (1.0-4.8) k/uL Monocytes # (0-1.0) k/uL Eosinophils # (0-0.7) k/uL Basophils # (0-0.2) k/uL Hypochromasia PT (10.0-12.5) sec INR (<1.2) APTT (22.0-30.0) sec D-Dimer (<0.60) mg/L FEU VBG pH (7.31-7.41) VBG pCO2 (37-51) mmHg VBG HCO3 (24-28) mmol/L Sodium (137-145) mmol/L Potassium (3.5-5.1) mmol/L Chloride (98-107) mmol/L Carbon Dioxide (22-30) mmol/L Anion Gap mmol/L BUN (7-17) mg/dL Creatinine (0.52-1.04) mg/dL Est GFR (CKD-EPI)AfAm (>60 ml/min/1.73 sqM) Est GFR (CKD-EPI)NonAf (>60 ml/min/1.73 sqM) Glucose (74-99) mg/dL POC Glucose (mg/dL) (70-110) mg/dL POC Glu [employer] ID Lactic Ac Sepsis Rflx Plasma Lactic Acid Mark 1.7 (0.7-2.0) mmol/L Calcium (8.4-10.2) mg/dL Total Bilirubin (0.2-1.3) mg/dL AST (14-36) U/L ALT (4-34) U/L Alkaline Phosphatase (38-126) U/L Troponin I (0.000-0.034) ng/mL NT-Pro-B Natriuret Pep pg/mL Total Protein (6.3-8.2) g/dL Albumin (3.5-5.0) g/dL Influenza Type A (PCR) (Not Detectd) Influenza Type B (PCR) (Not Detectd) RSV (PCR) (Not Detectd) SARS-CoV-2 (PCR) (Not Detectd) - EKG Data -: EKG Interpreted by Or EKG shows normal: sinus rhythm, axis (Normal), intervals (Normal), QRS complexes (Possible old MO, Q waves V1 V2), ST-T waves (Normal) Rate: tachycardia (125) Disposition Clinical Impression: Acute exacerbation of chronic obstructive pulmonary disease, Acute respiratory failure Disposition: ADMITTED IP TO THIS HOSP Condition: Fair Referrals: Nonstaff,Physician [Primary Care Provider] - 1-2 days
[2024-05-31] MEDS: SODIUM CHLORIDE 0.9% 500 ML 500 ML IV STA ×2 (03:17→04:20)
[2024-05-31] MEDS: SODIUM CHLORIDE 0.9% 1,000 ML IV STA (03:18)
[2024-05-31] MEDS: INSULIN REGULAR 100 UNIT/ML VIAL (IV) SQ STA (03:18)
[2024-05-31] MEDS: methylPREDNISolone SOD SUCCI 125 MG/2 ML VIAL IV STA (03:18)
[2024-05-31] MEDS: IPRATROPIUM-ALBUTEROL 3 ML NEB INHALATION STA (04:08)
[2024-05-31] MEDS: ALBUTEROL NEBULIZED 2.5 MG/3 ML INHALATION STA (04:08)
[2024-05-31] MEDS ORDERED: NALOXONE 0.4 MG/ML 1 ML VIAL IVP PRN (05:15)
[2024-05-31] MEDS ORDERED: ACETAMINOPHEN TAB 325 MG TAB PO PRN (05:15)
--- NOTE | 2024-05-31 05:33 | P.HPIM ---
History of Present Illness H&P Date: 05/31/24 Patient is a 60-year-old female with a PMH of COPD, paroxysmal A-fib on Eliquis, diastolic CHF, hypertension, hyperlipidemia, and type II DM who presents to the emergency room with complaints of shortness of breath and cough. Patient reports that over the past 3 to 4 days, she has been experiencing gradually worsening cough productive of whitish phlegm. She also reports wheezing during this time. She also reports some chills without documented fever. Denies chest discomfort, nausea, vomiting, abdominal pain, diarrhea. She reports feeling significantly better at the time of interview. EKG in the emergency room revealed sinus tachycardia at 125 bpm as reviewed by me with no ST/T wave changes noted. Chest x-ray was unremarkable. Laboratory evaluation was remarkable for VBG pCO2 79, lactic acid 4.6, WBC count 13.1, with a D-dimer 0.68 with glucose 282. The patient was started on BiPAP. ED documentation reviewed and case discussed with ED provider. Review of systems: Pertinent positives and negatives as discussed in HPI, a complete review of systems was performed and all other systems are negative. Physical examination: Vital signs reviewed General: non toxic, on BiPAP, no distress, appears at stated age, overweight Derm: no unusual rashes/lesions, warm Head: atraumatic, normocephalic, symmetric Eyes: EOMI, no lid lag, anicteric sclera, pupils equal round reactive to light ENT: Nose and ears atraumatic Neck: No cervical lymphadenopathy, trachea midline, supple Mouth: no lip lesion, mucus membranes moist Cardiovascular: S1S2 reg, no murmur, positive dorsalis pedis pulse bilateral, no edema Lungs: Poor air entry bilaterally with expiratory wheezing without rhonchi or rales no accessory muscle use Abdominal: soft, nontender to palpation, no guarding Ext: muscle strength 5 out of 5 in all 4 extremities grossly, no gross muscle atrophy, no contractures, Neuro: CN II-XI grossly intact, no gross focal neuro deficits Psych: Alert, oriented, appropriate affect Assessment: Acute COPD exacerbation with acute hypoxic and hypercapnic respiratory failure Lactic acidosis Leukocytosis, rule out underlying pneumonia Chronic conditions: A-fib, diastolic CHF, hypertension, hyperlipidemia, type II DM Imaging: EKG in the emergency room revealed sinus tachycardia at 125 bpm as reviewed by me with no ST/T wave changes noted. Chest x-ray was unremarkable. Data Review: Laboratory evaluation was remarkable for VBG pCO2 79, lactic acid 4.6, WBC count 13.1, with a D-dimer 0.68 with glucose 282. The patient was started on BiPAP. Plan: Continue with Solu-Medrol and [facility] consulted Continue BiPAP for now Repeat ABG in a.m. Monitor CBC Lactic acid resolved Resume home medications once reconciled Check procalcitonin levels DVT prophylaxis: Lovenox subcu The patient is admitted with an anticipated greater than 2 midnight stay for evaluation of acute COPD exacerbation CODE STATUS: Full Code Discussed with: Patient Anticipated discharge place: Home Past Medical History Past Medical History: Atrial Fibrillation, COPD, Diabetes Mellitus, Hyperlipidemia, Hypertension Additional Past Medical History / Comment(s): Diabetes Type 2 History of Any Multi-Drug Resistant Organisms: None Reported, Unobtainable Past Surgical History: No Surgical Hx Reported, Cholecystectomy Additional Past Surgical History / Comment(s): D&C, two blader cancer tumors removed Past Anesthesia/Blood Transfusion Reactions: No Reported Reaction Past Psychological History: Depression, Unable to Obtain Smoking Status: Current every day smoker Past Alcohol Use History: None Reported Past Drug Use History: None Reported - Past Family History Mother Family Medical History: Congestive Heart Failure (CHF), Diabetes Mellitus, Deep Vein Thrombosis (DVT) Medications and Allergies Home Medications Medication Instructions Recorded Confirmed Type Apixaban [Eliquis] 5 mg PO BID 12/16/23 03/01/24 History Docusate [Colace] 100 mg PO DAILY 12/16/23 03/01/24 History Dulaglutide [Trulicity] 0.75 mg SQ WE 12/16/23 03/01/24 History Gabapentin [Neurontin] 100 mg PO DAILY 12/16/23 03/01/24 History Albuterol Inhaler [Ventolin Hfa 1 puff INHALATION RT-Q4H PRN 30 12/19/23 03/01/24 Rx Inhaler] Days #1 each Cyanocobalamin (Vitamin B-12) 1,000 mcg PO DAILY 03/01/24 03/01/24 History [Vitamin B-12] Fluticasone/Umeclidin/Vilanter 1 puff INHALATION RT-DAILY 03/01/24 03/01/24 History [[place] Ellipta 100-62.5-25] Aspirin 81 mg PO DAILY #30 tab 03/06/24 Rx Atorvastatin [Lipitor] 80 mg PO HS #30 tab 03/06/24 Rx Clopidogrel [Plavix] 75 mg PO DAILY #30 tab 03/06/24 Rx Dapagliflozin Propanediol [Farxiga] 10 mg PO DAILY #30 tab 03/06/24 Rx Furosemide [Lasix] 20 mg PO DAILY #30 tab 03/06/24 Rx Metoprolol Succinate (ER) [Toprol 100 mg PO DAILY #30 tab 03/06/24 Rx XL] Nicotine 21Mg/24Hr Patch [Habitrol] 1 patch TRANSDERM DAILY patch 03/06/24 Rx Sacubitril/Valsartan [Entresto 24 1 each PO BID #60 tab 03/06/24 Rx mg-26 mg Tablet] predniSONE [Deltasone] 40 mg PO DAILY #10.5 tab 03/06/24 Rx Cyclobenzaprine [Flexeril] 10 mg PO TID PRN #12 tablet 04/01/24 Rx Ketorolac [Toradol] 10 mg PO Q8HR PRN #9 tab 04/01/24 Rx Benzonatate [Tessalon Perles] 100 mg PO TID PRN #15 capsule 05/10/24 Rx predniSONE 50 mg PO DAILY #5 tab 05/10/24 Rx Allergies Allergy/AdvReac Type Severity Reaction Status Date / Time clindamycin Allergy Dyspnea Verified 05/10/24 21:20 Penicillins Allergy Itching Verified 05/10/24 21:20 sulfamethoxazole Allergy Unknown Verified 05/10/24 21:20 [From Bactrim] trimethoprim [From Bactrim] Allergy Unknown Verified 05/10/24 21:20 Physical Exam Vitals: Vital Signs Pulse Resp BP Pulse Ox FiO2 05/31/24 04:35 102 H 05/31/24 04:08 102 H 40 05/31/24 02:34 116 H 24 102/70 95 05/31/24 01:21 122 H 24 96/61 94 L 05/31/24 00:33 24 05/31/24 00:23 50 05/31/24 00:15 50 05/31/24 00:10 122 H 24 151/112 86 L Intake and Output 05/30/24 05/30/24 05/31/24 14:59 22:59 06:59 Other: Weight 86.183 kg Results CBC & Chem 7: 05/31/24 00:14 05/31/24 00:14 Labs: Abnormal Lab Results - Last 24 Hours (Table) 05/31/24 05/31/24 05/31/24 Range/Units 00:13 00:13 00:14 WBC 13.2 H (3.8-10.6) k/uL Hct 49.0 H (34.0-46.0) % MCHC 30.5 L (31.0-37.0) g/dL Eosinophils # 1.0 H (0-0.7) k/uL D-Dimer (<0.60) mg/L FEU VBG pH 7.08 L* (7.31-7.41) VBG pCO2 79 H* (37-51) mmHg VBG HCO3 23 L (24-28) mmol/L Glucose (74-99) mg/dL POC Glucose (mg/dL) 270 H (70-110) mg/dL Plasma Lactic Acid Mark (0.7-2.0) mmol/L Alkaline Phosphatase (38-126) U/L 05/31/24 05/31/24 05/31/24 Range/Units 00:14 00:14 00:14 WBC (3.8-10.6) k/uL Hct (34.0-46.0) % MCHC (31.0-37.0) g/dL Eosinophils # (0-0.7) k/uL D-Dimer 0.68 H (<0.60) mg/L FEU VBG pH (7.31-7.41) VBG pCO2 (37-51) mmHg VBG HCO3 (24-28) mmol/L Glucose 282 H (74-99) mg/dL POC Glucose (mg/dL) (70-110) mg/dL Plasma Lactic Acid Mark 4.6 H* (0.7-2.0) mmol/L Alkaline Phosphatase 150 H (38-126) U/L
[2024-05-31] MEDS: methylPREDNISolone SOD SUCCI 125 MG/2 ML VIAL IV SCH (06:12)
[2024-05-31 06:17] LABS: Glucose,Whole Blood 137 mg/dL (70-110)
[2024-05-31] MEDS: SYMBICORT 160-4.5 MCG INHALER INHALATION SCH (08:19)
[2024-05-31] MEDS: IPRATROPIUM-ALBUTEROL 3 ML NEB INHALATION SCH (08:19)
[2024-05-31 09:01] LABS: Glucose,Whole Blood 163 mg/dL (70-110)
[2024-05-31] MEDS: INSULIN ASPART (NovoLOG) 100 UNIT/ML VIAL SQ SCH (09:18)
[2024-05-31] MEDS: NICOTINE 14MG/24HR PATCH TRANSDERM SCH (09:23)
[2024-05-31] MEDS: AZITHROMYCIN 500 MG TAB PO SCH (09:23)
[2024-05-31] MEDS: ENOXAPARIN 40 MG/0.4 ML SYRINGE SQ SCH (09:23)
[2024-05-31 12:39] LABS: Glucose,Whole Blood 193 mg/dL (70-110)
[2024-05-31] MEDS ORDERED: CYCLOBENZAPRINE 10 MG TAB PO PRN (13:05)
[2024-05-31 14:17] LABS: VBG PH 7.32 (7.31-7.41)
[2024-05-31] MEDS: DAPAGLIFLOZIN PROPANEDIOL 10 MG TABLET PO SCH (14:19)
--- NOTE | 2024-05-31 17:06 | P.CNPUL ---
History of Present Illness Consult date: 05/31/24 Requesting physician: Justin Núñez Reason for consult: COPD Chief complaint: Shortness of breath History of present illness: This is a 68-year-old female patient with a known history of congestive heart failure, oxygen dependent chronic obstructive pulmonary disease, chronic and ongoing tobacco dependence, hyperlipidemia, atrial fibrillation. She presented here to the emergency room early this morning after developing significant shortness of breath and altered mental status. She had been short of breath for approximately 2 days prior. Chest x-ray revealed no acute cardiopulmonary process. White count 13.2. Hemoglobin 14.9. Platelets 343. D-dimer 0.68. Sodium 139. Potassium 4.3. Bicarb 24. BUN 12. Creatinine 0.92. Glucose 193. Troponin negative x 1. Pro BNP 171. Procalcitonin negative at 0.14. Viral screen negative. She is seen today in consultation in the emergency department. She is currently on oxygen at 3 L/min per nasal cannula. She initially required BiPAP 12/6 and 40% FiO2. She is currently afebrile. Hemodynamically stable. Review of Systems REVIEW OF SYSTEMS: CONSTITUTIONAL: Denies any recent significant weight loss or weight gain. EYES: Denies change in vision. EARS, NOSE, MOUTH, THROAT: Denies headaches, denies sore throat. CARDIOVASCULAR: Denies chest pain, palpitations or syncopal episodes. RESPIRATORY: Positive for shortness of breath, cough, congestion no hemoptysis. GASTROINTESTINAL: Denies change in appetite, denies abdominal pain GENITOURINARY: Denies hematuria, denies infections. MUSKULOSKELETAL: Denies pain, denies swelling. INTEGUMENTARY: Denies rash, denies eczema. NEUROLOGICAL: Denies recent memory loss, no recent seizure activity. PSYCHIATRIC: Denies anxiety, denies depression. HEMATOLOGIC/LYMPHATIC: Denies anemia, denies enlarged lymph nodes. Past Medical History Past Medical History: Atrial Fibrillation, COPD, Diabetes Mellitus, Hyperlipidemia, Hypertension Additional Past Medical History / Comment(s): Diabetes Type 2 History of Any Multi-Drug Resistant Organisms: None Reported, Unobtainable Past Surgical History: No Surgical Hx Reported, Cholecystectomy Additional Past Surgical History / Comment(s): D&C, two blader cancer tumors removed Past Anesthesia/Blood Transfusion Reactions: No Reported Reaction Past Psychological History: Depression, Unable to Obtain Smoking Status: Current every day smoker Past Alcohol Use History: None Reported Past Drug Use History: None Reported - Past Family History Mother Family Medical History: Congestive Heart Failure (CHF), Diabetes Mellitus, Deep Vein Thrombosis (DVT) Medications and Allergies Home Medications Medication Instructions Recorded Confirmed Type Apixaban [Eliquis] 5 mg PO BID 12/16/23 05/31/24 History Docusate [Colace] 100 mg PO DAILY 12/16/23 05/31/24 History Dulaglutide [Trulicity] 0.75 mg SQ WE 12/16/23 05/31/24 History Gabapentin [Neurontin] 100 mg PO BID 12/16/23 05/31/24 History Albuterol Inhaler [Ventolin Hfa 1 puff INHALATION RT-Q4H PRN 30 12/19/23 05/31/24 Rx Inhaler] Days #1 each Cyanocobalamin (Vitamin B-12) 1,000 mcg PO DAILY 03/01/24 05/31/24 History [Vitamin B-12] Fluticasone/Umeclidin/Vilanter 1 puff INHALATION RT-DAILY 03/01/24 05/31/24 History [Trelegy Ellipta 100-62.5-25] Aspirin 81 mg PO DAILY #30 tab 03/06/24 05/31/24 Rx Atorvastatin [Lipitor] 80 mg PO HS #30 tab 03/06/24 05/31/24 Rx Dapagliflozin Propanediol [Farxiga] 10 mg PO DAILY #30 tab 03/06/24 05/31/24 Rx Metoprolol Succinate (ER) [Toprol 100 mg PO DAILY #30 tab 03/06/24 05/31/24 Rx XL] Albuterol Sulfate [Accuneb] 0.63 mg INHALATION RT-TID 05/31/24 05/31/24 History Cyclobenzaprine [Flexeril] 5 mg PO HS PRN 05/31/24 05/31/24 History Sacubitril/Valsartan [Entresto 24 1 tab PO BID 05/31/24 05/31/24 History mg-26 mg Tablet] Allergies Allergy/AdvReac Type Severity Reaction Status Date / Time clindamycin Allergy Dyspnea Verified 05/31/24 07:11 Penicillins Allergy Itching Verified 05/31/24 07:11 sulfamethoxazole Allergy Unknown Verified 05/31/24 07:11 [From Bactrim] trimethoprim [From Bactrim] Allergy Unknown Verified 05/31/24 07:11 Physical Exam Vitals: Vital Signs Temp Pulse Resp BP Pulse Ox FiO2 05/31/24 15:20 90 18 05/31/24 15:13 90 18 05/31/24 14:18 91 18 109/57 94 L 05/31/24 11:00 88 18 05/31/24 10:51 88 18 05/31/24 10:45 97.7 F 101 H 21 94/54 100 05/31/24 08:28 87 18 05/31/24 08:19 71 05/31/24 08:00 94 17 95/52 98 40 05/31/24 07:18 96.9 F L 79 17 108/68 96 05/31/24 06:48 77 24 96/58 96 05/31/24 05:10 102 H 20 92/57 94 L 05/31/24 04:35 102 H 05/31/24 04:08 102 H 40 05/31/24 04:05 102 H 16 95/57 95 05/31/24 02:34 116 H 24 102/70 95 05/31/24 01:21 122 H 24 96/61 94 L 05/31/24 00:33 24 05/31/24 00:23 50 05/31/24 00:15 50 05/31/24 00:10 122 H 24 151/112 86 L Intake and Output 05/31/24 05/31/24 05/31/24 06:59 14:59 22:59 Other: Weight 86.183 kg GENERAL EXAM: Alert, 68-year-old female, on 3 L nasal cannula, fairly comfortable in no apparent distress. HEAD: Normocephalic. EYES: Normal reaction of pupils, equal size. NOSE: Clear with pink turbinates. THROAT: No erythema or exudates. NECK: No masses, no JVD. CHEST: No chest wall deformity. LUNGS: Equal air entry with bilateral end expiratory wheeze, diminished. CVS: S1 and S2 normal with no audible murmur, regular rhythm. ABDOMEN: No hepatosplenomegaly, normal bowel sounds, no guarding or rigidity. SPINE: No scoliosis or deformity SKIN: No rashes CENTRAL NERVOUS SYSTEM: No focal deficits, tone is normal in all 4 extremities. EXTREMITIES: There is no peripheral edema. No clubbing, no cyanosis. P eripheral pulses are intact. Results - Laboratory Findings CBC and BMP: 05/31/24 00:14 05/31/24 00:14 PT/INR, D-dimer PT 10.2 sec (10.0-12.5) 05/31/24 00:14 INR 0.9 (<1.2) 05/31/24 00:14 D-Dimer 0.68 mg/L FEU (<0.60) H 05/31/24 00:14 Abnormal lab findings: Abnormal Labs 05/31/24 05/31/24 05/31/24 00:13 00:13 00:14 WBC 13.2 H Hct 49.0 H MCHC 30.5 L Eosinophils # 1.0 H D-Dimer VBG pH 7.08 L* VBG pCO2 79 H* VBG HCO3 23 L Glucose POC Glucose (mg/dL) 270 H Plasma Lactic Acid Mark Alkaline Phosphatase 05/31/24 05/31/24 05/31/24 00:14 00:14 00:14 WBC Hct MCHC Eosinophils # D-Dimer 0.68 H VBG pH VBG pCO2 VBG HCO3 Glucose 282 H POC Glucose (mg/dL) Plasma Lactic Acid Mark 4.6 H* Alkaline Phosphatase 150 H 05/31/24 05/31/24 05/31/24 06:15 08:59 12:37 WBC Hct MCHC Eosinophils # D-Dimer VBG pH VBG pCO2 VBG HCO3 Glucose POC Glucose (mg/dL) 137 H 163 H 193 H Plasma Lactic Acid Mark Alkaline Phosphatase - Diagnostic Findings Chest x-ray: image reviewed Assessment and Plan Assessment: Acute exacerbation of chronic obstructive pulmonary disease. Procalcitonin negative. Viral screen negative Acute on chronic hypoxemic respiratory failure secondary to above Chronic and ongoing tobacco dependence Atrial fibrillation anticoagulated with Eliquis History of congestive heart failure Diabetes mellitus Hypertension Hyperlipidemia Plan: The patient was seen and evaluated Chest x-ray, labs and medications reviewed Continue DuoNeb inhalations, Symbicort Continue IV Solu-Medrol Titrate the FiO2 as tolerated Educated regarding smoking cessation NicoDerm patch will be offered Continued on Eliquis for anticoagulation We will continue to follow and make further recommendations based on her clinical status I have personally seen and examined the patient, performed the documentation and the assessment and plan as written. Number of minutes spent on the visit: 20 Dictation was produced using [employer] software. Please excuse any grammatical, word or spelling errors.
[2024-05-31 17:17] LABS: Glucose,Whole Blood 229 mg/dL (70-110)
[2024-05-31] MEDS: SACUBITRIL/VALSARTAN 24 MG-26 MG TABLET PO SCH (20:58)
[2024-05-31] MEDS: GABAPENTIN 100 MG CAP PO SCH (20:58)
[2024-05-31] MEDS: ATORVASTATIN 80 MG TAB PO SCH (20:58)
[2024-05-31] MEDS: APIXABAN 5 MG TAB PO SCH (20:58)
[2024-05-31] MEDS ORDERED: methylPREDNISolone SOD SUCCI 125 MG/2 ML VIAL IV SCH (21:00)
[2024-05-31 21:03] LABS: Glucose,Whole Blood 259 mg/dL (70-110)
[2024-06-01] MEDS: IPRATROPIUM-ALBUTEROL 3 ML NEB INHALATION PRN (04:53)
[2024-06-01 06:08] LABS: Glucose,Whole Blood 309 mg/dL (70-110)
[2024-06-01 07:37] LABS: African American GFR (CKD) 82 (>60 ml/min/1.73 sqM); Anion Gap 8 mmol/L; Blood Urea Nitrogen 27 mg/dL (7-17); Calcium 8.7 mg/dL (8.4-10.2); Carbon Dioxide 20 mmol/L (22-30); Chloride 107 mmol/L (98-107); Glucose 271 mg/dL (74-99); Non-African American GFR(CKD) 71 (>60 ml/min/1.73 sqM); Sodium 135 mmol/L (137-145)
[2024-06-01 07:50] LABS: Potassium 4.3 mmol/L (3.5-5.1)
[2024-06-01 08:14] LABS: HCT 40.9 % (34.0-46.0); HGB 13.3 gm/dL (11.4-16.0); Hypochromasia Marked; MCH 32.4 pg (25.0-35.0); MCHC 32.6 g/dL (31.0-37.0); MCV 99.5 fL (80.0-100.0); Macrocytosis Slight; Mean Platelet Volume 9.3; Platelet Count 224 k/uL (150-450); RBC 4.11 m/uL (3.80-5.40); RDW 14.9 % (11.5-15.5); WBC 18.5 k/uL (3.8-10.6)
[2024-06-01] MEDS ORDERED: ENOXAPARIN 40 MG/0.4 ML SYRINGE SQ SCH (09:00)
[2024-06-01] MEDS: CYANOCOBALAMIN 500 MCG TAB PO SCH (09:42)
[2024-06-01] MEDS: METOPROLOL SUCCINATE (ER) 100 MG TAB.ER.24H PO SCH (09:43)
[2024-06-01] MEDS: ASPIRIN 81 MG PO SCH (09:43)
--- NOTE | 2024-06-01 10:48 | P.PN ---
Subjective Progress Note Date: 06/01/24 Principal diagnosis: Lacie is a 60-year-old female with past medical history of COPD, paroxysmal atrial fibrillation, chronic hypoxic respiratory failure on as needed oxygen antibacterials. She presented to hospital with shortness of breath on May 31. Her VBG had shown respiratory acidosis. She was placed on BiPAP and had improvement of her hypercapnia. Chest x-ray had revealed no infiltrate 06/01: She reports that she is coughing up brownish colored sputum. She reports that she is unable to locate her Trelegy Ellipta inhaler. Reports her breathing is doing better this morning. She reports that she would like to refrain from any further tobacco use. No nausea vomiting reported Objective - Vital Signs Vital signs: Vital Signs Temp 97.9 F 06/01/24 04:00 Pulse 114 H 06/01/24 09:32 Resp 20 06/01/24 09:32 BP 116/56 06/01/24 09:32 Pulse Ox 97 06/01/24 09:32 FiO2 40 05/31/24 08:00 Intake & Output 05/31/24 06/01/24 06/01/24 18:59 06:59 18:59 Intake Total 410 128 Balance 410 128 Weight 86.183 kg 86.5 kg Intake: IV 50 10 Invasive Line 1 30 Invasive Line 2 20 10 Oral 360 118 Other: Voiding Method External Catheter Toilet # Voids 1 - Exam eneral: Female, appears stated age, pleasant, in no respiratory distress, on supplemental oxygen Derm: no unusual rashes/lesions, warm Head: atraumatic, normocephalic, symmetric Eyes: EOMI, no lid lag, anicteric sclera, pupils equal round reactive to light ENT: Nose and ears atraumatic Neck: No cervical lymphadenopathy, trachea midline, supple Mouth: no lip lesion, mucus membranes moist Cardiovascular: S1S2 reg, no murmur, positive dorsalis pedis pulse bilateral, no edema Lungs: Diminished lung sounds bilaterally, however clear. On supplemental oxygen Abdominal: soft, nontender to palpation, no guarding Ext: muscle strength 5 out of 5 in all 4 extremities grossly, no gross muscle atrophy, no contractures, Neuro: Moving all extremity spontaneously, no focal deficits Psych: Alert, oriented, appropriate affect - Labs CBC & Chem 7: 06/01/24 06:45 06/01/24 06:45 Labs: Abnormal Lab Results - Last 24 Hours (Table) 05/31/24 05/31/24 05/31/24 Range/Units 12:37 17:16 21:01 WBC (3.8-10.6) k/uL Sodium (137-145) mmol/L Carbon Dioxide (22-30) mmol/L BUN (7-17) mg/dL Glucose (74-99) mg/dL POC Glucose (mg/dL) 193 H 229 H 259 H (70-110) mg/dL 06/01/24 06/01/24 06/01/24 Range/Units 06:05 06:45 06:45 WBC 18.5 H (3.8-10.6) k/uL Sodium 135 L (137-145) mmol/L Carbon Dioxide 20 L (22-30) mmol/L BUN 27 H (7-17) mg/dL Glucose 271 H (74-99) mg/dL POC Glucose (mg/dL) 309 H (70-110) mg/dL Assessment and Plan Assessment: #) Acute hypercapnic respriatory failure req bipap, resolved, has been off bipap for over 24 hours #) Acute COPD excerbation with hypoxia. decrease steroids to iv methylprednisone 40 mg bid. continue supplemental oxygen to maintain SpO2 greater than 90%. Continue azithromycin day 2 or 3 for atypical coverage. Did receive a dose of ceftriaxone in the ER however may monitor off further ceftriaxone given no infiltrate seen on chest x-ray. Continue DuoNebs 4 times daily. #) Tobacco use- tobacco cessation recommended. nicotine patch while inpatient #) Paroxsymal atrial fibrillation. Continue eliquis 5 mg BID for thromboembolic risk reduction. Cotninue metoprolol succinate 100 mg daily for ventricular rate controll #) HFimpEF, noted to have a reduced LVEF of 20% in 02/2024 which had improved fo 55% with medical therapy. Continue GDMT with farxiga, metoprolol succinate and entresto #) Dm2- a1c of 7.2% on 11/2023- continue farxiga. continue sliding scale insulin given steroid induced hyperglycemia. Dispo: med/surge Anticipated discharge date: Tomorrow. She will need a refill of her trellegy ellipta inhaler. She reports it is misplaced. Time with Patient: Greater than 30
[2024-06-01 11:41] LABS: Glucose,Whole Blood 374 mg/dL (70-110)
--- NOTE | 2024-06-01 15:32 | P.PN ---
Subjective Progress Note Date: 06/01/24 This is a 68-year-old female patient with a known history of congestive heart failure, oxygen dependent chronic obstructive pulmonary disease, chronic and ongoing tobacco dependence, hyperlipidemia, atrial fibrillation. She presented here to the emergency room early this morning after developing significant shortness of breath and altered mental status. She had been short of breath for approximately 2 days prior. Chest x-ray revealed no acute cardiopulmonary process. White count 13.2. Hemoglobin 14.9. Platelets 343. D-dimer 0.68. Sodium 139. Potassium 4.3. Bicarb 24. BUN 12. Creatinine 0.92. Glucose 193. Troponin negative x 1. Pro BNP 171. Procalcitonin negative at 0.14. Viral screen negative. She is seen today in consultation in the emergency department. She is currently on oxygen at 3 L/min per nasal cannula. She initially required BiPAP / and 40% FiO2. She is currently afebrile. Hemodynamically stable. The patient is seen today June 01, 2024 in follow-up on the selective care unit. She is currently resting fairly comfortably in bed. Awake and alert in no acute distress. Doing better today compared to yesterday. Her only complaint is that of fatigue. She is maintaining good O2 saturations in the mid 90s on 2 L/min per nasal cannula. Blood culture pending. White count 18.5. Hemoglobin 13.3. Sodium 135. Potassium 4.3. Bicarb 20. BUN 27. Creatinine 0.85. Glucose 271. She remains on DuoNeb and elations, Symbicort, Solu-Medrol. NicoDerm patch in place. Anticoagulated with Eliquis. Empiric antibiotics in the form of azithromycin. White count 18.5. Hemoglobin 13.3. Sodium 135. Potassium 4.3. Bicarb 20. BUN 27. Creatinine 0.85. Glucose 271. Objective - Vital Signs Vital signs: Vital Signs Temp 98.3 F 06/01/24 12:19 Pulse 100 06/01/24 12:39 Resp 18 06/01/24 12:19 BP 108/67 06/01/24 12:19 Pulse Ox 95 06/01/24 12:19 FiO2 40 05/31/24 08:00 Intake & Output 05/31/24 06/01/24 06/01/24 18:59 06:59 18:59 Intake Total 410 368 Balance 410 368 Weight 86.183 kg 86.5 kg Intake: IV 50 10 Invasive Line 1 30 Invasive Line 2 20 10 Oral 360 358 Other: Voiding Method External Catheter Toilet # Voids 1 3 - Exam GENERAL EXAM: Alert, fatigued 68-year-old female, on 3 L nasal cannula, comfortable in no apparent distress. HEAD: Normocephalic. EYES: Normal reaction of pupils, equal size. NOSE: Clear with pink turbinates. THROAT: No erythema or exudates. NECK: No masses, no JVD. CHEST: No chest wall deformity. LUNGS: Equal air entry with bilateral end expiratory wheeze, diminished. CVS: S1 and S2 normal with no audible murmur, regular rhythm. ABDOMEN: No hepatosplenomegaly, normal bowel sounds, no guarding or rigidity. SPINE: No scoliosis or deformity SKIN: No rashes CENTRAL NERVOUS SYSTEM: No focal deficits, tone is normal in all 4 extremities. EXTREMITIES: There is no peripheral edema. No clubbing, no cyanosis. Peripheral pulses are intact. - Labs CBC & Chem 7: 06/01/24 06:45 06/01/24 06:45 Labs: Abnormal Lab Results - Last 24 Hours (Table) 05/31/24 05/31/24 06/01/24 Range/Units 17:16 21:01 06:05 WBC (3.8-10.6) k/uL Sodium (137-145) mmol/L Carbon Dioxide (22-30) mmol/L BUN (7-17) mg/dL Glucose (74-99) mg/dL POC Glucose (mg/dL) 229 H 259 H 309 H (70-110) mg/dL 06/01/24 06/01/24 06/01/24 Range/Units 06:45 06:45 11:40 WBC 18.5 H (3.8-10.6) k/uL Sodium 135 L (137-145) mmol/L Carbon Dioxide 20 L (22-30) mmol/L BUN 27 H (7-17) mg/dL Glucose 271 H (74-99) mg/dL POC Glucose (mg/dL) 374 H (70-110) mg/dL Microbiology - Last 24 Hours (Table) 05/31/24 02:09 Blood Culture - Preliminary Blood Assessment and Plan Assessment: Acute exacerbation of chronic obstructive pulmonary disease. Procalcitonin negative. Viral screen negative Acute on chronic hypoxemic respiratory failure secondary to above Chronic and ongoing tobacco dependence Atrial fibrillation anticoagulated with Eliquis History of congestive heart failure Diabetes mellitus Hypertension Hyperlipidemia Plan: The patient was seen and evaluated Labs and medications reviewed Continue the current treatment plan Titrate the FiO2 as tolerated NicoDerm patch applied Eliquis for anticoagulation We will continue to follow I have personally seen and examined the patient, performed the documentation and the assessment and plan as written. Number of minutes spent on the visit: 10 Dictation was produced using [employer] dictation software. Please excuse any grammatical, word or spelling errors.
[2024-06-01 16:11] LABS: Glucose,Whole Blood 296 mg/dL (70-110)
[2024-06-01 20:19] LABS: Glucose,Whole Blood 171 mg/dL (70-110)
[2024-06-01] MEDS: methylPREDNISolone SOD SUCCI 40 MG/ML 1 ML VIAL IV SCH (20:46)
[2024-06-02 06:26] LABS: Glucose,Whole Blood 253 mg/dL (70-110)
--- NOTE | 2024-06-02 10:16 | P.PN ---
Subjective Progress Note Date: 06/01/24 Principal diagnosis: Lacie is a 60-year-old female with past medical history of COPD, paroxysmal atrial fibrillation, chronic hypoxic respiratory failure on as needed oxygen antibacterials. She presented to hospital with shortness of breath on May 31. Her VBG had shown respiratory acidosis. She was placed on BiPAP and had improvement of her hypercapnia. Chest x-ray had revealed no infiltrate 06/01: She reports that she is coughing up brownish colored sputum. She reports that she is unable to locate her Trelegy Ellipta inhaler. Reports her breathing is doing better this morning. She reports that she would like to refrain from any further tobacco use. No nausea vomiting reported - Exam eneral: Female, appears stated age, pleasant, in no respiratory distress, on supplemental oxygen Derm: no unusual rashes/lesions, warm Head: atraumatic, normocephalic, symmetric Eyes: EOMI, no lid lag, anicteric sclera, pupils equal round reactive to light ENT: Nose and ears atraumatic Neck: No cervical lymphadenopathy, trachea midline, supple Mouth: no lip lesion, mucus membranes moist Cardiovascular: S1S2 reg, no murmur, positive dorsalis pedis pulse bilateral, no edema Lungs: Diminished lung sounds bilaterally, however clear. On supplemental oxygen Abdominal: soft, nontender to palpation, no guarding Ext: muscle strength 5 out of 5 in all 4 extremities grossly, no gross muscle atrophy, no contractures, Neuro: Moving all extremity spontaneously, no focal deficits Psych: Alert, oriented, appropriate affect Objective - Vital Signs Vital signs: Vital Signs Temp 97.9 F 06/02/24 07:02 Pulse 100 06/02/24 08:41 Resp 19 06/02/24 07:02 BP 138/80 06/02/24 07:02 Pulse Ox 92 L 06/02/24 07:02 FiO2 40 05/31/24 08:00 Intake & Output 06/01/24 06/02/24 06/02/24 18:59 06:59 18:59 Intake Total 848 240 Balance 848 240 Weight 71.7 kg Intake: IV 10 Invasive Line 2 10 Oral 838 240 Other: Voiding Method Toilet Toilet # Voids 3 1 - Labs CBC & Chem 7: 06/01/24 06:45 06/01/24 06:45 Labs: Abnormal Lab Results - Last 24 Hours (Table) 06/01/24 06/01/24 06/01/24 Range/Units 11:40 16:09 20:18 POC Glucose (mg/dL) 374 H 296 H 171 H (70-110) mg/dL 06/02/24 Range/Units 06:22 POC Glucose (mg/dL) 253 H (70-110) mg/dL Microbiology - Last 24 Hours (Table) 05/31/24 12:44 Gram Stain - Preliminary Sputum 05/31/24 02:09 Blood Culture - Preliminary Blood Assessment and Plan Assessment: #) Acute hypercapnic respriatory failure req bipap, resolved, has been off bipap for over 24 hours #) Acute COPD excerbation with hypoxia. decrease steroids to iv methylprednisone 40 mg bid. continue supplemental oxygen to maintain SpO2 greater than 90%. Continue azithromycin day 2 or 3 for atypical coverage. Did receive a dose of ceftriaxone in the ER however may monitor off further ceftriaxone given no infiltrate seen on chest x-ray. Continue DuoNebs 4 times daily. #) Tobacco use- tobacco cessation recommended. nicotine patch while inpatient #) Paroxsymal atrial fibrillation. Continue eliquis 5 mg BID for thromboembolic risk reduction. Cotninue metoprolol succinate 100 mg daily for ventricular rate controll #) HFimpEF, noted to have a reduced LVEF of 20% in 02/2024 which had improved fo 55% with medical therapy. Continue GDMT with farxiga, metoprolol succinate and entresto #) Dm2- a1c of 7.2% on 11/2023- continue farxiga. continue sliding scale insulin given steroid induced hyperglycemia. 06/02 Patient seen and examined at bedside Still requiring 2 L nasal cannula support Continue to wean oxygen as tolerated Still having some tightness with deep inspiration Continue azithromycin Continue IV steroids Would likely benefit from a 5-day course of prednisone upon discharge Continue anticoagulation for paroxysmal atrial fibrillation Dispo: med/surge Anticipated discharge date: Tomorrow. She will need a refill of her trellegy ellipta inhaler. She reports it is misplaced. Time with Patient: Greater than 30
[2024-06-02 11:45] LABS: BUN/Creat Ratio 38.25 Ratio (12.00-20.00); Blood Urea Nitrogen 30.6 mg/dL (9.0-27.0); Calcium 8.5 mg/dL (8.7-10.3); Carbon Dioxide 22.4 mmol/L (21.6-31.8); Chloride 105 mmol/L (96-109); Glucose 267 mg/dL (70-110); Potassium 4.8 mmol/L (3.5-5.5); Sodium 138 mmol/L (135-145)
[2024-06-02 12:00] LABS: Glucose,Whole Blood 231 mg/dL (70-110)
[2024-06-02 12:54] LABS: Basophils # (A) 0.03 X 10*3/uL (0.00-0.10); Basophils % (A) 0.1 %; Eosinophils # (A) 0.01 X 10*3/uL (0.04-0.35); Eosinophils % (A) 0 %; HCT 39.9 % (37.2-46.3); HGB 12.4 g/dL (12.0-15.0); Lymphocytes # (A) 0.66 X 10*3/uL (0.90-5.00); Lymphocytes % (A) 3.1 %; MCH 30.4 pg (27.0-32.0); MCHC 31.1 g/dL (32.0-37.0); MCV 97.8 FL (80.0-97.0); Mean Platelet Volume 11.9 FL (9.5-12.2); Monocytes # (A) 0.69 X 10*3/uL (0.20-1.00); Monocytes % (A) 3.3 %; NRBC Per 100 WBC 0 X 10*3/uL (0.00-0.01); Neutrophils # (A) 19.58 X 10*3/uL (1.80-7.70); Neutrophils % (A) 92.7 %; Platelet Count 269 X 10*3/uL (140-440); RBC 4.08 X 10*6/uL (4.10-5.20); RDW 15.3 % (11.5-14.5); WBC 21.13 X 10*3/uL (4.50-10.00)
--- NOTE | 2024-06-02 13:47 | P.PN ---
Subjective Progress Note Date: 06/02/24 This is a 68-year-old female patient with a known history of congestive heart failure, oxygen dependent chronic obstructive pulmonary disease, chronic and ongoing tobacco dependence, hyperlipidemia, atrial fibrillation. She presented here to the emergency room early this morning after developing significant shortness of breath and altered mental status. She had been short of breath for approximately 2 days prior. Chest x-ray revealed no acute cardiopulmonary process. White count 13.2. Hemoglobin 14.9. Platelets 343. D-dimer 0.68. Sodium 139. Potassium 4.3. Bicarb 24. BUN 12. Creatinine 0.92. Glucose 193. Troponin negative x 1. Pro BNP 171. Procalcitonin negative at 0.14. Viral screen negative. She is seen today in consultation in the emergency department. She is currently on oxygen at 3 L/min per nasal cannula. She initially required BiPAP 12/6 and 40% FiO2. She is currently afebrile. Hemodynamically stable. The patient is seen today June 01, 2024 in follow-up on the selective care unit. She is currently resting fairly comfortably in bed. Awake and alert in no acute distress. Doing better today compared to yesterday. Her only complaint is that of fatigue. She is maintaining good O2 saturations in the mid 90s on 2 L/min per nasal cannula. Blood culture pending. White count 18.5. Hemoglobin 13.3. Sodium 135. Potassium 4.3. Bicarb 20. BUN 27. Creatinine 0.85. Glucose 271. She remains on DuoNeb and elations, Symbicort, Solu-Medrol. NicoDerm patch in place. Anticoagulated with Eliquis. Empiric antibiotics in the form of azithromycin. White count 18.5. Hemoglobin 13.3. Sodium 135. Potassium 4.3. Bicarb 20. BUN 27. Creatinine 0.85. Glucose 271. The patient is seen today June 02, 2024 in follow-up on the regular medical floor. She is currently resting comfortably in bed. Awake and alert in no acute distress. Maintaining O2 saturations in the 90s on 2 L/min per nasal cannula. Sputum culture showing presumptive Staph aureus. Reina. White count 21.1. Hemoglobin 12.4. Platelets 269. Sodium 138. Potassium 4.8. Bica rb 22. BUN 31. Creatinine 0.8. Glucose 267. Completed azithromycin. Continued on DuoNeb and elation, Symbicort, Solu-Medrol. NicoDerm patch in place. Anticoagulated with Eliquis. Objective - Vital Signs Vital signs: Vital Signs Temp 97.9 F 06/02/24 07:02 Pulse 96 06/02/24 13:03 Resp 19 06/02/24 07:02 BP 138/80 06/02/24 07:02 Pulse Ox 92 L 06/02/24 07:02 FiO2 40 05/31/24 08:00 Intake & Output 06/01/24 06/02/24 06/02/24 18:59 06:59 18:59 Intake Total 848 240 Balance 848 240 Weight 71.7 kg Intake: IV 10 Invasive Line 2 10 Oral 838 240 Other: Voiding Method Toilet Toilet Toilet # Voids 3 1 - Exam GENERAL EXAM: Alert, 68-year-old female, resting in bed, on 2 L nasal cannula, comfortable in no apparent distress. HEAD: Normocephalic. EYES: Normal reaction of pupils, equal size. NOSE: Clear with pink turbinates. THROAT: No erythema or exudates. NECK: No masses, no JVD. CHEST: No chest wall deformity. LUNGS: Equal air entry with bilateral end expiratory wheeze, diminished. CVS: S1 and S2 normal with no audible murmur, regular rhythm. ABDOMEN: No hepatosplenomegaly, normal bowel sounds, no guarding or rigidity. SPINE: No scoliosis or deformity SKIN: No rashes CENTRAL NERVOUS SYSTEM: No focal deficits, tone is normal in all 4 extremities. EXTREMITIES: There is no peripheral edema. No clubbing, no cyanosis. Peripheral pulses are intact. - Labs CBC & Chem 7: 06/02/24 06:40 06/02/24 06:40 Labs: Abnormal Lab Results - Last 24 Hours (Table) 06/01/24 06/01/24 06/02/24 Range/Units 16:09 20:18 06:22 WBC (4.50-10.00) X 10*3/uL RBC (4.10-5.20) X 10*6/uL MCV (80.0-97.0) FL MCHC (32.0-37.0) g/dL RDW (11.5-14.5) % Immature Gran # (0.00-0.04) X 10*3/uL Neutrophils # (1.80-7.70) X 10*3/uL Lymphocytes # (0.90-5.00) X 10*3/uL Eosinophils # (0.04-0.35) X 10*3/uL BUN (9.0-27.0) mg/dL BUN/Creatinine Ratio (12.00-20.00) Ratio Glucose (70-110) mg/dL POC Glucose (mg/dL) 296 H 171 H 253 H (70-110) mg/dL Calcium (8.7-10.3) mg/dL 06/02/24 06/02/24 06/02/24 Range/Units 06:40 06:40 11:59 WBC 21.13 H (4.50-10.00) X 10*3/uL RBC 4.08 L (4.10-5.20) X 10*6/uL MCV 97.8 H (80.0-97.0) FL MCHC 31.1 L (32.0-37.0) g/dL RDW 15.3 H (11.5-14.5) % Immature Gran # 0.16 H (0.00-0.04) X 10*3/uL Neutrophils # 19.58 H (1.80-7.70) X 10*3/uL Lymphocytes # 0.66 L (0.90-5.00) X 10*3/uL Eosinophils # 0.01 L (0.04-0.35) X 10*3/uL BUN 30.6 H (9.0-27.0) mg/dL BUN/Creatinine Ratio 38.25 H (12.00-20.00) Ratio Glucose 267 H (70-110) mg/dL POC Glucose (mg/dL) 231 H (70-110) mg/dL Calcium 8.5 L (8.7-10.3) mg/dL Microbiology - Last 24 Hours (Table) 05/31/24 02:09 Blood Culture - Preliminary Blood 05/31/24 12:44 Gram Stain - Preliminary Sputum Sputum Culture - Preliminary Presumptive Staph aureus Reina albicans Assessment and Plan Assessment: Acute exacerbation of chronic obstructive pulmonary disease. Procalcitonin negative. Viral screen negative Acute on chronic hypoxemic respiratory failure secondary to above Chronic and ongoing tobacco dependence Atrial fibrillation anticoagulated with Eliquis History of congestive heart failure Diabetes mellitus Hypertension Hyperlipidemia Plan: The patient was seen and evaluated Labs and medications reviewed Sputum culture final results pending Continue the current treatment plan Titrate the FiO2 as tolerated She does have home oxygen We will continue to follow I have personally seen and examined the patient, performed the documentation and the assessment and plan as written. Number of minutes spent on the visit: 10 Dictation was produced using [employer] dictation software. Please excuse any grammatical, word or spelling errors.
[2024-06-02 16:45] LABS: Glucose,Whole Blood 223 mg/dL (70-110)
[2024-06-02 20:19] LABS: Glucose,Whole Blood 231 mg/dL (70-110)
[2024-06-03 06:05] LABS: Glucose,Whole Blood 281 mg/dL (70-110)
[2024-06-03 07:39] VITALS: RESP 18
[2024-06-03 11:34] LABS: Glucose,Whole Blood 170 mg/dL (70-110)
[2024-06-03 13:39] VITALS: BP 101/65; TEMP 98.7
--- NOTE | 2024-06-03 15:01 | P.DS ---
Providers Date of admission: 05/31/24 05:16 Attending physician: Justin Núñez MD Consults: 05/31/24 05:34 Consult Physician Urgent Consulting Provider: Alcides Vasquez Consult Reason/Comments: COPD Do you want consulting provider notified?: Yes Primary care physician: Physician Nonstaff Hospital Course: Discharge Diagnosis: Acute on chronic hypoxic respiratory failure secondary to COPD exacerbation Tobacco dependence Hospital Course: 68-year-old female with past medical history of CHF, chronic hypoxic respiratory failure due to COPD on home oxygen, tobacco use disorder, HLD, A-fib, who presented to the ED with SOB and AMS, and admitted for management of acute COPD exacerbation, started on Solu-Medrol, antibiotics, breathing treatments, pulmonology consulted. Patient was encouraged to quit smoking NATALIIA. Patient was maintaining good O2 saturation on 2 L of oxygen with nasal cannula, sputum cultures obtained and pending at discharge. Her breathing status improved significantly throughout her hospital stay, patient is deemed stable for discharge, discussed with pulmonology who suggested no further intervention. 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 Patient seen and examined at bedside.[] Vital signs reviewed and stable. General: [nontoxic], [no distress], [appears at stated age] Derm: [warm], [dry] Head: [atraumatic], [normocephalic], [symmetric] Eyes: [EOMI], [no lid lag], [anicteric sclera] Mouth: [no lip lesion], [mucus membranes moist] Cardiovascular: [S1S2 reg], [no murmur] Lungs diminished breath sounds, few wheezes Abdominal: [soft], [ nontender to palpation], [no guarding], [no appreciable organomegaly] Ext: [no gross muscle atrophy], [no edema], [no contractures] Neuro: [ CN II-XI grossly intact], [no focal neuro deficits] Psych: [Alert], [oriented], [appropriate affect] A total of 35 minutes of time were spent preparing this complex discharge summary. Patient was discharged on 06/03/2024 Plan - Discharge Summary Discharge Rx Participant: Yes New Discharge Prescriptions: New methylPREDNISolone Dose Pack [Medrol Dose Pack] 4 mg PO DIRECTED #21 tab Doxycycline [Vibramycin] 100 mg PO BID 7 Days #14 cap Continue Gabapentin [Neurontin] 100 mg PO BID Dulaglutide [Trulicity] 0.75 mg SQ WE Docusate [Colace] 100 mg PO DAILY Cyanocobalamin (Vitamin B-12) [Vitamin B-12] 1,000 mcg PO DAILY Aspirin 81 mg PO DAILY #30 tab Dapagliflozin Propanediol [Farxiga] 10 mg PO DAILY #30 tab Albuterol Sulfate [Accuneb] 0.63 mg INHALATION RT-TID Fluticasone/Umeclidin/Vilanter [Trelegy Ellipta 100-62.5-25] 1 puff INHALATION RT-DAILY #90 each Apixaban [Eliquis] 5 mg PO BID Albuterol Inhaler [Ventolin Hfa Inhaler] 1 puff INHALATION RT-Q4H PRN 30 Days #1 each PRN Reason: Shortness Of Breath Atorvastatin [Lipitor] 80 mg PO HS #30 tab Metoprolol Succinate (ER) [Toprol XL] 100 mg PO DAILY #30 tab Cyclobenzaprine [Flexeril] 5 mg PO HS PRN PRN Reason: Muscle Spasm Sacubitril/Valsartan [Entresto 24 mg-26 mg Tablet] 1 tab PO BID Discharge Medication List Apixaban [Eliquis] 5 mg PO BID 12/16/23 [History] Docusate [Colace] 100 mg PO DAILY 12/16/23 [History] Dulaglutide [Trulicity] 0.75 mg SQ WE 12/16/23 [History] Gabapentin [Neurontin] 100 mg PO BID 12/16/23 [History] Albuterol Inhaler [Ventolin Hfa Inhaler] 1 puff INHALATION RT-Q4H PRN 30 Days #1 each 12/19/23 [Rx] Cyanocobalamin (Vitamin B-12) [Vitamin B-12] 1,000 mcg PO DAILY 03/01/24 [History] Aspirin 81 mg PO DAILY #30 tab 03/06/24 [Rx] Atorvastatin [Lipitor] 80 mg PO HS #30 tab 03/06/24 [Rx] Dapagliflozin Propanediol [Farxiga] 10 mg PO DAILY #30 tab 03/06/24 [Rx] Metoprolol Succinate (ER) [Toprol XL] 100 mg PO DAILY #30 tab 03/06/24 [Rx] Albuterol Sulfate [Accuneb] 0.63 mg INHALATION RT-TID 05/31/24 [History] Cyclobenzaprine [Flexeril] 5 mg PO HS PRN 05/31/24 [History] Sacubitril/Valsartan [Entresto 24 mg-26 mg Tablet] 1 tab PO BID 05/31/24 [History] Doxycycline [Vibramycin] 100 mg PO BID 7 Days #14 cap 06/03/24 [Rx] Fluticasone/Umeclidin/Vilanter [Trelegy Ellipta 100-62.5-25] 1 puff INHALATION RT-DAILY #90 each 06/03/24 [Rx] methylPREDNISolone Dose Pack [Medrol Dose Pack] 4 mg PO DIRECTED #21 tab 06/03/24 [Rx] Follow up Appointment(s)/Referral(s): Erick Malave MD [STAFF PHYSICIAN] - 1 Week Nonstaff,Physician [Primary Care Provider] - 1-2 days Patient Instructions/Handouts: COPD (Chronic Obstructive Pulmonary Disease) (GEN) Activity/Diet/Wound Care/Special Instructions: Please, follow up with your PCP and lung doctor Discharge Disposition: HOME SELF-CARE
--- NOTE | 2024-06-03 15:11 | P.PN ---
Subjective Progress Note Date: 06/03/24 This is a 68-year-old female patient with a known history of congestive heart failure, oxygen dependent chronic obstructive pulmonary disease, chronic and ongoing tobacco dependence, hyperlipidemia, atrial fibrillation. She presented here to the emergency room early this morning after developing significant shortness of breath and altered mental status. She had been short of breath for approximately 2 days prior. Chest x-ray revealed no acute cardiopulmonary process. White count 13.2. Hemoglobin 14.9. Platelets 343. D-dimer 0.68. Sodium 139. Potassium 4.3. Bicarb 24. BUN 12. Creatinine 0.92. Glucose 193. Troponin negative x 1. Pro BNP 171. Procalcitonin negative at 0.14. Viral screen negative. She is seen today in consultation in the emergency department. She is currently on oxygen at 3 L/min per nasal cannula. She initially required BiPAP 12/6 and 40% FiO2. She is currently afebrile. Hemodynamically stable. The patient is seen today June 01, 2024 in follow-up on the selective care unit. She is currently resting fairly comfortably in bed. Awake and alert in no acute distress. Doing better today compared to yesterday. Her only complaint is that of fatigue. She is maintaining good O2 saturations in the mid 90s on 2 L/min per nasal cannula. Blood culture pending. White count 18.5. Hemoglobin 13.3. Sodium 135. Potassium 4.3. Bicarb 20. BUN 27. Creatinine 0.85. Glucose 271. She remains on DuoNeb and elations, Symbicort, Solu-Medrol. NicoDerm patch in place. Anticoagulated with Eliquis. Empiric antibiotics in the form of azithromycin. White count 18.5. Hemoglobin 13.3. Sodium 135. Potassium 4.3. Bicarb 20. BUN 27. Creatinine 0.85. Glucose 271. The patient is seen today June 02, 2024 in follow-up on the regular medical floor. She is currently resting comfortably in bed. Awake and alert in no acute distress. Maintaining O2 saturations in the 90s on 2 L/min per nasal cannula. Sputum culture showing presumptive Staph aureus. Reina. White count 21.1. Hemoglobin 12.4. Platelets 269. Sodium 138. Potassium 4.8. Bica rb 22. BUN 31. Creatinine 0.8. Glucose 267. Completed azithromycin. Continued on DuoNeb and elation, Symbicort, Solu-Medrol. NicoDerm patch in place. Anticoagulated with Eliquis. The patient is seen today June 03, 2024 in follow-up on the regular medical floor. She is currently sitting up in a chair at the bedside. Awake and alert in no acute distress. Maintaining O2 saturations in the 90s on 2 L/min per nasal cannula. No IV fluids. Her sputum cultures positive for methicillin se nsitive Staphylococcus aureus. Her procalcitonin was negative at 0.14. She is continued on DuoNeb and elations, Symbicort, Solu-Medrol. NicoDerm patch in place. Eliquis for anticoagulation. Glucose 170. Objective - Vital Signs Vital signs: Vital Signs Temp 98.7 F 06/03/24 13:38 Pulse 77 06/03/24 13:38 Resp 18 06/03/24 13:38 BP 101/65 06/03/24 13:38 Pulse Ox 93 L 06/03/24 13:38 FiO2 40 05/31/24 08:00 Intake & Output 06/02/24 06/03/24 06/03/24 18:59 06:59 18:59 Weight 74.5 kg Other: Voiding Method Toilet Toilet # Voids 6 3 # Bowel Movements 0 - Exam GENERAL EXAM: Alert, pleasant 68-year-old female, resting in bed, on 2 L nasal cannula, in no apparent distress. HEAD: Normocephalic. EYES: Normal reaction of pupils, equal size. NOSE: Clear with pink turbinates. THROAT: No erythema or exudates. NECK: No masses, no JVD. CHEST: No chest wall deformity. LUNGS: Equal air entry with bilateral end expiratory wheeze, diminished. CVS: S1 and S2 normal with no audible murmur, regular rhythm. ABDOMEN: No hepatosplenomegaly, normal bowel sounds, no guarding or rigidity. SPINE: No scoliosis or deformity SKIN: No rashes CENTRAL NERVOUS SYSTEM: No focal deficits, tone is normal in all 4 extremities. EXTREMITIES: There is no peripheral edema. No clubbing, no cyanosis. Peripheral pulses are intact. - Labs CBC & Chem 7: 06/02/24 06:40 06/02/24 06:40 Labs: Abnormal Lab Results - Last 24 Hours (Table) 06/02/24 06/02/24 06/03/24 Range/Units 16:43 20:17 06:03 POC Glucose (mg/dL) 223 H 231 H 281 H (70-110) mg/dL 06/03/24 Range/Units 11:32 POC Glucose (mg/dL) 170 H (70-110) mg/dL Microbiology - Last 24 Hours (Table) 06/02/24 06:47 Gram Stain - Preliminary Sputum Sputum Culture - Preliminary 05/31/24 02:09 Blood Culture - Preliminary Blood 05/31/24 12:44 Gram Stain - Final Sputum Sputum Culture - Final Staphylococcus aureus Reina albicans Assessment and Plan Assessment: Acute exacerbation of chronic obstructive pulmonary disease. Procalcitonin negative. Viral screen negative. Sputum culture positive for MSSA Acute on chronic hypoxemic respiratory failure secondary to above Chronic and ongoing tobacco dependence Atrial fibrillation anticoagulated with Eliquis History of congestive heart failure Diabetes mellitus Hypertension Hyperlipidemia Plan: The patient was seen and evaluated Labs and medications reviewed Sputum culture reveals MSSA Recommend 5 days of doxycycline Cleared for discharge from the pulmonary standpoint She does have home oxygen Continue her home pulmonary medications Complete a prednisone taper Follow-up with Dr. Malave in our office in 1 week This patient was seen independently by the pulmonary nurse practitioner addressing pulmonary issues I have personally seen and examined the patient, performed the documentation and the assessment and plan as written. Number of minutes spent on the visit: 24 Dictation was produced using [employer] dictation software. Please excuse any gr ammatical, word or spelling errors.
[2024-06-03 15:36] VITALS: PULSE 80
[2024-06-03 16:52] LABS: Glucose,Whole Blood 226 mg/dL (70-110)
[2024-06-03] MEDS ORDERED: DOXYCYCLINE 100 MG CAP PO SCH (21:00)
== END 2024-06-03 18:52 | disposition home or self-care (01) | DRG 189 ==
LOC: EC 00:08 → 3SCARD 05:16 → 4SSUR 06-01 21:01
PROVIDERS: ADMIT Internal Medicine; ATTEND Internal Medicine
PROC: 5A09457 Assistance with Respiratory Ventilation, 24-96 Consecutive Hours, Continuous Positive Airway Pressure (ICD-10-PCS; principal; 2024-05-31)
DX: J96.21 Acute and chronic respiratory failure with hypoxia (principal); J44.1 Chronic obstructive pulmonary disease with (acute) exacerbation; I50.32 Chronic diastolic (congestive) heart failure; E87.29 Other acidosis; J96.22 Acute and chronic respiratory failure with hypercapnia; B95.61 Methicillin susceptible Staphylococcus aureus infection as the cause of diseases classified elsewhere; E11.65 Type 2 diabetes mellitus with hyperglycemia; E78.5 Hyperlipidemia, unspecified; F17.200 Nicotine dependence, unspecified, uncomplicated; I11.0 Hypertensive heart disease with heart failure; I48.0 Paroxysmal atrial fibrillation; Z79.01 Long term (current) use of anticoagulants; Z99.81 Dependence on supplemental oxygen; Z79.82 Long term (current) use of aspirin; Z88.0 Allergy status to penicillin; Z88.2 Allergy status to sulfonamides; Z79.84 Long term (current) use of oral hypoglycemic drugs
CPT/HCPCS: 36415; 51702; 71045; 80048; 80053; 82803; 83605; 83880; 84145; 84484; 85025; 85027; 85379; 85610; 85730; 87040; 87070; 87077; 87186; 87205; 87636; 93005; 94640; 94660; 94760; 96361; 96365; 96372; 96375; 96376; 99285

== ENCOUNTER 2024-11-15 16:24 | Inpatient (IN) | payer MEDICARE, OTHER ==
--- NOTE | 2024-11-15 17:57 | ED ---
SOB HPI - General Chief Complaint: Shortness of Breath Stated Complaint: WILFREDO/Back Pain Time Seen by Provider: 11/15/24 17:42 Source: patient Mode of arrival: ambulatory Limitations: no limitations - History of Present Illness Initial Comments: This patient is a 69-year-old woman who arrives with 2 complaints. The patient states that for a number of days she was having low back pain that she attributed to her arthritis. She states she has had pain like this before and told it was due to arthritis. She states that over the last probably 3 days it has moved up to the mid back area. The patient describes the pain as an aching, constant, it is worse with some movement and position. She states it is worse with cough. She has tried Tylenol and it only helped a little bit. No other relieving factors. She also states that it is feels like her COPD is flaring up. She is feeling like she has to catch her breath at times. She has a little bit of cough, nonproductive. She is not having fevers. No chest pain. She has not noted leg swelling or pain. No change in urination or bowel movements. MD Complaint: shortness of breath, cough -: days(s) Radiation: back Severity: moderate Quality: aching Consistency: constant Improves With: nothing Worsens With: movement Known History Of: COPD Associated Symptoms: chest pain Treatments Prior to Arrival: none - Related Data Home Medications Medication Instructions Recorded Confirmed Apixaban [Eliquis] 5 mg PO BID 12/16/23 11/16/24 Docusate [Colace] 100 mg PO DAILY 12/16/23 11/16/24 Dulaglutide [Trulicity] 0.75 mg SQ WE 12/16/23 11/16/24 Gabapentin [Neurontin] 100 mg PO BID 12/16/23 11/16/24 Cyanocobalamin (Vitamin B-12) 1,000 mcg PO DAILY 03/01/24 11/16/24 [Vitamin B-12] Sacubitril/Valsartan [Entresto 24 1 tab PO BID 05/31/24 11/16/24 mg-26 mg Tablet] Albuterol Inhaler [Ventolin Hfa 2 puff INHALATION RT-Q4H PRN 11/16/24 11/16/24 Inhaler] Ondansetron [Zofran] 4 mg PO BID PRN 11/16/24 11/16/24 Previous Rx's Medication Instructions Recorded Aspirin 81 mg PO DAILY #30 tab 03/06/24 Atorvastatin [Lipitor] 80 mg PO HS #30 tab 03/06/24 Dapagliflozin Propanediol [Farxiga] 10 mg PO DAILY #30 tab 03/06/24 Metoprolol Succinate (ER) [Toprol 100 mg PO DAILY #30 tab 03/06/24 XL] Fluticasone/Umeclidin/Vilanter 1 puff INHALATION RT-DAILY #90 each 06/03/24 [Trelegy Ellipta 100-62.5-25] Cefdinir 300 mg PO Q12HR 10 Days #20 cap 11/22/24 Lidocaine 5% Patch [Lidoderm 5% 1 patch TOPICAL DAILY PRN #30 patch 12/02/24 Patch] Allergies Allergy/AdvReac Type Severity Reaction Status Date / Time clindamycin Allergy Dyspnea Verified 12/02/24 15:37 Penicillins Allergy Itching Verified 12/02/24 15:37 sulfamethoxazole Allergy Unknown Verified 12/02/24 15:37 [From Bactrim] trimethoprim [From Bactrim] Allergy Unknown Verified 12/02/24 15:37 Review of Systems ROS Statement: Those systems with pertinent positive or pertinent negative responses have been documented in the HPI. ROS Other: All systems not noted in ROS Statement are negative. Past Medical History Past Medical History: Atrial Fibrillation, COPD, Diabetes Mellitus, Hyperlipidemia, Hypertension Additional Past Medical History / Comment(s): Diabetes Type 2 History of Any Multi-Drug Resistant Organisms: None Reported, Unobtainable Past Surgical History: No Surgical Hx Reported, Cholecystectomy Additional Past Surgical History / Comment(s): D&C, two blader cancer tumors removed Past Anesthesia/Blood Transfusion Reactions: No Reported Reaction Past Psychological History: Depression, Unable to Obtain Smoking Status: Current every day smoker Past Alcohol Use History: None Reported Past Drug Use History: None Reported - Past Family History Mother Family Medical History: Congestive Heart Failure (CHF), Diabetes Mellitus, Deep Vein Thrombosis (DVT) General Exam Limitations: no limitations General appearance: alert, in no apparent distress Head exam: Present: atraumatic, normocephalic Eye exam: Present: normal appearance. Absent: scleral icterus, conjunctival injection ENT exam: Present: normal oropharynx Neck exam: Present: normal inspection Respiratory exam: Present: wheezes. Absent: respiratory distress, rales, rhonchi, stridor, accessory muscle use Cardiovascular Exam: Present: regular rate, normal rhythm, normal heart sounds. Absent: systolic murmur, diastolic murmur, rubs, gallop GI/Abdominal exam: Present: soft. Absent: distended, tenderness, guarding, rebound, rigid, mass Extremities exam: Present: normal inspection, normal capillary refill. Absent: pedal edema, calf tenderness Back exam: Present: normal inspection. Absent: CVA tenderness (R), CVA tenderness (L) Neurological exam: Present: alert Skin exam: Present: warm, dry, intact, normal color. Absent: rash Course Vital Signs 11/15/24 11/15/24 11/15/24 17:33 17:50 18:11 Temperature 98.5 F Pulse Rate 98 86 Respiratory 17 20 Rate Blood Pressure 95/66 O2 Sat by Pulse 87 L Oximetry 11/15/24 11/15/24 11/15/24 18:20 20:00 21:15 Temperature Pulse Rate 88 94 101 H Respiratory 19 24 Rate Blood Pressure 125/60 113/69 O2 Sat by Pulse 93 L 90 L Oximetry 11/15/24 11/15/24 11/15/24 21:49 21:59 22:00 Temperature 97.7 F Pulse Rate 95 98 121 H Respiratory 26 H Rate Blood Pressure 100/60 O2 Sat by Pulse 77 L Oximetry 11/15/24 11/16/24 22:25 00:00 Temperature 97.8 F Pulse Rate 79 Respiratory 20 Rate Blood Pressure 101/62 O2 Sat by Pulse 87 L 98 Oximetry Medical Decision Making - Medical Decision Making The patient had chest x-ray that I interpreted as showing left lower lung infiltrate. No pneumothorax or congestive heart failure The patient had CT scan of the chest that I interpreted as negative for acute pulmonary embolism Was pt. sent in by a medical professional or institution (, [place], [place]OTHER [place], urgent care, hospital, or residential...) When possible be specific @ -[No] Did you speak to anyone other than the patient for history (EMS, parent, family, police, friend...)? What history was obtained from this source @ -[No] Did you review nursing and triage notes (agree or disagree)? Why? @ -[I reviewed and agree with nursing and triage notes] Were old charts reviewed (outside hosp., previous admission, EMS record, old EKG, old radiological studies, urgent care reports/EKG's, residential records)? Report findings @ -[No old charts were reviewed] Differential Diagnosis (chest pain, altered mental status, abdominal pain women, abdominal pain men, vaginal bleeding, weakness, fever, dyspnea, syncope, headache, dizziness, GI bleed, back pain, seizure, CVA, palpatations, mental health, musculoskeletal)? @ -[Differential Dyspnea: Coronary syndrome, arrhythmia, tamponade, asthma, COPD, pulmonary embolism, pneumonia, pneumothorax, pulmonary effusion, anaphylaxis, diabetic ketoacidosis, flailed chest, pulmonary contusion, diaphragmatic rupture, anemia, neuromuscular, this is not meant to be an all-inclusive list. EKG interpreted by me (3pts min.). @ -[I interpreted as above] X-rays interpreted by me (1pt min.). @ -[I interpreted as above CT interpreted by me (1pt min.). @ -[I interpreted as above U/S interpreted by me (1pt. min.). @ -[None done] What testing was considered but not performed or refused? (CT, X-rays, U/S, labs)? Why? @ -[None] What meds were considered but not given or refused? Why? @ -[None] Did you discuss the management of the patient with other professionals (professionals i.e. , PA, CLOTHER [place], lab, RT, psych nurse, social science analyst, lithopress operator, teacher, chief resource officer, child support case officer)? Give summary @ -[No] Was smoking cessation discussed for >3mins.? @ -[Yes Was critical care preformed (if so, how long)? @ -[No] Were there social determinants of health that impacted care today? How? (Homeles sness, low income, unemployed, alcoholism, drug addiction, transportation, low edu. Level, literacy, decrease access to med. care, senior care, rehab)? @ -[No] Was there de-escalation of care discussed even if they declined (Discuss DNR or withdrawal of care, Hospice)? DNR status @ -[No] What co-morbidities impacted this encounter? (DM, HTN, Smoking, COPD, CAD, Cancer, CVA, ARF, Chemo, Hep., AIDS, mental health diagnosis, sleep apnea, morbid obesity)? @ -[COPD, CHF, history of pulmonary embolism smoking Was patient admitted / discharged? Hospital course, mention meds given and route, prescriptions, significant lab abnormalities, going to OR and other pertinent info. @ -[Patient is 69-year-old woman with COPD, presenting with worsening dyspnea. Patient does appear to have left lung infiltrate and is admitted, started on antibiotics. Undiagnosed new problem with uncertain prognosis? @ -[No] Drug Therapy requiring intensive monitoring for toxicity (Heparin, Nitro, Insulin, Cardizem)? @ -[No] Were any procedures done? @ -[No] Diagnosis/symptom? @ -[Acute dyspnea Left lower lobe pneumonia COPD exacerbation Acute, or Chronic, or Acute on Chronic? @ -[Acute Uncomplicated (without systemic symptoms) or Complicated (systemic symptoms)? @ -[Complicated by dyspnea Side effects of treatment? @ -[No] Exacerbation, Progression, or Severe Exacerbation? @ -Exacerbation of COPD Poses a threat to life or bodily function? How? (Chest pain, [place], [place], pneumonia, PE, COPD, DKA, ARF, appy, cholecystitis, CVA, Diverticulitis, Homicidal, Suicidal, threat to staff... and all critical care pts) @ -[No] All treatments are based on ideal body weight as in ED triage - Lab Data Result diagrams: 11/22/24 06:25 11/22/24 06:25 Lab Results 11/15/24 11/15/24 11/15/24 Range/Units 18:17 18:17 18:17 WBC 14.68 H (4.50-10.00) 10*3/uL RBC 5.30 H (4.10-5.20) 10*6/uL Hgb 16.4 H (12.0-15.0) g/dL Hct 49.1 H (37.2-46.3) % MCV 92.6 (80.0-97.0) fL MCH 30.9 (27.0-32.0) pg MCHC 33.4 (32.0-37.0) g/dL Plt Count 302 (140-440) 10*3/uL MPV 11.1 (9.5-12.2) fL Immature Gran % (Auto) 0.3 % Neutrophils % 78.6 % Lymphocytes % 11.7 % Monocytes % 6.1 % Eosinophils % 3.1 % Basophils % 0.2 % Immature Gran # 0.05 H (0.00-0.04) 10*3/uL Neutrophils # 11.52 H (1.80-7.70) 10*3/uL Lymphocytes # 1.72 (0.90-5.00) 10*3/uL Monocytes # 0.90 (0.20-1.00) 10*3/uL Eosinophils # 0.46 H (0.04-0.35) 10*3/uL Basophils # 0.03 (0.00-0.10) 10*3/uL PT 11.5 (10.0-12.5) sec INR 1.0 (<1.2) APTT 26.0 (22.0-30.0) sec D-Dimer 0.25 (<0.60) mg/L FEU Sodium 137 (137-145) mmol/L Potassium 4.3 (3.5-5.1) mmol/L Chloride 99 (98-107) mmol/L Carbon Dioxide 28 (22-30) mmol/L Anion Gap 10 mmol/L BUN 24 H (7-17) mg/dL Creatinine 0.98 (0.52-1.04) mg/dL Est GFR (CKD-EPI)AfAm 68 (>60 ml/min/1.73 sqM) Est GFR (CKD-EPI)NonAf 59 (>60 ml/min/1.73 sqM) Glucose 140 H (74-99) mg/dL Plasma Lactic Acid Mark (0.7-2.0) mmol/L Calcium 10.2 (8.4-10.2) mg/dL Total Bilirubin 0.9 (0.2-1.3) mg/dL AST 21 (14-36) U/L ALT 15 (4-34) U/L Alkaline Phosphatase 139 H (38-126) U/L Troponin I (0.000-0.034) ng/mL NT-Pro-B Natriuret Pep 174 pg/mL Total Protein 6.6 (6.3-8.2) g/dL Albumin 4.1 (3.5-5.0) g/dL 11/15/24 11/15/24 Range/Units 18:17 18:17 WBC (4.50-10.00) 10*3/uL RBC (4.10-5.20) 10*6/uL Hgb (12.0-15.0) g/dL Hct (37.2-46.3) % MCV (80.0-97.0) fL MCH (27.0-32.0) pg MCHC (32.0-37.0) g/dL Plt Count (140-440) 10*3/uL MPV (9.5-12.2) fL Immature Gran % (Auto) % Neutrophils % % Lymphocytes % % Monocytes % % Eosinophils % % Basophils % % Immature Gran # (0.00-0.04) 10*3/uL Neutrophils # (1.80-7.70) 10*3/uL Lymphocytes # (0.90-5.00) 10*3/uL Monocytes # (0.20-1.00) 10*3/uL Eosinophils # (0.04-0.35) 10*3/uL Basophils # (0.00-0.10) 10*3/uL PT (10.0-12.5) sec INR (<1.2) APTT (22.0-30.0) sec D-Dimer (<0.60) mg/L FEU Sodium (137-145) mmol/L Potassium (3.5-5.1) mmol/L Chloride (98-107) mmol/L Carbon Dioxide (22-30) mmol/L Anion Gap mmol/L BUN (7-17) mg/dL Creatinine (0.52-1.04) mg/dL Est GFR (CKD-EPI)AfAm (>60 ml/min/1.73 sqM) Est GFR (CKD-EPI)NonAf (>60 ml/min/1.73 sqM) Glucose (74-99) mg/dL Plasma Lactic Acid Mark 1.4 (0.7-2.0) mmol/L Calcium (8.4-10.2) mg/dL Total Bilirubin (0.2-1.3) mg/dL AST (14-36) U/L ALT (4-34) U/L Alkaline Phosphatase (38-126) U/L Troponin I <0.012 (0.000-0.034) ng/mL NT-Pro-B Natriuret Pep pg/mL Total Protein (6.3-8.2) g/dL Albumin (3.5-5.0) g/dL - EKG Data -: EKG Interpreted by Me EKG shows normal: sinus rhythm (Rate 90 bpm), axis (Normal), intervals (Normal), QRS complexes (Low voltage QRS complex) Interpretation: nonspecific ST-T wave changes Disposition Clinical Impression: Pneumonia, Acute exacerbation of chronic obstructive pulmonary disease Disposition: ADMITTED IP TO THIS HOSP Condition: Stable Is patient prescribed a controlled substance at d/c from ED?: No
[2024-11-15] MEDS: IPRATROPIUM-ALBUTEROL 3 ML NEB INHALATION STA (18:11)
[2024-11-15] MEDS: MORPHINE SULFATE 4 MG/ML SYRINGE IV STA (18:15)
[2024-11-15 18:28] LABS: Basophils # (A) 0.03 10*3/uL (0.00-0.10); Basophils % (A) 0.2 %; Eosinophils # (A) 0.46 10*3/uL (0.04-0.35); Eosinophils % (A) 3.1 %; HCT 49.1 % (37.2-46.3); HGB 16.4 g/dL (12.0-15.0); Lymphocytes # (A) 1.72 10*3/uL (0.90-5.00); Lymphocytes % (A) 11.7 %; MCH 30.9 pg (27.0-32.0); MCHC 33.4 g/dL (32.0-37.0); MCV 92.6 fL (80.0-97.0); Mean Platelet Volume 11.1 fL (9.5-12.2); Monocytes % (A) 6.1 %; Neutrophils # (A) 11.52 10*3/uL (1.80-7.70); Neutrophils % (A) 78.6 %; Platelet Count 302 10*3/uL (140-440); WBC 14.68 10*3/uL (4.50-10.00)
[2024-11-15 18:41] LABS: Prothrombin Time 11.5 sec (10.0-12.5)
[2024-11-15 18:45] LABS: ALT 15 U/L (4-34); AST 21 U/L (14-36); African American GFR (CKD) 68 (>60 ml/min/1.73 sqM); Albumin 4.1 g/dL (3.5-5.0); Alkaline Phosphatase 139 U/L (38-126); Anion Gap 10 mmol/L; Blood Urea Nitrogen 24 mg/dL (7-17); Calcium 10.2 mg/dL (8.4-10.2); Carbon Dioxide 28 mmol/L (22-30); Chloride 99 mmol/L (98-107); Glucose 140 mg/dL (74-99); Non-African American GFR(CKD) 59 (>60 ml/min/1.73 sqM); Potassium 4.3 mmol/L (3.5-5.1); Sodium 137 mmol/L (137-145); Total Bilirubin 0.9 mg/dL (0.2-1.3); Total Protein 6.6 g/dL (6.3-8.2)
--- NOTE | 2024-11-15 18:51 | XR ---
EXAMINATION TYPE: XR chest 2V DATE OF EXAM: 11/15/2024 CLINICAL INDICATION: Female, 69 years old with history of difficulty breathing, TECHNIQUE: Frontal and lateral views of the chest are obtained. COMPARISON: Prior chest x-ray May 31, 2024 FINDINGS: Opacity in the left mid to lower lung is identified with left-sided volume loss as there is elevated left hemidiaphragm and tracheal shift. Right lung is clear. Silhouetting left heart border is now present. The osseous structures are intact. IMPRESSION: There is new left mid to lower lung acute infiltrate and/or atelectasis. Significant volu me loss is seen consistent with postobstructive atelectasis raising concern for obstructing mucous pl ug or mass. Progress study advised. [facility], , 11/15/2024 6:49 PM
[2024-11-15 18:54] LABS: NT-Pro-B-Type Natriuretic Pept 174 pg/mL
--- NOTE | 2024-11-15 20:55 | CT ---
EXAMINATION TYPE: CT chest angio for PE DATE OF EXAM: 11/15/2024 COMPARISON: Chest x-ray earlier today. CLINICAL INDICATION: Female, 69 years old with history of back pain/dyspnea, possible PE, LOWER BACK PAIN X 3 DAYS, NOW UPPER BACK PAIN, SOB, CHEST DISCOMFORT, COPD, TECHNIQUE: CTA scan of the thorax is performed with IV Contrast, patient injected with 100 ml mL of Isovue 370, pulmonary embolism protocol. MIP Images are created on CT scanner and reviewed. CT DLP: 390.5 mGycm. Automated Exposure Control for Dose Reduction was Utilized. FINDINGS: LUNGS: [id number] underlying emphysematous change bilaterally is present. There is masslike opa [place] in the left hilar region. There appears to be filling of the left lower lobe bronchus image 50. There is lobar atelectasis involving the left upper lobe and lingula. There is tiny left pleural eff usion. Right lung is clear. Elevated left hemidiaphragm. HEART: Size within normal limits. Severe coronary artery calcifications present. Correlated with add itional cardiac risk factors. MEDIASTINUM: There is satisfactory enhancement of the pulmonary artery and its branches, there is no CT evidence for pulmonary embolism. There is abnormal soft tissue possible adenopathy subcarinal lev el extending posteriorly axial image 43. No pericardial effusion is seen. OTHER: Scoliotic curvature is seen. IMPRESSION: 1. No CT evidence for acute pulmonary embolism. 2. As suspected on chest x-ray there is significant left lung obstructive atelectasis likely relating to obstructing mass or mucous plug centrally in the left lung. Some irregular abnormal soft tissue i n the subcarinal region is seen. Background Mild to moderate underlying emphysematous change. There i s tiny left pleural effusion. Consider bronchoscopy follow-up to further evaluate. [facility], , 11/15/2024 8:52 PM
[2024-11-15] MEDS: AZITHROMYCIN 500 MG TAB PO STA (20:58)
[2024-11-15] MEDS: ALBUTEROL NEBULIZED 2.5 MG/3 ML INHALATION STA (21:48)
[2024-11-15] MEDS: LACTATED RINGERS 1,000 ML IV SCH ×2 (22:00→22:27)
[2024-11-15] MEDS ORDERED: PNEUMONIA PROTOCOL UTILIZED 1 EACH MISC PO PRN (22:12)
[2024-11-15] MEDS ORDERED: ALBUTEROL NEBULIZED 2.5 MG/3 ML INHALATION PRN (22:12)
[2024-11-15] MEDS: NITROGLYCERIN SL TABS 0.4 MG TAB SUBLINGUAL STA (22:13)
[2024-11-15] MEDS: ONDANSETRON 4 MG/2 ML VIAL IVP PRN (22:20)
--- NOTE | 2024-11-16 07:37 | XR ---
EXAMINATION TYPE: XR chest 1V portable DATE OF EXAM: 11/16/2024 CLINICAL INDICATION: Female, 69 years old with history of pneumonia, progress study. TECHNIQUE: Single AP portable frontal view of the chest is obtained. COMPARISON: Chest x-ray and CT from one day earlier FINDINGS: Completely opacified left hemithorax with left-sided volume loss. Right lung remains clear. Silhouetting left heart border is redemonstrated. The osseous structures are intact. IMPRESSION: There is now complete left hemithorax opacification and left-sided volume loss suggesting significant atelectasis likely from obstructing central mass or mucous plugging. Consider bronchosco py follow-up to further evaluate. [facility], , 11/16/2024 7:35 AM
[2024-11-16] MEDS: SYMBICORT 160-4.5 MCG INHALER INHALATION SCH (09:13)
[2024-11-16] MEDS: TIOTROPIUM 2.5 MCG INHALER INHALATION SCH (09:13)
[2024-11-16] MEDS: IPRATROPIUM-ALBUTEROL 3 ML NEB INHALATION SCH (09:13)
[2024-11-16] MEDS: METOPROLOL SUCCINATE (ER) 100 MG TAB.ER.24H PO SCH (09:18)
[2024-11-16] MEDS: DOCUSATE 100 MG CAP PO SCH (09:18)
[2024-11-16] MEDS: methylPREDNISolone 4 MG TAB TAPER PO SCH (09:18)
[2024-11-16] MEDS: SACUBITRIL/VALSARTAN 24 MG-26 MG TABLET PO SCH (09:18)
[2024-11-16] MEDS: AZITHROMYCIN 500 MG TAB PO SCH (09:18)
[2024-11-16] MEDS: GABAPENTIN 100 MG CAP PO SCH (09:18)
[2024-11-16] MEDS: CYANOCOBALAMIN 500 MCG TAB PO SCH (09:18)
[2024-11-16] MEDS: ASPIRIN 81 MG PO SCH (09:18)
[2024-11-16] MEDS: DAPAGLIFLOZIN PROPANEDIOL 10 MG TABLET PO SCH (09:18)
--- NOTE | 2024-11-16 10:19 | P.HPIM ---
History of Present Illness H&P Date: 11/16/24 Lacie Rubio, Is a 69-year-old female who presented to [facility] emergency room with a chief complaint of worsening shortness of breath, and mid back pain She was evaluated in the emergency room vital examination on presentation revealed a temperature of 98.5 pulse 98 respiration 17 blood pressure 95/66 pulse ox 87% on room air. Laboratory data revealed a white blood count of 14.68 hemoglobin 16.4 platelet count 302 BUN 24 creatinine 0.98 BNP 174 troponin 0.012 Chest x-ray revealed new left mid to lower lung acute infiltrate with significant volume loss consistent with postobstructive atelectasis. CT angiogram of the chest revealed no evidence for acute pulmonary embolism, left lung obstructive atelectasis likely related to obstructing mass or mucous plug centrally in the left lung. Patient was admitted to medical floor she was started on IV antibiotic in the emergency room pulmonary consultation was requested. Past medical history is significant for history of COPD with chronic hypoxic respiratory failure maintained on home oxygen, history of congestive heart failure, history of pulmonary embolism, 2 years ago maintained on Eliquis, and history of continued tobacco abuse. Past Medical History Past Medical History: Atrial Fibrillation, COPD, Diabetes Mellitus, Hyperlipidemia, Hypertension Additional Past Medical History / Comment(s): Diabetes Type 2 History of Any Multi-Drug Resistant Organisms: None Reported, Unobtainable Past Surgical History: No Surgical Hx Reported, Cholecystectomy Additional Past Surgical History / Comment(s): D&C, two blader cancer tumors removed Past Anesthesia/Blood Transfusion Reactions: No Reported Reaction Past Psychological History: Depression, Unable to Obtain Smoking Status: Current every day smoker Past Alcohol Use History: None Reported Past Drug Use History: None Reported - Past Family History Mother Family Medical History: Congestive Heart Failure (CHF), Diabetes Mellitus, Deep Vein Thrombosis (DVT) Medications and Allergies Home Medications Medication Instructions Recorded Confirmed Type Apixaban [Eliquis] 5 mg PO BID 12/16/23 05/31/24 History Docusate [Colace] 100 mg PO DAILY 12/16/23 05/31/24 History Dulaglutide [Trulicity] 0.75 mg SQ WE 12/16/23 05/31/24 History Gabapentin [Neurontin] 100 mg PO BID 12/16/23 05/31/24 History Albuterol Inhaler [Ventolin Hfa 1 puff INHALATION RT-Q4H PRN 30 12/19/2312/17 Rx Inhaler] Days #1 each Cyanocobalamin (Vitamin B-12) 1,000 mcg PO DAILY 03/01/24 05/31/24 History [Vitamin B-12] Aspirin 81 mg PO DAILY #30 tab 03/06/24 05/31/24 Rx Atorvastatin [Lipitor] 80 mg PO HS #30 tab 03/06/24 05/31/24 Rx Dapagliflozin Propanediol [Farxiga] 10 mg PO DAILY #30 tab 03/06/24 05/31/24 Rx Metoprolol Succinate (ER) [Toprol 100 mg PO DAILY #30 tab 03/06/24 05/31/24 Rx XL] Albuterol Sulfate [Accuneb] 0.63 mg INHALATION RT-TID 05/31/24 05/31/24 History Cyclobenzaprine [Flexeril] 5 mg PO HS PRN 05/31/24 05/31/24 History Sacubitril/Valsartan [Entresto 24 1 tab PO BID 05/31/24 05/31/24 History mg-26 mg Tablet] Doxycycline [Vibramycin] 100 mg PO BID 7 Days #14 cap 06/03/24 Rx Fluticasone/Umeclidin/Vilanter 1 puff INHALATION RT-DAILY #90 each 06/03/24 Rx [Trelegy Ellipta 100-62.5-25] methylPREDNISolone Dose Pack 4 mg PO DIRECTED #21 tab 06/03/24 Rx [Medrol Dose Pack] Allergies Allergy/AdvReac Type Severity Reaction Status Date / Time clindamycin Allergy Dyspnea Verified 11/15/24 17:38 Penicillins Allergy Itching Verified 11/15/24 17:38 sulfamethoxazole Allergy Unknown Verified 11/15/24 17:38 [From Bactrim] trimethoprim [From Bactrim] Allergy Unknown Verified 11/15/24 17:38 Physical Exam Vitals: Vital Signs Temp Pulse Pulse Resp BP BP Pulse Ox 11/16/24 03:43 98.1 F 95 18 114/76 93 L 11/16/24 01:45 91 18 11/16/24 01:23 97.7 F 91 18 119/73 94 L 11/16/24 00:00 97.8 F 79 20 101/62 98 11/15/24 22:25 87 L 11/15/24 22:00 97.7 F 121 H 26 H 100/60 77 L 11/15/24 21:59 98 11/15/24 21:49 95 11/15/24 21:15 101 H 24 113/69 90 L 11/15/24 20:00 94 19 125/60 93 L 11/15/24 18:20 88 11/15/24 18:11 86 11/15/24 17:50 20 11/15/24 17:33 98.5 F 98 17 95/66 87 L Intake and Output 11/15/24 11/16/24 11/16/24 22:59 06:59 14:59 Output Total 400 Balance -400 Output: Urine 400 Other: Voiding Method Toilet # Voids 1 Weight 72.575 kg 75.1 kg In general patient is alert and oriented x 3 in no apparent distress HEENT head normocephalic and atraumatic Neck is supple no JVD no goiter no lymphadenopathy Chest examination reveals a crackles in both lung bases no wheezing Cardiac exam reveals regular heart sounds no gallops no murmurs Abdomen is soft nontender no organomegaly with normal bowel sounds Extremity exam reveals no edema no cyanosis or clubbing Neurological examination reveals no gross focal deficit Results CBC & Chem 7: 11/15/24 18:17 11/15/24 18:17 Labs: Abnormal Lab Results - Last 24 Hours (Table) 11/15/24 11/15/24 Range/Units 18:17 18:17 WBC 14.68 H (4.50-10.00) 10*3/uL RBC 5.30 H (4.10-5.20) 10*6/uL Hgb 16.4 H (12.0-15.0) g/dL Hct 49.1 H (37.2-46.3) % Immature Gran # 0.05 H (0.00-0.04) 10*3/uL Neutrophils # 11.52 H (1.80-7.70) 10*3/uL Eosinophils # 0.46 H (0.04-0.35) 10*3/uL BUN 24 H (7-17) mg/dL Glucose 140 H (74-99) mg/dL Alkaline Phosphatase 139 H (38-126) U/L Thrombosis Risk Factor Assmnt - Choose All That Apply Any of the Below Risk Factors Present?: Yes Each Factor Represents 1 point: Abnormal pulmonary function (COPD), Serious lung disease incl. pneumonia (< 1month) Other Risk Factors: Yes Each Risk Factor Represents 2 Points: Age 61-74 years Other congenital or acquired thrombophilia - If yes, enter type in comment: No Thrombosis Risk Factor Assessment Total Risk Factor Score: 4 Thrombosis Risk Factor Assessment Level: Moderate Risk Assessment and Plan Plan: Left lower lobe infiltrate, patient was started on IV antibiotics ceftriaxone in the emergency room will continue at this time. Left lower lobe collapse, suggestive of mucous plug or obstructing lesion in the bronchus, pulmonary consultation was requested. Underlying history of COPD Underlying history of chronic hypoxic respiratory failure requiring home oxygen use Previous history of pulmonary embolism diagnosed 2 years ago maintained on Eliquis Underlying history of congestive heart failure maintained on Entresto Continued tobacco abuse At this time patient was seen and examined Home medications reviewed and reordered Continue with IV antibiotics Pulmonary consultation requested Patient was counseled in length in regard to smoking cessation For DVT prophylaxis continue with Eliquis Will follow closely
[2024-11-16] MEDS: APIXABAN 5 MG TAB PO SCH (11:31)
[2024-11-16] MEDS: ACETYLCYSTEINE 800 MG/4 ML VIAL INHALATION SCH (13:04)
[2024-11-16] MEDS: CEFEPIME 2 GM in SODIUM CHLORIDE 0.9% 100 ML IVPB SCH (13:06)
[2024-11-16] MEDS: FUROSEMIDE 10 MG/ML 2 ML VIAL IV ONE (13:07)
--- NOTE | 2024-11-16 15:10 | P.CNPUL ---
History of Present Illness Consult date: 11/16/24 Requesting physician: Mindy Huynh Reason for consult: dyspnea, COPD, pneumonia Chief complaint: Shortness of breath and back pain History of present illness: This is a 69-year-old female familiar to my service, patient is known to have history of severe COPD, history of cardiomyopathy and LV dysfunction with ejection fraction of 20%, patient presented to the ER with few days history of increased shortness of breath, and mid back pain. Her CBC showed leukocytosis with WBC count of 14.6, her chest x-ray showed opacification of the left lung with significant volume loss, and shifting of the trachea to the ipsilateral side, highly suggestive of either endobronchial tumor or mucous plug. Patient was admitted, started on antibiotics, I was asked to see her in consultation. Clearly the patient needs bronchoscopy for further evaluation of her left mainstem bronchus, however she already ate today, and I will delay the bronchoscopy till tomorrow. In the meantime I will hold Eliquis, I will recommend aggressive measures including chest PT, Mucomyst, bronchodilators, antibiotics, and if not improved in the next 24 hours, patient will need to be bronchoscope. Patient is on high flow nasal cannula, at 11 L, O2 saturation is marginal, may have to consider BiPAP if she gets any worse, but clinically and surprisingly the patient does not seem to be in much distress. I was able to encourage the patient to do some deep coughing and she was able to clear some thick tenacious sputum on her own. Hoping that the patient will be able to clear her mucous plug on her own. Review of Systems REVIEW OF SYSTEMS: CONSTITUTIONAL: Weakness fatigue EYES: Negative. ENT: Negative. CARDIAC: History of cardiomyopathy and LV dysfunction no chest pain orthopnea or PND PULMONARY: Shortness of breath as noted in HPI GI: Negative. GENITOURINARY: Negative. MUSCULOSKELETAL: Chronic back pain SKIN: Negative. NEUROPSYCH: Negative. ENDOCRINE: Negative. HEMATOLOGIC: Negative. Past Medical History Past Medical History: Atrial Fibrillation, COPD, Diabetes Mellitus, Hyperlipidemia, Hypertension Additional Past Medical History / Comment(s): Diabetes Type 2 History of Any Multi-Drug Resistant Organisms: None Reported, Unobtainable Past Surgical History: No Surgical Hx Reported, Cholecystectomy Additional Past Surgical History / Comment(s): D&C, two blader cancer tumors removed Past Anesthesia/Blood Transfusion Reactions: No Reported Reaction Past Psychological History: Depression, Unable to Obtain Smoking Status: Current every day smoker Past Alcohol Use History: None Reported Past Drug Use History: None Reported - Past Family History Mother Family Medical History: Congestive Heart Failure (CHF), Diabetes Mellitus, Deep Vein Thrombosis (DVT) Medications and Allergies Home Medications Medication Instructions Recorded Confirmed Type Apixaban [Eliquis] 5 mg PO BID 12/16/23 11/16/24 History Docusate [Colace] 100 mg PO DAILY 12/16/23 11/16/24 History Dulaglutide [Trulicity] 0.75 mg SQ WE 12/16/23 11/16/24 History Gabapentin [Neurontin] 100 mg PO BID 12/16/23 11/16/24 History Cyanocobalamin (Vitamin B-12) 1,000 mcg PO DAILY 03/01/24 11/16/24 History [Vitamin B-12] Aspirin 81 mg PO DAILY #30 tab 03/06/24 11/16/24 Rx Atorvastatin [Lipitor] 80 mg PO HS #30 tab 03/06/24 11/16/24 Rx Dapagliflozin Propanediol [Farxiga] 10 mg PO DAILY #30 tab 03/06/24 11/16/24 Rx Metoprolol Succinate (ER) [Toprol 100 mg PO DAILY #30 tab 03/06/24 11/16/24 Rx XL] Sacubitril/Valsartan [Entresto 24 1 tab PO BID 05/31/24 11/16/24 History mg-26 mg Tablet] Fluticasone/Umeclidin/Vilanter 1 puff INHALATION RT-DAILY #90 each 06/03/24 11/16/24 Rx [Trelegy Ellipta 100-62.5-25] Albuterol Inhaler [Ventolin Hfa 2 puff INHALATION RT-Q4H PRN 11/16/24 11/16/24 History Inhaler] Ondansetron [Zofran] 4 mg PO BID PRN 11/16/24 11/16/24 History Allergies Allergy/AdvReac Type Severity Reaction Status Date / Time clindamycin Allergy Dyspnea Verified 11/16/24 12:05 Penicillins Allergy Itching Verified 11/16/24 12:05 sulfamethoxazole Allergy Unknown Verified 11/16/24 12:05 [From Bactrim] trimethoprim [From Bactrim] Allergy Unknown Verified 11/16/24 12:05 Physical Exam Vitals: Vital Signs Temp Pulse Pulse Resp BP BP Pulse Ox 11/16/24 14:00 107 H 18 11/16/24 12:09 96 11/16/24 12:00 95 107 H 99/52 87 L 11/16/24 09:25 99 11/16/24 09:16 98 93 L 11/16/24 08:00 97.9 F 105 H 18 104/60 94 L 11/16/24 03:43 98.1 F 95 18 114/76 93 L 11/16/24 01:45 91 18 11/16/24 01:23 97.7 F 91 18 119/73 94 L 11/16/24 00:00 97.8 F 79 20 101/62 98 11/15/24 22:25 87 L 11/15/24 22:00 97.7 F 121 H 26 H 100/60 77 L 11/15/24 21:59 98 11/15/24 21:49 95 11/15/24 21:15 101 H 24 113/69 90 L 11/15/24 20:00 94 19 125/60 93 L 11/15/24 18:20 88 11/15/24 18:11 86 11/15/24 17:50 20 11/15/24 17:33 98.5 F 98 17 95/66 87 L Intake and Output 11/16/24 11/16/24 11/16/24 06:59 14:59 22:59 Intake Total 482 Output Total 400 Balance -400 482 Intake: Intake, IV Titration 260 Amount Lactated Ringers 1,000 ml 260 @ 130 mls/hr IV .Q7H42M [facility] Rx#:[id number] Oral 222 Output: Urine 400 Other: Voiding Method Toilet Toilet # Voids 1 Weight 75.1 kg General: Reveals 69-year-old white female on high flow nasal cannula, does not seem to be in distress Skin: Skin is warm and dry and no rashes or lesions are noted. Eye: Pupils are equal, round and reactive to light, extra-ocular movements are intact; there is normal conjunctiva bilaterally. Ears, nose, mouth and throat: There are moist mucous membranes and no oral lesions. Neck: The neck is supple, there is no tenderness or JVD. Cardiovascular: There is a regular rate and rhythm. No murmur, rub or gallop is appreciated. Respiratory: Diminished breath sounds on the left side, good breath sounds on the right side. No crackles rhonchi or wheezes Gastrointestinal: Soft, non-distended, non-tender abdomen without masses or organomegaly noted. There is no rebound or guarding present. Bowel sounds are unremarkable. Back: There is no tenderness to palpation in the midline. There is no obvious deformity. Musculoskeletal: Normal ROM, no tenderness, There is no pedal edema. There is no calf tenderness or swelling. No cords were appreciated. Neurological: CN II-XII intact, Cranial nerves III through XII are intact. There are no obvious motor or sensory deficits. Coordination appears grossly intact. Speech is normal. Psychiatric: Cooperative, appropriate mood & affect, normal judgment. Results - Laboratory Findings CBC and BMP: 11/15/24 18:17 11/15/24 18:17 PT/INR, D-dimer PT 11.5 sec (10.0-12.5) 11/15/24 18:17 INR 1.0 (<1.2) 11/15/24 18:17 D-Dimer 0.25 mg/L FEU (<0.60) 11/15/24 18:17 Abnormal lab findings: Abnormal Labs 11/15/24 11/15/24 18:17 18:17 WBC 14.68 H RBC 5.30 H Hgb 16.4 H Hct 49.1 H Immature Gran # 0.05 H Neutrophils # 11.52 H Eosinophils # 0.46 H BUN 24 H Glucose 140 H Alkaline Phosphatase 139 H - Diagnostic Findings Chest x-ray: image reviewed (As noted in the HPI) CT scan - chest: image reviewed Assessment and Plan Assessment: Impression: Acute hypoxic respiratory failure secondary to mucous plugging or endobronchial tumor involving left mainstem bronchus with complete opacification of the left lung Severe underlying COPD FEV1 is in the range of 42% History of severe cardiomyopathy and LV dysfunction Chronic atrial fibrillation Tobacco dependence syndrome History of pulmonary embolism diagnosed 2 years ago, on Eliquis Recommendation: Continue present supportive care measures Continue oxygen and titrate accordingly Chest physical therapy Albuterol with Mucomyst updrafts 4 times daily and as needed Encourage deep cough and deep breathing patient was advised to try to continue to clear her secretions on her own with vigorous cough Repeat chest x-ray in a.m. Hold Eliquis for the next 24 hours If no improvement noted on the chest x-ray in a.m., will proceed with bronchoscopy tomorrow. Will continue to follow prognosis is guarded. Depending on her FiO2 requirement, patient may have to be intubated for the procedure. Time with Patient: Greater than 30
[2024-11-16 20:47] LABS: Glucose,Whole Blood 336 mg/dL (70-110)
[2024-11-16] MEDS: ATORVASTATIN 80 MG TAB PO SCH (20:49)
[2024-11-16] MEDS ORDERED: DEXTROSE 50% SYRINGE 50 ML IVP PRN ×2 (20:52)
[2024-11-16] MEDS: INSULIN LISPRO (HumaLOG) 100 UNIT/ML 10 mL VL SQ SCH (20:58)
[2024-11-16] MEDS ORDERED: cefTRIAXone 2 GM in DEXTROSE 5% IN WATER 50 ML IVPB SCH (21:00)
[2024-11-17 06:15] LABS: Glucose,Whole Blood 162 mg/dL (70-110)
--- NOTE | 2024-11-17 09:00 | XR ---
EXAMINATION TYPE: XR chest 1V portable DATE OF EXAM: 11/17/2024 6:07 AM COMPARISON: 11/16/2024 CLINICAL INDICATION: Female, 69 years old with history of Mucus plugging, TECHNIQUE: XR chest 1V portable view(s) obtained. FINDINGS: The heart size is enlarged. There may be some left mediastinal shift. The pulmonary vasculature is no rmal. Lung opacities at the left base. The right upper lobe lung opacity has largely resolved. IMPRESSION: 1. Improving left lung atelectasis. Follow-up to clearing is recommended. [facility], , 11/17/2024 8:58 AM
[2024-11-17 09:27] LABS: Basophils # (A) 0.03 10*3/uL (0.00-0.10); Basophils % (A) 0.2 %; Eosinophils # (A) 0.01 10*3/uL (0.04-0.35); Eosinophils % (A) 0.1 %; HCT 41.9 % (37.2-46.3); HGB 13.6 g/dL (12.0-15.0); Lymphocytes # (A) 1.02 10*3/uL (0.90-5.00); Lymphocytes % (A) 5.9 %; MCH 30.9 pg (27.0-32.0); MCHC 32.5 g/dL (32.0-37.0); MCV 95.2 fL (80.0-97.0); Mean Platelet Volume 11.9 fL (9.5-12.2); Monocytes % (A) 6.9 %; Neutrophils # (A) 15.04 10*3/uL (1.80-7.70); Neutrophils % (A) 86.4 %; Platelet Count 262 10*3/uL (140-440); RDW 15.1 % (11.5-14.5); WBC 17.38 10*3/uL (4.50-10.00)
--- NOTE | 2024-11-17 09:41 | P.PN ---
Subjective Progress Note Date: 11/17/24 Lacie Rubio, Is a 69-year-old female who presented to emergency room with a chief complaint of worsening shortness of breath, and mid back pain She was evaluated in the emergency room vital examination on presentation revealed a temperature of 98.5 pulse 98 respiration 17 blood pressure 95/66 pulse ox 87% on room air. Laboratory data revealed a white blood count of 14.68 hemoglobin 16.4 platelet count 302 BUN 24 creatinine 0.98 BNP 174 troponin 0.012 Chest x-ray revealed new left mid to lower lung acute infiltrate with significant volume loss consistent with postobstructive atelectasis. CT angiogram of the chest revealed no evidence for acute pulmonary embolism, left lung obstructive atelectasis likely related to obstructing mass or mucous plug centrally in the left lung. Patient was admitted to medical floor she was started on IV antibiotic in the emergency room pulmonary consultation was requested. Past medical history is significant for history of COPD with chronic hypoxic respiratory failure maintained on home oxygen, history of congestive heart failure, history of pulmonary embolism, 2 years ago maintained on Eliquis, and history of continued tobacco abuse. On 11/17/2024 patient is alert and oriented x 3. Patient reports improvement with shortness of breath. Patient needs antiviral. Patient maintained on Medrol Dosepak and Maxipime. Pulmonary services are following tentative plans for possible bronchoscopy. Cardiology services were also consulted For nonsustained run of VT. At this time patient denies chest pain. Patient reports some shortness of breath but improving. Patient denies any urinary burning or frequency. Patient denies nausea vomiting or diarrhea. Objective - Vital Signs Vital signs: Vital Signs Temp 98.3 F 11/16/24 20:35 Pulse 80 11/17/24 09:17 Resp 18 11/17/24 07:51 BP 99/53 11/17/24 07:51 Pulse Ox 97 11/17/24 07:51 FiO2 Intake & Output 11/16/24 11/17/24 11/17/24 18:59 06:59 18:59 Intake Total 482 40 472 Balance 482 40 472 Weight 75 kg Intake: IV 40 10 Invasive Line 1 20 Invasive Line 2 20 10 Intake, IV Titration 260 Amount Lactated Ringers 1,000 ml 260 @ 130 mls/hr IV .Q7H42M [facility] Rx#:[id number] Oral 222 462 Other: Voiding Method Toilet Toilet # Voids 2 - Exam In general patient is alert and oriented x 3 in no apparent distress HEENT head normocephalic and atraumatic Neck is supple no JVD no goiter no lymphadenopathy Chest examination reveals a crackles in both lung bases no wheezing Cardiac exam reveals regular heart sounds no gallops no murmurs Abdomen is soft nontender no organomegaly with normal bowel sounds Extremity exam reveals no edema no cyanosis or clubbing Neurological examination reveals no gross focal deficit - Labs CBC & Chem 7: 11/17/24 06:45 11/15/24 18:17 Labs: Abnormal Lab Results - Last 24 Hours (Table) 11/16/24 11/17/24 11/17/24 Range/Units 20:44 06:13 06:45 WBC 17.38 H (4.50-10.00) 10*3/uL Immature Gran # 0.08 H (0.00-0.04) 10*3/uL Neutrophils # 15.04 H (1.80-7.70) 10*3/uL Monocytes # 1.20 H (0.20-1.00) 10*3/uL Eosinophils # 0.01 L (0.04-0.35) 10*3/uL POC Glucose (mg/dL) 336 H 162 H (70-110) mg/dL Microbiology - Last 24 Hours (Table) 11/15/24 21:03 Blood Culture - Preliminary Blood Assessment and Plan Plan: Left lower lobe infiltrate, patient was started on IV antibiotics ceftriaxone in the emergency room will continue at this time. Left lower lobe collapse, suggestive of mucous plug or obstructing lesion in the bronchus, pulmonary consultation was requested. Underlying history of COPD Underlying history of chronic hypoxic respiratory failure requiring home oxygen use Previous history of pulmonary embolism diagnosed 2 years ago maintained on Eliquis Underlying history of congestive heart failure maintained on Entresto Continued tobacco abuse At this time patient was seen and examined Home medications reviewed and reordered Continue with IV antibiotics Pulmonary consultation requested Patient was counseled in length in regard to smoking cessation For DVT prophylaxis continue with Eliquis Will follow closely
[2024-11-17 10:15] LABS: ALT 13 U/L (4-34); AST 14 U/L (14-36); African American GFR (CKD) 63 (>60 ml/min/1.73 sqM); Albumin 3.3 g/dL (3.5-5.0); Alkaline Phosphatase 112 U/L (38-126); Anion Gap 9 mmol/L; Blood Urea Nitrogen 31 mg/dL (7-17); Calcium 9.2 mg/dL (8.4-10.2); Carbon Dioxide 27 mmol/L (22-30); Chloride 99 mmol/L (98-107); Glucose 167 mg/dL (74-99); Non-African American GFR(CKD) 54 (>60 ml/min/1.73 sqM); Potassium 4.5 mmol/L (3.5-5.1); Sodium 135 mmol/L (137-145); Total Bilirubin 0.6 mg/dL (0.2-1.3); Total Protein 5.7 g/dL (6.3-8.2)
--- NOTE | 2024-11-17 10:49 | P.CRDCN ---
History of Present Illness Consult date: 11/17/24 Reason for Consult (text): Nonsustained V. tach History of present illness: This is Lennox Alfaro NP, I'm dictating on behalf of Dr. Berger's H&P and A&P The patient was interviewed and examined. HPI: Patient is a pleasant 69-year-old female patient of Dr. Berger, who has a past medical history that includes atrial fibrillation, COPD, diabetes, hyperlipidemia, and hypertension, who presented to the hospital with complaints of low back pain as well as increasing shortness of breath. Patient reports that her low back pain has been climbing up her back. She thought it was initially due to her arthritis. Patient also reports she felt like her COPD was acting up. She reports that it has been hard to catch her breath at times. She stated she had a nonproductive cough. No fevers or chest pain noted. In the emergency department the patient had an EKG completed which showed sinus rhythm with no concerning findings. Chest x-ray demonstrated a new left mid to lower lung acute infiltrate, with significant volume loss concerning for possible obstructing mucous plug or mass. CT angiogram correlated these findings. No pulmonary embolism found. Lab work found an elevated white blood cell count. Patient was subsequently admitted for treatment of pneumonia. According to nursing overnight last night the patient had a nonsustained run of ventricular tachycardia at about 11 beats. Cardiology was subsequently consulted to evaluate. This morning the patient reports that she is feeling okay. She denies chest pain, palpitations, lightheadedness or dizziness, or near syncope. ROS: [No fever, chills, or rigors] [no cough, phlegm, or expectoration] [no nausea, vomiting, or diarrhea] [no hematuria, dysuria] [no musculoskelatal complaints] [no strokes or seizures] [no skin lesions] EXAMINATION: GENERAL: Well-appearing, well-nourished and in no acute distress. NECK: Supple without JVD or thyromegaly. LUNGS: Breath sounds diminished to auscultation left greater than right. Respiration equal and unlabored. No wheezes, rales, crackles noted bilateral posterior lung [place]. HEART: Regular rate and rhythm without murmurs, rubs or gallops. S1 and S2 heard. EXTREMITIES: Normal range of motion, no edema. No clubbing or cyanosis. Peripheral pulses intact and strong. REVIEW OF LABS, ECG & MEDICAL DATA: LABS: White count 14.6, hemoglobin 16.4, platelets 302, sodium 137, potassium 4.3, chloride 99, BUN 24, creatinine 0.9, calcium 10.2, troponin less than 0.012, BNP 174 EKG: Normal sinus rhythm IMAGING: Chest x-ray dated 11/15/2024 demonstrates new left mid to lower lung acute infiltrate and/or atelectasis, significant volume loss is seen consistent with postobstructive atelectasis raising concern for obstructing mucous plug or mass, progress study advised. CT angiogram of the chest dated 11/15/[address] evidence for acute pulmonary embolism, as suspected on chest x-ray significant left lung obstructive atelectasis likely relating to obstructive mass or mucous plug centrally in the left lung, some irregular abnormal soft tissue in the subcarinal region is seen, background mild to moderate underlying if is a Mattus change, there is tiny left pleural effusion, consider bronchoscopy follow-up to further evaluate. Chest x-ray dated 11/16/2024 demonstrates there is now complete left hemithorax opacification and left-sided volume loss suggesting significant atelectasis likely from obstructing central mass or mucous plugging, consider bronchoscopy follow-up to further evaluate. VITALS: Pulse 82, respirations 18, blood pressure 99/53, O2 saturation 97% on 11 L of high flow IMPRESSION: 1. Acute hypoxic respiratory failure secondary to mucous plugging 2. Nonsustained ventricular tachycardia 3. History atrial fibrillation, rate controlled 4. COPD 5. Diabetes 6. Hypertension PLAN: Check TSH. Current telemetry demonstrates artifact with occasional PVCs. Continue to monitor patient on telemetry. Further recommendations based on patient's clinical course. Thank you for the consult and allowing us to participate in the care of this patient. Past Medical History Past Medical History: Atrial Fibrillation, COPD, Diabetes Mellitus, Hyperlipidemia, Hypertension Additional Past Medical History / Comment(s): Diabetes Type 2 History of Any Multi-Drug Resistant Organisms: None Reported, Unobtainable Past Surgical History: No Surgical Hx Reported, Cholecystectomy Additional Past Surgical History / Comment(s): D&C, two blader cancer tumors removed Past Anesthesia/Blood Transfusion Reactions: No Reported Reaction Past Psychological History: Depression, Unable to Obtain Smoking Status: Current every day smoker Past Alcohol Use History: None Reported Past Drug Use History: None Reported - Past Family History Mother Family Medical History: Congestive Heart Failure (CHF), Diabetes Mellitus, Deep Vein Thrombosis (DVT) Medications and Allergies Home Medications Medication Instructions Recorded Confirmed Type Apixaban [Eliquis] 5 mg PO BID 12/16/23 11/16/24 History Docusate [Colace] 100 mg PO DAILY 12/16/23 11/16/24 History Dulaglutide [Trulicity] 0.75 mg SQ WE 12/16/23 11/16/24 History Gabapentin [Neurontin] 100 mg PO BID 12/16/23 11/16/24 History Cyanocobalamin (Vitamin B-12) 1,000 mcg PO DAILY 03/01/24 11/16/24 History [Vitamin B-12] Aspirin 81 mg PO DAILY #30 tab 03/06/24 11/16/24 Rx Atorvastatin [Lipitor] 80 mg PO HS #30 tab 03/06/24 11/16/24 Rx Dapagliflozin Propanediol [Farxiga] 10 mg PO DAILY #30 tab 03/06/24 11/16/24 Rx Metoprolol Succinate (ER) [Toprol 100 mg PO DAILY #30 tab 03/06/24 11/16/24 Rx XL] Sacubitril/Valsartan [Entresto 24 1 tab PO BID 05/31/24 11/16/24 History mg-26 mg Tablet] Fluticasone/Umeclidin/Vilanter 1 puff INHALATION RT-DAILY #90 each 06/03/24 11/16/24 Rx [Trelegy Ellipta 100-62.5-25] Albuterol Inhaler [Ventolin Hfa 2 puff INHALATION RT-Q4H PRN 11/16/24 11/16/24 History Inhaler] Ondansetron [Zofran] 4 mg PO BID PRN 11/16/24 11/16/24 History Allergies Allergy/AdvReac Type Severity Reaction Status Date / Time clindamycin Allergy Dyspnea Verified 11/16/24 12:05 Penicillins Allergy Itching Verified 11/16/24 12:05 sulfamethoxazole Allergy Unknown Verified 11/16/24 12:05 [From Bactrim] trimethoprim [From Bactrim] Allergy Unknown Verified 11/16/24 12:05 Physical Exam Vitals: Vital Signs Temp Pulse Pulse Resp BP Pulse Ox 11/17/24 08:57 76 11/17/24 07:51 82 18 99/53 97 11/17/24 03:30 82 20 92/52 95 11/16/24 23:20 105 H 21 90/56 93 L 11/16/24 21:06 98 11/16/24 20:56 100 11/16/24 20:35 98.3 F 100 20 92/55 96 11/16/24 16:21 95 11/16/24 16:08 94 11/16/24 16:00 100 92/62 95 11/16/24 14:00 107 H 18 11/16/24 13:13 95 11/16/24 13:05 95 11/16/24 12:09 96 11/16/24 12:00 95 107 H 99/52 87 L 11/16/24 09:25 99 11/16/24 09:16 98 93 L Intake and Output 11/16/24 11/17/24 11/17/24 22:59 06:59 14:59 Intake Total 20 20 462 Balance 20 20 462 Intake: IV 20 20 Invasive Line 1 10 10 Invasive Line 2 10 10 Oral 462 Other: Voiding Method Toilet Toilet # Voids 2 2 Weight 75 kg Results 11/17/24 06:45 11/17/24 06:45 Current Medications Generic Name Dose Route Start Last Admin Trade Name Freq PRN Reason Stop Dose Admin Hydrocodone Bitart/Acetaminophen 1 each 11/16/24 09:49 Hydrocodone/Apap 7.5-325mg 1 Each Tab PO Q6HR PRN Pain Acetylcysteine 200 mg 11/16/24 13:00 11/16/24 20:56 Acetylcysteine 800 Mg/4 Ml Vial INHALATION 200 mg RT-TID IMER Administration Albuterol Sulfate 2.5 mg 11/15/24 22:12 Albuterol Nebulized 2.5 Mg/3 Ml INHALATION RT-Q4H PRN Shortness Of Breath Or Wheezing Albuterol/Ipratropium 3 ml 11/16/24 08:00 11/17/24 08:57 Ipratropium-Albuterol 3 Ml Neb INHALATION 3 ml RT-QID IMER Administration Aspirin 81 mg 11/16/24 09:00 11/17/24 06:26 Aspirin 81 Mg PO 81 mg DAILY IMER Administration Atorvastatin Calcium 80 mg 11/16/24 21:00 11/16/24 20:49 Atorvastatin 80 Mg Tab PO 80 mg HS IMER Administration Budesonide/Formoterol Fumarate 2 puff 11/16/24 08:00 11/17/24 08:57 Symbicort 160-4.5 Mcg Inhaler INHALATION 2 puff RT-BID IMER Administration Cyanocobalamin 1,000 mcg 11/16/24 09:00 11/17/24 06:26 Cyanocobalamin 500 Mcg Tab PO 1,000 mcg DAILY IMER Administration Dapagliflozin 10 mg 11/16/24 09:00 11/17/24 06:26 Dapagliflozin Propanediol 10 Mg Tablet PO 10 mg DAILY IMER Administration Dextrose/Water 25 ml 11/16/24 20:52 Dextrose 50% Syringe 50 Ml IVP PER PROTOCOL PRN Hypoglycemia Protocol Dextrose/Water 50 ml 11/16/24 20:52 Dextrose 50% Syringe 50 Ml IVP PER PROTOCOL PRN Hypoglycemia Protocol Docusate Sodium 100 mg 11/16/24 09:00 11/17/24 07:55 Docusate 100 Mg Cap PO 100 mg DAILY IMER Administration Gabapentin 100 mg 11/16/24 09:00 11/17/24 06:26 Gabapentin 100 Mg Cap PO 100 mg BID IMER Administration Cefepime HCl 2 gm/ Sodium 100 mls @ 25 mls/hr 11/16/24 11:15 11/17/24 06:26 Chloride IVPB 25 mls/hr Q12HR IMER Administration Protocol Insulin Human Lispro 0 unit 11/16/24 21:00 11/17/24 06:16 Insulin Lispro (Humalog) 100 Unit/Ml 10 Ml Vl SQ Not Given ACHS IMER Protocol Methylprednisolone 20 mg 11/15/24 23:00 11/17/24 06:25 Methylprednisolone 4 Mg Tab Taper PO 11/21/24 22:59 20 mg DAILY IMER Administration Taper Metoprolol Succinate 100 mg 11/16/24 09:00 11/17/24 07:52 Metoprolol Succinate (Er) 100 Mg Tab.Er.24h PO Not Given DAILY IMER Miscellaneous Information 1 each 11/15/24 22:12 Pneumonia Protocol Utilized 1 Each Misc PO ONCE PRN Per Protocol Non-Formulary Medication 0.75 mg 11/20/24 09:00 Dulaglutide [Trulicity] SQ WE IMER Ondansetron HCl 4 mg 11/15/24 22:21 11/15/24 22:20 Ondansetron 4 Mg/2 Ml Vial IVP 4 mg Q6H PRN Administration Nausea Sacubitril/Valsartan 1 each 11/16/24 09:00 11/17/24 06:26 Sacubitril/Valsartan 24 Mg-26 Mg Tablet PO 1 each BID IMER Administration Tiotropium Co[place] 2 puff 11/16/24 08:00 11/17/24 08:57 Tiotropium 2.5 Mcg Inhaler INHALATION 2 puff RT-DAILY IMER Administration Intake and Output 11/16/24 11/17/24 11/17/24 22:59 06:59 14:59 Intake Total 20 20 462 Balance 20 20 462 Intake: IV 20 20 Invasive Line 1 10 10 Invasive Line 2 10 10 Oral 462 Other: Voiding Method Toilet Toilet # Voids 2 2 Weight 75 kg 11/15/24 18:17 11/15/24 18:17
[2024-11-17 11:04] LABS: Glucose,Whole Blood 184 mg/dL (70-110)
--- NOTE | 2024-11-17 11:54 | P.PN ---
Subjective Progress Note Date: 11/17/24 Principal diagnosis: Acute hypoxic respiratory failure with complete opacification of left lung most likely secondary to mucous plugging, doubt endobronchial tumor. This is a 69-year-old female familiar to my service, patient is known to have history of severe COPD, history of cardiomyopathy and LV dysfunction with ejection fraction of 20%, patient presented to the ER with few days history of increased shortness of breath, and mid back pain. Her CBC showed leukocytosis with WBC count of 14.6, her chest x-ray showed opacification of the left lung with significant volume loss, and shifting of the trachea to the ipsilateral side, highly suggestive of either endobronchial tumor or mucous plug. Patient was admitted, started on antibiotics, I was asked to see her in consultation. Clearly the patient needs bronchoscopy for further evaluation of her left mainstem bronchus, however she already ate today, and I will delay the bronchoscopy till tomorrow. In the meantime I will hold Eliquis, I will recommend aggressive measures including chest PT, Mucomyst, bronchodilators, antibiotics, and if not improved in the next 24 hours, patient will need to be bronchoscope. Patient is on high flow nasal cannula, at 11 L, O2 saturation is marginal, may have to consider BiPAP if she gets any worse, but clinically and surprisingly the patient does not seem to be in much distress. I was able to encourage the patient to do some deep coughing and she was able to clear some t hick tenacious sputum on her own. Hoping that the patient will be able to clear her mucous plug on her own. Patient was seen today on 11/17/2024, patient had follow-up chest x-ray today and showed improvement in her opacified left lung, it is beginning to open up, and aeration of the left upper lobe seems to be much better today compared to yesterday, she continues to have some mucous plugging probably in the lingula and in the left lower lobe however the patient is able to cough and clear her secretions, she does have thick tenacious secretions she is still on expectorants, chest physical therapy, bronchodilators, and considering the improvement I canceled plans for bronchoscopy today. Patient will continue to do the same, and may or may not require bronchoscopy depending on follow-up c hest x-ray in the next 2 days. At this point the patient seems to be better, breathing easier, remains on antibiotics, cultures are pending including blood and sputum. Continues to have leukocytosis with WBC of 17.38, hemoglobin is 13.6 electrolytes are normal renal profile is normal BUN is 31 creatinine 1.05. Urinary Legionella antigen is negative. Objective - Vital Signs Vital signs: Vital Signs Temp 98.3 F 11/16/24 20:35 Pulse 80 11/17/24 09:17 Resp 18 11/17/24 07:51 BP 99/53 11/17/24 07:51 Pulse Ox 97 11/17/24 07:51 FiO2 Intake & Output 11/16/24 11/17/24 11/17/24 18:59 06:59 18:59 Intake Total 482 40 472 Balance 482 40 472 Weight 75 kg Intake: IV 40 10 Invasive Line 1 20 Invasive Line 2 20 10 Intake, IV Titration 260 Amount Lactated Ringers 1,000 ml 260 @ 130 mls/hr IV .[id number] [facility] Rx#:[id number] Oral 222 462 Other: Voiding Method Toilet Toilet Toilet # Voids 2 - Exam General: Reveals 69-year-old white female on 8 L high flow nasal cannula Skin: Skin is warm and dry and no rashes or lesions are noted. Eye: Pupils are equal, round and reactive to light, extra-ocular movements are intact; there is normal conjunctiva bilaterally. Ears, nose, mouth and throat: There are moist mucous membranes and no oral lesions. Neck: The neck is supple, there is no tenderness or JVD. Cardiovascular: There is a regular rate and rhythm. No murmur, rub or gallop is appreciated. Respiratory: Slightly diminished breath sounds on the left side right side is clear Gastrointestinal: Soft, non-distended, non-tender abdomen without masses or organomegaly noted. There is no rebound or guarding present. Bowel sounds are unremarkable. Back: There is no tenderness to palpation in the midline. There is no obvious deformity. Musculoskeletal: Normal ROM, no tenderness, There is no pedal edema. There is no calf tenderness or swelling. No cords were appreciated. Neurological: CN II-XII intact, Cranial nerves III through XII are intact. There are no obvious motor or sensory deficits. Coordination appears grossly intact. Speech is normal. Psychiatric: Cooperative, appropriate mood & affect, normal judgment. - Labs CBC & Chem 7: 11/17/24 06:45 11/17/24 06:45 Labs: Abnormal Lab Results - Last 24 Hours (Table) 11/16/24 11/17/24 11/17/24 Range/Units 20:44 06:13 06:45 WBC 17.38 H (4.50-10.00) 10*3/uL Immature Gran # 0.08 H (0.00-0.04) 10*3/uL Neutrophils # 15.04 H (1.80-7.70) 10*3/uL Monocytes # 1.20 H (0.20-1.00) 10*3/uL Eosinophils # 0.01 L (0.04-0.35) 10*3/uL Sodium (137-145) mmol/L BUN (7-17) mg/dL Creatinine (0.52-1.04) mg/dL Glucose (74-99) mg/dL POC Glucose (mg/dL) 336 H 162 H (70-110) mg/dL Total Protein (6.3-8.2) g/dL Albumin (3.5-5.0) g/dL 11/17/24 11/17/24 Range/Units 06:45 11:03 WBC (4.50-10.00) 10*3/uL Immature Gran # (0.00-0.04) 10*3/uL Neutrophils # (1.80-7.70) 10*3/uL Monocytes # (0.20-1.00) 10*3/uL Eosinophils # (0.04-0.35) 10*3/uL Sodium 135 L (137-145) mmol/L BUN 31 H (7-17) mg/dL Creatinine 1.05 H (0.52-1.04) mg/dL Glucose 167 H (74-99) mg/dL POC Glucose (mg/dL) 184 H (70-110) mg/dL Total Protein 5.7 L (6.3-8.2) g/dL Albumin 3.3 L (3.5-5.0) g/dL Microbiology - Last 24 Hours (Table) 11/15/24 21:03 Blood Culture - Preliminary Blood Assessment and Plan Assessment: Impression: Acute hypoxic respiratory failure secondary to mucous plugging, possible endobronchial tumor involving left mainstem bronchus with complete opacification of the left lung, however follow-up chest x-ray 11/17/2024 is showing better aeration of the left upper lobe hence I will cancel plans for bronchoscopy tod ay. And will continue the same conservative measures and repeat chest x-ray in few days. Severe underlying COPD FEV1 is in the range of 42% History of severe cardiomyopathy and LV dysfunction Chronic atrial fibrillation Tobacco dependence syndrome History of pulmonary embolism diagnosed 2 years ago, on Eliquis Recommendation: No need for bronchoscopy at this point considering the improvement noted on the chest x-ray today Continue present supportive care measures Continue oxygen and titrate accordingly Chest physical therapy Albuterol with Mucomyst updrafts 4 times daily and as needed Encourage deep cough and deep breathing patient was advised to try to continue to clear her secretions on her own with vigorous cough Resume Eliquis since no plans for bronchoscopy today or tomorrow We will continue to follow, patient remains marginal at best, and not ready for any discharge planning. Again may or may not require bronchoscopy at this point. Time with Patient: Less than 30
[2024-11-17] MEDS: APIXABAN 5 MG TAB PO SCH (12:08)
[2024-11-17 16:38] LABS: Glucose,Whole Blood 265 mg/dL (70-110)
[2024-11-17 20:06] LABS: Glucose,Whole Blood 275 mg/dL (70-110)
[2024-11-18 05:55] LABS: Glucose,Whole Blood 184 mg/dL (70-110)
[2024-11-18 07:46] LABS: Basophils # (A) 0.02 10*3/uL (0.00-0.10); Basophils % (A) 0.1 %; Eosinophils % (A) 0.7 %; HCT 41.8 % (37.2-46.3); HGB 13.3 g/dL (12.0-15.0); Lymphocytes # (A) 1.36 10*3/uL (0.90-5.00); Lymphocytes % (A) 9.7 %; MCH 30.2 pg (27.0-32.0); MCHC 31.8 g/dL (32.0-37.0); Monocytes # (A) 0.93 10*3/uL (0.20-1.00); Monocytes % (A) 6.6 %; Neutrophils # (A) 11.61 10*3/uL (1.80-7.70); Neutrophils % (A) 82.4 %; Platelet Count 258 10*3/uL (140-440); RDW 15.1 % (11.5-14.5); WBC 14.09 10*3/uL (4.50-10.00)
[2024-11-18] MEDS: NICOTINE 14MG/24HR PATCH TRANSDERM SCH (08:04)
[2024-11-18 08:16] LABS: ALT 11 U/L (4-34); AST 13 U/L (14-36); African American GFR (CKD) 69 (>60 ml/min/1.73 sqM); Albumin 3.3 g/dL (3.5-5.0); Alkaline Phosphatase 124 U/L (38-126); Anion Gap 8 mmol/L; Blood Urea Nitrogen 36 mg/dL (7-17); Calcium 8.9 mg/dL (8.4-10.2); Carbon Dioxide 28 mmol/L (22-30); Chloride 100 mmol/L (98-107); Glucose 139 mg/dL (74-99); Non-African American GFR(CKD) 60 (>60 ml/min/1.73 sqM); Sodium 136 mmol/L (137-145); Total Bilirubin 0.5 mg/dL (0.2-1.3); Total Protein 5.9 g/dL (6.3-8.2)
--- NOTE | 2024-11-18 08:28 | P.PN ---
Subjective Progress Note Date: 11/18/24 Lacie Rubio, Is a 69-year-old female who presented to [facility] emergency room with a chief complaint of worsening shortness of breath, and mid back pain She was evaluated in the emergency room vital examination on presentation revealed a temperature of 98.5 pulse 98 respiration 17 blood pressure 95/66 pulse ox 87% on room air. Laboratory data revealed a white blood count of 14.68 hemoglobin 16.4 platelet count 302 BUN 24 creatinine 0.98 BNP 174 troponin 0.012 Chest x-ray revealed new left mid to lower lung acute infiltrate with significant volume loss consistent with postobstructive atelectasis. CT angiogram of the chest revealed no evidence for acute pulmonary embolism, left lung obstructive atelectasis likely related to obstructing mass or mucous plug centrally in the left lung. Patient was admitted to medical floor she was started on IV antibiotic in the emergency room pulmonary consultation was requested. Past medical history is significant for history of COPD with chronic hypoxic respiratory failure maintained on home oxygen, history of congestive heart failure, history of pulmonary embolism, 2 years ago maintained on Eliquis, and history of continued tobacco abuse. On 11/17/2024 patient is alert and oriented x 3. Patient reports improvement with shortness of breath. Patient maintained on Medrol Dosepak and Maxipime. Pulmonary services are following tentative plans for possible bronchoscopy. Cardiology services were also consulted For nonsustained run of VT. At this time patient denies chest pain. Patient reports some shortness of breath but improving. Patient denies any urinary burning or frequency. Patient denies nausea vomiting or diarrhea. On 11/18/2024 patient is alert and oriented x 3. Patient down to 2 L nasal cannula. Patient reports improvement with shortness of breath. Patient does still report some coughing and shortness of breath. Patient denies chest pain. Patient denies nausea vomiting or diarrhea. Patient remains on Medrol Dosepak and Maxipime pulmonary services are following. Objective - Vital Signs Vital signs: Vital Signs Temp 97.8 F 11/17/24 19:30 Pulse 91 11/18/24 07:37 Resp 18 11/18/24 07:37 BP 80/42 11/18/24 07:37 Pulse Ox 91 L 11/18/24 07:37 FiO2 Intake & Output 11/17/24 11/18/24 11/18/24 18:59 06:59 18:59 Intake Total 926 260 Balance 926 260 Weight 75.1 kg Intake: IV 20 20 Invasive Line 2 20 20 Oral 906 240 Other: Voiding Method Toilet Toilet # Voids 3 1 - Exam In general patient is alert and oriented x 3 in no apparent distress HEENT head normocephalic and atraumatic Neck is supple no JVD no goiter no lymphadenopathy Chest examination reveals a crackles in both lung bases no wheezing Cardiac exam reveals regular heart sounds no gallops no murmurs Abdomen is soft nontender no organomegaly with normal bowel sounds Extremity exam reveals no edema no cyanosis or clubbing Neurological examination reveals no gross focal deficit - Labs CBC & Chem 7: 11/18/24 07:27 11/18/24 07:27 Labs: Abnormal Lab Results - Last 24 Hours (Table) 11/17/24 11/17/24 11/17/24 Range/Units 06:45 06:45 06:45 WBC 17.38 H (4.50-10.00) 10*3/uL MCHC (32.0-37.0) g/dL Immature Gran # 0.08 H (0.00-0.04) 10*3/uL Neutrophils # 15.04 H (1.80-7.70) 10*3/uL Monocytes # 1.20 H (0.20-1.00) 10*3/uL Eosinophils # 0.01 L (0.04-0.35) 10*3/uL Sodium 135 L (137-145) mmol/L BUN 31 H (7-17) mg/dL Creatinine 1.05 H (0.52-1.04) mg/dL Glucose 167 H (74-99) mg/dL POC Glucose (mg/dL) (70-110) mg/dL Hemoglobin A1c 6.9 H (<=6.0) % AST (14-36) U/L Total Protein 5.7 L (6.3-8.2) g/dL Albumin 3.3 L (3.5-5.0) g/dL 11/17/24 11/17/24 11/17/24 Range/Units 11:03 16:37 20:04 WBC (4.50-10.00) 10*3/uL MCHC (32.0-37.0) g/dL Immature Gran # (0.00-0.04) 10*3/uL Neutrophils # (1.80-7.70) 10*3/uL Monocytes # (0.20-1.00) 10*3/uL Eosinophils # (0.04-0.35) 10*3/uL Sodium (137-145) mmol/L BUN (7-17) mg/dL Creatinine (0.52-1.04) mg/dL Glucose (74-99) mg/dL POC Glucose (mg/dL) 184 H 265 H 275 H (70-110) mg/dL Hemoglobin A1c (<=6.0) % AST (14-36) U/L Total Protein (6.3-8.2) g/dL Albumin (3.5-5.0) g/dL 11/18/24 11/18/24 11/18/24 Range/Units 05:53 07:27 07:27 WBC 14.09 H (4.50-10.00) 10*3/uL MCHC 31.8 L (32.0-37.0) g/dL Immature Gran # 0.07 H (0.00-0.04) 10*3/uL Neutrophils # 11.61 H (1.80-7.70) 10*3/uL Monocytes # (0.20-1.00) 10*3/uL Eosinophils # (0.04-0.35) 10*3/uL Sodium 136 L (137-145) mmol/L BUN 36 H (7-17) mg/dL Creatinine (0.52-1.04) mg/dL Glucose 139 H (74-99) mg/dL POC Glucose (mg/dL) 184 H (70-110) mg/dL Hemoglobin A1c (<=6.0) % AST 13 L (14-36) U/L Total Protein 5.9 L (6.3-8.2) g/dL Albumin 3.3 L (3.5-5.0) g/dL Microbiology - Last 24 Hours (Table) 11/15/24 21:03 Blood Culture - Preliminary Blood 11/16/24 21:11 Gram Stain - Preliminary Sputum Assessment and Plan Plan: Left lower lobe infiltrate, patient was started on IV antibiotics ceftriaxone in the emergency room will continue at this time. Left lower lobe collapse, suggestive of mucous plug or obstructing lesion in the bronchus, pulmonary consultation was requested. Underlying history of COPD Underlying history of chronic hypoxic respiratory failure requiring home oxygen use Previous history of pulmonary embolism diagnosed 2 years ago maintained on Eliquis Underlying history of congestive heart failure maintained on Entresto Continued tobacco abuse At this time patient was seen and examined Home medications reviewed and reordered Continue with IV antibiotics Pulmonary consultation requested Patient was counseled in length in regard to smoking cessation For DVT prophylaxis continue with Eliquis Will follow closely
--- NOTE | 2024-11-18 10:09 | P.PN ---
Subjective HISTORY OF PRESENT ILLNESS: This is a 69-year-old female who follows in the office with Dr. Berger. She was admitted to the hospital secondary to acute hypoxic respiratory failure secondary to mucous plugging. Patient examined this morning the bedside. Patient currently denies chest pain or pressure. She reports improvement in her shortness of breath. Patient is hypotensive today with a systolic blood pressure in the 80s. Her Entresto was held this morning. PHYSICAL EXAM: VITAL SIGNS: Reviewed. GENERAL: Well-developed in no acute distress. NECK: Supple. No JVD or thyromegaly LUNGS: Respirations even and unlabored. Lungs essentially clear to auscultation bilaterally. HEART: Regular rate and rhythm. S1 and S2 heard. EXTREMITIES: Normal range of motion. No clubbing or cyanosis. Peripheral pulses intact. 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 to assess LV function Continue to monitor blood pressure. Entresto held this morning. Will consider medication changes tomorrow pending results of echocardiogram Continue telemetry monitoring Further recommendations pending patient course Nurse practitioner note has been reviewed by physician. Signing provider agrees with the documented findings, assessment, and plan of care documented by CERTIFIED SURGICAL TECHNICIAN as a scribe. Objective - Vital Signs Vital signs: Vital Signs Temp 97.8 F 11/17/24 19:30 Pulse 80 11/18/24 09:43 Resp 18 11/18/24 08:00 BP 80/42 11/18/24 07:37 Pulse Ox 91 L 11/18/24 07:37 FiO2 Intake & Output 11/17/24 11/18/24 11/18/24 18:59 06:59 18:59 Intake Total 926 260 10 Balance 926 260 10 Weight 75.1 kg Intake: IV 20 20 10 Invasive Line 2 20 20 10 Oral 906 240 Other: Voiding Method Toilet Toilet # Voids 3 1 - Labs CBC & Chem 7: 11/18/24 07:27 11/18/24 07:27 Labs: Abnormal Lab Results - Last 24 Hours (Table) 11/17/24 11/17/24 11/17/24 Range/Units 06:45 06:45 11:03 WBC (4.50-10.00) 10*3/uL MCHC (32.0-37.0) g/dL Immature Gran # (0.00-0.04) 10*3/uL Neutrophils # (1.80-7.70) 10*3/uL Sodium 135 L (137-145) mmol/L BUN 31 H (7-17) mg/dL Creatinine 1.05 H (0.52-1.04) mg/dL Glucose 167 H (74-99) mg/dL POC Glucose (mg/dL) 184 H (70-110) mg/dL Hemoglobin A1c 6.9 H (<=6.0) % AST (14-36) U/L Total Protein 5.7 L (6.3-8.2) g/dL Albumin 3.3 L (3.5-5.0) g/dL 11/17/24 11/17/24 11/18/24 Range/Units 16:37 20:04 05:53 WBC (4.50-10.00) 10*3/uL MCHC (32.0-37.0) g/dL Immature Gran # (0.00-0.04) 10*3/uL Neutrophils # (1.80-7.70) 10*3/uL Sodium (137-145) mmol/L BUN (7-17) mg/dL Creatinine (0.52-1.04) mg/dL Glucose (74-99) mg/dL POC Glucose (mg/dL) 265 H 275 H 184 H (70-110) mg/dL Hemoglobin A1c (<=6.0) % AST (14-36) U/L Total Protein (6.3-8.2) g/dL Albumin (3.5-5.0) g/dL 11/18/24 11/18/24 Range/Units 07:27 07:27 WBC 14.09 H (4.50-10.00) 10*3/uL MCHC 31.8 L (32.0-37.0) g/dL Immature Gran # 0.07 H (0.00-0.04) 10*3/uL Neutrophils # 11.61 H (1.80-7.70) 10*3/uL Sodium 136 L (137-145) mmol/L BUN 36 H (7-17) mg/dL Creatinine (0.52-1.04) mg/dL Glucose 139 H (74-99) mg/dL POC Glucose (mg/dL) (70-110) mg/dL Hemoglobin A1c (<=6.0) % AST 13 L (14-36) U/L Total Protein 5.9 L (6.3-8.2) g/dL Albumin 3.3 L (3.5-5.0) g/dL Microbiology - Last 24 Hours (Table) 11/15/24 21:03 Blood Culture - Preliminary Blood 11/16/24 21:11 Gram Stain - Preliminary Sputum
--- NOTE | 2024-11-18 11:25 | P.PN ---
Subjective Progress Note Date: 11/18/24 Principal diagnosis: Acute hypoxic respiratory failure with complete opacification of left lung most likely secondary to mucous plugging, doubt endobronchial tumor. This is a 69-year-old female familiar to my service, patient is known to have history of severe COPD, history of cardiomyopathy and LV dysfunction with ejection fraction of 20%, patient presented to the ER with few days history of increased shortness of breath, and mid back pain. Her CBC showed leukocytosis with WBC count of 14.6, her chest x-ray showed opacification of the left lung with significant volume loss, and shifting of the trachea to the ipsilateral side, highly suggestive of either endobronchial tumor or mucous plug. Patient was admitted, started on antibiotics, I was asked to see her in consultation. Clearly the patient needs bronchoscopy for further evaluation of her left mainstem bronchus, however she already ate today, and I will delay the bronchoscopy till tomorrow. In the meantime I will hold Eliquis, I will recommend aggressive measures including chest PT, Mucomyst, bronchodilators, antibiotics, and if not improved in the next 24 hours, patient will need to be bronchoscope. Patient is on high flow nasal cannula, at 11 L, O2 saturation is marginal, may have to consider BiPAP if she gets any worse, but clinically and surprisingly the patient does not seem to be in much distress. I was able to encourage the patient to do some deep coughing and she was able to clear some t hick tenacious sputum on her own. Hoping that the patient will be able to clear her mucous plug on her own. Patient was seen today on 11/17/2024, patient had follow-up chest x-ray today and showed improvement in her opacified left lung, it is beginning to open up, and aeration of the left upper lobe seems to be much better today compared to yesterday, she continues to have some mucous plugging probably in the lingula and in the left lower lobe however the patient is able to cough and clear her secretions, she does have thick tenacious secretions she is still on expectorants, chest physical therapy, bronchodilators, and considering the improvement I canceled plans for bronchoscopy today. Patient will continue to do the same, and may or may not require bronchoscopy depending on follow-up c hest x-ray in the next 2 days. At this point the patient seems to be better, breathing easier, remains on antibiotics, cultures are pending including blood and sputum. Continues to have leukocytosis with WBC of 17.38, hemoglobin is 13.6 electrolytes are normal renal profile is normal BUN is 31 creatinine 1.05. Urinary Legionella antigen is negative. Patient was seen today on 11/18/2024, continues to clinically improve, her chest x-ray yesterday showed improvement patient is able to clear her secretions on her own with deep vigorous cough, remains on chest physical therapy, remains on albuterol with Mucomyst updrafts, doubt the patient will require bronchoscopy, follow-up chest x-ray will be done tomorrow on this patient. At this point she seems to be quite comfortable, and not in distress. Her O2 requirement is down significantly she is down to 2 L nasal cannula WBC count is 14 hemoglobin 13.3 electrolytes are normal renal profile is normal, patient is being followed by cardiology for her severe nonischemic cardiomyopathy and low ejection fraction. Objective - Vital Signs Vital signs: Vital Signs Temp 97.8 F 11/17/24 19:30 Pulse 80 11/18/24 09:43 Resp 18 11/18/24 08:00 BP 80/42 11/18/24 07:37 Pulse Ox 91 L 11/18/24 07:37 FiO2 Intake & Output 11/17/24 11/18/24 11/18/24 18:59 06:59 18:59 Intake Total 926 260 10 Balance 926 260 10 Weight 75.1 kg Intake: IV 20 20 10 Invasive Line 2 20 20 10 Oral 906 240 Other: Voiding Method Toilet Toilet # Voids 3 1 - Exam General: Reveals 69-year-old white female on 2 L nasal cannula is down from 8 L yesterday and 10 L high flow the day before Skin: Skin is warm and dry and no rashes or lesions are noted. Eye: Pupils are equal, round and reactive to light, extra-ocular movements are intact; there is normal conjunctiva bilaterally. Ears, nose, mouth and throat: There are moist mucous membranes and no oral lesions. Neck: The neck is supple, there is no tenderness or JVD. Cardiovascular: There is a regular rate and rhythm. No murmur, rub or gallop is appreciated. Respiratory: Slightly diminished breath sounds on the left side right side is clear Gastrointestinal: Soft, non-distended, non-tender abdomen without masses or organomegaly noted. There is no rebound or guarding present. Bowel sounds are unremarkable. Back: There is no tenderness to palpation in the midline. There is no obvious deformity. Musculoskeletal: Normal ROM, no tenderness, There is no pedal edema. There is no calf tenderness or swelling. No cords were appreciated. Neurological: CN II-XII intact, Cranial nerves III through XII are intact. There are no obvious motor or sensory deficits. Coordination appears grossly intact. Speech is normal. Psychiatric: Cooperative, appropriate mood & affect, normal judgment. - Labs CBC & Chem 7: 11/18/24 07:27 11/18/24 07:27 Labs: Abnormal Lab Results - Last 24 Hours (Table) 11/17/24 11/17/24 11/17/24 Range/Units 06:45 16:37 20:04 WBC (4.50-10.00) 10*3/uL MCHC (32.0-37.0) g/dL Immature Gran # (0.00-0.04) 10*3/uL Neutrophils # (1.80-7.70) 10*3/uL Sodium (137-145) mmol/L BUN (7-17) mg/dL Glucose (74-99) mg/dL POC Glucose (mg/dL) 265 H 275 H (70-110) mg/dL Hemoglobin A1c 6.9 H (<=6.0) % AST (14-36) U/L Total Protein (6.3-8.2) g/dL Albumin (3.5-5.0) g/dL 11/18/24 11/18/24 11/18/24 Range/Units 05:53 07:27 07:27 WBC 14.09 H (4.50-10.00) 10*3/uL MCHC 31.8 L (32.0-37.0) g/dL Immature Gran # 0.07 H (0.00-0.04) 10*3/uL Neutrophils # 11.61 H (1.80-7.70) 10*3/uL Sodium 136 L (137-145) mmol/L BUN 36 H (7-17) mg/dL Glucose 139 H (74-99) mg/dL POC Glucose (mg/dL) 184 H (70-110) mg/dL Hemoglobin A1c (<=6.0) % AST 13 L (14-36) U/L Total Protein 5.9 L (6.3-8.2) g/dL Albumin 3.3 L (3.5-5.0) g/dL Microbiology - Last 24 Hours (Table) 11/15/24 21:03 Blood Culture - Preliminary Blood 11/16/24 21:11 Gram Stain - Preliminary Sputum Assessment and Plan Assessment: Impression: Acute hypoxic respiratory failure secondary to mucous plugging, possible endobronchial tumor involving left mainstem bronchus with complete opacification of the left lung, however follow-up chest x-ray 11/17/2024 showed improvement and better aeration of the left upper lobe hence bronchoscopy was canceled Severe underlying COPD FEV1 is in the range of 42% History of severe cardiomyopathy and LV dysfunction Chronic atrial fibrillation Tobacco dependence syndrome History of pulmonary embolism diagnosed 2 years ago, on Eliquis Recommendation: No need for bronchoscopy at this point Repeat chest x-ray in the a.m. Continue present supportive care measures Continue oxygen and titrate accordingly Chest physical therapy Albuterol with Mucomyst updrafts 4 times daily and as needed Encourage deep cough and deep breathing patient was advised to try to continue to clear her secretions on her own with vigorous cough Patient is back on Eliquis Will continue to follow based on chest x-ray and decision will be made whether bronchoscopy is even necessary. Time with Patient: Less than 30
[2024-11-18 11:50] LABS: Glucose,Whole Blood 210 mg/dL (70-110)
[2024-11-18 14:14] LABS: Chol/HDL Ratio 2.19 Ratio; LDL Cholesterol,Calculated 40.1 mg/dL (0.0-131.0)
--- NOTE | 2024-11-18 15:19 | CA ---
Transthoracic Echo Report Name: Lacie Rubio Age: 69 Gender: F : 1955 Exam Date: 11/18/2024 11:13 Exam Location: [facility] Ht (in): 66 Wt (lb): 165 Ordering Physician: Tasha Thomson Attending/Referring Phys: [id number], Alix Act Tutor Kristen Wilkerson RDCS Procedure CPT: Indications: reassess LV function, hx of cardiomyopathy Cardiac Hx: Technical Quality: Fair Contrast 1: Total Dose (mL): Contrast 2: Total Dose (mL): MEASUREMENTS (Male / Female) Normal Values 2D ECHO LV Diastolic Diameter PLAX 4.2 cm 4.2 - 5.9 / 3.9 - 5.3 cm LV Systolic Diameter PLAX 3.2 cm IVS Diastolic Thickness 1.1 cm 0.6 - 1.0 / 0.6 - 0.9 cm LVPW Diastolic Thickness 1.0 cm 0.6 - 1.0 / 0.6 - 0.9 cm LV Relative Wall Thickness 0.5 RV Internal Dim ED PLAX 2.1 cm LA Systolic Diameter LX 3.6 cm 3.0 - 4.0 / 2.7 - 3.8 cm LV Diastolic Volume MOD BP 73.5 cm??? 67 - 155 / 56 - 104 cm??? LV Systolic Volume MOD BP 27.1 cm??? 22 - 58 / 19 - 49 cm??? LV Ejection Fraction MOD BP 63.1 % >= 55 % LV Cardiac Index MOD BP 2217.8 cm???/min???m??? LV Diastolic Volume MOD 4C 69.7 cm??? LV Systolic Volume MOD 4C 29.4 cm??? LV Ejection Fraction MOD 4C 57.8 % LV Cardiac Index MOD 4C 1924.6 cm???/min???m??? LV Diastolic Length 4C 7.5 cm LV Systolic Length 4C 6.6 cm LV Diastolic Volume MOD 2C 74.6 cm??? LV Systolic Volume MOD 2C 23.7 cm??? LV Ejection Fraction MOD 2C 68.2 % LV Cardiac Index MOD 2C 2431.4 cm???/min???m??? LV Diastolic Length 2C 7.1 cm LV Systolic Length 2C 6.3 cm LA Volume 55.9 cm??? 18 - 58 / 22 - 52 cm??? LA Volume Index 29.7 cm???/m??? 16 - 28 cm???/m??? M-MODE Aortic Root Diameter MM 3.0 cm LA Systolic Diameter MM 3.6 cm LA Ao Ratio MM 1.2 AV Cusp Separation MM 2.0 cm DOPPLER MV Area PHT 2.7 cm??? Mitral E Point Velocity 95.5 cm/s Mitral A Point Velocity 114.9 cm/s Mitral E to A Ratio 0.8 MV Deceleration Time 281.6 ms TR Peak Velocity 143.9 cm/s TR Peak Gradient 8.3 mmHg FINDINGS Left Ventricle Left ventricular ejection fraction is estimated at 55-60 %. Mildly increased septal wall thickness. Mildly increased posterior wall thickness. Normal left ventricular systolic function with no obvious regional wall motion abnormalities. Left ventricular cavity size normal. Right Ventricle Normal right ventricular size and function. Right ventricular systolic pressure within normal limits. Right Atrium Normal right atrial size. Left Atrium Mildly increased left atrial volume. Mitral Valve Structurally normal mitral valve. Trace mitral regurgitation. No mitral stenosis. Aortic Valve Trileaflet aortic valve. No aortic valve stenosis or regurgitation. Tricuspid Valve Structurally normal tricuspid valve. Trace tricuspid regurgitation. No tricuspid stenosis. Pulmonic Valve Structurally normal pulmonic valve. Trace pulmonic regurgitation. No pulmonic stenosis. Pericardium Minimal pericardial effusion (normal variant). Echo free space anterior to the right ventricle likely represents a fat pad. No pleural effusion. Aorta Normal size aortic root and proximal ascending aorta. CONCLUSIONS Reason for echo cardiomyopathy LVH with preserved systolic function Thickened posterior pericardial stripe Previewed by: Dr. Bin Berger MD (Electronically Signed) Final Date: 18 Nov 2024 15:18
[2024-11-18 16:53] LABS: Glucose,Whole Blood 313 mg/dL (70-110)
[2024-11-18 19:54] LABS: Glucose,Whole Blood 219 mg/dL (70-110)
[2024-11-18] MEDS: DOCUSATE 100 MG CAP PO SCH (21:46)
[2024-11-19 06:19] LABS: Glucose,Whole Blood 173 mg/dL (70-110)
[2024-11-19 06:34] LABS: Basophils # (A) 0.04 10*3/uL (0.00-0.10); Basophils % (A) 0.3 %; Eosinophils # (A) 0.11 10*3/uL (0.04-0.35); Eosinophils % (A) 0.9 %; HGB 13.1 g/dL (12.0-15.0); Lymphocytes % (A) 11.7 %; MCH 30.4 pg (27.0-32.0); MCV 95.1 fL (80.0-97.0); Mean Platelet Volume 11.1 fL (9.5-12.2); Monocytes # (A) 1.06 10*3/uL (0.20-1.00); Monocytes % (A) 8.8 %; Neutrophils # (A) 9.31 10*3/uL (1.80-7.70); Neutrophils % (A) 77.6 %; Platelet Count 264 10*3/uL (140-440); RBC 4.31 10*6/uL (4.10-5.20); RDW 15.1 % (11.5-14.5)
[2024-11-19 06:50] LABS: ALT 12 U/L (4-34); AST 14 U/L (14-36); African American GFR (CKD) 79 (>60 ml/min/1.73 sqM); Albumin 3.1 g/dL (3.5-5.0); Alkaline Phosphatase 119 U/L (38-126); Anion Gap 8 mmol/L; Blood Urea Nitrogen 36 mg/dL (7-17); Calcium 9.1 mg/dL (8.4-10.2); Carbon Dioxide 26 mmol/L (22-30); Chloride 100 mmol/L (98-107); Glucose 158 mg/dL (74-99); Non-African American GFR(CKD) 68 (>60 ml/min/1.73 sqM); Potassium 4.2 mmol/L (3.5-5.1); Sodium 134 mmol/L (137-145); Total Bilirubin 0.5 mg/dL (0.2-1.3); Total Protein 5.5 g/dL (6.3-8.2)
--- NOTE | 2024-11-19 08:37 | XR ---
EXAMINATION TYPE: XR chest 1V portable DATE OF EXAM: 11/19/2024 7:04 AM COMPARISON: 11/17/2024 CLINICAL INDICATION: Female, 69 years old with history of left lung collapse/mucus plug, , FINDINGS: Improving aeration left lung. Improved volume left hemithorax. Residual small to moderate left pleura l effusion also slightly improved. Background hyperinflation. Atherosclerotic arch calcifications. He art normal size. IMPRESSION: Improving aeration in the left hemithorax. Residual small to moderate left pleural effusion with skip cent atelectasis and/or consolidation. Background COPD. [facility], Workstation: [facility], 11/19/2024 8:34 AM
--- NOTE | 2024-11-19 11:32 | P.PN ---
Subjective HISTORY OF PRESENT ILLNESS: This is a 69-year-old female who follows in the office with Dr. Berger. She was admitted to the hospital secondary to acute hypoxic respiratory failure secondary to mucous plugging. Patient examined this morning the bedside. Patient currently denies chest pain or pressure. She reports improvement in her shortness of breath. Patient is hypotensive today with a systolic blood pressure in the 80s. Her Entresto was held this morning. 11/19/2024 Patient examined this morning at bedside. Patient currently denies chest pain or pressure. Vital signs are stable. Blood pressure is in the 90s. She denies dizziness or lightheadedness. Echocardiogram completed revealing ejection fraction 55 to 60%. PHYSICAL EXAM: VITAL SIGNS: Reviewed. GENERAL: Well-developed in no acute distress. NECK: Supple. No JVD or thyromegaly LUNGS: Respirations even and unlabored. Lungs essentially clear to auscultation bilaterally. HEART: Regular rate and rhythm. S1 and S2 heard. EXTREMITIES: Normal range of motion. No clubbing or cyanosis. Peripheral pulses intact. 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 This will be reevaluated when she follows up in the office Further recommendations pending patient course Patient to follow-up postdischarge in the office with Dr. Berger Nurse practitioner note has been reviewed by physician. Signing provider agrees with the documented findings, assessment, and plan of care documented by ENGINEER EXHAUSTER as a scribe. Objective - Vital Signs Vital signs: Vital Signs Temp 97.8 F 11/19/24 11:05 Pulse 80 11/19/24 11:05 Resp 16 11/19/24 11:05 BP 96/61 11/19/24 11:05 Pulse Ox 91 L 11/19/24 11:05 FiO2 Intake & Output 11/18/24 11/19/24 11/19/24 18:59 06:59 18:59 Intake Total 20 260 10 Output Total 110 Balance -90 260 10 Weight 75.2 kg Intake: IV 20 20 10 Invasive Line 2 20 20 10 Oral 240 Output: Chest Tube Drainage 110 Right Right Pleural/ 110 Mediastinal Other: Voiding Method Toilet Toilet # Voids 1 1 1 - Labs CBC & Chem 7: 11/20/24 06:26 11/20/24 06:26 Labs: Abnormal Lab Results - Last 24 Hours (Table) 11/18/24 11/18/24 11/18/24 Range/Units 07:27 11:47 16:52 WBC (4.50-10.00) 10*3/uL Immature Gran # (0.00-0.04) 10*3/uL Neutrophils # (1.80-7.70) 10*3/uL Monocytes # (0.20-1.00) 10*3/uL Sodium (137-145) mmol/L BUN (7-17) mg/dL Glucose (74-99) mg/dL POC Glucose (mg/dL) 210 H 313 H (70-110) mg/dL Total Protein (6.3-8.2) g/dL Albumin (3.5-5.0) g/dL Triglycerides 156.00 H (0.00-149.00) mg/dL 11/18/24 11/19/24 11/19/24 Range/Units 19:53 06:05 06:05 WBC 12.00 H (4.50-10.00) 10*3/uL Immature Gran # 0.08 H (0.00-0.04) 10*3/uL Neutrophils # 9.31 H (1.80-7.70) 10*3/uL Monocytes # 1.06 H (0.20-1.00) 10*3/uL Sodium 134 L (137-145) mmol/L BUN 36 H (7-17) mg/dL Glucose 158 H (74-99) mg/dL POC Glucose (mg/dL) 219 H (70-110) mg/dL Total Protein 5.5 L (6.3-8.2) g/dL Albumin 3.1 L (3.5-5.0) g/dL Triglycerides (0.00-149.00) mg/dL 11/19/24 Range/Units 06:17 WBC (4.50-10.00) 10*3/uL Immature Gran # (0.00-0.04) 10*3/uL Neutrophils # (1.80-7.70) 10*3/uL Monocytes # (0.20-1.00) 10*3/uL Sodium (137-145) mmol/L BUN (7-17) mg/dL Glucose (74-99) mg/dL POC Glucose (mg/dL) 173 H (70-110) mg/dL Total Protein (6.3-8.2) g/dL Albumin (3.5-5.0) g/dL Triglycerides (0.00-149.00) mg/dL Microbiology - Last 24 Hours (Table) 11/16/24 21:11 Gram Stain - Final Sputum Sputum Culture - Final 11/15/24 21:03 Blood Culture - Preliminary Blood
[2024-11-19 11:38] LABS: Glucose,Whole Blood 200 mg/dL (70-110)
--- NOTE | 2024-11-19 11:40 | P.PN ---
Subjective Progress Note Date: 11/19/24 Lacie Rubio, Is a 69-year-old female who presented to [facility] emergency room with a chief complaint of worsening shortness of breath, and mid back pain She was evaluated in the emergency room vital examination on presentation revealed a temperature of 98.5 pulse 98 respiration 17 blood pressure 95/66 pulse ox 87% on room air. Laboratory data revealed a white blood count of 14.68 hemoglobin 16.4 platelet count 302 BUN 24 creatinine 0.98 BNP 174 troponin 0.012 Chest x-ray revealed new left mid to lower lung acute infiltrate with significant volume loss consistent with postobstructive atelectasis. CT angiogram of the chest revealed no evidence for acute pulmonary embolism, left lung obstructive atelectasis likely related to obstructing mass or mucous plug centrally in the left lung. Patient was admitted to medical floor she was started on IV antibiotic in the emergency room pulmonary consultation was requested. Past medical history is significant for history of COPD with chronic hypoxic respiratory failure maintained on home oxygen, history of congestive heart failure, history of pulmonary embolism, 2 years ago maintained on Eliquis, and history of continued tobacco abuse. On 11/17/2024 patient is alert and oriented x 3. Patient reports improvement with shortness of breath. Patient maintained on Medrol Dosepak and Maxipime. Pulmonary services are following tentative plans for possible bronchoscopy. Cardiology services were also consulted For nonsustained run of VT. At this time patient denies chest pain. Patient reports some shortness of breath but improving. Patient denies any urinary burning or frequency. Patient denies nausea vomiting or diarrhea. On 11/18/2024 patient is alert and oriented x 3. Patient down to 2 L nasal cannula. Patient reports improvement with shortness of breath. Patient does still report some coughing and shortness of breath. Patient denies chest pain. Patient denies nausea vomiting or diarrhea. Patient remains on Medrol Dosepak and Maxipime pulmonary services are following. On 11/19/2024 patient is alert and oriented x 3. Patient continuing to improve in regards to shortness of breath repeat chest x-ray showing improving aeration in the left hemothorax residual small to moderate left pleural effusion with adjacent atelectasis and or consolidation. Per cardiology continue using half dose Entresto on an outpatient basis follow-up outpatient. No plans for bronchoscopy at this time. Patient remains on Maxipime and Medrol Dosepak. Patient reports coughing. Patient denies chest pain. Patient denies nausea vomiting or diarrhea. Patient denies any urinary burning or frequency Objective - Vital Signs Vital signs: Vital Signs Temp 97.8 F 11/19/24 11:05 Pulse 80 11/19/24 11:05 Resp 16 11/19/24 11:05 BP 96/61 11/19/24 11:05 Pulse Ox 91 L 11/19/24 11:05 FiO2 Intake & Output 11/18/24 11/19/24 11/19/24 18:59 06:59 18:59 Intake Total 20 260 10 Output Total 110 Balance -90 260 10 Weight 75.2 kg Intake: IV 20 20 10 Invasive Line 2 20 20 10 Oral 240 Output: Chest Tube Drainage 110 Right Right Pleural/ 110 Mediastinal Other: Voiding Method Toilet Toilet # Voids 1 1 1 - Exam In general patient is alert and oriented x 3 in no apparent distress HEENT head normocephalic and atraumatic Neck is supple no JVD no goiter no lymphadenopathy Chest examination reveals a crackles in both lung bases no wheezing Cardiac exam reveals regular heart sounds no gallops no murmurs Abdomen is soft nontender no organomegaly with normal bowel sounds Extremity exam reveals no edema no cyanosis or clubbing Neurological examination reveals no gross focal deficit - Labs CBC & Chem 7: 11/19/24 06:05 11/19/24 06:05 Labs: Abnormal Lab Results - Last 24 Hours (Table) 11/18/24 11/18/24 11/18/24 Range/Units 07:27 11:47 16:52 WBC (4.50-10.00) 10*3/uL Immature Gran # (0.00-0.04) 10*3/uL Neutrophils # (1.80-7.70) 10*3/uL Monocytes # (0.20-1.00) 10*3/uL Sodium (137-145) mmol/L BUN (7-17) mg/dL Glucose (74-99) mg/dL POC Glucose (mg/dL) 210 H 313 H (70-110) mg/dL Total Protein (6.3-8.2) g/dL Albumin (3.5-5.0) g/dL Triglycerides 156.00 H (0.00-149.00) mg/dL 11/18/24 11/19/24 11/19/24 Range/Units 19:53 06:05 06:05 WBC 12.00 H (4.50-10.00) 10*3/uL Immature Gran # 0.08 H (0.00-0.04) 10*3/uL Neutrophils # 9.31 H (1.80-7.70) 10*3/uL Monocytes # 1.06 H (0.20-1.00) 10*3/uL Sodium 134 L (137-145) mmol/L BUN 36 H (7-17) mg/dL Glucose 158 H (74-99) mg/dL POC Glucose (mg/dL) 219 H (70-110) mg/dL Total Protein 5.5 L (6.3-8.2) g/dL Albumin 3.1 L (3.5-5.0) g/dL Triglycerides (0.00-149.00) mg/dL 11/19/24 Range/Units 06:17 WBC (4.50-10.00) 10*3/uL Immature Gran # (0.00-0.04) 10*3/uL Neutrophils # (1.80-7.70) 10*3/uL Monocytes # (0.20-1.00) 10*3/uL Sodium (137-145) mmol/L BUN (7-17) mg/dL Glucose (74-99) mg/dL POC Glucose (mg/dL) 173 H (70-110) mg/dL Total Protein (6.3-8.2) g/dL Albumin (3.5-5.0) g/dL Triglycerides (0.00-149.00) mg/dL Microbiology - Last 24 Hours (Table) 11/16/24 21:11 Gram Stain - Final Sputum Sputum Culture - Final 11/15/24 21:03 Blood Culture - Preliminary Blood Assessment and Plan Plan: Left lower lobe infiltrate, patient was started on IV antibiotics ceftriaxone in the emergency room will continue at this time. Left lower lobe collapse, suggestive of mucous plug or obstructing lesion in the bronchus, pulmonary consultation was requested. Underlying history of COPD Underlying history of chronic hypoxic respiratory failure requiring home oxygen use Previous history of pulmonary embolism diagnosed 2 years ago maintained on Eliq uis Underlying history of congestive heart failure maintained on Entresto Continued tobacco abuse At this time patient was seen and examined Home medications reviewed and reordered Continue with IV antibiotics Pulmonary consultation requested cardiology services following Patient was counseled in length in regard to smoking cessation For DVT prophylaxis continue with Sugar Will follow closely
--- NOTE | 2024-11-19 13:51 | P.PN ---
Subjective Progress Note Date: 11/19/24 Principal diagnosis: Pneumonia. This is a 69-year-old female familiar to my service, patient is known to have history of severe COPD, history of cardiomyopathy and LV dysfunction with ejection fraction of 20%, patient presented to the ER with few days history of increased shortness of breath, and mid back pain. Her CBC showed leukocytosis with WBC count of 14.6, her chest x-ray showed opacification of the left lung with significant volume loss, and shifting of the trachea to the ipsilateral side, highly suggestive of either endobronchial tumor or mucous plug. Patient was admitted, started on antibiotics, I was asked to see her in consultation. Clearly the patient needs bronchoscopy for further evaluation of her left mainstem bronchus, however she already ate today, and I will delay the bronchoscopy till tomorrow. In the meantime I will hold Eliquis, I will recomm end aggressive measures including chest PT, Mucomyst, bronchodilators, antibiotics, and if not improved in the next 24 hours, patient will need to be bronchoscope. Patient is on high flow nasal cannula, at 11 L, O2 saturation is marginal, may have to consider BiPAP if she gets any worse, but clinically and surprisingly the patient does not seem to be in much distress. I was able to encourage the patient to do some deep coughing and she was able to clear some thick tenacious sputum on her own. Hoping that the patient will be able to clear her mucous plug on her own. Patient was seen today on 11/17/2024, patient had follow-up chest x-ray today and showed improvement in her opacified left lung, it is beginning to open up, and aeration of the left upper lobe seems to be much better today compared to yesterday, she continues to have some mucous plugging probably in the lingula and in the left lower lobe however the patient is able to cough and clear her secretions, she does have thick tenacious secretions she is still on expectorants, chest physical therapy, bronchodilators, and considering the improvement I canceled plans for bronchoscopy today. Patient will continue to do the same, and may or may not require bronchoscopy depending on follow-up chest x-ray in the next 2 days. At this point the patient seems to be better, breathing easier, remains on antibiotics, cultures are pending including blood and sputum. Continues to have leukocytosis with WBC of 17.38, hemoglobin is 13.6 electrolytes are normal renal profile is normal BUN is 31 creatinine 1.05. Urinary Legionella antigen is negative. Patient was seen today on 11/18/2024, continues to clinically improve, her chest x-ray yesterday showed improvement patient is able to clear her secretions on her own with deep vigorous cough, remains on chest physical therapy, remains on albuterol with Mucomyst updrafts, doubt the patient will require bronchoscopy, follow-up chest x-ray will be done tomorrow on this patient. At this point she seems to be quite comfortable, and not in distress. Her O2 requirement is down significantly she is down to 2 L nasal cannula WBC count is 14 hemoglobin 13.3 electrolytes are normal renal profile is normal, patient is being followed by cardiology for her severe nonischemic cardiomyopathy and low ejection fraction. Progress note dated November 19, 2024. The patient is seen today in room 366. The patient is sitting in the chair next to the hospital bed. She appears to be doing relatively well. She is on 2 L. She continues on cefepime. Current laboratory data includes a white count of 12, hemoglobin 13.1, hematocrit 41, and a normal platelet count. Sodium 134, potassium 4.2, chlorides 100, CO2 26, BUN 36, creatinine 0.87. Glucose is 200. Sputum and blood sampling is negative. Chest x-ray shows an improved infiltrate in the left lung. There is a small to moderate left-sided pleural effusion. The right lung is essentially clear. Objective - Vital Signs Vital signs: Vital Signs Temp 97.8 F 11/19/24 11:05 Pulse 82 11/19/24 12:14 Resp 16 11/19/24 11:05 BP 96/61 11/19/24 11:05 Pulse Ox 91 L 11/19/24 11:05 FiO2 Intake & Output 11/18/24 11/19/24 11/19/24 18:59 06:59 18:59 Intake Total 20 260 10 Output Total 110 Balance -90 260 10 Weight 75.2 kg Intake: IV 20 20 10 Invasive Line 2 20 20 10 Oral 240 Output: Chest Tube Drainage 110 Right Right Pleural/ 110 Mediastinal Other: Voiding Method Toilet Toilet # Voids 1 1 1 - Exam No acute distress, oriented 3. Currently on 2 L. HEENT examination is grossly unremarkable. Mucous membranes are moist. No oral lesions. Neck supple. Full range of motion. No adenopathy thyromegaly or neck vein distention. Cardiovascular examination reveals regular rhythm rate. S1-S2 normal. No S3 or S4. No discernible murmur noted. Lungs reveal diminished left-sided breath sounds. Right lung is clear. No wheezes, rhonchi, or crackles. Abdomen soft bowel sounds are heard. No masses or tenderness. Extremities are intact. No cyanosis clubbing or edema. Skin is without rash or lesion. Neurologic examination is brief but nonfocal. - Labs CBC & Chem 7: 11/19/24 06:05 11/19/24 06:05 Labs: Abnormal Lab Results - Last 24 Hours (Table) 11/18/24 11/18/24 11/18/24 Range/Units 07:27 16:52 19:53 WBC (4.50-10.00) 10*3/uL Immature Gran # (0.00-0.04) 10*3/uL Neutrophils # (1.80-7.70) 10*3/uL Monocytes # (0.20-1.00) 10*3/uL Sodium (137-145) mmol/L BUN (7-17) mg/dL Glucose (74-99) mg/dL POC Glucose (mg/dL) 313 H 219 H (70-110) mg/dL Total Protein (6.3-8.2) g/dL Albumin (3.5-5.0) g/dL Triglycerides 156.00 H (0.00-149.00) mg/dL 11/19/24 11/19/24 11/19/24 Range/Units 06:05 06:05 06:17 WBC 12.00 H (4.50-10.00) 10*3/uL Immature Gran # 0.08 H (0.00-0.04) 10*3/uL Neutrophils # 9.31 H (1.80-7.70) 10*3/uL Monocytes # 1.06 H (0.20-1.00) 10*3/uL Sodium 134 L (137-145) mmol/L BUN 36 H (7-17) mg/dL Glucose 158 H (74-99) mg/dL POC Glucose (mg/dL) 173 H (70-110) mg/dL Total Protein 5.5 L (6.3-8.2) g/dL Albumin 3.1 L (3.5-5.0) g/dL Triglycerides (0.00-149.00) mg/dL 11/19/24 Range/Units 11:36 WBC (4.50-10.00) 10*3/uL Immature Gran # (0.00-0.04) 10*3/uL Neutrophils # (1.80-7.70) 10*3/uL Monocytes # (0.20-1.00) 10*3/uL Sodium (137-145) mmol/L BUN (7-17) mg/dL Glucose (74-99) mg/dL POC Glucose (mg/dL) 200 H (70-110) mg/dL Total Protein (6.3-8.2) g/dL Albumin (3.5-5.0) g/dL Triglycerides (0.00-149.00) mg/dL Microbiology - Last 24 Hours (Table) 11/16/24 21:11 Gram Stain - Final Sputum Sputum Culture - Final 11/15/24 21:03 Blood Culture - Preliminary Blood Assessment and Plan Assessment: Acute hypoxemic respiratory failure secondary to mucous plugging, with possible endobronchial tumor involving the left mainstem, versus pneumonia. Severe underlying COPD, with an FEV1 that is 42% of predicted. History of severe cardiomyopathy with LV dysfunction. Chronic atrial fibrillation. Chronic tobacco dependence. History of pulmonary embolism. Plan: Plan dated November 19, 2024. The patient was scheduled for bronchoscopy, but that has been canceled given the x-ray findings. The patient continues on appropriate medications including oxygen, bronchodilators, etc. We will continue to follow make recommendations along the way. Sputum sampling was negative. The patient continues on cefepime. She is currently on 2 L nasal cannula. Has been titrated down from much higher levels yesterday. Prognosis is guarded. All labs, x-rays, and medications are reviewed. Dictation was produced using [employer] software. Please excuse any grammatical, word or spelling errors. Time with Patient: Less than 30
[2024-11-19 16:37] LABS: Glucose,Whole Blood 278 mg/dL (70-110)
[2024-11-19 20:13] LABS: Glucose,Whole Blood 176 mg/dL (70-110)
[2024-11-20 05:50] LABS: Glucose,Whole Blood 138 mg/dL (70-110)
[2024-11-20 07:00] LABS: Basophils # (A) 0.05 10*3/uL (0.00-0.10); Basophils % (A) 0.5 %; Eosinophils # (A) 0.25 10*3/uL (0.04-0.35); Eosinophils % (A) 2.4 %; HCT 43.5 % (37.2-46.3); HGB 13.8 g/dL (12.0-15.0); Lymphocytes # (A) 1.85 10*3/uL (0.90-5.00); Lymphocytes % (A) 17.5 %; MCH 30.4 pg (27.0-32.0); MCHC 31.7 g/dL (32.0-37.0); MCV 95.8 fL (80.0-97.0); Mean Platelet Volume 11.1 fL (9.5-12.2); Monocytes # (A) 0.89 10*3/uL (0.20-1.00); Monocytes % (A) 8.4 %; Neutrophils % (A) 70.2 %; Platelet Count 294 10*3/uL (140-440); RBC 4.54 10*6/uL (4.10-5.20); RDW 15.4 % (11.5-14.5); WBC 10.55 10*3/uL (4.50-10.00)
[2024-11-20 07:18] LABS: ALT 15 U/L (4-34); African American GFR (CKD) 74 (>60 ml/min/1.73 sqM); Albumin 3.4 g/dL (3.5-5.0); Anion Gap 8 mmol/L; Blood Urea Nitrogen 37 mg/dL (7-17); Calcium 9.1 mg/dL (8.4-10.2); Carbon Dioxide 26 mmol/L (22-30); Chloride 103 mmol/L (98-107); Glucose 142 mg/dL (74-99); Non-African American GFR(CKD) 65 (>60 ml/min/1.73 sqM); Sodium 137 mmol/L (137-145); Total Bilirubin 0.6 mg/dL (0.2-1.3); Total Protein 5.9 g/dL (6.3-8.2)
[2024-11-20 07:46] LABS: AST 19 U/L (14-36); Alkaline Phosphatase 108 U/L (38-126); Potassium 5.1 mmol/L (3.5-5.1)
[2024-11-20] MEDS: NON FORMULARY DRUG (Dulaglutide [Trulicity] 0.75 MG/0.5 ML Each) SQ SCH (08:24)
--- NOTE | 2024-11-20 11:09 | P.PN ---
Subjective HISTORY OF PRESENT ILLNESS: This is a 69-year-old female who follows in the office with Dr. Berger. She was admitted to the hospital secondary to acute hypoxic respiratory failure secondary to mucous plugging. Patient examined this morning the bedside. Patient currently denies chest pain or pressure. She reports improvement in her shortness of breath. Patient is hypotensive today with a systolic blood pressure in the 80s. Her Entresto was held this morning. 11/19/2024 Patient examined this morning at bedside. Patient currently denies chest pain or pressure. Vital signs are stable. Blood pressure is in the 90s. She denies dizziness or lightheadedness. Echocardiogram completed revealing ejection fraction 55 to 60%. 11/20/2024 Patient examined this morning at bedside. Patient without complaints of chest pain or shortness of breath. Vital signs are stable. Blood pressure is improving today with a recent reading of 109/71. PHYSICAL EXAM: VITAL SIGNS: Reviewed. GENERAL: Well-developed in no acute distress. NECK: Supple. No JVD or thyromegaly LUNGS: Respirations even and unlabored. Lungs essentially clear to auscultation bilaterally. HEART: Regular rate and rhythm. S1 and S2 heard. EXTREMITIES: Normal range of motion. No clubbing or cyanosis. Peripheral pulses intact. 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 This will be reevaluated when she follows up in the office Further recommendations pending patient course Patient is stable for discharge home today from a cardiac standpoint Patient to follow-up postdischarge in the office with Dr. Berger Nurse practitioner note has been reviewed by physician. Signing provider agrees with the documented findings, assessment, and plan of care documented by CARE DIRECTOR RN as a scribe. Objective - Vital Signs Vital signs: Vital Signs Temp 98.0 F 11/20/24 07:26 Pulse 85 05/28/25 08:17 Resp 16 11/20/24 07:26 BP 109/71 11/20/24 07:26 Pulse Ox 96 11/20/24 07:56 FiO2 Intake & Output 11/19/24 11/20/24 11/20/24 18:59 06:59 18:59 Intake Total 250 100 250 Balance 250 100 250 Weight 75.5 kg Intake: IV 10 100 10 Cefepime 2 gm In Sodium 100 Chloride 0.9% 100 ml @ 25 mls/hr IVPB Q12HR [facility] Rx #:[id number] Invasive Line 2 10 10 Oral 240 240 Other: Voiding Method Toilet Toilet Toilet # Voids 2 3 - Labs CBC & Chem 7: 11/20/24 06:26 11/20/24 06:26 Labs: Abnormal Lab Results - Last 24 Hours (Table) 11/19/24 11/19/24 11/19/24 Range/Units 11:36 16:35 20:12 WBC (4.50-10.00) 10*3/uL MCHC (32.0-37.0) g/dL Immature Gran # (0.00-0.04) 10*3/uL BUN (7-17) mg/dL Glucose (74-99) mg/dL POC Glucose (mg/dL) 200 H 278 H 176 H (70-110) mg/dL Total Protein (6.3-8.2) g/dL Albumin (3.5-5.0) g/dL 11/20/24 11/20/24 11/20/24 Range/Units 05:49 06:26 06:26 WBC 10.55 H (4.50-10.00) 10*3/uL MCHC 31.7 L (32.0-37.0) g/dL Immature Gran # 0.11 H (0.00-0.04) 10*3/uL BUN 37 H (7-17) mg/dL Glucose 142 H (74-99) mg/dL POC Glucose (mg/dL) 138 H (70-110) mg/dL Total Protein 5.9 L (6.3-8.2) g/dL Albumin 3.4 L (3.5-5.0) g/dL Microbiology - Last 24 Hours (Table) 11/16/24 21:11 Gram Stain - Final Sputum Sputum Culture - Final
[2024-11-20] MEDS: HYDROcodone/APAP 7.5-325MG 1 EACH TAB PO PRN (11:20)
[2024-11-20 11:36] LABS: Glucose,Whole Blood 233 mg/dL (70-110)
--- NOTE | 2024-11-20 12:17 | P.PN ---
Subjective Progress Note Date: 11/20/24 Principal diagnosis: Pneumonia. This is a 69-year-old female familiar to my service, patient is known to have history of severe COPD, history of cardiomyopathy and LV dysfunction with ejection fraction of 20%, patient presented to the ER with few days history of increased shortness of breath, and mid back pain. Her CBC showed leukocytosis with WBC count of 14.6, her chest x-ray showed opacification of the left lung with significant volume loss, and shifting of the trachea to the ipsilateral side, highly suggestive of either endobronchial tumor or mucous plug. Patient was admitted, started on antibiotics, I was asked to see her in consultation. Clearly the patient needs bronchoscopy for further evaluation of her left mainstem bronchus, however she already ate today, and I will delay the bronchoscopy till tomorrow. In the meantime I will hold Eliquis, I will recomm end aggressive measures including chest PT, Mucomyst, bronchodilators, antibiotics, and if not improved in the next 24 hours, patient will need to be bronchoscope. Patient is on high flow nasal cannula, at 11 L, O2 saturation is marginal, may have to consider BiPAP if she gets any worse, but clinically and surprisingly the patient does not seem to be in much distress. I was able to encourage the patient to do some deep coughing and she was able to clear some thick tenacious sputum on her own. Hoping that the patient will be able to clear her mucous plug on her own. Patient was seen today on 11/17/2024, patient had follow-up chest x-ray today and showed improvement in her opacified left lung, it is beginning to open up, and aeration of the left upper lobe seems to be much better today compared to yesterday, she continues to have some mucous plugging probably in the lingula and in the left lower lobe however the patient is able to cough and clear her secretions, she does have thick tenacious secretions she is still on expectorants, chest physical therapy, bronchodilators, and considering the improvement I canceled plans for bronchoscopy today. Patient will continue to do the same, and may or may not require bronchoscopy depending on follow-up chest x-ray in the next 2 days. At this point the patient seems to be better, breathing easier, remains on antibiotics, cultures are pending including blood and sputum. Continues to have leukocytosis with WBC of 17.38, hemoglobin is 13.6 electrolytes are normal renal profile is normal BUN is 31 creatinine 1.05. Urinary Legionella antigen is negative. Patient was seen today on 11/18/2024, continues to clinically improve, her chest x-ray yesterday showed improvement patient is able to clear her secretions on her own with deep vigorous cough, remains on chest physical therapy, remains on albuterol with Mucomyst updrafts, doubt the patient will require bronchoscopy, follow-up chest x-ray will be done tomorrow on this patient. At this point she seems to be quite comfortable, and not in distress. Her O2 requirement is down significantly she is down to 2 L nasal cannula WBC count is 14 hemoglobin 13.3 electrolytes are normal renal profile is normal, patient is being followed by cardiology for her severe nonischemic cardiomyopathy and low ejection fraction. Progress note dated November 19, 2024. The patient is seen today in room 366. The patient is sitting in the chair next to the hospital bed. She appears to be doing relatively well. She is on 2 L. She continues on cefepime. Current laboratory data includes a white count of 12, hemoglobin 13.1, hematocrit 41, and a normal platelet count. Sodium 134, potassium 4.2, chlorides 100, CO2 26, BUN 36, creatinine 0.87. Glucose is 200. Sputum and blood sampling is negative. Chest x-ray shows an improved infiltrate in the left lung. There is a small to moderate left-sided pleural effusion. The right lung is essentially clear. Progress note dated November 20, 2024. The patient is seen today in room 366. The patient is currently on 2 L nasal cannula. She is not receiving any IV fluids. The patient does continue on cefepime. Current laboratory data includes a white count 10.6, hemoglobin 13.8, hematocrit 43.5, and a platelet count of 294,000. Sodium 137, potassium 5.1, chlorides 103, CO2 26, BUN 37, creatinine 0.91. Glucose is 233. The patient is clinically alert and awake. She is in no distress. She is feeling better. Cultures are negative. Objective - Vital Signs Vital signs: Vital Signs Temp 97.3 F L 11/20/24 11:20 Pulse 82 11/20/24 11:50 Resp 16 11/20/24 11:24 BP 107/60 11/20/24 11:20 Pulse Ox 94 L 11/20/24 11:24 FiO2 Intake & Output 11/19/24 11/20/24 11/20/24 18:59 06:59 18:59 Intake Total 250 100 250 Balance 250 100 250 Weight 75.5 kg Intake: IV 10 100 10 Cefepime 2 gm In Sodium 100 Chloride 0.9% 100 ml @ 25 mls/hr IVPB Q12HR [facility] Rx #:[id number] Invasive Line 2 10 10 Oral 240 240 Other: Voiding Method Toilet Toilet Toilet # Voids 2 3 - Exam No acute distress, oriented 3. Currently on 2 L. HEENT examination is grossly unremarkable. Mucous membranes are moist. No oral lesions. Neck supple. Full range of motion. No adenopathy thyromegaly or neck vein distention. Cardiovascular examination reveals regular rhythm rate. S1-S2 normal. No S3 or S4. No discernible murmur noted. Lungs reveal diminished left-sided breath sounds. Right lung is clear. No wheezes, rhonchi, or crackles. Abdomen soft bowel sounds are heard. No masses or tenderness. Extremities are intact. No cyanosis clubbing or edema. Skin is without rash or lesion. Neurologic examination is brief but nonfocal. - Labs CBC & Chem 7: 11/20/24 06:26 11/20/24 06:26 Labs: Abnormal Lab Results - Last 24 Hours (Table) 11/19/24 11/19/24 11/20/24 Range/Units 16:35 20:12 05:49 WBC (4.50-10.00) 10*3/uL MCHC (32.0-37.0) g/dL Immature Gran # (0.00-0.04) 10*3/uL BUN (7-17) mg/dL Glucose (74-99) mg/dL POC Glucose (mg/dL) 278 H 176 H 138 H (70-110) mg/dL Total Protein (6.3-8.2) g/dL Albumin (3.5-5.0) g/dL 11/20/24 11/20/24 11/20/24 Range/Units 06:26 06:26 11:35 WBC 10.55 H (4.50-10.00) 10*3/uL MCHC 31.7 L (32.0-37.0) g/dL Immature Gran # 0.11 H (0.00-0.04) 10*3/uL BUN 37 H (7-17) mg/dL Glucose 142 H (74-99) mg/dL POC Glucose (mg/dL) 233 H (70-110) mg/dL Total Protein 5.9 L (6.3-8.2) g/dL Albumin 3.4 L (3.5-5.0) g/dL Microbiology - Last 24 Hours (Table) 11/16/24 21:11 Gram Stain - Final Sputum Sputum Culture - Final Assessment and Plan Assessment: Acute hypoxemic respiratory failure secondary to mucous plugging, with possible endobronchial tumor involving the left mainstem, versus pneumonia. Severe underlying COPD, with an FEV1 that is 42% of predicted. History of severe cardiomyopathy with LV dysfunction. Chronic atrial fibrillation. Chronic tobacco dependence. History of pulmonary embolism. Plan: Plan dated November 19, 2024. The patient was scheduled for bronchoscopy, but that has been canceled given the x-ray findings. The patient continues on appropriate medications including oxygen, bronchodilators, etc. We will continue to follow make recommendations along the way. Sputum sampling was negative. The patient continues on cefepime. She is currently on 2 L nasal cannula. Has been titrated down from much higher levels yesterday. Prognosis is guarded. All labs, x-rays, and medications are reviewed. Dictation was produced using [employer] software. Please excuse any grammatical, word or spelling errors. Plan dated November 20, 2024. Clinically, the patient is doing much better. The patient's chest x-ray has been reviewed. The patient continues on 2 L. Her breathing is much improved. The patient is not receiving any IV fluids. She continues on cefepime. All of her cultures at this point, are negative. We will continue to follow make recommendations along the way. Dictation was produced using [employer] software. Please excuse any grammatical, word or spelling errors. Time with Patient: Less than 30
[2024-11-20 16:40] LABS: Glucose,Whole Blood 202 mg/dL (70-110)
--- NOTE | 2024-11-20 17:48 | P.PN ---
Subjective Progress Note Date: 11/20/24 Lacie Rubio, Is a 69-year-old female who presented to [facility] emergency room with a chief complaint of worsening shortness of breath, and mid back pain She was evaluated in the emergency room vital examination on presentation revealed a temperature of 98.5 pulse 98 respiration 17 blood pressure 95/66 pulse ox 87% on room air. Laboratory data revealed a white blood count of 14.68 hemoglobin 16.4 platelet count 302 BUN 24 creatinine 0.98 BNP 174 troponin 0.012 Chest x-ray revealed new left mid to lower lung acute infiltrate with significant volume loss consistent with postobstructive atelectasis. CT angiogram of the chest revealed no evidence for acute pulmonary embolism, left lung obstructive atelectasis likely related to obstructing mass or mucous plug centrally in the left lung. Patient was admitted to medical floor she was started on IV antibiotic in the emergency room pulmonary consultation was requested. Past medical history is significant for history of COPD with chronic hypoxic respiratory failure maintained on home oxygen, history of congestive heart failure, history of pulmonary embolism, 2 years ago maintained on Eliquis, and history of continued tobacco abuse. On 11/17/2024 patient is alert and oriented x 3. Patient reports improvement with shortness of breath. Patient maintained on Medrol Dosepak and Maxipime. Pulmonary services are following tentative plans for possible bronchoscopy. Cardiology services were also consulted For nonsustained run of [place]. At this time patient denies chest pain. Patient reports some shortness of breath but improving. Patient denies any urinary burning or frequency. Patient denies nausea vomiting or diarrhea. On 11/18/2024 patient is alert and oriented x 3. Patient down to 2 L nasal cannula. Patient reports improvement with shortness of breath. Patient does still report some coughing and shortness of breath. Patient denies chest pain. Patient denies nausea vomiting or diarrhea. Patient remains on Medrol Dosepak and Maxipime pulmonary services are following. On 11/19/2024 patient is alert and oriented x 3. Patient continuing to improve in regards to shortness of breath repeat chest x-ray showing improving aeration in the left hemothorax residual small to moderate left pleural effusion with adjacent atelectasis and or consolidation. Per cardiology continue using half dose Entresto on an outpatient basis follow-up outpatient. No plans for bronchoscopy at this time. Patient remains on Maxipime and Medrol Dosepak. Patient reports coughing. Patient denies chest pain. Patient denies nausea vomiting or diarrhea. Patient denies any urinary burning or frequency On 11/20/2024 patient was seen and examined on the medical floor she is alert and oriented x 3 in no apparent distress she is still complaining of cough and shortness of breath otherwise she denies any complaints there is no fever or chills no headache or dizziness no chest pain no nausea or vomiting no abdominal pain no diarrhea and no urinary symptoms at this time we will continue with current antibiotic treatment awaiting further recommendation from pulmonary Objective - Vital Signs Vital signs: Vital Signs Temp 97.2 F L 11/20/24 15:27 Pulse 82 11/20/24 16:19 Resp 16 11/20/24 15:27 BP 108/63 11/20/24 15:27 Pulse Ox 94 L 11/20/24 15:27 FiO2 Intake & Output 11/19/24 11/20/24 11/20/24 18:59 06:59 18:59 Intake Total 250 100 500 Balance 250 100 500 Weight 75.5 kg Intake: IV 10 100 20 Cefepime 2 gm In Sodium 100 Chloride 0.9% 100 ml @ 25 mls/hr IVPB Q12HR [facility] Rx #:[id number] Invasive Line 2 10 20 Oral 240 480 Other: Voiding Method Toilet Toilet Toilet # Voids 2 3 - Exam In general patient is alert and oriented x 3 in no apparent distress HEENT head normocephalic and atraumatic Neck is supple no JVD no goiter no lymphadenopathy Chest examination reveals a crackles in both lung bases no wheezing Cardiac exam reveals regular heart sounds no gallops no murmurs Abdomen is soft nontender no organomegaly with normal bowel sounds Extremity exam reveals no edema no cyanosis or clubbing Neurological examination reveals no gross focal deficit - Labs CBC & Chem 7: 11/20/24 06:26 11/20/24 06:26 Labs: Abnormal Lab Results - Last 24 Hours (Table) 11/19/24 11/20/24 11/20/24 Range/Units 20:12 05:49 06:26 WBC 10.55 H (4.50-10.00) 10*3/uL MCHC 31.7 L (32.0-37.0) g/dL Immature Gran # 0.11 H (0.00-0.04) 10*3/uL BUN (7-17) mg/dL Glucose (74-99) mg/dL POC Glucose (mg/dL) 176 H 138 H (70-110) mg/dL Total Protein (6.3-8.2) g/dL Albumin (3.5-5.0) g/dL 11/20/24 11/20/24 11/20/24 Range/Units 06:26 11:35 16:39 WBC (4.50-10.00) 10*3/uL MCHC (32.0-37.0) g/dL Immature Gran # (0.00-0.04) 10*3/uL BUN 37 H (7-17) mg/dL Glucose 142 H (74-99) mg/dL POC Glucose (mg/dL) 233 H 202 H (70-110) mg/dL Total Protein 5.9 L (6.3-8.2) g/dL Albumin 3.4 L (3.5-5.0) g/dL Assessment and Plan Plan: Left lower lobe infiltrate, patient was started on IV antibiotics ceftriaxone in the emergency room will continue at this time. Left lower lobe collapse, suggestive of mucous plug or obstructing lesion in the bronchus, pulmonary consultation was requested. Underlying history of COPD Underlying history of chronic hypoxic respiratory failure requiring home oxygen use Previous history of pulmonary embolism diagnosed 2 years ago maintained on Eliquis Underlying history of congestive heart failure maintained on Entresto Continued tobacco abuse At this time patient was seen and examined Home medications reviewed and reordered Continue with IV antibiotics Pulmonary consultation requested cardiology services following Patient was counseled in length in regard to smoking cessation For DVT prophylaxis continue with Eliquis Will follow closely
[2024-11-20 19:58] LABS: Glucose,Whole Blood 232 mg/dL (70-110)
[2024-11-21 06:19] LABS: Glucose,Whole Blood 130 mg/dL (70-110)
[2024-11-21 11:27] VITALS: BMI 26.6
[2024-11-21 11:33] LABS: Glucose,Whole Blood 147 mg/dL (70-110)
--- NOTE | 2024-11-21 12:20 | P.PN ---
Subjective Progress Note Date: 11/21/24 Principal diagnosis: Pneumonia. This is a 69-year-old female familiar to my service, patient is known to have history of severe COPD, history of cardiomyopathy and LV dysfunction with ejection fraction of 20%, patient presented to the ER with few days history of increased shortness of breath, and mid back pain. Her CBC showed leukocytosis with WBC count of 14.6, her chest x-ray showed opacification of the left lung with significant volume loss, and shifting of the trachea to the ipsilateral side, highly suggestive of either endobronchial tumor or mucous plug. Patient was admitted, started on antibiotics, I was asked to see her in consultation. Clearly the patient needs bronchoscopy for further evaluation of her left mainstem bronchus, however she already ate today, and I will delay the bronchoscopy till tomorrow. In the meantime I will hold Eliquis, I will recomm end aggressive measures including chest PT, Mucomyst, bronchodilators, antibiotics, and if not improved in the next 24 hours, patient will need to be bronchoscope. Patient is on high flow nasal cannula, at 11 L, O2 saturation is marginal, may have to consider BiPAP if she gets any worse, but clinically and surprisingly the patient does not seem to be in much distress. I was able to encourage the patient to do some deep coughing and she was able to clear some thick tenacious sputum on her own. Hoping that the patient will be able to clear her mucous plug on her own. Patient was seen today on 11/17/2024, patient had follow-up chest x-ray today and showed improvement in her opacified left lung, it is beginning to open up, and aeration of the left upper lobe seems to be much better today compared to yesterday, she continues to have some mucous plugging probably in the lingula and in the left lower lobe however the patient is able to cough and clear her secretions, she does have thick tenacious secretions she is still on expectorants, chest physical therapy, bronchodilators, and considering the improvement I canceled plans for bronchoscopy today. Patient will continue to do the same, and may or may not require bronchoscopy depending on follow-up chest x-ray in the next 2 days. At this point the patient seems to be better, breathing easier, remains on antibiotics, cultures are pending including blood and sputum. Continues to have leukocytosis with WBC of 17.38, hemoglobin is 13.6 electrolytes are normal renal profile is normal BUN is 31 creatinine 1.05. Urinary Legionella antigen is negative. Patient was seen today on 11/18/2024, continues to clinically improve, her chest x-ray yesterday showed improvement patient is able to clear her secretions on her own with deep vigorous cough, remains on chest physical therapy, remains on albuterol with Mucomyst updrafts, doubt the patient will require bronchoscopy, follow-up chest x-ray will be done tomorrow on this patient. At this point she seems to be quite comfortable, and not in distress. Her O2 requirement is down significantly she is down to 2 L nasal cannula WBC count is 14 hemoglobin 13.3 electrolytes are normal renal profile is normal, patient is being followed by cardiology for her severe nonischemic cardiomyopathy and low ejection fraction. Progress note dated November 19, 2024. The patient is seen today in room 366. The patient is sitting in the chair next to the hospital bed. She appears to be doing relatively well. She is on 2 L. She continues on cefepime. Current laboratory data includes a white count of 12, hemoglobin 13.1, hematocrit 41, and a normal platelet count. Sodium 134, potassium 4.2, chlorides 100, CO2 26, BUN 36, creatinine 0.87. Glucose is 200. Sputum and blood sampling is negative. Chest x-ray shows an improved infiltrate in the left lung. There is a small to moderate left-sided pleural effusion. The right lung is essentially clear. Progress note dated November 20, 2024. The patient is seen today in room 366. The patient is currently on 2 L nasal cannula. She is not receiving any IV fluids. The patient does continue on cefepime. Current laboratory data includes a white count 10.6, hemoglobin 13.8, hematocrit 43.5, and a platelet count of 294,000. Sodium 137, potassium 5.1, chlorides 103, CO2 26, BUN 37, creatinine 0.91. Glucose is 233. The patient is clinically alert and awake. She is in no distress. She is feeling better. Cultures are negative. Progress note dated November 21, 2024. 69-year-old female seen today in room 366. She is sitting at the side of the bed. Her oxygen is off. The patient's room air saturation is 93%. She is supposed to be on 2 L. She is not receiving any IV fluid. The patient continues on cefepime. We will order a chest x-ray in the morning. No new labs today other than a glucose of 147. The patient is not having any respiratory distress or difficulty. She denies any shortness of breath, cough, wheezing, chest tightness, or phlegm production. She is feeling better. Objective - Vital Signs Vital signs: Vital Signs Temp 97.9 F 11/21/24 11:33 Pulse 74 11/21/24 11:33 Resp 16 11/21/24 11:33 BP 91/59 11/21/24 11:33 Pulse Ox 92 L 11/21/24 11:33 FiO2 Intake & Output 11/20/24 11/21/24 11/21/24 18:59 06:59 18:59 Intake Total 1280 10 250 Balance 1280 10 250 Weight 75 kg 75 kg Intake: IV 20 10 10 Invasive Line 2 20 10 10 Oral 1260 240 Other: Voiding Method Toilet Toilet Toilet # Voids 1 1 - Exam No acute distress, oriented 3. Currently on 2 L. HEENT examination is grossly unremarkable. Mucous membranes are moist. No oral lesions. Neck supple. Full range of motion. No adenopathy thyromegaly or neck vein di stention. Cardiovascular examination reveals regular rhythm rate. S1-S2 normal. No S3 or S4. No discernible murmur noted. Lungs reveal diminished left-sided breath sounds. Right lung is clear. No wheezes, rhonchi, or crackles. Abdomen soft bowel sounds are heard. No masses or tenderness. Extremities are intact. No cyanosis clubbing or edema. Skin is without rash or lesion. Neurologic examination is brief but nonfocal. - Labs CBC & Chem 7: 11/20/24 06:26 11/20/24 06:26 Labs: Abnormal Lab Results - Last 24 Hours (Table) 11/20/24 11/20/24 11/21/24 Range/Units 16:39 19:57 06:18 POC Glucose (mg/dL) 202 H 232 H 130 H (70-110) mg/dL 11/21/24 Range/Units 11:32 POC Glucose (mg/dL) 147 H (70-110) mg/dL Microbiology - Last 24 Hours (Table) 11/15/24 21:03 Blood Culture - Final Blood Assessment and Plan Assessment: Acute hypoxemic respiratory failure secondary to mucous plugging, with possible endobronchial tumor involving the left mainstem, versus pneumonia. Severe underlying COPD, with an FEV1 that is 42% of predicted. History of severe cardiomyopathy with LV dysfunction. Chronic atrial fibrillation. Chronic tobacco dependence. History of pulmonary embolism. Plan: Plan dated November 19, 2024. The patient was scheduled for bronchoscopy, but that has been canceled given the x-ray findings. The patient continues on appropriate medications including oxygen, bronchodilators, etc. We will continue to follow make recommendations along the way. Sputum sampling was negative. The patient continues on cefepime. She is currently on 2 L nasal cannula. Has been titrated down from much higher levels yesterday. Prognosis is guarded. All labs, x-rays, and m edications are reviewed. Dictation was produced using evly software. Please excuse any grammatical, word or spelling errors. Plan dated November 20, 2024. Clinically, the patient is doing much better. The patient's chest x-ray has been reviewed. The patient continues on 2 L. Her breathing is much improved. The patient is not receiving any IV fluids. She continues on cefepime. All of her cultures at this point, are negative. We will continue to follow make recommendations along the way. Dictation was produced using evly software. Please excuse any grammatical, word or spelling errors. Plan dated November 21, 2024. The patient will have a portable chest x-ray in the morning. Clinically, she looks well. On room air, she is at 93%. She typically uses oxygen at home, as needed. The patient continues on cefepime. No IV fluids. All labs, x-rays, and medications are reviewed. Additional recommendations and suggestions are forthcoming. Prognosis is guarded. Dictation was produced using evly software. Please excuse any grammatical, word or spelling errors. Time with Patient: Less than 30
--- NOTE | 2024-11-21 12:58 | P.PN ---
Subjective Progress Note Date: 11/21/24 Lacie Rubio, Is a 69-year-old female who presented to [facility] emergency room with a chief complaint of worsening shortness of breath, and mid back pain She was evaluated in the emergency room vital examination on presentation revealed a temperature of 98.5 pulse 98 respiration 17 blood pressure 95/66 pulse ox 87% on room air. Laboratory data revealed a white blood count of 14.68 hemoglobin 16.4 platelet count 302 BUN 24 creatinine 0.98 BNP 174 troponin 0.012 Chest x-ray revealed new left mid to lower lung acute infiltrate with significant volume loss consistent with postobstructive atelectasis. CT angiogram of the chest revealed no evidence for acute pulmonary embolism, left lung obstructive atelectasis likely related to obstructing mass or mucous plug centrally in the left lung. Patient was admitted to medical floor she was started on IV antibiotic in the emergency room pulmonary consultation was requested. Past medical history is significant for history of COPD with chronic hypoxic respiratory failure maintained on home oxygen, history of congestive heart failure, history of pulmonary embolism, 2 years ago maintained on Eliquis, and history of continued tobacco abuse. On 11/17/2024 patient is alert and oriented x 3. Patient reports improvement with shortness of breath. Patient maintained on Medrol Dosepak and Maxipime. Pulmonary services are following tentative plans for possible bronchoscopy. Cardiology services were also consulted For nonsustained run of [place]. At this time patient denies chest pain. Patient reports some shortness of breath but improving. Patient denies any urinary burning or frequency. Patient denies nausea vomiting or diarrhea. On 11/18/2024 patient is alert and oriented x 3. Patient down to 2 L nasal cannula. Patient reports improvement with shortness of breath. Patient does still report some coughing and shortness of breath. Patient denies chest pain. Patient denies nausea vomiting or diarrhea. Patient remains on Medrol Dosepak and Maxipime pulmonary services are following. On 11/19/2024 patient is alert and oriented x 3. Patient continuing to improve in regards to shortness of breath repeat chest x-ray showing improving aeration in the left hemothorax residual small to moderate left pleural effusion with adjacent atelectasis and or consolidation. Per cardiology continue using half dose Entresto on an outpatient basis follow-up outpatient. No plans for bronchoscopy at this time. Patient remains on Maxipime and Medrol Dosepak. Patient reports coughing. Patient denies chest pain. Patient denies nausea vomiting or diarrhea. Patient denies any urinary burning or frequency On 11/20/2024 patient was seen and examined on the medical floor she is alert and oriented x 3 in no apparent distress she is still complaining of cough and shortness of breath otherwise she denies any complaints there is no fever or chills no headache or dizziness no chest pain no nausea or vomiting no abdominal pain no diarrhea and no urinary symptoms at this time we will continue with current antibiotic treatment awaiting further recommendation from pulmonary On 11/21/2024 patient is alert and oriented x 3. Patient currently on 1.5 L of oxygen. Per pulmonary will repeat chest x-ray in a.m. Patient denies chest pain. Patient still having some shortness of breath with cough. Patient re esther on IV Maxipime. Patient denies nausea vomiting or diarrhea. Patient denies any urinary burning or frequency Objective - Vital Signs Vital signs: Vital Signs Temp 97.9 F 11/21/24 11:33 Pulse 74 11/21/24 11:33 Resp 16 11/21/24 11:33 BP 91/59 11/21/24 11:33 Pulse Ox 92 L 11/21/24 11:33 FiO2 Intake & Output 11/20/24 11/21/24 11/21/24 18:59 06:59 18:59 Intake Total 1280 10 250 Balance 1280 10 250 Weight 75 kg 75 kg Intake: IV 20 10 10 Invasive Line 2 20 10 10 Oral 1260 240 Other: Voiding Method Toilet Toilet Toilet # Voids 1 1 - Exam In general patient is alert and oriented x 3 in no apparent distress HEENT head normocephalic and atraumatic Neck is supple no JVD no goiter no lymphadenopathy Chest examination reveals a crackles in both lung bases no wheezing Cardiac exam reveals regular heart sounds no gallops no murmurs Abdomen is soft nontender no organomegaly with normal bowel sounds Extremity exam reveals no edema no cyanosis or clubbing Neurological examination reveals no gross focal deficit - Labs CBC & Chem 7: 11/20/24 06:26 11/20/24 06:26 Labs: Abnormal Lab Results - Last 24 Hours (Table) 11/20/24 11/20/24 11/21/24 Range/Units 16:39 19:57 06:18 POC Glucose (mg/dL) 202 H 232 H 130 H (70-110) mg/dL 11/21/24 Range/Units 11:32 POC Glucose (mg/dL) 147 H (70-110) mg/dL Microbiology - Last 24 Hours (Table) 11/15/24 21:03 Blood Culture - Final Blood Assessment and Plan Plan: Left lower lobe infiltrate, patient was started on IV antibiotics ceftriaxone in the emergency room will continue at this time. Left lower lobe collapse, suggestive of mucous plug or obstructing lesion in the bronchus, pulmonary consultation was requested. Underlying history of COPD Underlying history of chronic hypoxic respiratory failure requiring home oxygen use Previous history of pulmonary embolism diagnosed 2 years ago maintained on Eliquis Underlying history of congestive heart failure maintained on Entresto Continued tobacco abuse At this time patient was seen and examined Home medications reviewed and reordered Continue with IV antibiotics Pulmonary consultation requested cardiology services following Patient was counseled in length in regard to smoking cessation For DVT prophylaxis continue with Eliquis Will follow closely
[2024-11-21 16:38] LABS: Glucose,Whole Blood 184 mg/dL (70-110)
[2024-11-21 19:45] LABS: Glucose,Whole Blood 130 mg/dL (70-110)
[2024-11-22 05:53] LABS: Glucose,Whole Blood 135 mg/dL (70-110)
[2024-11-22 06:48] LABS: Basophils # (A) 0.09 10*3/uL (0.00-0.10); Basophils % (A) 0.7 %; Eosinophils # (A) 0.64 10*3/uL (0.04-0.35); Eosinophils % (A) 5.1 %; HCT 43.8 % (37.2-46.3); HGB 13.9 g/dL (12.0-15.0); Lymphocytes % (A) 23.1 %; MCH 30.2 pg (27.0-32.0); MCHC 31.7 g/dL (32.0-37.0); MCV 95.2 fL (80.0-97.0); Mean Platelet Volume 10.5 fL (9.5-12.2); Monocytes # (A) 1.04 10*3/uL (0.20-1.00); Monocytes % (A) 8.3 %; Neutrophils # (A) 7.65 10*3/uL (1.80-7.70); Platelet Count 311 10*3/uL (140-440); RDW 15.5 % (11.5-14.5); WBC 12.55 10*3/uL (4.50-10.00)
[2024-11-22 07:08] LABS: ALT 17 U/L (4-34); AST 20 U/L (14-36); African American GFR (CKD) 80 (>60 ml/min/1.73 sqM); Albumin 3.5 g/dL (3.5-5.0); Alkaline Phosphatase 133 U/L (38-126); Anion Gap 5 mmol/L; Blood Urea Nitrogen 34 mg/dL (7-17); Calcium 9.1 mg/dL (8.4-10.2); Carbon Dioxide 26 mmol/L (22-30); Chloride 105 mmol/L (98-107); Glucose 136 mg/dL (74-99); Non-African American GFR(CKD) 70 (>60 ml/min/1.73 sqM); Potassium 4.7 mmol/L (3.5-5.1); Sodium 136 mmol/L (137-145); Total Bilirubin 0.5 mg/dL (0.2-1.3)
--- NOTE | 2024-11-22 08:46 | XR ---
EXAMINATION TYPE: XR chest 2V DATE OF EXAM: 11/22/2024 6:49 AM COMPARISON: 11/19/2024 CLINICAL INDICATION: Female, 69 years old with history of Pneumonia, , TECHNIQUE: PA and lateral views FINDINGS: Heart normal size. Mild atherosclerotic arch calcifications. Continued left basilar pleural-parenchym al opacity with slight improvement. IMPRESSION: Left basilar opacity persists but with slight interval improvement. [facility], Workstation: [facility], 11/22/2024 8:44 AM
[2024-11-22 11:38] LABS: Glucose,Whole Blood 145 mg/dL (70-110)
--- NOTE | 2024-11-22 12:07 | P.PN ---
Subjective Progress Note Date: 11/22/24 Principal diagnosis: Pneumonia. This is a 69-year-old female familiar to my service, patient is known to have history of severe COPD, history of cardiomyopathy and LV dysfunction with ejection fraction of 20%, patient presented to the ER with few days history of increased shortness of breath, and mid back pain. Her CBC showed leukocytosis with WBC count of 14.6, her chest x-ray showed opacification of the left lung with significant volume loss, and shifting of the trachea to the ipsilateral side, highly suggestive of either endobronchial tumor or mucous plug. Patient was admitted, started on antibiotics, I was asked to see her in consultation. Clearly the patient needs bronchoscopy for further evaluation of her left mainstem bronchus, however she already ate today, and I will delay the bronchoscopy till tomorrow. In the meantime I will hold Eliquis, I will recomm end aggressive measures including chest PT, Mucomyst, bronchodilators, antibiotics, and if not improved in the next 24 hours, patient will need to be bronchoscope. Patient is on high flow nasal cannula, at 11 L, O2 saturation is marginal, may have to consider BiPAP if she gets any worse, but clinically and surprisingly the patient does not seem to be in much distress. I was able to encourage the patient to do some deep coughing and she was able to clear some thick tenacious sputum on her own. Hoping that the patient will be able to clear her mucous plug on her own. Patient was seen today on 11/17/2024, patient had follow-up chest x-ray today and showed improvement in her opacified left lung, it is beginning to open up, and aeration of the left upper lobe seems to be much better today compared to yesterday, she continues to have some mucous plugging probably in the lingula and in the left lower lobe however the patient is able to cough and clear her secretions, she does have thick tenacious secretions she is still on expectorants, chest physical therapy, bronchodilators, and considering the improvement I canceled plans for bronchoscopy today. Patient will continue to do the same, and may or may not require bronchoscopy depending on follow-up chest x-ray in the next 2 days. At this point the patient seems to be better, breathing easier, remains on antibiotics, cultures are pending including blood and sputum. Continues to have leukocytosis with WBC of 17.38, hemoglobin is 13.6 electrolytes are normal renal profile is normal BUN is 31 creatinine 1.05. Urinary Legionella antigen is negative. Patient was seen today on 11/18/2024, continues to clinically improve, her chest x-ray yesterday showed improvement patient is able to clear her secretions on her own with deep vigorous cough, remains on chest physical therapy, remains on albuterol with Mucomyst updrafts, doubt the patient will require bronchoscopy, follow-up chest x-ray will be done tomorrow on this patient. At this point she seems to be quite comfortable, and not in distress. Her O2 requirement is down significantly she is down to 2 L nasal cannula WBC count is 14 hemoglobin 13.3 electrolytes are normal renal profile is normal, patient is being followed by cardiology for her severe nonischemic cardiomyopathy and low ejection fraction. Progress note dated November 19, 2024. The patient is seen today in room 366. The patient is sitting in the chair next to the hospital bed. She appears to be doing relatively well. She is on 2 L. She continues on cefepime. Current laboratory data includes a white count of 12, hemoglobin 13.1, hematocrit 41, and a normal platelet count. Sodium 134, potassium 4.2, chlorides 100, CO2 26, BUN 36, creatinine 0.87. Glucose is 200. Sputum and blood sampling is negative. Chest x-ray shows an improved infiltrate in the left lung. There is a small to moderate left-sided pleural effusion. The right lung is essentially clear. Progress note dated November 20, 2024. The patient is seen today in room 366. The patient is currently on 2 L nasal cannula. She is not receiving any IV fluids. The patient does continue on cefepime. Current laboratory data includes a white count 10.6, hemoglobin 13.8, hematocrit 43.5, and a platelet count of 294,000. Sodium 137, potassium 5.1, chlorides 103, CO2 26, BUN 37, creatinine 0.91. Glucose is 233. The patient is clinically alert and awake. She is in no distress. She is feeling better. Cultures are negative. Progress note dated November 21, 2024. 69-year-old female seen today in room 366. She is sitting at the side of the bed. Her oxygen is off. The patient's room air saturation is 93%. She is supposed to be on 2 L. She is not receiving any IV fluid. The patient continues on cefepime. We will order a chest x-ray in the morning. No new labs today other than a glucose of 147. The patient is not having any respiratory distress or difficulty. She denies any shortness of breath, cough, wheezing, chest tightness, or phlegm production. She is feeling better. Progress note dated November 22, 2024. 69-year-old female seen again in room 366. The patient is currently on cefepime. Chest x-ray is improved. Cefepime will be discontinued today. The patient is currently on 2 L. Chest x-ray today, shows improvement. Clinically, she is doing well. She goes between room air, and 2 L. She does have oxygen at home. White count is 12.6, hemoglobin 13.9, hematocrit 43.8, and platelet count 311,000. Sodium 136, potassium 4.7, chlorides 105, CO2 26, BUN 34, and creatinine 0.86. Glucose is 145. Cultures are negative. Chest x-ray shows interval improvement of her left basilar process. Objective - Vital Signs Vital signs: Vital Signs Temp 98 F 11/22/24 09:07 Pulse 80 11/22/24 10:25 Resp 20 11/22/24 09:07 BP 114/68 11/22/24 09:07 Pulse Ox 94 L 11/22/24 04:00 FiO2 Intake & Output 11/21/24 11/22/24 11/22/24 18:59 06:59 18:59 Intake Total 1280 260 10 Balance 1280 260 10 Weight 75 kg 71.1 kg Intake: IV 20 20 10 Invasive Line 2 20 20 10 Oral 1260 240 Other: Voiding Method Toilet Toilet Toilet # Voids 3 1 - Exam No acute distress, oriented 3. Currently on 2 L. HEENT examination is grossly unremarkable. Mucous membranes are moist. No oral lesions. Neck supple. Full range of motion. No adenopathy thyromegaly or neck vein distention. Cardiovascular examination reveals regular rhythm rate. S1-S2 normal. No S3 or S4. No discernible murmur noted. Lungs reveal diminished left-sided breath sounds. Right lung is clear. No wheezes, rhonchi, or crackles. Abdomen soft bowel sounds are heard. No masses or tenderness. Extremities are intact. No cyanosis clubbing or edema. Skin is without rash or lesion. Neurologic examination is brief but nonfocal. - Labs CBC & Chem 7: 11/22/24 06:25 11/22/24 06:25 Labs: Abnormal Lab Results - Last 24 Hours (Table) 11/21/24 11/21/24 11/22/24 Range/Units 16:37 19:43 05:52 WBC (4.50-10.00) 10*3/uL MCHC (32.0-37.0) g/dL Immature Gran # (0.00-0.04) 10*3/uL Monocytes # (0.20-1.00) 10*3/uL Eosinophils # (0.04-0.35) 10*3/uL Sodium (137-145) mmol/L BUN (7-17) mg/dL Glucose (74-99) mg/dL POC Glucose (mg/dL) 184 H 130 H 135 H (70-110) mg/dL Alkaline Phosphatase (38-126) U/L Total Protein (6.3-8.2) g/dL 11/22/24 11/22/24 11/22/24 Range/Units 06:25 06:25 11:37 WBC 12.55 H (4.50-10.00) 10*3/uL MCHC 31.7 L (32.0-37.0) g/dL Immature Gran # 0.23 H (0.00-0.04) 10*3/uL Monocytes # 1.04 H (0.20-1.00) 10*3/uL Eosinophils # 0.64 H (0.04-0.35) 10*3/uL Sodium 136 L (137-145) mmol/L BUN 34 H (7-17) mg/dL Glucose 136 H (74-99) mg/dL POC Glucose (mg/dL) 145 H (70-110) mg/dL Alkaline Phosphatase 133 H (38-126) U/L Total Protein 6.0 L (6.3-8.2) g/dL Assessment and Plan Assessment: Acute hypoxemic respiratory failure secondary to mucous plugging, with possible endobronchial tumor involving the left mainstem, versus pneumonia. Severe underlying COPD, with an FEV1 that is 42% of predicted. History of severe cardiomyopathy with LV dysfunction. Chronic atrial fibrillation. Chronic tobacco dependence. History of pulmonary embolism. Plan: Plan dated November 19, 2024. The patient was scheduled for bronchoscopy, but that has been canceled given the x-ray findings. The patient continues on appropriate medications including oxygen, bronchodilators, etc. We will continue to follow make recommendations along the way. Sputum sampling was negative. The patient continues on cefepime. She is currently on 2 L nasal cannula. Has been titrated down from much higher levels yesterday. Prognosis is guarded. All labs, x-rays, and medications are reviewed. Dictation was produced using [employer] software. Please excuse any grammatical, word or spelling errors. Plan dated November 20, 2024. Clinically, the patient is doing much better. The patient's chest x-ray has been reviewed. The patient continues on 2 L. Her breathing is much improved. The patient is not receiving any IV fluids. She continues on cefepime. All of her cultures at this point, are negative. We will continue to follow make recommendations along the way. Dictation was produced using [employer] software. Please excuse any grammatical, word or spelling errors. Plan dated November 21, 2024. The patient will have a portable chest x-ray in the morning. Clinically, she looks well. On room air, she is at 93%. She typically uses oxygen at home, as needed. The patient continues on cefepime. No IV fluids. All labs, x-rays, and medications are reviewed. Additional recommendations and suggestions are forthcoming. Prognosis is guarded. Dictation was produced using [employer] software. Please excuse any grammatical, word or spelling errors. Plan dated November 22, 2024. The patient is seen again in room 366. Cefepime will be discontinued. The patient's chest x-ray is much improved. She continues on oxygen at 2 L, or just uses room air. All labs, x-rays, and medications are reviewed. Clinically, the patient is stable, could be considered for possible discharge. No additional recommendations are made. Dictation was produced using [employer] software. Please excuse any grammatical, word or spelling errors. Time with Patient: Less than 30
--- NOTE | 2024-11-22 12:12 | P.PN ---
Subjective Progress Note Date: 11/22/24 Lacie Rubio, Is a 69-year-old female who presented to [facility] emergency room with a chief complaint of worsening shortness of breath, and mid back pain She was evaluated in the emergency room vital examination on presentation revealed a temperature of 98.5 pulse 98 respiration 17 blood pressure 95/66 pulse ox 87% on room air. Laboratory data revealed a white blood count of 14.68 hemoglobin 16.4 platelet count 302 BUN 24 creatinine 0.98 BNP 174 troponin 0.012 Chest x-ray revealed new left mid to lower lung acute infiltrate with significant volume loss consistent with postobstructive atelectasis. CT angiogram of the chest revealed no evidence for acute pulmonary embolism, left lung obstructive atelectasis likely related to obstructing mass or mucous plug centrally in the left lung. Patient was admitted to medical floor she was started on IV antibiotic in the emergency room pulmonary consultation was requested. Past medical history is significant for history of COPD with chronic hypoxic respiratory failure maintained on home oxygen, history of congestive heart failure, history of pulmonary embolism, 2 years ago maintained on Eliquis, and history of continued tobacco abuse. On 11/17/2024 patient is alert and oriented x 3. Patient reports improvement with shortness of breath. Patient maintained on Medrol Dosepak and Maxipime. Pulmonary services are following tentative plans for possible bronchoscopy. Cardiology services were also consulted For nonsustained run of [place]. At this time patient denies chest pain. Patient reports some shortness of breath but improving. Patient denies any urinary burning or frequency. Patient denies nausea vomiting or diarrhea. On 11/18/2024 patient is alert and oriented x 3. Patient down to 2 L nasal cannula. Patient reports improvement with shortness of breath. Patient does still report some coughing and shortness of breath. Patient denies chest pain. Patient denies nausea vomiting or diarrhea. Patient remains on Medrol Dosepak and Maxipime pulmonary services are following. On 11/19/2024 patient is alert and oriented x 3. Patient continuing to improve in regards to shortness of breath repeat chest x-ray showing improving aeration in the left hemothorax residual small to moderate left pleural effusion with adjacent atelectasis and or consolidation. Per cardiology continue using half dose Entresto on an outpatient basis follow-up outpatient. No plans for bronchoscopy at this time. Patient remains on Maxipime and Medrol Dosepak. Patient reports coughing. Patient denies chest pain. Patient denies nausea vomiting or diarrhea. Patient denies any urinary burning or frequency On 11/20/2024 patient was seen and examined on the medical floor she is alert and oriented x 3 in no apparent distress she is still complaining of cough and shortness of breath otherwise she denies any complaints there is no fever or chills no headache or dizziness no chest pain no nausea or vomiting no abdominal pain no diarrhea and no urinary symptoms at this time we will continue with current antibiotic treatment awaiting further recommendation from pulmonary On 11/21/2024 patient is alert and oriented x 3. Patient currently on 1.5 L of oxygen. Per pulmonary will repeat chest x-ray in a.m. Patient denies chest pain. Patient still having some shortness of breath with cough. Patient re esther on IV Maxipime. Patient denies nausea vomiting or diarrhea. Patient denies any urinary burning or frequency On 11/22/2024 patient is alert and oriented x 3. Patient currently on 1.5 L. Repeat chest x-ray completed and reviewed per pulmonary. Patient still having some increased shortness of breath today more so than yesterday. At this time we will continue to monitor patient patient denies chest pain. Patient denies nausea vomiting or diarrhea. Patient denies any urinary burning or frequency. Current vital signs temp 98.0, heart rate 83, respiratory rate 20, blood pressure 114/68 with pulse ox of 98% on 2 L Objective - Vital Signs Vital signs: Vital Signs Temp 98 F 11/22/24 09:07 Pulse 80 11/22/24 10:25 Resp 20 11/22/24 09:07 BP 114/68 11/22/24 09:07 Pulse Ox 94 L 11/22/24 04:00 FiO2 Intake & Output 11/21/24 11/22/24 11/22/24 18:59 06:59 18:59 Intake Total 1280 260 10 Balance 1280 260 10 Weight 75 kg 71.1 kg Intake: IV 20 20 10 Invasive Line 2 20 20 10 Oral 1260 240 Other: Voiding Method Toilet Toilet Toilet # Voids 3 1 - Exam In general patient is alert and oriented x 3 in no apparent distress HEENT head normocephalic and atraumatic Neck is supple no JVD no goiter no lymphadenopathy Chest examination reveals a crackles in both lung bases no wheezing Cardiac exam reveals regular heart sounds no gallops no murmurs Abdomen is soft nontender no organomegaly with normal bowel sounds Extremity exam reveals no edema no cyanosis or clubbing Neurological examination reveals no gross focal deficit - Labs CBC & Chem 7: 11/22/24 06:25 11/22/24 06:25 Labs: Abnormal Lab Results - Last 24 Hours (Table) 11/21/24 11/21/24 11/22/24 Range/Units 16:37 19:43 05:52 WBC (4.50-10.00) 10*3/uL MCHC (32.0-37.0) g/dL Immature Gran # (0.00-0.04) 10*3/uL Monocytes # (0.20-1.00) 10*3/uL Eosinophils # (0.04-0.35) 10*3/uL Sodium (137-145) mmol/L BUN (7-17) mg/dL Glucose (74-99) mg/dL POC Glucose (mg/dL) 184 H 130 H 135 H (70-110) mg/dL Alkaline Phosphatase (38-126) U/L Total Protein (6.3-8.2) g/dL 11/22/24 11/22/24 11/22/24 Range/Units 06:25 06:25 11:37 WBC 12.55 H (4.50-10.00) 10*3/uL MCHC 31.7 L (32.0-37.0) g/dL Immature Gran # 0.23 H (0.00-0.04) 10*3/uL Monocytes # 1.04 H (0.20-1.00) 10*3/uL Eosinophils # 0.64 H (0.04-0.35) 10*3/uL Sodium 136 L (137-145) mmol/L BUN 34 H (7-17) mg/dL Glucose 136 H (74-99) mg/dL POC Glucose (mg/dL) 145 H (70-110) mg/dL Alkaline Phosphatase 133 H (38-126) U/L Total Protein 6.0 L (6.3-8.2) g/dL Assessment and Plan Plan: Left lower lobe infiltrate, patient was started on IV antibiotics ceftriaxone in the emergency room will continue at this time. Left lower lobe collapse, suggestive of mucous plug or obstructing lesion in the bronchus, pulmonary consultation was requested. Underlying history of COPD Underlying history of chronic hypoxic respiratory failure requiring home oxygen use Previous history of pulmonary embolism diagnosed 2 years ago maintained on Eliquis Underlying history of congestive heart failure maintained on Entresto Continued tobacco abuse At this time patient was seen and examined Home medications reviewed and reordered Continue with IV antibiotics Pulmonary consultation requested cardiology services following Patient was counseled in length in regard to smoking cessation For DVT prophylaxis continue with Eliquis Will follow closely
[2024-11-22 12:34] VITALS: BP 103/67; PULSE 89; RESP 18; TEMP 97.9
--- NOTE | 2024-11-26 12:22 | P.DS ---
Providers Date of admission: 11/15/24 22:16 Expected date of discharge: 11/22/24 Attending physician: Mindy Huynh Consults: 11/15/24 22:12 Consult Physician Routine Consulting Provider: Erick Malave Consult Reason/Comments: Postobstructive left lung pneumonia Do you want consulting provider notified?: Yes Primary care physician: Mindy [facility] Hospital Course: Discharge diagnosis Left lower lobe infiltrate, patient was started on IV antibiotics ceftriaxone in the emergency room will continue at this time. Left lower lobe collapse, suggestive of mucous plug or obstructing lesion in the bronchus, pulmonary consultation was requested. Underlying history of COPD Underlying history of chronic hypoxic respiratory failure requiring home oxygen use Previous history of pulmonary embolism diagnosed 2 years ago maintained on Eliquis Underlying history of congestive heart failure maintained on Entresto Continued tobacco abuse Hospital course Lacie Rubio, Is a 69-year-old female who presented to [facility] emergency room with a chief complaint of worsening shortness of breath, and mid back pain She was evaluated in the emergency room vital examination on presentation revealed a temperature of 98.5 pulse 98 respiration 17 blood pressure 95/66 pulse ox 87% on room air. Laboratory data revealed a white blood count of 14.68 hemoglobin 16.4 platelet count 302 BUN 24 creatinine 0.98 BNP 174 troponin 0.012 Chest x-ray revealed new left mid to lower lung acute infiltrate with significant volume loss consistent with postobstructive atelectasis. CT angiogram of the chest revealed no evidence for acute pulmonary embolism, left lung obstructive atelectasis likely related to obstructing mass or mucous plug centrally in the left lung. Patient was admitted to medical floor she was started on IV antibiotic in the emergency room pulmonary consultation was requested. Past medical history is significant for history of COPD with chronic hypoxic respiratory failure maintained on home oxygen, history of congestive heart failure, history of pulmonary embolism, 2 years ago maintained on Eliquis, and history of continued tobacco abuse. On 11/17/2024 patient is alert and oriented x 3. Patient reports improvement with shortness of breath. Patient maintained on Medrol Dosepak and Maxipime. Pulmonary services are following tentative plans for possible bronchoscopy. Cardiology services were also consulted For nonsustained run of VT. At this time patient denies chest pain. Patient reports some shortness of breath but improving. Patient denies any urinary burning or frequency. Patient denies nausea vomiting or diarrhea. On 11/18/2024 patient is alert and oriented x 3. Patient down to 2 L nasal cannula. Patient reports improvement with shortness of breath. Patient does still report some coughing and shortness of breath. Patient denies chest pain. Patient denies nausea vomiting or diarrhea. Patient remains on Medrol Dosepak and Maxipime pulmonary services are following. On 11/19/2024 patient is alert and oriented x 3. Patient continuing to improve in regards to shortness of breath repeat chest x-ray showing improving aeration in the left hemothorax residual small to moderate left pleural effusion with adjacent atelectasis and or consolidation. Per cardiology continue using half dose Entresto on an outpatient basis follow-up outpatient. No plans for bronchoscopy at this time. Patient remains on Maxipime and Medrol Dosepak. Pat bent reports coughing. Patient denies chest pain. Patient denies nausea vomiting or diarrhea. Patient denies any urinary burning or frequency On 11/20/2024 patient was seen and examined on the medical floor she is alert and oriented x 3 in no apparent distress she is still complaining of cough and shortness of breath otherwise she denies any complaints there is no fever or chills no headache or dizziness no chest pain no nausea or vomiting no abdominal pain no diarrhea and no urinary symptoms at this time we will continue with current antibiotic treatment awaiting further recommendation from pulmonary On 11/21/2024 patient is alert and oriented x 3. Patient currently on 1.5 L of oxygen. Per pulmonary will repeat chest x-ray in a.m. Patient denies chest pain. Patient still having some shortness of breath with cough. Patient remains on IV Maxipime. Patient denies nausea vomiting or diarrhea. Patient denies any urinary burning or frequency On 11/22/2024 patient is alert and oriented x 3. Patient currently on 1.5 L. Repeat chest x-ray completed and reviewed per pulmonary. Patient still having some increased shortness of breath today more so than yesterday. At this time we will continue to monitor patient patient denies chest pain. Patient denies nausea vomiting or diarrhea. Patient denies any urinary burning or frequency. Current vital signs temp 98.0, heart rate 83, respiratory rate 20, blood pressure 114/68 with pulse ox of 98% on 2 L Patient eager to be DC'd home this a.m. by tomorrow patient will be DC'd on antibiotic advised to follow-up with PCP or return to ER if symptoms persist Patient Condition at Discharge: Stable Plan - Discharge Summary Discharge Rx Participant: No New Discharge Prescriptions: New Cefdinir 300 mg PO Q12HR 10 Days #20 cap Continue Gabapentin [Neurontin] 100 mg PO BID Dulaglutide [Trulicity] 0.75 mg SQ WE Docusate [Colace] 100 mg PO DAILY Cyanocobalamin (Vitamin B-12) [Vitamin B-12] 1,000 mcg PO DAILY Aspirin 81 mg PO DAILY #30 tab Dapagliflozin Propanediol [Farxiga] 10 mg PO DAILY #30 tab Fluticasone/Umeclidin/Vilanter [Trelegy Ellipta 100-62.5-25] 1 puff INHALATION RT-DAILY #90 each Albuterol Inhaler [Ventolin Hfa Inhaler] 2 puff INHALATION RT-Q4H PRN PRN Reason: Shortness Of Breath Apixaban [Eliquis] 5 mg PO BID Atorvastatin [Lipitor] 80 mg PO HS #30 tab Metoprolol Succinate (ER) [Toprol XL] 100 mg PO DAILY #30 tab Sacubitril/Valsartan [Entresto 24 mg-26 mg Tablet] 1 tab PO BID Ondansetron [Zofran] 4 mg PO BID PRN PRN Reason: Nausea Discharge Medication List Apixaban [Eliquis] 5 mg PO BID 12/16/23 [History] Docusate [Colace] 100 mg PO DAILY 12/16/23 [History] Dulaglutide [Trulicity] 0.75 mg SQ WE 12/16/23 [History] Gabapentin [Neurontin] 100 mg PO BID 12/16/23 [History] Cyanocobalamin (Vitamin B-12) [Vitamin B-12] 1,000 mcg PO DAILY 03/01/24 [History] Aspirin 81 mg PO DAILY #30 tab 03/06/24 [Rx] Atorvastatin [Lipitor] 80 mg PO HS #30 tab 03/06/24 [Rx] Dapagliflozin Propanediol [Farxiga] 10 mg PO DAILY #30 tab 03/06/24 [Rx] Metoprolol Succinate (ER) [Toprol XL] 100 mg PO DAILY #30 tab 03/06/24 [Rx] Sacubitril/Valsartan [Entresto 24 mg-26 mg Tablet] 1 tab PO BID 05/31/24 [History] Fluticasone/Umeclidin/Vilanter [Trelegy Ellipta 100-62.5-25] 1 puff INHALATION RT-DAILY #90 each 06/03/24 [Rx] Albuterol Inhaler [Ventolin Hfa Inhaler] 2 puff INHALATION RT-Q4H PRN 11/16/24 [History] Ondansetron [Zofran] 4 mg PO BID PRN 11/16/24 [History] Cefdinir 300 mg PO Q12HR 10 Days #20 cap 11/22/24 [Rx] Follow up Appointment(s)/Referral(s): Gerardo Mcfarlane DO [Doctor of Osteopathic Medicine] - 12/31/24 10:00 am (Dr. Malave ) Mindy Huynh MD [Primary Care Provider] - 1-2 days Discharge Disposition: HOME SELF-CARE
== END 2024-11-22 14:43 | disposition home or self-care (01) | DRG 205 ==
LOC: EC 16:24 → 3SCARD 22:16
PROVIDERS: ADMIT Internal Medicine; ATTEND Internal Medicine
DX: T17.890A Other foreign object in other parts of respiratory tract causing asphyxiation, initial encounter (principal); J18.9 Pneumonia, unspecified organism; J96.21 Acute and chronic respiratory failure with hypoxia; I47.20 Ventricular tachycardia, unspecified; J94.2 Hemothorax; I42.8 Other cardiomyopathies; J44.0 Chronic obstructive pulmonary disease with (acute) lower respiratory infection; I11.0 Hypertensive heart disease with heart failure; I50.9 Heart failure, unspecified; E11.9 Type 2 diabetes mellitus without complications; J44.1 Chronic obstructive pulmonary disease with (acute) exacerbation; J98.11 Atelectasis; I48.0 Paroxysmal atrial fibrillation; Z99.81 Dependence on supplemental oxygen; I95.9 Hypotension, unspecified; E78.5 Hyperlipidemia, unspecified; I25.10 Atherosclerotic heart disease of native coronary artery without angina pectoris; G89.29 Other chronic pain; M54.6 Pain in thoracic spine; M54.50 Low back pain, unspecified; F17.200 Nicotine dependence, unspecified, uncomplicated; Z79.01 Long term (current) use of anticoagulants; Z79.82 Long term (current) use of aspirin; Z79.84 Long term (current) use of oral hypoglycemic drugs; Z79.85 Long-term (current) use of injectable non-insulin antidiabetic drugs; Z79.899 Other long term (current) drug therapy; Z86.711 Personal history of pulmonary embolism; Z85.51 Personal history of malignant neoplasm of bladder; Z88.1 Allergy status to other antibiotic agents; Z88.0 Allergy status to penicillin; Z88.2 Allergy status to sulfonamides
CPT/HCPCS: 36415; 71045; 71046; 71275; 80053; 80061; 83036; 83605; 83880; 84443; 84484; 85025; 85379; 85610; 85730; 87040; 87070; 87205; 87449; 93005; 93306; 94640; 94664; 94760; 96361; 96365; 96375; 99285

== ENCOUNTER 2024-12-02 15:32 | Emergency (ER) | payer MEDICARE, OTHER ==
[2024-12-02 15:37] VITALS: TEMP 97.8
--- NOTE | 2024-12-02 15:48 | ED ---
Back Pain HPI - General Chief Complaint: Back Pain/Injury Stated Complaint: Back pain Time Seen by Provider: 12/02/24 15:37 Source: patient Limitations: no limitations - History of Present Illness Initial Comments: 69-year-old female presenting with chief complaint of lower back pain. Patient reports that she has had this lower back pain for 25 years, however it has been worse over the last 2 weeks. She was recently hospitalized here with pneumonia and was having a flareup of her lower back pain. She was told that it was because she had pneumonia. This is centralized lower back pain with no radiation. She is here with an order from Dr. Huynh's office for lumbar spine x-ray. She denies any injury or trauma. No numbness tingling or weakness. No radiation of pain down the legs. No loss of bowel or bladder control or saddle paresthesia. No abdominal pain, nausea, vomiting, fever, chills, dysuria, hematuria, urgency, frequency. - Related Data Home Medications Medication Instructions Recorded Confirmed Apixaban [Eliquis] 5 mg PO BID 12/16/23 11/16/24 Docusate [Colace] 100 mg PO DAILY 12/16/23 11/16/24 Dulaglutide [Trulicity] 0.75 mg SQ WE 12/16/23 11/16/24 Gabapentin [Neurontin] 100 mg PO BID 12/16/23 11/16/24 Cyanocobalamin (Vitamin B-12) 1,000 mcg PO DAILY 03/01/24 11/16/24 [Vitamin B-12] Sacubitril/Valsartan [Entresto 24 1 tab PO BID 05/31/24 11/16/24 mg-26 mg Tablet] Albuterol Inhaler [Ventolin Hfa 2 puff INHALATION RT-Q4H PRN 11/16/24 11/16/24 Inhaler] Ondansetron [Zofran] 4 mg PO BID PRN 11/16/24 11/16/24 Previous Rx's Medication Instructions Recorded Aspirin 81 mg PO DAILY #30 tab 03/06/24 Atorvastatin [Lipitor] 80 mg PO HS #30 tab 03/06/24 Dapagliflozin Propanediol [Farxiga] 10 mg PO DAILY #30 tab 03/06/24 Metoprolol Succinate (ER) [Toprol 100 mg PO DAILY #30 tab 03/06/24 XL] Fluticasone/Umeclidin/Vilanter 1 puff INHALATION RT-DAILY #90 each 06/03/24 [Trelegy Ellipta 100-62.5-25] Cefdinir 300 mg PO Q12HR 10 Days #20 cap 11/22/24 Lidocaine 5% Patch [Lidoderm 5% 1 patch TOPICAL DAILY PRN #30 patch 12/02/24 Patch] Allergies Allergy/AdvReac Type Severity Reaction Status Date / Time clindamycin Allergy Dyspnea Verified 12/02/24 15:37 Penicillins Allergy Itching Verified 12/02/24 15:37 sulfamethoxazole Allergy Unknown Verified 12/02/24 15:37 [From Bactrim] trimethoprim [From Bactrim] Allergy Unknown Verified 12/02/24 15:37 Review of Systems ROS Statement: Those systems with pertinent positive or pertinent negative responses have been documented in the HPI. ROS Other: All systems not noted in ROS Statement are negative. Past Medical History Past Medical History: Atrial Fibrillation, COPD, Diabetes Mellitus, Hyperlipidemia, Hypertension Additional Past Medical History / Comment(s): Diabetes Type 2 History of Any Multi-Drug Resistant Organisms: None Reported, Unobtainable Past Surgical History: No Surgical Hx Reported, Cholecystectomy Additional Past Surgical History / Comment(s): D&C, two blader cancer tumors removed Past Anesthesia/Blood Transfusion Reactions: No Reported Reaction Past Psychological History: Depression, Unable to Obtain Smoking Status: Current every day smoker Past Alcohol Use History: None Reported Past Drug Use History: None Reported - Past Family History Mother Family Medical History: Congestive Heart Failure (CHF), Diabetes Mellitus, Deep Vein Thrombosis (DVT) General Exam Limitations: no limitations General appearance: alert, in no apparent distress Head exam: Present: atraumatic, normocephalic, normal inspection Eye exam: Present: normal appearance, EOMI Neck exam: Present: normal inspection. Absent: meningismus Respiratory exam: Absent: respiratory distress Cardiovascular Exam: Present: regular rate Back exam: Present: normal inspection. Absent: tenderness Neurological exam: Present: alert, oriented X3 Psychiatric exam: Present: normal affect, normal mood Skin exam: Present: warm, dry, normal color Course Vital Signs 12/02/24 15:34 Temperature 97.8 F Pulse Rate 92 Respiratory 17 Rate Blood Pressure 111/59 O2 Sat by Pulse 96 Oximetry Medical Decision Making - Medical Decision Making Was pt. sent in by a medical professional or institution (ANGELINE Yu, BOAT CAMP OPERATOR, urgent care, hospital, or long term...) When possible be specific @ -PCP Did you speak to anyone other than the patient for history (EMS, parent, family, police, friend...)? What history was obtained from this source @ -No Did you review nursing and triage notes (agree or disagree)? Why? @ -I reviewed and agree with nursing and triage notes Were old charts reviewed (outside hosp., previous admission, EMS record, old EKG, old radiological studies, urgent care reports/EKG's, long term records)? Report findings @ -No old charts were reviewed Differential Diagnosis (chest pain, altered mental status, abdominal pain women, abdominal pain men, vaginal bleeding, weakness, fever, dyspnea, syncope, headache, dizziness, GI bleed, back pain, seizure, CVA, palpatations, mental health, musculoskeletal)? @ - MDM Differential Back Pain: Strain, zoster, cauda equina syndrome, epidural abscess, vertebral osteomyelitis, discitis, fracture, subluxation, disc herniation, DJD, spinal stenosis, dissection, AAA, pancreatitis, peptic ulcer disease, pyelonephritis, kidney stone… this is not meant to be an all-inclusive list. EKG interpreted by me (3pts min.). @ -As above X-rays interpreted by me (1pt min.). @ -X-ray shows no acute fracture or dislocation seen in lumbar spine. Mild multilevel degenerative disc disease and facet arthropathy CT interpreted by me (1pt min.). @ -None done U/S interpreted by me (1pt. min.). @ -None done What testing was considered but not performed or refused? (CT, X-rays, U/S, labs)? Why? @ -None What meds were considered but not given or refused? Why? @ -None Did you discuss the management of the patient with other professionals (professionals i.e. ANGELINE Yu, BOAT CAMP OPERATOR, lab, RT, psych nurse, bilingual social worker, micropaleontologist, teacher, event security officer, caser up)? Give summary @ -No Was smoking cessation discussed for >3mins.? @ -No Was critical care preformed (if so, how long)? @ -No Were there social determinants of health that impacted care today? How? (Homelessness, low income, unemployed, alcoholism, drug addiction, transportation, low edu. Level, literacy, decrease access to med. care, long-term, rehab)? @ -No Was there de-escalation of care discussed even if they declined (Discuss DNR or withdrawal of care, Hospice)? DNR status @ -No What co-morbidities impacted this encounter? (DM, HTN, Smoking, COPD, CAD, Cancer, CVA, ARF, Chemo, Hep., AIDS, mental health diagnosis, sleep apnea, morbid obesity)? @ -None Was patient admitted / discharged? Hospital course, mention meds given and route, prescriptions, significant lab abnormalities, going to OR and other pertinent info. @ -69-year-old female presenting with chief complaint of lower back pain. She reports she has had this pain for 25 years but worse over the last 2 weeks. No injury or trauma no red flag symptoms. History and physical examination are conducted. X-ray negative for acute fracture or dislocation. There is mild multilevel degenerative disc disease and facet arthropathy seen. On reassessment after pain medication she reports significant improvement in her pain. She is instructed to follow-up with her PCP. Follow-up with PCP. Report back to ER with any new or worsening symptoms. Discussed return parameters and answered all questions. Patient conveyed verbal understanding and agreed to the plan. I discussed this case in detail with my attending Dr. Oliveira Undiagnosed new problem with uncertain prognosis? @ -No Drug Therapy requiring intensive monitoring for toxicity (Heparin, Nitro, Insulin, Cardizem)? @ -No Were any procedures done? @ -No Diagnosis/symptom? @ -Lumbar back pain Acute, or Chronic, or Acute on Chronic? @ -Acute on chronic Uncomplicated (without systemic symptoms) or Complicated (systemic symptoms)? @ -uncomplicated Side effects of treatment? @ -No Exacerbation, Progression, or Severe Exacerbation? @ -No Poses a threat to life or bodily function? How? (Chest pain, [place], [place], pneumonia, PE, COPD, DKA, ARF, appy, cholecystitis, CVA, Diverticulitis, Homicidal, Suicidal, threat to staff... and all critical care pts) @ -Unlikely Disposition Clinical Impression: Lumbar back pain Disposition: HOME SELF-CARE Condition: Good Instructions (If sedation given, give patient instructions): Acute Low Back Pain (ED) Additional Instructions: Follow-up with PCP. You may follow-up with orthopedics if needed. Report back to ER with any new or worsening symptoms. Prescriptions: Lidocaine 5% Patch [Lidoderm 5% Patch] 1 patch TOPICAL DAILY PRN #30 patch PRN Reason: Pain Is patient prescribed a controlled substance at d/c from ED?: No Referrals: Mindy Huynh MD [Primary Care Provider] - 1-2 days Johnny Alaniz DO [Doctor of Osteopathic Medicine] - 1-2 days Time of Disposition: 16:37
[2024-12-02] MEDS: LIDOCAINE 1% INJ 10MG/ML (20 ML MDV) SQ ONE (16:04)
[2024-12-02] MEDS: KETOROLAC 15 MG/ML 1 ML VIAL IM STA (16:08)
[2024-12-02] MEDS: DEXAMETHASONE SOD PHOSPHATE 10 MG/ML 1 ML VIAL IM STA (16:09)
[2024-12-02] MEDS: LIDOCAINE 4% PATCH TOPICAL ONE (16:09)
--- NOTE | 2024-12-02 16:27 | XR ---
EXAMINATION TYPE: XR lumbar spine 2 or 3V DATE OF EXAM: 12/02/2024 CLINICAL HISTORY: pain TECHNIQUE: Three views of the lumbar spine are submitted. COMPARISON: None. FINDINGS: There are 5 lumbar type vertebral bodies identified. The lumbar spine shows satisfactory alignment w ithout evidence of acute fracture or dislocation. Vertebral body heights are within normal limits. Mi ld multilevel disc space narrowing with endplate sclerosis. Multilevel facet arthropathy of the lower lumbar spine. The overlying soft tissue appears unremarkable. Atherosclerotic calcification of the a nini. IMPRESSION: 1. No acute fracture or dislocation is seen in the lumbar spine. 2. Mild multilevel degenerative disc disease and facet arthropathy. [facility], , 12/02/2024 4:24 PM
[2024-12-02 16:53] VITALS: BP 105/65; PULSE 93; RESP 18
== END 2024-12-02 16:53 | disposition home or self-care (01) ==
LOC: EC 15:32
DX: M51.369 Other intervertebral disc degeneration, lumbar region without mention of lumbar back pain or lower extremity pain (principal); F17.200 Nicotine dependence, unspecified, uncomplicated; Z88.0 Allergy status to penicillin; Z88.1 Allergy status to other antibiotic agents; Z88.2 Allergy status to sulfonamides
CPT/HCPCS: 72100; 99283; 96372 ×2; J1100; J1885

== ENCOUNTER 2025-01-12 20:22 | Observation (INO) | payer MEDICARE ==
[2025-01-12] MEDS: methylPREDNISolone SOD SUCCI 125 MG/2 ML VIAL IV STA (20:45)
[2025-01-12] MEDS: IPRATROPIUM-ALBUTEROL 3 ML NEB INHALATION STA (21:00)
[2025-01-12] MEDS: ONDANSETRON 4 MG/2 ML VIAL IVP STA (21:03)
[2025-01-12 21:14] LABS: Basophils # (A) 0.05 10*3/uL (0.00-0.10); Basophils % (A) 0.4 %; Eosinophils # (A) 1.39 10*3/uL (0.04-0.35); Eosinophils % (A) 12.4 %; HCT 45.5 % (37.2-46.3); HGB 15.2 g/dL (12.0-15.0); Lymphocytes # (A) 1.95 10*3/uL (0.90-5.00); Lymphocytes % (A) 17.3 %; MCH 31.6 pg (27.0-32.0); MCHC 33.4 g/dL (32.0-37.0); MCV 94.6 fL (80.0-97.0); Monocytes # (A) 0.83 10*3/uL (0.20-1.00); Monocytes % (A) 7.4 %; Neutrophils # (A) 6.99 10*3/uL (1.80-7.70); Neutrophils % (A) 62.2 %; Platelet Count 265 10*3/uL (140-440); RBC 4.81 10*6/uL (4.10-5.20); RDW 14.8 % (11.5-14.5); WBC 11.24 10*3/uL (4.50-10.00)
[2025-01-12] MEDS: LORazepam 1 MG/0.5 ML VIAL IV STA (21:17)
--- NOTE | 2025-01-12 21:34 | XR ---
EXAMINATION TYPE: XR chest 2V DATE OF EXAM: 01/12/2025 9:30 PM COMPARISON: Prior chest radiograph 12/31/2024. CLINICAL INDICATION: Female, 69 years old with history of difficulty breathing; [facility] TECHNIQUE: XR chest 2V Frontal and lateral views of the chest. FINDINGS: Lungs/Pleura: There is no evidence of pleural effusion, focal consolidation, or pneumothorax. Pulmonary vascularity: Unremarkable. Heart/mediastinum: Cardiomediastinal silhouette is unremarkable. Musculoskeletal: No acute osseous pathology. Other findings: None IMPRESSION: No acute cardiopulmonary disease/process. [facility], , 01/12/2025 9:32 PM
[2025-01-12 21:46] LABS: INR 1.0 (<1.2); Partial Thromboplastin Time 25.7 sec (22.0-30.0); Prothrombin Time 10.7 sec (10.0-12.5)
[2025-01-12 22:07] LABS: ALT 15 U/L (4-34); AST 21 U/L (14-36); African American GFR (CKD) 81 (>60 ml/min/1.73 sqM); Albumin 4.1 g/dL (3.5-5.0); Alkaline Phosphatase 116 U/L (38-126); Anion Gap 12 mmol/L; Blood Urea Nitrogen 21 mg/dL (7-17); Calcium 9.6 mg/dL (8.4-10.2); Carbon Dioxide 24 mmol/L (22-30); Chloride 101 mmol/L (98-107); Glucose 135 mg/dL (74-99); Magnesium 2.1 mg/dL (1.6-2.3); Non-African American GFR(CKD) 70 (>60 ml/min/1.73 sqM); Potassium 4.9 mmol/L (3.5-5.1); Sodium 137 mmol/L (137-145); Total Protein 6.6 g/dL (6.3-8.2)
[2025-01-12 22:15] LABS: NT-Pro-B-Type Natriuretic Pept 146 pg/mL
[2025-01-12] MEDS ORDERED: NALOXONE 0.4 MG/ML 1 ML VIAL IVP PRN (22:26)
[2025-01-12] MEDS ORDERED: MELATONIN 3 MG TABLET PO PRN (22:26)
[2025-01-12] MEDS ORDERED: IPRATROPIUM-ALBUTEROL 3 ML NEB INHALATION PRN (22:26)
--- NOTE | 2025-01-12 22:26 | ED ---
SOB HPI - General Chief Complaint: Shortness of Breath Stated Complaint: SOB Time Seen by Provider: 01/12/25 20:28 Source: patient, RN notes reviewed Mode of arrival: ambulatory Limitations: no limitations - History of Present Illness Initial Comments: 69-year-old female presents emergency department complaint shortness of breath. Patient states she stopped smoking 1 week ago. She had increasing cough congestion no reports of fever states she has chest tightness. No leg pain or leg swelling no change in weight states she does have a history of CHF and COPD. - Related Data Home Medications Medication Instructions Recorded Confirmed Apixaban [Eliquis] 5 mg PO BID 12/16/23 11/16/24 Docusate [Colace] 100 mg PO DAILY 12/16/23 11/16/24 Dulaglutide [Trulicity] 0.75 mg SQ WE 12/16/23 11/16/24 Gabapentin [Neurontin] 100 mg PO BID 12/16/23 11/16/24 Cyanocobalamin (Vitamin B-12) 1,000 mcg PO DAILY 03/01/24 11/16/24 [Vitamin B-12] Sacubitril/Valsartan [Entresto 24 1 tab PO BID 05/31/24 11/16/24 mg-26 mg Tablet] Albuterol Inhaler [Ventolin Hfa 2 puff INHALATION RT-Q4H PRN 11/16/24 11/16/24 Inhaler] Ondansetron [Zofran] 4 mg PO BID PRN 11/16/24 11/16/24 Previous Rx's Medication Instructions Recorded Aspirin 81 mg PO DAILY #30 tab 03/06/24 Atorvastatin [Lipitor] 80 mg PO HS #30 tab 03/06/24 Dapagliflozin Propanediol [Farxiga] 10 mg PO DAILY #30 tab 03/06/24 Metoprolol Succinate (ER) [Toprol 100 mg PO DAILY #30 tab 03/06/24 XL] Fluticasone/Umeclidin/Vilanter 1 puff INHALATION RT-DAILY #90 each 06/03/24 [Trelegy Ellipta 100-62.5-25] Cefdinir 300 mg PO Q12HR 10 Days #20 cap 11/22/24 Lidocaine 5% Patch [Lidoderm 5% 1 patch TOPICAL DAILY PRN #30 patch 12/02/24 Patch] Allergies Allergy/AdvReac Type Severity Reaction Status Date / Time clindamycin Allergy Dyspnea Verified 01/12/25 20:27 Penicillins Allergy Itching Verified 01/12/25 20:27 sulfamethoxazole Allergy Unknown Verified 01/12/25 20:27 [From Bactrim] trimethoprim [From Bactrim] Allergy Unknown Verified 01/12/25 20:27 Review of Systems ROS Statement: Those systems with pertinent positive or pertinent negative responses have been documented in the HPI. ROS Other: All systems not noted in ROS Statement are negative. Past Medical History Past Medical History: Atrial Fibrillation, COPD, Diabetes Mellitus, Hyperlipidemia, Hypertension Additional Past Medical History / Comment(s): Diabetes Type 2 History of Any Multi-Drug Resistant Organisms: None Reported, Unobtainable Past Surgical History: No Surgical Hx Reported, Cholecystectomy Additional Past Surgical History / Comment(s): D&C, two blader cancer tumors removed Past Anesthesia/Blood Transfusion Reactions: No Reported Reaction Past Psychological History: Depression, Unable to Obtain Smoking Status: Former smoker Past Alcohol Use History: None Reported Past Drug Use History: None Reported - Past Family History Mother Family Medical History: Congestive Heart Failure (CHF), Diabetes Mellitus, Deep Vein Thrombosis (DVT) General Exam Limitations: no limitations General appearance: alert, in no apparent distress Head exam: Present: atraumatic, normocephalic, normal inspection Eye exam: Present: normal appearance, PERRL, EOMI. Absent: scleral icterus, conjunctival injection, periorbital swelling ENT exam: Present: normal exam, mucous membranes moist Neck exam: Present: normal inspection, full ROM. Absent: tenderness, meningismus, lymphadenopathy Respiratory exam: Present: respiratory distress, wheezes. Absent: normal lung sounds bilaterally, rales, rhonchi, stridor Cardiovascular Exam: Present: regular rate, normal rhythm, normal heart sounds. Absent: systolic murmur, diastolic murmur, rubs, gallop, clicks Extremities exam: Absent: pedal edema Course Vital Signs 01/12/25 01/12/25 01/12/25 20:23 21:00 21:13 Temperature 97.5 F L Pulse Rate 82 84 75 Respiratory 19 Rate Blood Pressure 136/64 O2 Sat by Pulse 88 L Oximetry Medical Decision Making - Medical Decision Making Was pt. sent in by a medical professional or institution (, PA, SWIMMING POOL SALESPERSON, urgent care, hospital, or snf...) When possible be specific @ -No Did you speak to anyone other than the patient for history (EMS, parent, family, police, friend...)? What history was obtained from this source @ -No Did you review nursing and triage notes (agree or disagree)? Why? @ -I reviewed and agree with nursing and triage notes Were old charts reviewed (outside hosp., previous admission, EMS record, old EKG, old radiological studies, urgent care reports/EKG's, snf records)? Report findings @ -No old charts were reviewed Differential Diagnosis (chest pain, altered mental status, abdominal pain women, abdominal pain men, vaginal bleeding, weakness, fever, dyspnea, syncope, headache, dizziness, GI bleed, back pain, seizure, CVA, palpatations, mental health, musculoskeletal)? @ -Differential Dyspnea: Coronary syndrome, arrhythmia, tamponade, asthma, COPD, pulmonary embolism, pneumonia, pneumothorax, pulmonary effusion, anaphylaxis, diabetic ketoacidosis, flailed chest, pulmonary contusion, diaphragmatic rupture, anemia, neuromuscular, this is not meant to be an all-inclusive list. EKG interpreted by me (3pts min.). @ -As above X-rays interpreted by me (1pt min.). @ -Chest x-ray shows evidence of COPD changes no pneumonia CT interpreted by me (1pt min.). @ -None done U/S interpreted by me (1pt. min.). @ -None done What testing was considered but not performed or refused? (CT, X-rays, U/S, labs)? Why? @ -None What meds were considered but not given or refused? Why? @ -None Did you discuss the management of the patient with other professionals (professionals i.e. , PA, SWIMMING POOL SALESPERSON, lab, RT, psych nurse, social services aide, armature winder repairer, teacher, dispatch officer, case advocate)? Give summary @ -Dr. HUYNH admission Was smoking cessation discussed for >3mins.? @ -No Was critical care preformed (if so, how long)? @ -No Were there social determinants of health that impacted care today? How? (Homelessness, low income, unemployed, alcoholism, drug addiction, transportation, low edu. Level, literacy, decrease access to med. care, snf, rehab)? @ -No Was there de-escalation of care discussed even if they declined (Discuss DNR or withdrawal of care, Hospice)? DNR status @ -No What co-morbidities impacted this encounter? (DM, HTN, Smoking, COPD, CAD, Cancer, CVA, ARF, Chemo, Hep., AIDS, mental health diagnosis, sleep apnea, morbid obesity)? @ -COPD] Was patient admitted / discharged? Hospital course, mention meds given and route, prescriptions, significant lab abnormalities, going to OR and other pertinent info. @ -Admitted patient presented for increasing dyspnea, acute hypoxia COPD exacerbation. Patient given Solu-Medrol DuoNeb treatments will admit for further treatments, steroids, pulmonary evaluation. Undiagnosed new problem with uncertain prognosis? @ -No Drug Therapy requiring intensive monitoring for toxicity (Heparin, Nitro, Insulin, Cardizem)? @ -No Were any procedures done? @ -No Diagnosis/symptom? @ -Acute COPD exacerbation, hypoxia Acute, or Chronic, or Acute on Chronic? @ -Acute Uncomplicated (without systemic symptoms) or Complicated (systemic symptoms)? @ -Complicated Side effects of treatment? @ -No Exacerbation, Progression, or Severe Exacerbation? @ -Exacerbation Poses a threat to life or bodily function? How? (Chest pain, [place], [place], pneumonia, PE, COPD, DKA, ARF, appy, cholecystitis, CVA, Diverticulitis, Homicidal, Suicidal, threat to staff... and all critical care pts) @ -Yes threat to pulmonary function - Lab Data Result diagrams: 01/12/25 21:10 01/12/25 21:44 Lab Results 01/12/25 01/12/25 01/12/25 Range/Units 21:10 21:10 21:10 WBC 11.24 H (4.50-10.00) 10*3/uL RBC 4.81 (4.10-5.20) 10*6/uL Hgb 15.2 H (12.0-15.0) g/dL Hct 45.5 (37.2-46.3) % MCV 94.6 (80.0-97.0) fL MCH 31.6 (27.0-32.0) pg MCHC 33.4 (32.0-37.0) g/dL Plt Count 265 (140-440) 10*3/uL MPV 11.3 (9.5-12.2) fL Immature Gran % (Auto) 0.3 % Neutrophils % 62.2 % Lymphocytes % 17.3 % Monocytes % 7.4 % Eosinophils % 12.4 % Basophils % 0.4 % Immature Gran # 0.03 (0.00-0.04) 10*3/uL Neutrophils # 6.99 (1.80-7.70) 10*3/uL Lymphocytes # 1.95 (0.90-5.00) 10*3/uL Monocytes # 0.83 (0.20-1.00) 10*3/uL Eosinophils # 1.39 H (0.04-0.35) 10*3/uL Basophils # 0.05 (0.00-0.10) 10*3/uL PT 10.7 (10.0-12.5) sec INR 1.0 (<1.2) APTT 25.7 (22.0-30.0) sec Sodium (137-145) mmol/L Potassium (3.5-5.1) mmol/L Chloride (98-107) mmol/L Carbon Dioxide (22-30) mmol/L Anion Gap mmol/L BUN (7-17) mg/dL Creatinine (0.52-1.04) mg/dL Est GFR (CKD-EPI)AfAm (>60 ml/min/1.73 sqM) Est GFR (CKD-EPI)NonAf (>60 ml/min/1.73 sqM) Glucose (74-99) mg/dL Plasma Lactic Acid Mark 1.3 (0.7-2.0) mmol/L Calcium (8.4-10.2) mg/dL Magnesium (1.6-2.3) mg/dL Total Bilirubin (0.2-1.3) mg/dL AST (14-36) U/L ALT (4-34) U/L Alkaline Phosphatase (38-126) U/L Troponin I (0.000-0.034) ng/mL NT-Pro-B Natriuret Pep pg/mL Total Protein (6.3-8.2) g/dL Albumin (3.5-5.0) g/dL 01/12/25 01/12/25 Range/Units 21:44 21:44 WBC (4.50-10.00) 10*3/uL RBC (4.10-5.20) 10*6/uL Hgb (12.0-15.0) g/dL Hct (37.2-46.3) % MCV (80.0-97.0) fL MCH (27.0-32.0) pg MCHC (32.0-37.0) g/dL Plt Count (140-440) 10*3/uL MPV (9.5-12.2) fL Immature Gran % (Auto) % Neutrophils % % Lymphocytes % % Monocytes % % Eosinophils % % Basophils % % Immature Gran # (0.00-0.04) 10*3/uL Neutrophils # (1.80-7.70) 10*3/uL Lymphocytes # (0.90-5.00) 10*3/uL Monocytes # (0.20-1.00) 10*3/uL Eosinophils # (0.04-0.35) 10*3/uL Basophils # (0.00-0.10) 10*3/uL PT (10.0-12.5) sec INR (<1.2) APTT (22.0-30.0) sec Sodium 137 (137-145) mmol/L Potassium 4.9 (3.5-5.1) mmol/L Chloride 101 (98-107) mmol/L Carbon Dioxide 24 (22-30) mmol/L Anion Gap 12 mmol/L BUN 21 H (7-17) mg/dL Creatinine 0.85 (0.52-1.04) mg/dL Est GFR (CKD-EPI)AfAm 81 (>60 ml/min/1.73 sqM) Est GFR (CKD-EPI)NonAf 70 (>60 ml/min/1.73 sqM) Glucose 135 H (74-99) mg/dL Plasma Lactic Acid Mark (0.7-2.0) mmol/L Calcium 9.6 (8.4-10.2) mg/dL Magnesium 2.1 (1.6-2.3) mg/dL Total Bilirubin 0.7 (0.2-1.3) mg/dL AST 21 (14-36) U/L ALT 15 (4-34) U/L Alkaline Phosphatase 116 (38-126) U/L Troponin I <0.012 (0.000-0.034) ng/mL NT-Pro-B Natriuret Pep 146 pg/mL Total Protein 6.6 (6.3-8.2) g/dL Albumin 4.1 (3.5-5.0) g/dL Disposition Clinical Impression: Acute exacerbation of chronic obstructive pulmonary disease, Hypoxia Disposition: ADMITTED IP TO THIS HOSP Condition: Poor Referrals: Mindy Huynh MD [Primary Care Provider] - 1-2 days Time of Disposition: 22:26
[2025-01-13] MEDS: DOXYCYCLINE 100 MG TABLET PO SCH (00:21)
[2025-01-13] MEDS: methylPREDNISolone SOD SUCCI 125 MG/2 ML VIAL IV SCH (00:21)
[2025-01-13 06:27] LABS: Glucose,Whole Blood 231 mg/dL (70-110)
[2025-01-13] MEDS: IPRATROPIUM-ALBUTEROL 3 ML NEB INHALATION SCH (09:24)
[2025-01-13 11:08] LABS: Glucose,Whole Blood 249 mg/dL (70-110)
--- NOTE | 2025-01-13 12:31 | P.CNPUL ---
History of Present Illness Consult date: 01/13/25 Requesting physician: Luis Rosen Reason for consult: dyspnea, COPD Chief complaint: Shortness of breath History of present illness: n this is a pleasant 69-year-old female patient with a known history of atrial fibrillation anticoagulated with Eliquis, diabetes mellitus, hyperlipidemia, hypertension, chronic tobacco dependence stating quit 1 week ago, chronic obstructive pulmonary disease with an FEV1 value 41% of predicted. She follows with Dr. Malave in our office. She has been maintained on Trelegy and albuterol. She presented here to the emergency room last evening with a 1 week history of increasing shortness of breath, cough and congestion and some chest tightness. Chest x-ray revealed no acute pulmonary process. EKG revealed sinus rhythm with no significant ST or T wave abnormalities. White count 11.2. Hemoglobin 15.2. Platelets 265. Sodium 137. Potassium 4.9. Bicarb 24. BUN 21. Creatinine 0.85. Glucose 135. Troponin negative x 1. proBNP 146. She is seen today in consultation on the regular medical floor. Currently sitting up at the bedside. Awake and alert in no acute distress. Maintaining good O2 saturations in the mid 90s on 2 L/min per nasal cannula. Feeling a bit better today compared to yesterday. She has been afebrile. Hemodynamically stable. Review of Systems REVIEW OF SYSTEMS: CONSTITUTIONAL: Denies any recent significant weight loss or weight gain. EYES: Denies change in vision. EARS, NOSE, MOUTH, THROAT: Denies headaches, denies sore throat. CARDIOVASCULAR: Positive for some chest tightness, no palpitations or syncopal episodes. RESPIRATORY: Positive for shortness of breath, cough, congestion no hemoptysis. GASTROINTESTINAL: Denies change in appetite, denies abdominal pain GENITOURINARY: Denies hematuria, denies infections. MUSKULOSKELETAL: Denies pain, denies swelling. INTEGUMENTARY: Denies rash, denies eczema. NEUROLOGICAL: Denies recent memory loss, no recent seizure activity. PSYCHIATRIC: Denies anxiety, denies depression. HEMATOLOGIC/LYMPHATIC: Denies anemia, denies enlarged lymph nodes. Past Medical History Past Medical History: Atrial Fibrillation, COPD, Diabetes Mellitus, Hyperlipidemia, Hypertension Additional Past Medical History / Comment(s): Diabetes Type 2 History of Any Multi-Drug Resistant Organisms: None Reported, Unobtainable Past Surgical History: No Surgical Hx Reported, Cholecystectomy Additional Past Surgical History / Comment(s): D&C, two blader cancer tumors removed Past Anesthesia/Blood Transfusion Reactions: No Reported Reaction Past Psychological History: Depression, Unable to Obtain Smoking Status: Former smoker Past Alcohol Use History: None Reported Past Drug Use History: None Reported - Past Family History Mother Family Medical History: Congestive Heart Failure (CHF), Diabetes Mellitus, Deep Vein Thrombosis (DVT) Medications and Allergies Home Medications Medication Instructions Recorded Confirmed Type Apixaban [Eliquis] 5 mg PO BID 12/16/23 01/13/25 History Docusate [Colace] 100 mg PO DAILY 12/16/23 01/13/25 History Dulaglutide [Trulicity] 0.75 mg SQ WE 12/16/23 01/13/25 History Gabapentin [Neurontin] 100 mg PO BID 12/16/23 01/13/25 History Cyanocobalamin (Vitamin B-12) 1,000 mcg PO DAILY 03/01/24 01/13/25 History [Vitamin B-12] Aspirin 81 mg PO DAILY #30 tab 03/06/24 01/13/25 Rx Atorvastatin [Lipitor] 80 mg PO HS #30 tab 03/06/24 01/13/25 Rx Dapagliflozin Propanediol [Farxiga] 10 mg PO DAILY #30 tab 03/06/24 01/13/25 Rx Metoprolol Succinate (ER) [Toprol 100 mg PO DAILY #30 tab 03/06/24 01/13/25 Rx XL] Sacubitril/Valsartan [Entresto 24 1 tab PO BID 05/31/24 01/13/25 History mg-26 mg Tablet] Fluticasone/Umeclidin/Vilanter 1 puff INHALATION RT-DAILY #90 each 06/03/24 01/13/25 Rx [Trelegy Ellipta 100-62.5-25] Albuterol Inhaler [Ventolin Hfa 2 puff INHALATION RT-Q4H PRN 11/16/24 01/13/25 History Inhaler] Ondansetron [Zofran] 4 mg PO BID PRN 11/16/24 01/13/25 History Pantoprazole [Protonix] 40 mg PO DAILY PRN 01/13/25 01/13/25 History Vit C/E/Zn/Coppr/Lutein/Zeaxan 1 cap PO BID 01/13/25 01/13/25 History [Preservision Areds 2 Softgel] Allergies Allergy/AdvReac Type Severity Reaction Status Date / Time clindamycin Allergy Dyspnea Verified 01/13/25 07:53 Penicillins Allergy Itching Verified 01/13/25 07:53 sulfamethoxazole Allergy Unknown Verified 01/13/25 07:53 [From Bactrim] trimethoprim [From Bactrim] Allergy Unknown Verified 01/13/25 07:53 Physical Exam Vitals: Vital Signs Temp Pulse Pulse Resp BP BP Pulse Ox 01/13/25 09:37 80 01/13/25 09:27 86 90 L 01/13/25 07:55 98.5 F 91 16 99/51 96 01/13/25 00:01 97.9 F 76 18 101/63 93 L 01/12/25 22:55 97.7 F 80 18 100/52 91 L 01/12/25 21:13 75 01/12/25 21:00 84 01/12/25 20:23 97.5 F L 82 19 136/64 88 L Intake and Output 01/12/25 01/13/25 01/13/25 22:59 06:59 14:59 Other: # Voids 1 Weight 72.575 kg 72.575 kg GENERAL EXAM: Alert, active, pleasant 69-year-old female, on 2 L nasal cannula, comfortable in no apparent distress. HEAD: Normocephalic. EYES: Normal reaction of pupils, equal size. NOSE: Clear with pink turbinates. THROAT: No erythema or exudates. NECK: No masses, no JVD. CHEST: No chest wall deformity. LUNGS: Equal air entry with no crackles, wheeze, rhonchi or dullness. CVS: S1 and S2 normal with no audible murmur, regular rhythm. ABDOMEN: No hepatosplenomegaly, normal bowel sounds, no guarding or rigidity. SPINE: No scoliosis or deformity SKIN: No rashes CENTRAL NERVOUS SYSTEM: No focal deficits, tone is normal in all 4 extremities. EXTREMITIES: There is no peripheral edema. No clubbing, no cyanosis. Peripheral pulses are intact. Results - Laboratory Findings CBC and BMP: 01/12/25 21:10 01/12/25 21:44 PT/INR, D-dimer PT 10.7 sec (10.0-12.5) 01/12/25 21:10 INR 1.0 (<1.2) 01/12/25 21:10 Abnormal lab findings: Abnormal Labs 01/12/25 01/12/25 01/13/25 21:10 21:44 06:26 WBC 11.24 H Hgb 15.2 H Eosinophils # 1.39 H BUN 21 H Glucose 135 H POC Glucose (mg/dL) 231 H 01/13/25 11:06 WBC Hgb Eosinophils # BUN Glucose POC Glucose (mg/dL) 249 H - Diagnostic Findings Chest x-ray: image reviewed Assessment and Plan Assessment: Acute hypoxic respiratory failure secondary to an acute exacerbation of chronic obstructive pulmonary disease. Chest x-ray reveals no acute cardiopulmonary process History of significant chronic obstructive pulmonary disease with an FEV1 value of 41% of predicted. Maintained on Trelegy and albuterol Chronic tobacco dependence of 50 years, stating quit 1 week ago History of atrial fibrillation anticoagulated with Eliquis History of cardiomyopathy however echocardiogram from October 2024 revealed preserved left ventricular systolic function with ejection fraction 55 to 60% Diabetes mellitus, type II Hypertension Hyperlipidemia Plan: The patient was seen and evaluated Chest x-ray, labs and medications reviewed EKG reviewed Currently in sinus rhythm Anticoagulated with Eliquis Stable on 2 L nasal cannula Titrate down/off the FiO2 as tolerated Increase activity as tolerated Continue DuoNeb ventilations Continue Symbicort Continue Solu-Medrol Encouraged regarding continued smoking cessation Probable discharge in the next 24 hours We will continue to follow and make further recommendations based on her clinical status I have personally seen and examined the patient, performed the documentation and the assessment and plan as written. Number of minutes spent on the visit: 20 Dictation was produced using [employer] dictation software. Please excuse any grammatical, word or spelling errors.
[2025-01-13] MEDS: ACETAMINOPHEN TAB 325 MG TAB PO PRN (15:00)
[2025-01-13 16:33] LABS: Glucose,Whole Blood 370 mg/dL (70-110)
[2025-01-13] MEDS: INSULIN LISPRO (HumaLOG) 100 UNIT/ML 10 mL VL SQ SCH (17:22)
[2025-01-13] MEDS ORDERED: ONDANSETRON ODT 4 MG TAB PO PRN (17:42)
[2025-01-13] MEDS ORDERED: NON FORMULARY DRUG (Albuterol Inhaler 90 MCG Puff) INHALATION PRN (17:42)
[2025-01-13] MEDS ORDERED: PANTOPRAZOLE 40 MG TABLET PO PRN (17:42)
--- NOTE | 2025-01-13 17:57 | P.HPIM ---
History of Present Illness H&P Date: 01/13/25 Lacie Rubio, is a 69-year-old female who presented to [facility] emergency room with a chief complaint of worsening shortness of breath She was evaluated in the emergency room vital examination on presentation revealed a temperature of 97.5 pulse 82 respiration 19 blood pressure 136/64 pulse ox 88% on room air Laboratory data reveals a white blood count of 11.24 hemoglobin 15.2 platelet count 265 sodium 137 potassium 4.9 chloride 101 CO2 24 BUN 21 creatinine 0.85 BNP 146 troponin 0.012 Testing in the emergency room revealed chest x-ray done in the emergency room revealed no acute cardiopulmonary disease Patient was admitted to medical floor for further evaluation and treatment Past medical history is significant for history of advanced COPD, history of hypertension, history of hyperlipidemia, history of diabetes mellitus type 2, history of chronic atrial fibrillation, history of cardiac arrhythmia Past Medical History Past Medical History: Atrial Fibrillation, COPD, Diabetes Mellitus, Hyperlipidemia, Hypertension Additional Past Medical History / Comment(s): Diabetes Type 2 History of Any Multi-Drug Resistant Organisms: None Reported, Unobtainable Past Surgical History: No Surgical Hx Reported, Cholecystectomy Additional Past Surgical History / Comment(s): D&C, two blader cancer tumors removed Past Anesthesia/Blood Transfusion Reactions: No Reported Reaction Past Psychological History: Depression, Unable to Obtain Smoking Status: Former smoker Past Alcohol Use History: None Reported Past Drug Use History: None Reported - Past Family History Mother Family Medical History: Congestive Heart Failure (CHF), Diabetes Mellitus, Deep Vein Thrombosis (DVT) Medications and Allergies Home Medications Medication Instructions Recorded Confirmed Type Apixaban [Eliquis] 5 mg PO BID 12/16/23 01/13/25 History Docusate [Colace] 100 mg PO DAILY 12/16/23 01/13/25 History Dulaglutide [Trulicity] 0.75 mg SQ WE 12/16/23 01/13/25 History Gabapentin [Neurontin] 100 mg PO BID 12/16/23 01/13/25 History Cyanocobalamin (Vitamin B-12) 1,000 mcg PO DAILY 03/01/24 01/13/25 History [Vitamin B-12] Aspirin 81 mg PO DAILY #30 tab 03/06/24 01/13/25 Rx Atorvastatin [Lipitor] 80 mg PO HS #30 tab 03/06/24 01/13/25 Rx Dapagliflozin Propanediol [Farxiga] 10 mg PO DAILY #30 tab 03/06/24 01/13/25 Rx Metoprolol Succinate (ER) [Toprol 100 mg PO DAILY #30 tab 03/06/24 01/13/25 Rx XL] Sacubitril/Valsartan [Entresto 24 1 tab PO BID 05/31/24 01/13/25 History mg-26 mg Tablet] Fluticasone/Umeclidin/Vilanter 1 puff INHALATION RT-DAILY #90 each 06/03/24 01/13/25 Rx [Trelegy Ellipta 100-62.5-25] Albuterol Inhaler [Ventolin Hfa 2 puff INHALATION RT-Q4H PRN 11/16/24 01/13/25 History Inhaler] Ondansetron [Zofran] 4 mg PO BID PRN 11/16/24 01/13/25 History Pantoprazole [Protonix] 40 mg PO DAILY PRN 01/13/25 01/13/25 History Vit C/E/Zn/Coppr/Lutein/Zeaxan 1 cap PO BID 01/13/25 01/13/25 History [Preservision Areds 2 Softgel] Allergies Allergy/AdvReac Type Severity Reaction Status Date / Time clindamycin Allergy Dyspnea Verified 01/13/25 07:53 Penicillins Allergy Itching Verified 01/13/25 07:53 sulfamethoxazole Allergy Unknown Verified 01/13/25 07:53 [From Bactrim] trimethoprim [From Bactrim] Allergy Unknown Verified 01/13/25 07:53 Physical Exam Vitals: Vital Signs Temp Pulse Pulse Resp BP BP Pulse Ox 01/13/25 12:47 86 01/13/25 12:37 82 01/13/25 09:37 80 01/13/25 09:27 86 90 L 01/13/25 07:55 98.5 F 91 16 99/51 96 01/13/25 00:01 97.9 F 76 18 101/63 93 L 01/12/25 22:55 97.7 F 80 18 100/52 91 L 01/12/25 21:13 75 01/12/25 21:00 84 01/12/25 20:23 97.5 F L 82 19 136/64 88 L Intake and Output 01/12/25 01/13/25 01/13/25 22:59 06:59 14:59 Other: # Voids 1 Weight 72.575 kg 72.575 kg In general patient is alert and oriented x 3 in no distress HEENT head normocephalic and atraumatic Neck is supple no JVD no goiter no lymphadenopathy no carotid bruit Chest examination is clear to auscultation no crackles no wheezing Cardiac exam reveals regular heart sounds S1 and S2 no gallops no murmurs Abdomen is soft nontender no organomegaly with normal bowel sounds Extremity exam reveals no edema no cyanosis or clubbing Neurological examination reveals no gross focal deficits Results CBC & Chem 7: 01/12/25 21:10 01/12/25 21:44 Labs: Abnormal Lab Results - Last 24 Hours (Table) 01/12/25 01/12/25 01/13/25 Range/Units 21:10 21:44 06:26 WBC 11.24 H (4.50-10.00) 10*3/uL Hgb 15.2 H (12.0-15.0) g/dL Eosinophils # 1.39 H (0.04-0.35) 10*3/uL BUN 21 H (7-17) mg/dL Glucose 135 H (74-99) mg/dL POC Glucose (mg/dL) 231 H (70-110) mg/dL 01/13/25 Range/Units 11:06 WBC (4.50-10.00) 10*3/uL Hgb (12.0-15.0) g/dL Eosinophils # (0.04-0.35) 10*3/uL BUN (7-17) mg/dL Glucose (74-99) mg/dL POC Glucose (mg/dL) 249 H (70-110) mg/dL Thrombosis Risk Factor Assmnt - Choose All That Apply Any of the Below Risk Factors Present?: Yes Each Factor Represents 1 point: Abnormal pulmonary function (COPD), Obesity (BMI >25) Other Risk Factors: Yes Each Risk Factor Represents 2 Points: Age 61-74 years Other congenital or acquired thrombophilia - If yes, enter type in comment: No Thrombosis Risk Factor Assessment Total Risk Factor Score: 4 Thrombosis Risk Factor Assessment Level: Moderate Risk Assessment and Plan Plan: Acute exacerbation of chronic obstructive pulmonary disease Acute hypoxic respiratory failure Underlying history of atrial fibrillation Underlying history of diabetes mellitus type 2 Underlying history of hypertension Underlying history of hyperlipidemia Chronic tobacco use patient stated that she quit last week At this time patient was seen and examined, home medications reviewed and reordered Pulmonary consultation requested Patient was started on inhaled bronchodilators, IV Solu-Medrol, and oral antibiotics in the emergency room, will continue at this time For DVT prophylaxis continue with Eliquis
[2025-01-13] MEDS: SYMBICORT 160-4.5 MCG INHALER INHALATION SCH (20:24)
[2025-01-13 20:36] LABS: Glucose,Whole Blood 312 mg/dL (70-110)
[2025-01-13] MEDS: GABAPENTIN 100 MG CAP PO SCH (21:15)
[2025-01-13] MEDS: SACUBITRIL/VALSARTAN 24 MG-26 MG TABLET PO SCH (21:15)
[2025-01-13] MEDS: APIXABAN 5 MG TAB PO SCH (21:15)
[2025-01-13] MEDS: VIT A,C & E-LUTEIN-MINERALS 1 EACH TAB PO SCH (21:15)
[2025-01-13] MEDS: ATORVASTATIN 80 MG TAB PO SCH (21:15)
[2025-01-13] MEDS: ALPRAZolam 0.25 MG TAB PO PRN (21:26)
[2025-01-14 06:27] LABS: Glucose,Whole Blood 280 mg/dL (70-110)
[2025-01-14] MEDS ORDERED: NON FORMULARY DRUG (Fluticasone/Umeclidin/Vilanter [Trelegy Ellipta 100-62.5-25] 1 EACH Bl INHALATION SCH (08:00)
[2025-01-14 08:06] VITALS: RESP 17
[2025-01-14 08:08] LABS: Basophils # (A) 0.05 X 10*3/uL (0.00-0.10); Basophils % (A) 0.3 %; Eosinophils # (A) 0 X 10*3/uL (0.04-0.35); Eosinophils % (A) 0 %; HCT 44.0 % (37.2-46.3); HGB 14.2 g/dL (12.0-15.0); Immature Grans, Automated 0.80 %; Lymphocytes # (A) 0.62 X 10*3/uL (0.90-5.00); Lymphocytes % (A) 3.2 %; MCH 31.2 pg (27.0-32.0); MCHC 32.3 g/dL (32.0-37.0); MCV 96.7 FL (80.0-97.0); Monocytes # (A) 0.69 X 10*3/uL (0.20-1.00); Monocytes % (A) 3.6 %; NRBC Per 100 WBC 0 X 10*3/uL (0.00-0.01); Neutrophils # (A) 17.79 X 10*3/uL (1.80-7.70); Neutrophils % (A) 92.1 %; Platelet Count 261 X 10*3/uL (140-440); RBC 4.55 X 10*6/uL (4.10-5.20); RDW 15.0 % (11.5-14.5); WBC 19.31 X 10*3/uL (4.50-10.00)
[2025-01-14] MEDS: CYANOCOBALAMIN 500 MCG TAB PO SCH (08:16)
[2025-01-14] MEDS: DOCUSATE 100 MG CAP PO SCH (08:16)
[2025-01-14] MEDS: ASPIRIN 81 MG PO SCH (08:16)
[2025-01-14] MEDS: DAPAGLIFLOZIN PROPANEDIOL 10 MG TABLET PO SCH (08:16)
[2025-01-14 08:34] LABS: ALT 14 U/L (8-44); AST 13 U/L (13-35); Albumin 3.8 g/dL (3.8-4.9); Albumin/Globulin Ratio 1.90 Ratio (1.60-3.17); Alkaline Phosphatase 113 U/L (41-126); Anion Gap 12.70 mmol/L (4.00-12.00); BUN/Creat Ratio 30.36 Ratio (12.00-20.00); Blood Urea Nitrogen 33.4 mg/dL (9.0-27.0); Calcium 9.4 mg/dL (8.7-10.3); Carbon Dioxide 25.3 mmol/L (21.6-31.8); Chloride 98 mmol/L (96-109); Globulin 2.0 g/dL (1.6-3.3); Glucose 349 mg/dL (70-110); Potassium 4.6 mmol/L (3.5-5.5); Sodium 136 mmol/L (135-145); Total Protein 5.8 g/dL (6.2-8.2)
[2025-01-14] MEDS: METOPROLOL SUCCINATE (ER) 100 MG TAB.ER.24H PO SCH (10:55)
[2025-01-14 11:38] LABS: Glucose,Whole Blood 317 mg/dL (70-110)
--- NOTE | 2025-01-14 12:48 | P.PN ---
Subjective Progress Note Date: 01/14/25 This is a pleasant 69-year-old female patient with a known history of atrial fibrillation anticoagulated with Eliquis, diabetes mellitus, hyperlipidemia, hypertension, chronic tobacco dependence stating quit 1 week ago, chronic obstructive pulmonary disease with an FEV1 value 41% of predicted. She follows with Dr. Malave in our office. She has been maintained on Trelegy and albuterol. She presented here to the emergency room last evening with a 1 week history of increasing shortness of breath, cough and congestion and some chest tightness. Chest x-ray revealed no acute pulmonary process. EKG revealed sinus rhythm with no significant ST or T wave abnormalities. White count 11.2. Hemoglobin 15.2. Platelets 265. Sodium 137. Potassium 4.9. Bicarb 24. BUN 21. Creatinine 0.85. Glucose 135. Troponin negative x 1. proBNP 146. She is seen today in consultation on the regular medical floor. Currently sitting up at the bedside. Awake and alert in no acute distress. Maintaining good O2 saturations in the mid 90s on 2 L/min per nasal cannula. Feeling a bit better today compared to yesterday. She has been afebrile. Hemodynamically stable. The patient is seen today January 14, 2025 in follow-up on the regular medical floor. She is awake and alert in no acute distress. She has been up ambulating in her room. She denies any worsening shortness of breath, cough or congestion. She has been maintaining good O2 saturations in the 90s on 2 L/min per nasal cannula. She is feeling better today compared to yesterday.White count 19.3. Hemoglobin 14.2. Platelets 261. Sodium 136. Potassium 4.6. Bicarb 25. BUN 33. Creatinine 1.1. Glucose 280. She is continued on DuoNeb inhalations, Symbicort, Solu-Medrol. Anticoagulated with Eliquis. Empiric antibiotics in th e form of doxycycline. Objective - Vital Signs Vital signs: Vital Signs Temp 97.9 F 01/14/25 07:25 Pulse 82 01/14/25 10:50 Resp 17 01/14/25 07:25 BP 116/72 01/14/25 10:50 Pulse Ox 98 01/14/25 10:50 FiO2 Intake & Output 01/13/25 01/14/25 01/14/25 18:59 06:59 18:59 Other: # Voids 3 1 - Exam GENERAL EXAM: Alert, active, pleasant 69-year-old female, on 2 L nasal cannula, comfortable in no apparent distress. HEAD: Normocephalic. EYES: Normal reaction of pupils, equal size. NOSE: Clear with pink turbinates. THROAT: No erythema or exudates. NECK: No masses, no JVD. CHEST: No chest wall deformity. LUNGS: Equal air entry with no crackles, wheeze, rhonchi or dullness. CVS: S1 and S2 normal with no audible murmur, regular rhythm. ABDOMEN: No hepatosplenomegaly, normal bowel sounds, no guarding or rigidity. SPINE: No scoliosis or deformity SKIN: No rashes CENTRAL NERVOUS SYSTEM: No focal deficits, tone is normal in all 4 extremities. EXTREMITIES: There is no peripheral edema. No clubbing, no cyanosis. Peripheral pulses are intact. - Labs CBC & Chem 7: 01/14/25 03:36 01/14/25 03:36 Labs: Abnormal Lab Results - Last 24 Hours (Table) 01/13/25 01/13/25 01/14/25 Range/Units 16:31 20:31 03:36 WBC 19.31 H (4.50-10.00) X 10*3/uL RDW 15.0 H (11.5-14.5) % Immature Gran # 0.16 H (0.00-0.04) X 10*3/uL Neutrophils # 17.79 H (1.80-7.70) X 10*3/uL Lymphocytes # 0.62 L (0.90-5.00) X 10*3/uL Eosinophils # 0 L (0.04-0.35) X 10*3/uL Anion Gap (4.00-12.00) mmol/L BUN (9.0-27.0) mg/dL Est GFR (CKD-EPI) (>=60) BUN/Creatinine Ratio (12.00-20.00) Ratio Glucose (70-110) mg/dL POC Glucose (mg/dL) 370 H 312 H (70-110) mg/dL Total Bilirubin (0.3-1.2) mg/dL Total Protein (6.2-8.2) g/dL 01/14/25 01/14/25 01/14/25 Range/Units 03:36 06:26 11:37 WBC (4.50-10.00) X 10*3/uL RDW (11.5-14.5) % Immature Gran # (0.00-0.04) X 10*3/uL Neutrophils # (1.80-7.70) X 10*3/uL Lymphocytes # (0.90-5.00) X 10*3/uL Eosinophils # (0.04-0.35) X 10*3/uL Anion Gap 12.70 H (4.00-12.00) mmol/L BUN 33.4 H (9.0-27.0) mg/dL Est GFR (CKD-EPI) 54 L (>=60) BUN/Creatinine Ratio 30.36 H (12.00-20.00) Ratio Glucose 349 H (70-110) mg/dL POC Glucose (mg/dL) 280 H 317 H (70-110) mg/dL Total Bilirubin 0.2 L (0.3-1.2) mg/dL Total Protein 5.8 L (6.2-8.2) g/dL Assessment and Plan Assessment: Acute hypoxic respiratory failure secondary to an acute exacerbation of chronic obstructive pulmonary disease. Chest x-ray reveals no acute cardiopulmonary process History of significant chronic obstructive pulmonary disease with an FEV1 value of 41% of predicted. Maintained on Trelegy and albuterol Chronic tobacco dependence of 50 years, stating quit 1 week ago History of atrial fibrillation anticoagulated with Eliquis History of cardiomyopathy however echocardiogram from October 2024 revealed preserved left ventricular systolic function with ejection fraction 55 to 60% Diabetes mellitus, type II Hypertension Hyperlipidemia Plan: The patient was seen and evaluated Labs and medications reviewed Anticoagulated with Eliquis Stable on 2 L nasal cannula Titrate down/off the FiO2 as tolerated Increase activity as tolerated Continue DuoNeb inhalations Continue Symbicort Discontinue Solu-Medrol Initiate a prednisone taper Cleared for discharge Educated regarding continued smoking cessation Follow-up in our office in 1 week I have personally seen and examined the patient, performed the documentation and the assessment and plan as written. Number of minutes spent on the visit: 10 Dictation was produced using [employer] dictation software. Please excuse any grammatical, word or spelling errors.
--- NOTE | 2025-01-14 13:37 | P.DS ---
Providers Date of admission: 01/12/25 22:32 Expected date of discharge: 01/14/25 Attending physician: Mindy Huynh Consults: 01/12/25 22:26 Consult Physician Routine Consulting Provider: Alcides Vasquez Consult Reason/Comments: COPD Do you want consulting provider notified?: Yes Primary care physician: Mindy Huynh [facility] Course: Discharge diagnosis Acute exacerbation of chronic obstructive pulmonary disease Acute hypoxic respiratory failure Underlying history of atrial fibrillation Underlying history of diabetes mellitus type 2 Underlying history of hypertension Underlying history of hyperlipidemia Chronic tobacco use patient stated that she quit last week Hospital course Lacie Rubio, is a 69-year-old female who presented to [facility] emergency room with a chief complaint of worsening shortness of breath She was evaluated in the emergency room vital examination on presentation revealed a temperature of 97.5 pulse 82 respiration 19 blood pressure 136/64 pulse ox 88% on room air Laboratory data reveals a white blood count of 11.24 hemoglobin 15.2 platelet count 265 sodium 137 potassium 4.9 chloride 101 CO2 24 BUN 21 creatinine 0.85 BNP 146 troponin 0.012 Testing in the emergency room revealed chest x-ray done in the emergency room revealed no acute cardiopulmonary disease Patient was admitted to medical floor for further evaluation and treatment Past medical history is significant for history of advanced COPD, history of hypertension, history of hyperlipidemia, history of diabetes mellitus type 2, history of chronic atrial fibrillation, history of cardiac arrhythmia On 01/14/2025 patient is alert and oriented x 3. Pulmonary has cleared patient for discharge patient will be DC'd on prednisone taper and follow-up with PCP and consulting providers for further management. Patient having significant improvement with expiratory wheezing. Patient denies chest pain. Patient de nies nausea vomiting or diarrhea. Patient denies any urinary burning or frequency Patient Condition at Discharge: Stable Plan - Discharge Summary Discharge Rx Participant: Yes New Discharge Prescriptions: New Melatonin 3 mg PO HS PRN 30 Days #30 tab PRN Reason: Insomnia predniSONE 10 mg PO DIRECTED 12 Days #30 tab Continue Gabapentin [Neurontin] 100 mg PO BID Dulaglutide [Trulicity] 0.75 mg SQ WE Docusate [Colace] 100 mg PO DAILY Cyanocobalamin (Vitamin B-12) [Vitamin B-12] 1,000 mcg PO DAILY Aspirin 81 mg PO DAILY #30 tab Dapagliflozin Propanediol [Farxiga] 10 mg PO DAILY #30 tab Fluticasone/Umeclidin/Vilanter [Trelegy Ellipta 100-62.5-25] 1 puff INHALATION RT-DAILY #90 each Albuterol Inhaler [Ventolin Hfa Inhaler] 2 puff INHALATION RT-Q4H PRN PRN Reason: Shortness Of Breath Pantoprazole [Protonix] 40 mg PO DAILY PRN PRN Reason: Gi Upset Apixaban [Eliquis] 5 mg PO BID Atorvastatin [Lipitor] 80 mg PO HS #30 tab Metoprolol Succinate (ER) [Toprol XL] 100 mg PO DAILY #30 tab Sacubitril/Valsartan [Entresto 24 mg-26 mg Tablet] 1 tab PO BID Ondansetron [Zofran] 4 mg PO BID PRN PRN Reason: Nausea Vit C/E/Zn/Coppr/Lutein/Zeaxan [Preservision Areds 2 Softgel] 1 cap PO BID Discharge Medication List Apixaban [Eliquis] 5 mg PO BID 12/16/23 [History] Docusate [Colace] 100 mg PO DAILY 12/16/23 [History] Dulaglutide [Trulicity] 0.75 mg SQ WE 12/16/23 [History] Gabapentin [Neurontin] 100 mg PO BID 12/16/23 [History] Cyanocobalamin (Vitamin B-12) [Vitamin B-12] 1,000 mcg PO DAILY 03/01/24 [History] Aspirin 81 mg PO DAILY #30 tab 03/06/24 [Rx] Atorvastatin [Lipitor] 80 mg PO HS #30 tab 03/06/24 [Rx] Dapagliflozin Propanediol [Farxiga] 10 mg PO DAILY #30 tab 03/06/24 [Rx] Metoprolol Succinate (ER) [Toprol XL] 100 mg PO DAILY #30 tab 03/06/24 [Rx] Sacubitril/Valsartan [Entresto 24 mg-26 mg Tablet] 1 tab PO BID 05/31/24 [History] Fluticasone/Umeclidin/Vilanter [Trelegy Ellipta 100-62.5-25] 1 puff INHALATION RT-DAILY #90 each 06/03/24 [Rx] Albuterol Inhaler [Ventolin Hfa Inhaler] 2 puff INHALATION RT-Q4H PRN 11/16/24 [History] Ondansetron [Zofran] 4 mg PO BID PRN 11/16/24 [History] Pantoprazole [Protonix] 40 mg PO DAILY PRN 01/13/25 [History] Vit C/E/Zn/Coppr/Lutein/Zeaxan [Preservision Areds 2 Softgel] 1 cap PO BID 01/13/25 [History] Melatonin 3 mg PO HS PRN 30 Days #30 tab 01/14/25 [Rx] predniSONE 10 mg PO DIRECTED 12 Days #30 tab 01/14/25 [Rx] Follow up Appointment(s)/Referral(s): Erick Malave MD [STAFF PHYSICIAN] - 1 Week Mindy Huynh MD [Primary Care Provider] - 1-2 days Discharge Disposition: HOME SELF-CARE
[2025-01-14 15:33] VITALS: BP 96/64; TEMP 97.7
[2025-01-14 16:38] VITALS: PULSE 84
[2025-01-14 17:05] LABS: Glucose,Whole Blood 280 mg/dL (70-110)
[2025-01-15] MEDS ORDERED: NON FORMULARY DRUG (Dulaglutide [Trulicity] 0.75 MG/0.5 ML Each) SQ SCH (09:00)
[2025-01-15] MEDS ORDERED: predniSONE 20 MG TAB PO SCH (09:00)
== END 2025-01-14 17:10 | disposition home or self-care (01) ==
LOC: EC 20:22 → INTOOBSV 22:32 → 4SSUR 22:32
PROVIDERS: ADMIT Internal Medicine; ATTEND Internal Medicine
DX: J44.1 Chronic obstructive pulmonary disease with (acute) exacerbation (principal); J96.01 Acute respiratory failure with hypoxia; I48.20 Chronic atrial fibrillation, unspecified; E11.9 Type 2 diabetes mellitus without complications; I42.9 Cardiomyopathy, unspecified; E78.5 Hyperlipidemia, unspecified; I10 Essential (primary) hypertension; E66.9 Obesity, unspecified; Z68.25 Body mass index [BMI] 25.0-25.9, adult; F17.200 Nicotine dependence, unspecified, uncomplicated; Z79.01 Long term (current) use of anticoagulants; Z79.85 Long-term (current) use of injectable non-insulin antidiabetic drugs; Z79.82 Long term (current) use of aspirin; Z79.84 Long term (current) use of oral hypoglycemic drugs; Z79.51 Long term (current) use of inhaled steroids; Z88.0 Allergy status to penicillin; Z88.1 Allergy status to other antibiotic agents; Z88.2 Allergy status to sulfonamides; Z79.899 Other long term (current) drug therapy
CPT/HCPCS: 96376 ×2; 96374; 96375; 99285; 36415; 94640 ×5; 94760; 93005; 83880; 80053 ×2; 83605; 83735; 84484; 85025 ×2; 85610; 85730; 71046; G0378 ×2; J2060; J2405; J2919 ×3